=== PATIENT | male | born 1955 | race Caucasian/White ===

== ENCOUNTER 2019-10-16 20:09 | Emergency (ER) | payer SELFPAY ==
[~2019-10-16] VITALS: Ht 170.2 cm; Wt 86.2 kg
[~2019-10-16 20:09] MED LIST: LEVO150T10 PO
[2019-10-16] MEDS ORDERED: ONDANSETRON HCL 4 MG/2 ML VIAL IV ONE (23:00)
[2019-10-16] MEDS ORDERED: SODIUM CHLORIDE 0.9% 1,000 ML IV ONE (23:00)
[2019-10-16] MEDS ORDERED: MORPHINE SULFATE 4 MG/ML SYR/VIAL IV ONE (23:00)
[2019-10-17] VITALS: BP 146/92
[2019-10-17 01:14] LABS: Basophils # (auto) 0.1 uL; Basophils % (auto) 0.7 % (0.0-2.0); Eosinophils # (auto) 0.1 uL; Eosinophils % (auto) 0.7 % (0.0-7.0); Hemoglobin 15.5 g/dL (13.5-17.5); Lymphocytes % (auto) 15.3 % (10.0-50.0); Mean Corpuscular Hemoglobin 32.2 pg (28.0-32.0); Mean Corpuscular Hgb Conc. 33.8 g/dL (32.0-36.0); Mean Corpuscular Volume 95.5 fL (80.0-100.0); Monocytes # (auto) 0.8 uL; Monocytes % (auto) 6.1 % (0.0-12.0); Neutrophils # (auto) 10.1 uL; Neutrophils % (auto) 77.2 % (37.0-80.0); Platelet Count (auto) 290 10^3/uL (140-450); Red Blood Cells 4.82 10^6/uL (4.5-5.90); Red Cell Distribution Width 14.2 % (11.8-14.3); White Blood Cell 13.1 10^3/uL (4.4-10.8)
[2019-10-17 01:29] LABS: Urine Bacteria FEW /hpf (None Seen); Urine Blood Negative /uL (Negative); Urine Mucus FEW (None Seen); Urine Specific Gravity 1.022 (1.001-1.035); Urine WBC 5 /hpf (0 - 3)
[2019-10-17 01:34] LABS: Albumin 3.6 g/dL (3.4-5.0); BUN/Creatinine Ratio 10.1; Calcium 8.1 mg/dL (8.5-10.1); Magnesium 2.2 mg/dL (1.6-2.6); Potassium 4.1 mmol/L (3.5-5.1)
[2019-10-17 01:37] LABS: Bilirubin, Total 1.2 mg/dL (0.2-1.0); Total Protein 7.2 g/dL (6.4-8.2)
== END 2019-10-17 02:23 | disposition home or self-care (01) ==
LOC: EDBD 20:09 → ER 20:10
DX: K29.00 Acute gastritis without bleeding (principal); K57.30 Diverticulosis of large intestine without perforation or abscess without bleeding; E07.9 Disorder of thyroid, unspecified; F17.210 Nicotine dependence, cigarettes, uncomplicated
CPT/HCPCS: 36415; 74176; 80053; 81001; 82150; 83690; 83735; 84443; 85025; 96360

== ENCOUNTER 2021-08-13 07:23 | Emergency (ER) | payer MEDICAID ==
[~2021-08-13] VITALS: Ht 172.7 cm; Wt 88.5 kg
[2021-08-13 07:54] VITALS: BP 136/80
== END 2021-08-13 08:04 | disposition home or self-care (01) ==
LOC: ER 07:23
DX: E03.9 Hypothyroidism, unspecified (principal); Z87.438 Personal history of other diseases of male genital organs; Z76.0 Encounter for issue of repeat prescription; Z87.891 Personal history of nicotine dependence; Z79.899 Other long term (current) drug therapy

== ENCOUNTER 2021-09-07 00:34 | Emergency (ER) | payer MEDICAID ==
[~2021-09-07] VITALS: Ht 175.3 cm; Wt 88.5 kg
[2021-09-07 02:54] VITALS: BP 145/89
== END 2021-09-07 02:58 | disposition home or self-care (01) ==
LOC: ER 00:34
DX: E03.9 Hypothyroidism, unspecified (principal); Z87.438 Personal history of other diseases of male genital organs; Z76.0 Encounter for issue of repeat prescription; Z87.891 Personal history of nicotine dependence; Z79.899 Other long term (current) drug therapy

== ENCOUNTER 2022-03-02 08:37 | Inpatient (IN) | payer MEDICARE, MEDICAID ==
[~2022-03-02] VITALS: Ht 172.7 cm; Wt 93.4 kg
[2022-03-02 09:42] LABS: Basophils # (auto) 0.1 10 ^3/uL (0-0.2); Eosinophils # (auto) 0.5 10 ^3/uL (0-0.8); Lymphocytes # (auto) 2.1 10 ^3/uL (0.4-5.4); Monocytes # (auto) 1.4 10 ^3/uL (0-1.3); Neutrophils # (auto) 11.6 10 ^3/uL (1.6-8.6); Red Blood Cells 3.37 10^6/uL (4.5-5.90)
[2022-03-02 09:44] LABS: Basophils % (auto) 0.8 % (0.0-2.0); Hemoglobin 10.5 g/dL (13.5-17.5); Lymphocytes % (auto) 13.1 % (10.0-50.0); Mean Corpuscular Hemoglobin 31.1 pg (28.0-32.0); Mean Corpuscular Hgb Conc. 33.9 g/dL (32.0-36.0); Mean Corpuscular Volume 91.9 fL (80.0-100.0); Monocytes % (auto) 8.9 % (0.0-12.0); Neutrophils % (auto) 74.2 % (37.0-80.0); White Blood Cell 15.7 10^3/uL (4.4-10.8)
[2022-03-02 10:06] LABS: Albumin 2.8 g/dL (3.4-5.0); Calcium 8.7 mg/dL (8.5-10.1); Potassium 4.1 mmol/L (3.5-5.1)
[2022-03-02 10:08] LABS: Bilirubin, Total 0.4 mg/dL (0.2-1.0); Total Protein 7.1 g/dL (6.4-8.2)
[2022-03-02] MEDS ORDERED: cefTRIAXone 1GM/50ML D5W 50 ML IV ONE (12:00)
[2022-03-02] MEDS ORDERED: FUROSEMIDE 40 MG/4 ML VIAL IV ONE (12:00)
[2022-03-02] MEDS ORDERED: ENOXAPARIN SOD 100 MG/1 ML SYRINGE SC ONE (12:00)
[2022-03-02 12:31] LABS: Urine Bacteria None Seen /hpf (None Seen)
[2022-03-02 16:32] LABS: Urine Blood Negative /uL (Negative)
[2022-03-02 16:33] LABS: Urine WBC 0-3 /hpf (0 - 3)
[2022-03-02] MEDS ORDERED: NITROGLYCERIN 0.2MG/HR TOPICAL PATCH TD ONE (17:45)
[2022-03-02] MEDS ORDERED: MORPHINE SULFATE INJECTION 2 MG/ML SYRG IV PRN (17:45)
[2022-03-02] MEDS ORDERED: NITROGLYCERIN 0.4 MG SL TAB SL PRN (17:45)
[2022-03-02] MEDS ORDERED: NICOTINE 21MG/24 HR TOPICAL PATCH TD ONE (17:45)
[2022-03-02] MEDS ORDERED: hydrALAZINE HCL 20 MG/ML VL IV PRN (18:00)
[2022-03-02] MEDS: FUROSEMIDE 40 MG/4 ML VIAL IV SCH (18:34)
[2022-03-02 18:47] LABS: Cholesterol 106 mg/dL (< 200)
[2022-03-02 18:48] LABS: HDL Cholesterol 30 mg/dL (40-59); LDL Cholesterol 68 mg/dL (< 100); Triglycerides 89 mg/dL (< 150)
[2022-03-02] MEDS ORDERED: CIPROFLOXACIN 400MG/200ML 200 ML IV SCH (22:00)
[2022-03-02] MEDS: HEPARIN SODIUM (PORCINE) 5000 UNITS/ML 1ML VIAL SC SCH (22:09)
[2022-03-03 04:41] VITALS: BP 148/68
[2022-03-03] MEDS: FUROSEMIDE 40 MG/4 ML VIAL IV SCH (05:51)
[2022-03-03] MEDS: HEPARIN SODIUM (PORCINE) 5000 UNITS/ML 1ML VIAL SC SCH (05:51)
[2022-03-03 06:19] LABS: Albumin 2.4 g/dL (3.4-5.0); Calcium 8.2 mg/dL (8.5-10.1); Potassium 4.2 mmol/L (3.5-5.1)
[2022-03-03 06:20] LABS: BUN/Creatinine Ratio 10.3
[2022-03-03 06:23] LABS: Bilirubin, Total 0.4 mg/dL (0.2-1.0); Total Protein 6.2 g/dL (6.4-8.2)
[2022-03-03 06:32] LABS: Basophils # (auto) 0.1 10 ^3/uL (0-0.2); Hematocrit 27.9 % (41.0-53.0); Red Cell Distribution Width 14.4 % (11.8-14.3)
[2022-03-03 06:37] LABS: Eosinophils # (auto) 0.3 10 ^3/uL (0-0.8); Eosinophils % (auto) 2.4 % (0.0-7.0); Hemoglobin 9.7 g/dL (13.5-17.5); Lymphocytes % (auto) 14.2 % (10.0-50.0); Mean Corpuscular Hgb Conc. 34.8 g/dL (32.0-36.0); Monocytes # (auto) 1.6 10 ^3/uL (0-1.3); Neutrophils # (auto) 10.2 10 ^3/uL (1.6-8.6); Neutrophils % (auto) 71.4 % (37.0-80.0); Nucleated Red Blood Cells % 0.1 %; Red Blood Cells 3.03 10^6/uL (4.5-5.90); White Blood Cell 14.3 10^3/uL (4.4-10.8)
[2022-03-03 08:30] VITALS: BP 138/93
[2022-03-03] MEDS ORDERED: HEPARIN SODIUM (PORCINE) 5000 UNITS/ML 1ML VIAL SC SCH (10:00)
[2022-03-03] MEDS ORDERED: NICOTINE 21MG/24 HR TOPICAL PATCH TD SCH (10:00)
[2022-03-03] MEDS ORDERED: ACETAMINOPHEN 325 MG TAB PO PRN (11:45)
[2022-03-03] MEDS ORDERED: LEVOTHYROXINE SODIUM 100 MCG/5 ML INJ IV ONE (12:00)
[2022-03-03 12:30] VITALS: BP 137/95
[2022-03-03 12:50] LABS: Protein, Urine 17.3 mg/dL (0.0-11.9)
[2022-03-03] MEDS ORDERED: TAMSULOSIN HYDROCHLORIDE 0.4 MG CAP PO SCH (18:00)
[2022-03-04] MEDS ORDERED: LEVOTHYROXINE SODIUM 100 MCG/5 ML INJ IV SCH (10:00)
== END 2022-03-03 13:50 | disposition left against medical advice (07) | DRG 280 ==
LOC: ER 08:37 → TELE 17:34 → TELE-EAST 19:52
PROVIDERS: ADMIT Registered Nurse; ATTEND Internal Medicine
DX: I50.41 Acute combined systolic (congestive) and diastolic (congestive) heart failure (principal); I21.A1 Myocardial infarction type 2; J96.00 Acute respiratory failure, unspecified whether with hypoxia or hypercapnia; N17.9 Acute kidney failure, unspecified; N13.6 Pyonephrosis; E03.9 Hypothyroidism, unspecified; D63.8 Anemia in other chronic diseases classified elsewhere; Z20.822 Contact with and (suspected) exposure to COVID-19; E88.09 Other disorders of plasma-protein metabolism, not elsewhere classified; Z53.29 Procedure and treatment not carried out because of patient's decision for other reasons; F17.210 Nicotine dependence, cigarettes, uncomplicated; J84.10 Pulmonary fibrosis, unspecified; R79.89 Other specified abnormal findings of blood chemistry; J44.9 Chronic obstructive pulmonary disease, unspecified; N40.0 Benign prostatic hyperplasia without lower urinary tract symptoms; N21.0 Calculus in bladder; Z71.6 Tobacco abuse counseling
CPT/HCPCS: 36415; 71045; 76775; 80053; 80061; 81001; 82570; 83036; 83880; 83935; 84154; 84156; 84300; 84439; 84443; 84484; 85025; 87086; 93005; 93306; 96365; 96372; 96375; 99291; G0378; J0696

== ENCOUNTER 2022-03-14 13:42 | Inpatient (IN) | payer MEDICARE, MEDICAID ==
[~2022-03-14] VITALS: Ht 172.7 cm; Wt 79.8 kg
[2022-03-14] VITALS (7 sets, daily range): BP systolic 127–159; BP diastolic 95–120
[2022-03-14] MEDS ORDERED: FUROSEMIDE 100 MG/10ML VIAL IV ONE (14:15)
[2022-03-14 14:44] LABS: Basophils # (auto) 0.1 10 ^3/uL (0-0.2); Basophils % (auto) 0.7 % (0.0-2.0); Eosinophils # (auto) 0.1 10 ^3/uL (0-0.8); Eosinophils % (auto) 0.3 % (0.0-7.0); Hematocrit 32.6 % (41.0-53.0); Hemoglobin 10.9 g/dL (13.5-17.5); Lymphocytes # (auto) 2.7 10 ^3/uL (0.4-5.4); Lymphocytes % (auto) 13.9 % (10.0-50.0); Mean Corpuscular Hemoglobin 31.9 pg (28.0-32.0); Mean Corpuscular Hgb Conc. 33.4 g/dL (32.0-36.0); Mean Corpuscular Volume 95.6 fL (80.0-100.0); Monocytes # (auto) 1.7 10 ^3/uL (0-1.3); Monocytes % (auto) 8.5 % (0.0-12.0); Neutrophils # (auto) 15.1 10 ^3/uL (1.6-8.6); Neutrophils % (auto) 76.6 % (37.0-80.0); Nucleated Red Blood Cells % 0.9 %; Red Blood Cells 3.41 10^6/uL (4.5-5.90); Red Cell Distribution Width 14.9 % (11.8-14.3); White Blood Cell 19.7 10^3/uL (4.4-10.8)
[2022-03-14 14:55] LABS: Albumin 2.6 g/dL (3.4-5.0); BUN/Creatinine Ratio 18.6; Calcium 8.9 mg/dL (8.5-10.1); Potassium 4.2 mmol/L (3.5-5.1)
[2022-03-14 15:09] LABS: Bilirubin, Total 1.2 mg/dL (0.2-1.0); Total Protein 6.6 g/dL (6.4-8.2)
[2022-03-14] MEDS ORDERED: PIPERACILLIN-TAZOB 3.375GM 100 ML IV ONE (16:15)
[2022-03-14] MEDS ORDERED: ENOXAPARIN SOD 120 MG/0.8 ML SYRINGE SC ONE (16:45)
[2022-03-14] MEDS ORDERED: NITROGLYCERIN 0.2MG/HR TOPICAL PATCH TD ONE (16:45)
[2022-03-14 17:01] LABS: Lactic Acid w/Reflex 3.4 mmol/L (0.4-2.0)
[2022-03-14] MEDS ORDERED: ENOXAPARIN SOD 60 MG/0.6 ML SYRINGE SC ONE (17:30)
[2022-03-14] MEDS ORDERED: SODIUM BICARBONATE 8.4 % INJ 50ML VIAL IV ONE (17:30)
[2022-03-14] MEDS ORDERED: NITROGLYCERIN 0.4 MG SL TAB SL PRN (18:00)
[2022-03-14] MEDS ORDERED: MORPHINE SULFATE INJ 2 MG/ml SYRG IV PRN (18:00)
[2022-03-14] MEDS ORDERED: hydrALAZINE HCL 20 MG/ML VL IV PRN (18:00)
[2022-03-14] MEDS ORDERED: methylPREDNISolone SOD SUCC 125 MG/2 ML VL IM ONE (18:15)
[2022-03-14] MEDS ORDERED: IPRATROPIUM BROM 0.5 MG/2.5ML INH SOL NEB PRN (18:15)
[2022-03-14] MEDS ORDERED: ALBUTEROL SULF 2.5 MG/0.5ML(0.5%) NEB SOLN NEB PRN (18:15)
[2022-03-14] MEDS: PANTOPRAZOLE 40 MG/10 ML VIAL INJ IV SCH (18:57)
[2022-03-14 19:00] LABS: Cholesterol 69 mg/dL (< 200)
[2022-03-14 19:03] LABS: HDL Cholesterol 23 mg/dL (40-59); LDL Cholesterol 42 mg/dL (< 100); Triglycerides 53 mg/dL (< 150)
[2022-03-14 20:07] LABS: Urine Bacteria NONE SEEN /hpf (None Seen); Urine Blood 2+ /uL (Negative); Urine Hyaline Cast FEW /lpf (0 - 2); Urine Specific Gravity 1.006 (1.001-1.035); Urine WBC 4 /hpf (0 - 3)
[2022-03-14] MEDS ORDERED: MEROPENEM 1GM IVPB 100 ML IV SCH (22:00)
[2022-03-14] MEDS: MEROPENEM 500MG IVPB 50 ML IV SCH (22:12)
[2022-03-15] VITALS (17 sets, daily range): BP systolic 116–140; BP diastolic 76–93
[2022-03-15 04:54] LABS: Basophils # (auto) 0 10 ^3/uL (0-0.2); Basophils % (auto) 0.2 % (0.0-2.0); Eosinophils # (auto) 0 10 ^3/uL (0-0.8); Eosinophils % (auto) 0.1 % (0.0-7.0); Hematocrit 34.9 % (41.0-53.0); Lymphocytes # (auto) 1.3 10 ^3/uL (0.4-5.4); Lymphocytes % (auto) 8.3 % (10.0-50.0); Mean Corpuscular Hemoglobin 32.1 pg (28.0-32.0); Mean Corpuscular Hgb Conc. 34.5 g/dL (32.0-36.0); Mean Corpuscular Volume 93.1 fL (80.0-100.0); Monocytes # (auto) 0.4 10 ^3/uL (0-1.3); Monocytes % (auto) 2.9 % (0.0-12.0); Neutrophils # (auto) 13.7 10 ^3/uL (1.6-8.6); Neutrophils % (auto) 88.5 % (37.0-80.0); Red Blood Cells 3.75 10^6/uL (4.5-5.90); White Blood Cell 15.5 10^3/uL (4.4-10.8)
[2022-03-15 05:14] LABS: Albumin 2.3 g/dL (3.4-5.0); Calcium 8.8 mg/dL (8.5-10.1); Potassium 4.1 mmol/L (3.5-5.1)
[2022-03-15 05:21] LABS: BUN/Creatinine Ratio 20.8; Bilirubin, Total 0.8 mg/dL (0.2-1.0); Phosphorus 7.1 mg/dL (2.5-4.90)
[2022-03-15] MEDS ORDERED: methylPREDNISolone SOD SUCC 40 MG/ML VL IV SCH ×3 (06:00→10:00)
[2022-03-15] MEDS ORDERED: FUROSEMIDE 100 MG/10ML VIAL IV SCH (06:00)
[2022-03-15] MEDS: SODIUM BICARBONATE 650 MG TAB PO SCH ×3 (06:04→22:43)
[2022-03-15] MEDS: BUMETANIDE 2.5mg/10ml (0.25 mg/ml) INJ IV SCH ×2 (06:05→17:29)
[2022-03-15] MEDS: IPRATROPIUM BROM 0.5 MG/2.5ML INH SOL NEB SCH ×3 (06:51→19:10)
[2022-03-15] MEDS: ALBUTEROL SULF 2.5 MG/0.5ML(0.5%) NEB SOLN NEB SCH ×3 (06:51→19:10)
[2022-03-15] MEDS: PANTOPRAZOLE 40 MG/10 ML VIAL INJ IV SCH (09:33)
[2022-03-15] MEDS: MEROPENEM 500MG IVPB 50 ML IV SCH ×2 (09:33→22:43)
[2022-03-15] MEDS: HEPARIN SODIUM (PORCINE) 5000 UNITS/ML 1ML VIAL SC SCH ×2 (09:35→22:56)
[2022-03-15] MEDS: SEVELAMER 800 MG TAB PO SCH ×2 (14:39→17:20)
[2022-03-15 17:01] LABS: Alcohol, Urine < 3.0 mg/dL (0-10); Amphetamine Screen, Urine NEGATIVE (NEGATIVE); Barbiturate Scree,Urine NEGATIVE (NEGATIVE); Benzodiazephine Screen, Urine NEGATIVE (NEGATIVE); Cannabinoid Screen, Urine NEGATIVE (NEGATIVE); Cocaine Screen, Urine NEGATIVE (NEGATIVE); Opiate Scree,Urine NEGATIVE (NEGATIVE); Phencyclidine Screen, Urine NEGATIVE (NEGATIVE)
[2022-03-15] MEDS: MUPIROCIN 2% OINT 15gm or 22gm EACHNOSTRI SCH (22:44)
[2022-03-16 05:00] LABS: Basophils # (auto) 0.1 10 ^3/uL (0-0.2); Basophils % (auto) 0.2 % (0.0-2.0); Eosinophils # (auto) 0 10 ^3/uL (0-0.8); Lymphocytes # (auto) 1.4 10 ^3/uL (0.4-5.4); Lymphocytes % (auto) 4.1 % (10.0-50.0)
[2022-03-16 05:03] LABS: Hematocrit 33.7 % (41.0-53.0); Hemoglobin 11.7 g/dL (13.5-17.5); Mean Corpuscular Hemoglobin 32.2 pg (28.0-32.0); Mean Corpuscular Hgb Conc. 34.6 g/dL (32.0-36.0); Mean Corpuscular Volume 92.9 fL (80.0-100.0); Monocytes # (auto) 2.5 10 ^3/uL (0-1.3); Monocytes % (auto) 7.2 % (0.0-12.0); Neutrophils # (auto) 30.1 10 ^3/uL (1.6-8.6); Neutrophils % (auto) 88.5 % (37.0-80.0); Nucleated Red Blood Cells % 0.2 %; Red Blood Cells 3.63 10^6/uL (4.5-5.90); Red Cell Distribution Width 14.8 % (11.8-14.3)
[2022-03-16 05:21] LABS: Calcium 8.3 mg/dL (8.5-10.1); Potassium 3.5 mmol/L (3.5-5.1)
[2022-03-16 05:27] LABS: Albumin 2.6 g/dL (3.4-5.0); BUN/Creatinine Ratio 26.1; Bilirubin, Total 0.7 mg/dL (0.2-1.0); Magnesium 2.2 mg/dL (1.6-2.6); Total Protein 6.4 g/dL (6.4-8.2)
[2022-03-16] MEDS: BUMETANIDE 2.5mg/10ml (0.25 mg/ml) INJ IV SCH ×2 (05:27→09:28)
[2022-03-16] MEDS: SODIUM BICARBONATE 650 MG TAB PO SCH ×3 (05:28→21:27)
[2022-03-16] MEDS: LEVOTHYROXINE SODIUM 100 MCG TAB PO SCH (05:28)
[2022-03-16 05:46] LABS: White Blood Cell 34.1 10^3/uL (4.4-10.8)
[2022-03-16] MEDS: IPRATROPIUM BROM 0.5 MG/2.5ML INH SOL NEB SCH ×3 (05:54→18:37)
[2022-03-16] MEDS: ALBUTEROL SULF 2.5 MG/0.5ML(0.5%) NEB SOLN NEB SCH ×3 (05:54→18:37)
[2022-03-16] MEDS ORDERED: HEPARIN SODIUM (PORCINE) 5000 UNITS/ML 1ML VIAL ONE (09:20)
[2022-03-16] MEDS: HEPARIN SODIUM (PORCINE) 5000 UNITS/ML 1ML VIAL SC SCH ×2 (09:25→21:50)
[2022-03-16] MEDS: SEVELAMER 800 MG TAB PO SCH ×3 (09:26→17:55)
[2022-03-16] MEDS: PANTOPRAZOLE 40 MG/10 ML VIAL INJ IV SCH (09:26)
[2022-03-16] MEDS: MEROPENEM 500MG IVPB 50 ML IV SCH ×2 (09:31→21:27)
[2022-03-16] MEDS: MUPIROCIN 2% OINT 15gm or 22gm EACHNOSTRI SCH ×2 (10:00→21:51)
[2022-03-16] MEDS ORDERED: FAMOTIDINE 20 MG TAB PO ONE (10:30)
[2022-03-16 12:00] VITALS: BP 139/92
[2022-03-16] MEDS: methylPREDNISolone SOD SUCC 40 MG/ML VL IV SCH (14:44)
[2022-03-16 15:30] LABS: Potassium 2.9 mmol/L (3.5-5.1)
[2022-03-16] MEDS ORDERED: POTASSIUM CHL 20 Meq TABLET PO ONE ×2 (17:45→19:45)
[2022-03-16 20:00] VITALS: BP 134/86
[2022-03-16] MEDS ORDERED: TEMAZEPAM 15 MG CAP PO ONE (20:45)
[2022-03-17] MEDS ORDERED: POTASSIUM CHL 20 Meq TABLET PO ONE ×2 (01:45→12:45)
[2022-03-17 04:00] VITALS: BP 114/76
[2022-03-17 05:11] LABS: BUN/Creatinine Ratio 27.1; Calcium 7.7 mg/dL (8.5-10.1); Potassium 3.6 mmol/L (3.5-5.1)
[2022-03-17 05:49] LABS: Hemoglobin 12.1 g/dL (13.5-17.5); Mean Corpuscular Hemoglobin 30.8 pg (28.0-32.0); Mean Corpuscular Hgb Conc. 32.9 g/dL (32.0-36.0); Mean Corpuscular Volume 93.7 fL (80.0-100.0); Red Blood Cells 3.94 10^6/uL (4.5-5.90); Red Cell Distribution Width 15.2 % (11.8-14.3)
[2022-03-17 05:57] LABS: Basophils % (manual) 0 (0.0-2.0); Blast Cells 0; Metamyelocytes % 0; Myelocytes % 0; Promyelocytes % 0; Reactive Lymphocytes 0
[2022-03-17] MEDS: ALBUTEROL SULF 2.5 MG/0.5ML(0.5%) NEB SOLN NEB SCH ×3 (06:24→17:45)
[2022-03-17] MEDS: IPRATROPIUM BROM 0.5 MG/2.5ML INH SOL NEB SCH ×3 (06:26→17:45)
[2022-03-17] MEDS: SODIUM BICARBONATE 650 MG TAB PO SCH ×3 (07:00→20:16)
[2022-03-17] MEDS: LEVOTHYROXINE SODIUM 100 MCG TAB PO SCH (07:00)
[2022-03-17 08:00] VITALS: BP 123/91
[2022-03-17 08:00] LABS: Band Neutrophils % (manual) 1; Eosinophils % (manual) 1 (0-7); Lymphocytes % (manual) 6 (10.0-50.0); Monocytes % (manual) 10 (0-12)
[2022-03-17] MEDS: MUPIROCIN 2% OINT 15gm or 22gm EACHNOSTRI SCH ×2 (10:00→20:15)
[2022-03-17] MEDS: MEROPENEM 500MG IVPB 50 ML IV SCH ×2 (10:29→20:15)
[2022-03-17] MEDS: SEVELAMER 800 MG TAB PO SCH ×3 (10:30→19:38)
[2022-03-17] MEDS: PANTOPRAZOLE 40 MG/10 ML VIAL INJ IV SCH (10:31)
[2022-03-17] MEDS: BUMETANIDE 2.5mg/10ml (0.25 mg/ml) INJ IV SCH (10:32)
[2022-03-17] MEDS: methylPREDNISolone SOD SUCC 40 MG/ML VL IV SCH (10:32)
[2022-03-17] MEDS: HEPARIN SODIUM (PORCINE) 5000 UNITS/ML 1ML VIAL SC SCH ×2 (10:33→20:16)
[2022-03-17 11:45] VITALS: BP 142/87
[2022-03-17 13:21] LABS: Hepatitis A Ab IgM Negative
[2022-03-17 13:22] LABS: Hepatitis B Core IgM Negative
[2022-03-17 13:24] LABS: Hepatitis C Antibody Reactive (Negative)
[2022-03-17] MEDS ORDERED: MAGNESIUM SULFATE 1GM/100ML 100 ML IV ONE ×2 (14:15→19:35)
[2022-03-17] MEDS ORDERED: POTASSIUM EFFERVESENT TAB 25 MEQ PO ONE (14:15)
[2022-03-17] MEDS ORDERED: METOCLOPRAMIDE HCL 5MG/ml INJ 2ml VIAL IV PRN (15:45)
[2022-03-17 16:00] VITALS: BP 143/92
[2022-03-17] MEDS: SUCRALFATE 1 GM TAB PO SCH ×2 (19:37→20:19)
[2022-03-17] MEDS ORDERED: ACET-1158 PO (19:42)
[2022-03-17 20:00] VITALS: BP 124/86
[2022-03-17] MEDS ORDERED: TEMAZEPAM 15 MG CAP PO PRN (20:15)
[2022-03-17] MEDS ORDERED: LACTULOSE 20Gm/30ML SOLN PO SCH (22:00)
[2022-03-17] MEDS ORDERED: LACTULOSE 20Gm/30ML SOLN PO PRN (22:00)
[2022-03-17] MEDS: MORPHINE SULFATE INJ 2 MG/ml SYRG IV PRN (23:44)
[2022-03-18] VITALS (58 sets, daily range): BP systolic 94–166; BP diastolic 67–100
[2022-03-18] MEDS ORDERED: LORazepam 2MG/ML-1ML VIAL IV ONE (02:30)
[2022-03-18] MEDS ORDERED: LORazepam 2MG/ML-1ML VIAL ONE (02:31)
[2022-03-18] MEDS: MORPHINE SULFATE INJ 2 MG/ml SYRG IV PRN (03:29)
[2022-03-18] MEDS: SUCRALFATE 1 GM TAB PO SCH (05:05)
[2022-03-18] MEDS: SODIUM BICARBONATE 650 MG TAB PO SCH ×3 (05:06→22:00)
[2022-03-18] MEDS: LEVOTHYROXINE SODIUM 100 MCG TAB PO SCH (05:07)
[2022-03-18] MEDS: IPRATROPIUM BROM 0.5 MG/2.5ML INH SOL NEB SCH ×3 (06:00→18:51)
[2022-03-18] MEDS: ALBUTEROL SULF 2.5 MG/0.5ML(0.5%) NEB SOLN NEB SCH ×3 (06:00→18:51)
[2022-03-18 07:09] LABS: Basophils # (auto) 0 10 ^3/uL (0-0.2); Basophils % (auto) 0.2 % (0.0-2.0); Eosinophils # (auto) 0 10 ^3/uL (0-0.8); Hematocrit 46.1 % (41.0-53.0); Hemoglobin 15.6 g/dL (13.5-17.5); Lymphocytes # (auto) 0.9 10 ^3/uL (0.4-5.4); Lymphocytes % (auto) 4.4 % (10.0-50.0); Mean Corpuscular Hemoglobin 31.8 pg (28.0-32.0); Mean Corpuscular Hgb Conc. 33.8 g/dL (32.0-36.0); Mean Corpuscular Volume 94.1 fL (80.0-100.0); Monocytes # (auto) 1.3 10 ^3/uL (0-1.3); Monocytes % (auto) 6.1 % (0.0-12.0); Neutrophils # (auto) 18.5 10 ^3/uL (1.6-8.6); Neutrophils % (auto) 89.3 % (37.0-80.0); Nucleated Red Blood Cells % 0.3 %; Red Cell Distribution Width 15.9 % (11.8-14.3); White Blood Cell 20.7 10^3/uL (4.4-10.8)
[2022-03-18 07:28] LABS: Calcium 8.6 mg/dL (8.5-10.1); Potassium 4.2 mmol/L (3.5-5.1)
[2022-03-18 07:32] LABS: INR 1.18 (0.9-1.15)
[2022-03-18 07:34] LABS: Albumin 2.9 g/dL (3.4-5.0); BUN/Creatinine Ratio 27.2; Bilirubin, Total 1.2 mg/dL (0.2-1.0); Magnesium 2.5 mg/dL (1.6-2.6); Phosphorus 4.1 mg/dL (2.5-4.90); Total Protein 7.3 g/dL (6.4-8.2)
[2022-03-18 07:37] LABS: Lactic Acid w/Reflex 3.1 mmol/L (0.4-2.0)
[2022-03-18] MEDS ORDERED: ETOMIDATE (2MG/ML) 20ML VIAL IV ONE (08:16)
[2022-03-18] MEDS ORDERED: ROCURONIUM 10MG/ML 10ML VIAL IV ONE ×2 (08:16→08:47)
[2022-03-18] MEDS ORDERED: BUPIVACAINE W/ EPINEPH 0.25% INJ 50ML MDV ONE (08:31)
[2022-03-18] MEDS ORDERED: ceFAZolin 1GM/50ML 100 ML IV ONE (08:45)
[2022-03-18] MEDS ORDERED: fentaNYL CITRATE 100 MCG/2 ML VL ONE (08:47)
[2022-03-18] MEDS ORDERED: MIDAZOLAM HCL 2MG/2ML 2ml VIAL (1mg/ml) ONE (08:47)
[2022-03-18] MEDS: PANTOPRAZOLE 40 MG/10 ML VIAL INJ IV SCH (10:00)
[2022-03-18] MEDS: BUMETANIDE 2.5mg/10ml (0.25 mg/ml) INJ IV SCH (10:00)
[2022-03-18] MEDS: HEPARIN SODIUM (PORCINE) 5000 UNITS/ML 1ML VIAL SC SCH ×2 (10:00→22:00)
[2022-03-18] MEDS: MUPIROCIN 2% OINT 15gm or 22gm EACHNOSTRI SCH ×2 (10:00→22:44)
[2022-03-18] MEDS: MEROPENEM 500MG IVPB 50 ML IV SCH ×2 (10:00→22:39)
[2022-03-18] MEDS ORDERED: HYDROmorphone HCL 2 MG/ML VL/or syr ONE (10:11)
[2022-03-18] MEDS ORDERED: metroNIDAZOLE 500MG/100ML 100 ML IV ONE (10:27)
[2022-03-18] MEDS ORDERED: MIDAZOLAM DRIP 50 mg/50mL 50 ML IV ONE (10:55)
[2022-03-18] MEDS ORDERED: LIDOCAINE 2% (LOCAL ANESTH.) PF 5ml SDV ONE (11:07)
[2022-03-18] MEDS ORDERED: PROPOFOL 10 MG/ML 20 ML IV ONE (11:07)
[2022-03-18] MEDS ORDERED: ONDANSETRON HCL 4 MG/2 ML VIAL IV ONE (11:15)
[2022-03-18] MEDS ORDERED: SUCCINYLCHOLINE 20mg/ml 100mg/5ml SYRINGE IV ONE (11:15)
[2022-03-18] MEDS ORDERED: PHENYLEPHRINE HCL 10 MG/ML VL IV ONE (11:20)
[2022-03-18] MEDS: D5W/SOD CHL 0.45%/KCL 20MEQ 1,000 ML IV SCH ×2 (12:19→22:44)
[2022-03-18] MEDS: MIDAZOLAM DRIP 50 mg/50mL 50 ML IV SCH ×2 (12:20→17:01)
[2022-03-18] MEDS: fentaNYL Drip 2500mCg/250mlNS 250 ML IV SCH (12:21)
[2022-03-18] MEDS: SEVELAMER 800 MG TAB PO SCH ×2 (12:25→17:45)
[2022-03-19] VITALS (105 sets, daily range): BP systolic 84–123; BP diastolic 60–107
[2022-03-19] MEDS: MIDAZOLAM DRIP 50 mg/50mL 50 ML IV SCH ×3 (02:22→16:33)
[2022-03-19] MEDS: D5W/SOD CHL 0.45%/KCL 20MEQ 1,000 ML IV SCH (03:40)
[2022-03-19 04:46] LABS: Basophils # (auto) 0.4 10 ^3/uL (0-0.2); Basophils % (auto) 1.7 % (0.0-2.0); Eosinophils # (auto) 0 10 ^3/uL (0-0.8); Hematocrit 41.1 % (41.0-53.0); Hemoglobin 13.4 g/dL (13.5-17.5); Lymphocytes # (auto) 0.8 10 ^3/uL (0.4-5.4); Lymphocytes % (auto) 3.7 % (10.0-50.0); Mean Corpuscular Hemoglobin 31.6 pg (28.0-32.0); Mean Corpuscular Hgb Conc. 32.6 g/dL (32.0-36.0); Mean Corpuscular Volume 96.9 fL (80.0-100.0); Monocytes # (auto) 1.5 10 ^3/uL (0-1.3); Monocytes % (auto) 7.3 % (0.0-12.0); Neutrophils # (auto) 18.5 10 ^3/uL (1.6-8.6); Neutrophils % (auto) 87.3 % (37.0-80.0); Nucleated Red Blood Cells % 0.1 %; Red Blood Cells 4.24 10^6/uL (4.5-5.90); Red Cell Distribution Width 16.1 % (11.8-14.3); White Blood Cell 21.2 10^3/uL (4.4-10.8)
[2022-03-19 04:53] LABS: Albumin 2.2 g/dL (3.4-5.0); BUN/Creatinine Ratio 27.2; Potassium 5.3 mmol/L (3.5-5.1)
[2022-03-19 04:56] LABS: Bilirubin, Total 1.2 mg/dL (0.2-1.0)
[2022-03-19] MEDS: LEVOTHYROXINE SODIUM 100 MCG TAB PO SCH (05:35)
[2022-03-19] MEDS: SODIUM BICARBONATE 650 MG TAB PO SCH (05:35)
[2022-03-19] MEDS: IPRATROPIUM BROM 0.5 MG/2.5ML INH SOL NEB SCH ×3 (06:19→18:33)
[2022-03-19] MEDS: ALBUTEROL SULF 2.5 MG/0.5ML(0.5%) NEB SOLN NEB SCH ×3 (06:19→18:33)
[2022-03-19] MEDS: SEVELAMER 800 MG TAB PO SCH ×3 (08:00→17:33)
[2022-03-19] MEDS: HEPARIN SODIUM (PORCINE) 5000 UNITS/ML 1ML VIAL SC SCH ×2 (10:00→21:41)
[2022-03-19] MEDS: MUPIROCIN 2% OINT 15gm or 22gm EACHNOSTRI SCH ×2 (10:10→21:44)
[2022-03-19] MEDS: MEROPENEM 500MG IVPB 50 ML IV SCH ×2 (10:10→21:40)
[2022-03-19] MEDS: PANTOPRAZOLE 40 MG/10 ML VIAL INJ IV SCH (10:10)
[2022-03-19] MEDS: fentaNYL Drip 2500mCg/250mlNS 250 ML IV SCH (10:27)
[2022-03-19] MEDS: BUMETANIDE 2.5mg/10ml (0.25 mg/ml) INJ IV SCH (10:27)
[2022-03-19] MEDS ORDERED: D5W/SOD CHL 0.45%/KCL 20MEQ 1,000 ML IV SCH (10:30)
[2022-03-19] MEDS: SODIUM CHLORIDE 0.9% 1,000 ML IV SCH (14:44)
[2022-03-19] MEDS ORDERED: LIDOCAINE 1% (LOCAL ANESTH.) PF 5ml SDV ID ONE (15:15)
[2022-03-19] MEDS ORDERED: TPN PER PHARMACY 0 ML IV SCH (15:30)
[2022-03-19] MEDS ORDERED: AMINO ACID INFUSION IN D10W 1,000 ML IV NR (20:00)
[2022-03-19] MEDS: SODIUM CHLOR 0.9% PF (SALINE LOCK) 10ML VIAL/SYR IV SCH (21:41)
[2022-03-19] MEDS: ACCU-CHEK COMFORT CURVE STRIP VI SCH (23:51)
[2022-03-19] MEDS: InsuLIN REG 1unit/0.01ml Soln (100units/ml) SC SCH (23:53)
[2022-03-20] VITALS (107 sets, daily range): BP systolic 99–127; BP diastolic 64–85
[2022-03-20] MEDS ORDERED: DEXTROSE (50%) 50ML SYRG IV SCH
[2022-03-20] MEDS: SODIUM CHLORIDE 0.9% 1,000 ML IV SCH ×2 (02:11→16:00)
[2022-03-20 05:00] LABS: INR 1.13 (0.9-1.15)
[2022-03-20 05:02] LABS: Albumin 1.9 g/dL (3.4-5.0); BUN/Creatinine Ratio 29.2; Calcium 7.8 mg/dL (8.5-10.1); Magnesium 2.4 mg/dL (1.6-2.6)
[2022-03-20 05:05] LABS: Bilirubin, Total 0.6 mg/dL (0.2-1.0); Total Protein 5.8 g/dL (6.4-8.2)
[2022-03-20 05:08] LABS: Basophils # (auto) 0.1 10 ^3/uL (0-0.2); Basophils % (auto) 0.3 % (0.0-2.0); Eosinophils # (auto) 0.1 10 ^3/uL (0-0.8); Eosinophils % (auto) 0.5 % (0.0-7.0); Hematocrit 35.6 % (41.0-53.0); Hemoglobin 11.6 g/dL (13.5-17.5); Lymphocytes # (auto) 1.2 10 ^3/uL (0.4-5.4); Lymphocytes % (auto) 5.6 % (10.0-50.0); Mean Corpuscular Hemoglobin 31.6 pg (28.0-32.0); Mean Corpuscular Hgb Conc. 32.5 g/dL (32.0-36.0); Mean Corpuscular Volume 97.1 fL (80.0-100.0); Monocytes % (auto) 9.2 % (0.0-12.0); Neutrophils # (auto) 18.2 10 ^3/uL (1.6-8.6); Neutrophils % (auto) 84.4 % (37.0-80.0); Red Blood Cells 3.67 10^6/uL (4.5-5.90); Red Cell Distribution Width 15.6 % (11.8-14.3); White Blood Cell 21.6 10^3/uL (4.4-10.8)
[2022-03-20] MEDS: LEVOTHYROXINE SODIUM 100 MCG TAB PO SCH (05:14)
[2022-03-20] MEDS: ACCU-CHEK COMFORT CURVE STRIP VI SCH ×4 (05:14→23:11)
[2022-03-20] MEDS: MIDAZOLAM DRIP 50 mg/50mL 50 ML IV SCH (05:17)
[2022-03-20] MEDS: InsuLIN REG 1unit/0.01ml Soln (100units/ml) SC SCH ×4 (05:23→23:11)
[2022-03-20] MEDS: ALBUTEROL SULF 2.5 MG/0.5ML(0.5%) NEB SOLN NEB SCH ×3 (06:00→17:39)
[2022-03-20] MEDS: IPRATROPIUM BROM 0.5 MG/2.5ML INH SOL NEB SCH ×3 (06:00→17:39)
[2022-03-20] MEDS: SEVELAMER 800 MG TAB PO SCH ×3 (08:00→18:53)
[2022-03-20] MEDS: fentaNYL Drip 2500mCg/250mlNS 250 ML IV SCH (08:19)
[2022-03-20] MEDS: BUMETANIDE 2.5mg/10ml (0.25 mg/ml) INJ IV SCH (09:56)
[2022-03-20] MEDS: PANTOPRAZOLE 40 MG/10 ML VIAL INJ IV SCH (09:56)
[2022-03-20] MEDS: MUPIROCIN 2% OINT 15gm or 22gm EACHNOSTRI SCH (09:57)
[2022-03-20] MEDS: MEROPENEM 500MG IVPB 50 ML IV SCH ×2 (09:58→21:09)
[2022-03-20] MEDS: SODIUM CHLOR 0.9% PF (SALINE LOCK) 10ML VIAL/SYR IV SCH ×2 (09:59→21:09)
[2022-03-20] MEDS: HEPARIN SODIUM (PORCINE) 5000 UNITS/ML 1ML VIAL SC SCH ×2 (11:05→21:53)
[2022-03-20] MEDS ORDERED: TPN PER PHARMACY IV NR ×8 (20:00)
[2022-03-21] VITALS (103 sets, daily range): BP systolic 104–152; BP diastolic 66–103
[2022-03-21] MEDS: MIDAZOLAM DRIP 50 mg/50mL 50 ML IV SCH (03:03)
[2022-03-21] MEDS: fentaNYL Drip 2500mCg/250mlNS 250 ML IV SCH (03:04)
[2022-03-21 04:51] LABS: Potassium 3.4 mmol/L (3.5-5.1)
[2022-03-21 04:58] LABS: Albumin 1.8 g/dL (3.4-5.0); BUN/Creatinine Ratio 33.8; Bilirubin, Total 0.5 mg/dL (0.2-1.0); Calcium 7.8 mg/dL (8.5-10.1); Magnesium 2.7 mg/dL (1.6-2.6); Phosphorus 3.9 mg/dL (2.5-4.90); Total Protein 5.8 g/dL (6.4-8.2)
[2022-03-21] MEDS: InsuLIN REG 1unit/0.01ml Soln (100units/ml) SC SCH ×4 (05:17→23:52)
[2022-03-21] MEDS: ACCU-CHEK COMFORT CURVE STRIP VI SCH ×4 (05:17→23:52)
[2022-03-21] MEDS: LEVOTHYROXINE SODIUM 100 MCG TAB PO SCH (06:02)
[2022-03-21] MEDS: IPRATROPIUM BROM 0.5 MG/2.5ML INH SOL NEB SCH ×3 (06:21→18:22)
[2022-03-21] MEDS: ALBUTEROL SULF 2.5 MG/0.5ML(0.5%) NEB SOLN NEB SCH ×3 (06:21→18:22)
[2022-03-21] MEDS: SODIUM CHLORIDE 0.9% 1,000 ML IV SCH ×2 (06:24→10:52)
[2022-03-21] MEDS: SEVELAMER 800 MG TAB PO SCH (08:00)
[2022-03-21 08:32] LABS: Basophils # (auto) 0.1 10 ^3/uL (0-0.2); Basophils % (auto) 0.5 % (0.0-2.0); Eosinophils # (auto) 0.4 10 ^3/uL (0-0.8); Eosinophils % (auto) 2.4 % (0.0-7.0); Hematocrit 34.7 % (41.0-53.0); Hemoglobin 11.1 g/dL (13.5-17.5); Lymphocytes # (auto) 1.3 10 ^3/uL (0.4-5.4); Lymphocytes % (auto) 7.2 % (10.0-50.0); Mean Corpuscular Hemoglobin 31.4 pg (28.0-32.0); Mean Corpuscular Volume 98.1 fL (80.0-100.0); Monocytes # (auto) 1.8 10 ^3/uL (0-1.3); Monocytes % (auto) 10.4 % (0.0-12.0); Neutrophils # (auto) 14.2 10 ^3/uL (1.6-8.6); Neutrophils % (auto) 79.5 % (37.0-80.0); Red Blood Cells 3.54 10^6/uL (4.5-5.90); Red Cell Distribution Width 15.7 % (11.8-14.3); White Blood Cell 17.8 10^3/uL (4.4-10.8)
[2022-03-21] MEDS ORDERED: POTASSIUM CHL 20MEQ/100ML 100 ML IV ONE (09:45)
[2022-03-21] MEDS: SODIUM CHLOR 0.9% PF (SALINE LOCK) 10ML VIAL/SYR IV SCH ×2 (10:00→21:54)
[2022-03-21] MEDS: BUMETANIDE 2.5mg/10ml (0.25 mg/ml) INJ IV SCH (10:44)
[2022-03-21] MEDS: MEROPENEM 500MG IVPB 50 ML IV SCH ×2 (10:44→21:05)
[2022-03-21] MEDS: PANTOPRAZOLE 40 MG/10 ML VIAL INJ IV SCH (10:45)
[2022-03-21] MEDS: HEPARIN SODIUM (PORCINE) 5000 UNITS/ML 1ML VIAL SC SCH ×2 (10:55→21:06)
[2022-03-21] MEDS ORDERED: MORPHINE SULFATE INJ 2 MG/ml SYRG IV PRN (15:30)
[2022-03-21] MEDS: SOD CHL 0.45% 1,000 ML IV SCH (17:15)
[2022-03-21] MEDS ORDERED: TPN PER PHARMACY IV NR ×7 (20:00)
[2022-03-22] VITALS (101 sets, daily range): BP systolic 83–137; BP diastolic 56–94
[2022-03-22] MEDS: SOD CHL 0.45% 1,000 ML IV SCH ×2 (03:51→11:45)
[2022-03-22 04:57] LABS: Potassium 3.1 mmol/L (3.5-5.1)
[2022-03-22 05:04] LABS: Albumin 1.7 g/dL (3.4-5.0); BUN/Creatinine Ratio 34.3; Bilirubin, Total 0.6 mg/dL (0.2-1.0); Calcium 7.2 mg/dL (8.5-10.1); Magnesium 2.1 mg/dL (1.6-2.6); Phosphorus 2.2 mg/dL (2.5-4.90); Total Protein 5.6 g/dL (6.4-8.2)
[2022-03-22] MEDS: LEVOTHYROXINE SODIUM 100 MCG TAB PO SCH (05:56)
[2022-03-22] MEDS: InsuLIN REG 1unit/0.01ml Soln (100units/ml) SC SCH ×4 (06:00→23:44)
[2022-03-22] MEDS: ACCU-CHEK COMFORT CURVE STRIP VI SCH ×4 (06:13→23:44)
[2022-03-22] MEDS: IPRATROPIUM BROM 0.5 MG/2.5ML INH SOL NEB SCH ×3 (06:16→18:08)
[2022-03-22] MEDS: ALBUTEROL SULF 2.5 MG/0.5ML(0.5%) NEB SOLN NEB SCH ×3 (06:16→18:08)
[2022-03-22] MEDS: fentaNYL Drip 2500mCg/250mlNS 250 ML IV SCH (08:26)
[2022-03-22] MEDS: MEROPENEM 500MG IVPB 50 ML IV SCH (09:40)
[2022-03-22] MEDS: SODIUM CHLOR 0.9% PF (SALINE LOCK) 10ML VIAL/SYR IV SCH ×2 (09:40→21:21)
[2022-03-22] MEDS: PANTOPRAZOLE 40 MG/10 ML VIAL INJ IV SCH (09:40)
[2022-03-22] MEDS: HEPARIN SODIUM (PORCINE) 5000 UNITS/ML 1ML VIAL SC SCH ×2 (09:49→21:21)
[2022-03-22] MEDS ORDERED: POTASSIUM CHL 20MEQ/100ML 200 ML IV ONE (10:17)
[2022-03-22] MEDS: POTASSIUM CHL 20MEQ/100ML 100 ML IV SCH ×2 (10:25→11:29)
[2022-03-22] MEDS ORDERED: CALCIUM GLUC 1,000mg/50ml-NS 50 ML IV ONE (11:00)
[2022-03-22] MEDS: MIDAZOLAM DRIP 50 mg/50mL 50 ML IV SCH ×2 (12:28→18:54)
[2022-03-22] MEDS ORDERED: POTASSIUM PHOSPHATE 44 MEQ in D5W 5% 250 ML IV ONE (15:30)
[2022-03-22] MEDS ORDERED: TPN PER PHARMACY IV NR ×6 (20:00)
[2022-03-22] MEDS: MEROPENEM 1GM IVPB 100 ML IV SCH (21:20)
[2022-03-23] VITALS (76 sets, daily range): BP systolic 106–159; BP diastolic 8–122
[2022-03-23] MEDS: MIDAZOLAM DRIP 50 mg/50mL 50 ML IV SCH (03:36)
[2022-03-23 04:37] LABS: Basophils # (auto) 0.1 10 ^3/uL (0-0.2); Basophils % (auto) 0.3 % (0.0-2.0); Eosinophils # (auto) 0.7 10 ^3/uL (0-0.8); Eosinophils % (auto) 3.6 % (0.0-7.0); Hematocrit 36.8 % (41.0-53.0); Lymphocytes # (auto) 2.4 10 ^3/uL (0.4-5.4); Lymphocytes % (auto) 12.4 % (10.0-50.0); Mean Corpuscular Hemoglobin 31.7 pg (28.0-32.0); Mean Corpuscular Hgb Conc. 32.8 g/dL (32.0-36.0); Mean Corpuscular Volume 96.8 fL (80.0-100.0); Monocytes # (auto) 2.5 10 ^3/uL (0-1.3); Monocytes % (auto) 12.9 % (0.0-12.0); Neutrophils # (auto) 13.7 10 ^3/uL (1.6-8.6); Neutrophils % (auto) 70.8 % (37.0-80.0); Nucleated Red Blood Cells % 0.1 %; Red Cell Distribution Width 15.3 % (11.8-14.3); White Blood Cell 19.4 10^3/uL (4.4-10.8)
[2022-03-23 04:54] LABS: Calcium 8.1 mg/dL (8.5-10.1); Potassium 3.7 mmol/L (3.5-5.1)
[2022-03-23 04:56] LABS: Albumin 1.9 g/dL (3.4-5.0); BUN/Creatinine Ratio 32.8; Magnesium 1.9 mg/dL (1.6-2.6)
[2022-03-23 04:59] LABS: Bilirubin, Total 0.6 mg/dL (0.2-1.0); Phosphorus 2.6 mg/dL (2.5-4.90); Total Protein 5.9 g/dL (6.4-8.2)
[2022-03-23] MEDS: InsuLIN REG 1unit/0.01ml Soln (100units/ml) SC SCH ×4 (06:00→23:36)
[2022-03-23] MEDS: ACCU-CHEK COMFORT CURVE STRIP VI SCH ×4 (06:11→23:33)
[2022-03-23] MEDS: LEVOTHYROXINE SODIUM 100 MCG TAB PO SCH (06:11)
[2022-03-23] MEDS: fentaNYL Drip 2500mCg/250mlNS 250 ML IV SCH (06:43)
[2022-03-23] MEDS: ALBUTEROL SULF 2.5 MG/0.5ML(0.5%) NEB SOLN NEB SCH ×3 (08:09→18:30)
[2022-03-23] MEDS: IPRATROPIUM BROM 0.5 MG/2.5ML INH SOL NEB SCH ×3 (08:09→18:30)
[2022-03-23] MEDS: PANTOPRAZOLE 40 MG/10 ML VIAL INJ IV SCH (10:27)
[2022-03-23] MEDS: MEROPENEM 1GM IVPB 100 ML IV SCH ×2 (10:27→21:56)
[2022-03-23] MEDS: SODIUM CHLOR 0.9% PF (SALINE LOCK) 10ML VIAL/SYR IV SCH ×2 (10:27→22:01)
[2022-03-23] MEDS: HEPARIN SODIUM (PORCINE) 5000 UNITS/ML 1ML VIAL SC SCH ×2 (10:28→21:59)
[2022-03-23] MEDS ORDERED: EPINEPHrine HCL 0.5 ML NEB ONE (11:21)
[2022-03-23] MEDS ORDERED: KETOROLAC TROMETH 30 MG/ML 1ML VIAL IV PRN (12:00)
[2022-03-23] MEDS ORDERED: EPINEPHrine HCL 0.5 ML NEB NEB ONE (12:00)
[2022-03-23] MEDS: KETOROLAC TROMETH 30 MG/ML 1ML VIAL IV PRN (13:22)
[2022-03-23] MEDS: D5W 5% 1,000 ML IV SCH ×2 (14:02→23:12)
[2022-03-23 19:13] LABS: BUN/Creatinine Ratio 29.1; Calcium 8.3 mg/dL (8.5-10.1); Potassium 3.7 mmol/L (3.5-5.1)
[2022-03-23] MEDS ORDERED: TPN PER PHARMACY IV NR ×7 (20:00)
[2022-03-24] VITALS (23 sets, daily range): BP systolic 95–122; BP diastolic 53–85
[2022-03-24] MEDS ORDERED: TEMAZEPAM 15 MG CAP NG ONE (00:18)
[2022-03-24] MEDS ORDERED: TEMAZEPAM 15 MG CAP ONE (00:24)
[2022-03-24] MEDS: KETOROLAC TROMETH 30 MG/ML 1ML VIAL IV PRN ×3 (00:37→12:44)
[2022-03-24 04:31] LABS: Basophils # (auto) 0.1 10 ^3/uL (0-0.2); Basophils % (auto) 0.4 % (0.0-2.0); Eosinophils # (auto) 0.6 10 ^3/uL (0-0.8); Eosinophils % (auto) 2.5 % (0.0-7.0); Hemoglobin 12.4 g/dL (13.5-17.5); Lymphocytes # (auto) 2.6 10 ^3/uL (0.4-5.4); Lymphocytes % (auto) 10.6 % (10.0-50.0); Mean Corpuscular Hemoglobin 32.1 pg (28.0-32.0); Mean Corpuscular Hgb Conc. 33.6 g/dL (32.0-36.0); Mean Corpuscular Volume 95.5 fL (80.0-100.0); Monocytes # (auto) 2.7 10 ^3/uL (0-1.3); Neutrophils # (auto) 18.2 10 ^3/uL (1.6-8.6); Neutrophils % (auto) 75.5 % (37.0-80.0); Red Blood Cells 3.87 10^6/uL (4.5-5.90); White Blood Cell 24.1 10^3/uL (4.4-10.8)
[2022-03-24 04:44] LABS: Albumin 1.9 g/dL (3.4-5.0); Calcium 7.9 mg/dL (8.5-10.1); Magnesium 1.8 mg/dL (1.6-2.6); Potassium 3.6 mmol/L (3.5-5.1)
[2022-03-24 04:46] LABS: BUN/Creatinine Ratio 27.5
[2022-03-24 04:49] LABS: Bilirubin, Total 0.6 mg/dL (0.2-1.0); Phosphorus 1.9 mg/dL (2.5-4.90); Total Protein 5.9 g/dL (6.4-8.2)
[2022-03-24] MEDS: ACCU-CHEK COMFORT CURVE STRIP VI SCH ×3 (06:26→18:10)
[2022-03-24] MEDS: InsuLIN REG 1unit/0.01ml Soln (100units/ml) SC SCH ×3 (06:32→18:00)
[2022-03-24] MEDS: LEVOTHYROXINE SODIUM 100 MCG TAB PO SCH (06:35)
[2022-03-24] MEDS: IPRATROPIUM BROM 0.5 MG/2.5ML INH SOL NEB SCH ×2 (07:04→18:26)
[2022-03-24] MEDS: ALBUTEROL SULF 2.5 MG/0.5ML(0.5%) NEB SOLN NEB SCH ×2 (07:05→18:26)
[2022-03-24] MEDS: D5W 5% 1,000 ML IV SCH ×3 (08:48→23:00)
[2022-03-24] MEDS ORDERED: POTASSIUM PHOSPHATE 44 MEQ in D5W 5% 250 ML IV ONE (09:15)
[2022-03-24] MEDS: PANTOPRAZOLE 40 MG/10 ML VIAL INJ IV SCH (10:08)
[2022-03-24] MEDS: MEROPENEM 1GM IVPB 100 ML IV SCH ×2 (10:09→22:10)
[2022-03-24] MEDS: SODIUM CHLOR 0.9% PF (SALINE LOCK) 10ML VIAL/SYR IV SCH ×2 (10:10→22:04)
[2022-03-24] MEDS: HEPARIN SODIUM (PORCINE) 5000 UNITS/ML 1ML VIAL SC SCH ×2 (10:11→21:00)
[2022-03-24] MEDS: LINEZOLID 600MG/300ML 300 ML IV SCH (19:53)
[2022-03-24] MEDS ORDERED: TPN PER PHARMACY IV NR ×8 (20:00)
[2022-03-25] MEDS: KETOROLAC TROMETH 30 MG/ML 1ML VIAL IV PRN ×3 (01:29→16:44)
[2022-03-25] MEDS: ACCU-CHEK COMFORT CURVE STRIP VI SCH ×5 (01:34→23:42)
[2022-03-25 05:00] VITALS: BP 113/75
[2022-03-25] MEDS: InsuLIN REG 1unit/0.01ml Soln (100units/ml) SC SCH ×5 (05:12→23:42)
[2022-03-25] MEDS: LEVOTHYROXINE SODIUM 100 MCG TAB PO SCH (06:02)
[2022-03-25] MEDS: D5W 5% 1,000 ML IV SCH ×3 (06:02→22:39)
[2022-03-25 06:35] LABS: Albumin 1.8 g/dL (3.4-5.0); Calcium 7.6 mg/dL (8.5-10.1); Magnesium 2.2 mg/dL (1.6-2.6); Potassium 3.7 mmol/L (3.5-5.1)
[2022-03-25 06:39] LABS: Bilirubin, Total 0.6 mg/dL (0.2-1.0); Total Protein 5.9 g/dL (6.4-8.2)
[2022-03-25] MEDS: ALBUTEROL SULF 2.5 MG/0.5ML(0.5%) NEB SOLN NEB SCH ×3 (07:03→19:09)
[2022-03-25] MEDS: IPRATROPIUM BROM 0.5 MG/2.5ML INH SOL NEB SCH ×3 (07:03→19:09)
[2022-03-25 07:29] LABS: BUN/Creatinine Ratio 27.5
[2022-03-25 08:00] VITALS: BP 103/69
[2022-03-25] MEDS: LINEZOLID 600MG/300ML 300 ML IV SCH ×2 (08:44→19:38)
[2022-03-25 09:38] LABS: Hemoglobin 12.1 g/dL (13.5-17.5); Mean Corpuscular Hemoglobin 30.7 pg (28.0-32.0); Red Blood Cells 3.94 10^6/uL (4.5-5.90)
[2022-03-25 09:40] LABS: Hematocrit 37.5 % (41.0-53.0); Mean Corpuscular Hgb Conc. 32.2 g/dL (32.0-36.0); Mean Corpuscular Volume 95.2 fL (80.0-100.0); Red Cell Distribution Width 15.1 % (11.8-14.3)
[2022-03-25 09:49] LABS: White Blood Cell 30.3 10^3/uL (4.4-10.8)
[2022-03-25 09:51] LABS: Band Neutrophils % (manual) 0; Basophils % (manual) 0 (0.0-2.0); Blast Cells 0; Metamyelocytes % 0; Myelocytes % 0; Promyelocytes % 0; Reactive Lymphocytes 0
[2022-03-25] MEDS: HEPARIN SODIUM (PORCINE) 5000 UNITS/ML 1ML VIAL SC SCH ×2 (09:57→21:02)
[2022-03-25 10:34] LABS: Eosinophils % (manual) 2 (0-7); Lymphocytes % (manual) 8 (10.0-50.0); Monocytes % (manual) 12 (0-12)
[2022-03-25] MEDS: MEROPENEM 1GM IVPB 100 ML IV SCH ×2 (11:09→21:30)
[2022-03-25] MEDS: SODIUM CHLOR 0.9% PF (SALINE LOCK) 10ML VIAL/SYR IV SCH ×2 (11:09→21:02)
[2022-03-25 12:00] VITALS: BP 116/74
[2022-03-25 16:00] VITALS: BP 119/67
[2022-03-25] MEDS ORDERED: TPN PER PHARMACY IV NR ×9 (20:00)
[2022-03-25] MEDS: HYDROmorphone HCL 2 MG/ML VL/or syr IV PRN (20:47)
[2022-03-25 21:30] VITALS: BP 105/72
[2022-03-26 05:00] VITALS: BP 112/83
[2022-03-26] MEDS: InsuLIN REG 1unit/0.01ml Soln (100units/ml) SC SCH ×4 (05:05→23:48)
[2022-03-26] MEDS: ACCU-CHEK COMFORT CURVE STRIP VI SCH ×4 (05:05→23:48)
[2022-03-26] MEDS: HYDROmorphone HCL 2 MG/ML VL/or syr IV PRN ×2 (05:31→20:25)
[2022-03-26] MEDS: LEVOTHYROXINE SODIUM 100 MCG TAB PO SCH (06:01)
[2022-03-26] MEDS: ALBUTEROL SULF 2.5 MG/0.5ML(0.5%) NEB SOLN NEB SCH ×3 (06:19→19:12)
[2022-03-26] MEDS: IPRATROPIUM BROM 0.5 MG/2.5ML INH SOL NEB SCH ×3 (06:19→19:12)
[2022-03-26 07:48] LABS: Basophils # (auto) 0.2 10 ^3/uL (0-0.2); Basophils % (auto) 0.8 % (0.0-2.0); Eosinophils # (auto) 0.7 10 ^3/uL (0-0.8); Eosinophils % (auto) 2.2 % (0.0-7.0); Hemoglobin 12.1 g/dL (13.5-17.5); Lymphocytes # (auto) 3.7 10 ^3/uL (0.4-5.4); Lymphocytes % (auto) 12.6 % (10.0-50.0); Mean Corpuscular Hemoglobin 31.1 pg (28.0-32.0); Mean Corpuscular Hgb Conc. 32.8 g/dL (32.0-36.0); Mean Corpuscular Volume 94.7 fL (80.0-100.0); Monocytes # (auto) 1.8 10 ^3/uL (0-1.3); Neutrophils % (auto) 78.4 % (37.0-80.0); Nucleated Red Blood Cells % 0.4 %; Red Cell Distribution Width 15.4 % (11.8-14.3); White Blood Cell 29.4 10^3/uL (4.4-10.8)
[2022-03-26 08:07] LABS: Magnesium 2.2 mg/dL (1.6-2.6); Potassium 4.4 mmol/L (3.5-5.1)
[2022-03-26 08:13] LABS: Albumin 1.9 g/dL (3.4-5.0); BUN/Creatinine Ratio 26.7; Bilirubin, Total 0.5 mg/dL (0.2-1.0); Calcium 7.9 mg/dL (8.5-10.1); Phosphorus 3.5 mg/dL (2.5-4.90); Total Protein 6.2 g/dL (6.4-8.2)
[2022-03-26 08:26] VITALS: BP 110/81
[2022-03-26] MEDS: LINEZOLID 600MG/300ML 300 ML IV SCH ×2 (08:46→19:32)
[2022-03-26] MEDS: MEROPENEM 1GM IVPB 100 ML IV SCH ×2 (10:28→21:40)
[2022-03-26] MEDS: HEPARIN SODIUM (PORCINE) 5000 UNITS/ML 1ML VIAL SC SCH ×2 (10:29→21:49)
[2022-03-26] MEDS: D5W 5% 1,000 ML IV SCH (11:23)
[2022-03-26] MEDS: SODIUM CHLOR 0.9% PF (SALINE LOCK) 10ML VIAL/SYR IV SCH ×2 (11:23→21:40)
[2022-03-26 13:53] VITALS: BP 110/81
[2022-03-26 17:00] VITALS: BP 115/75
[2022-03-26] MEDS: NEOSTIGMINE 1 MG/ML INJ (10mg/10ML VIAL) SC SCH ×2 (18:43→21:41)
[2022-03-26] MEDS ORDERED: TPN PER PHARMACY IV NR ×10 (20:00)
[2022-03-26 21:16] VITALS: BP 108/75
[2022-03-27] MEDS: HYDROmorphone HCL 2 MG/ML VL/or syr IV PRN ×5 (02:11→23:49)
[2022-03-27] MEDS: NEOSTIGMINE 1 MG/ML INJ (10mg/10ML VIAL) SC SCH ×6 (02:20→21:52)
[2022-03-27] MEDS: InsuLIN REG 1unit/0.01ml Soln (100units/ml) SC SCH ×4 (05:46→23:50)
[2022-03-27] MEDS: ACCU-CHEK COMFORT CURVE STRIP VI SCH ×4 (05:46→23:49)
[2022-03-27] MEDS: LEVOTHYROXINE SODIUM 100 MCG TAB PO SCH (05:47)
[2022-03-27] MEDS: IPRATROPIUM BROM 0.5 MG/2.5ML INH SOL NEB SCH ×3 (06:00→18:47)
[2022-03-27] MEDS: ALBUTEROL SULF 2.5 MG/0.5ML(0.5%) NEB SOLN NEB SCH ×3 (06:00→18:48)
[2022-03-27 06:04] VITALS: BP 106/71
[2022-03-27 07:02] LABS: Albumin 1.9 g/dL (3.4-5.0); BUN/Creatinine Ratio 25.4; Calcium 7.9 mg/dL (8.5-10.1); Magnesium 2.2 mg/dL (1.6-2.6); Potassium 4.8 mmol/L (3.5-5.1)
[2022-03-27 07:05] LABS: Bilirubin, Total 0.5 mg/dL (0.2-1.0); Phosphorus 3.5 mg/dL (2.5-4.90); Total Protein 6.2 g/dL (6.4-8.2)
[2022-03-27] MEDS ORDERED: SODIUM CHLORIDE 0.9% 1,000 ML IV ONE (08:45)
[2022-03-27 09:00] VITALS: BP 112/72
[2022-03-27] MEDS: SODIUM CHLOR 0.9% PF (SALINE LOCK) 10ML VIAL/SYR IV SCH ×2 (09:00→21:54)
[2022-03-27] MEDS: MEROPENEM 1GM IVPB 100 ML IV SCH ×3 (09:01→21:54)
[2022-03-27] MEDS: LINEZOLID 600MG/300ML 300 ML IV SCH ×2 (09:01→19:33)
[2022-03-27] MEDS: HEPARIN SODIUM (PORCINE) 5000 UNITS/ML 1ML VIAL SC SCH ×2 (12:05→21:26)
[2022-03-27 13:00] VITALS: BP 104/71
[2022-03-27 17:00] VITALS: BP 112/70
[2022-03-27] MEDS ORDERED: TPN PER PHARMACY IV NR ×9 (20:00)
[2022-03-27 22:00] VITALS: BP 121/78
[2022-03-28] MEDS: NEOSTIGMINE 1 MG/ML INJ (10mg/10ML VIAL) SC SCH ×3 (02:00→09:54)
[2022-03-28 05:00] VITALS: BP 113/77
[2022-03-28] MEDS: HYDROmorphone HCL 2 MG/ML VL/or syr IV PRN ×4 (05:38→21:32)
[2022-03-28] MEDS: InsuLIN REG 1unit/0.01ml Soln (100units/ml) SC SCH ×2 (05:41→12:00)
[2022-03-28] MEDS: ACCU-CHEK COMFORT CURVE STRIP VI SCH ×2 (05:41→13:33)
[2022-03-28 05:43] LABS: Calcium 7.8 mg/dL (8.5-10.1); Magnesium 2.2 mg/dL (1.6-2.6); Potassium 3.8 mmol/L (3.5-5.1)
[2022-03-28] MEDS: LEVOTHYROXINE SODIUM 100 MCG TAB PO SCH (05:47)
[2022-03-28 05:48] LABS: Bilirubin, Total 0.4 mg/dL (0.2-1.0)
[2022-03-28] MEDS: ALBUTEROL SULF 2.5 MG/0.5ML(0.5%) NEB SOLN NEB SCH ×3 (07:08→18:54)
[2022-03-28] MEDS: IPRATROPIUM BROM 0.5 MG/2.5ML INH SOL NEB SCH ×3 (07:08→18:54)
[2022-03-28] MEDS: LINEZOLID 600MG/300ML 300 ML IV SCH (08:48)
[2022-03-28 09:00] VITALS: BP 115/76
[2022-03-28] MEDS: SODIUM CHLOR 0.9% PF (SALINE LOCK) 10ML VIAL/SYR IV SCH ×2 (09:54→21:23)
[2022-03-28] MEDS: HEPARIN SODIUM (PORCINE) 5000 UNITS/ML 1ML VIAL SC SCH ×2 (09:55→21:32)
[2022-03-28 11:24] LABS: Basophils # (auto) 0.2 10 ^3/uL (0-0.2); Basophils % (auto) 1.3 % (0.0-2.0); Eosinophils # (auto) 0.6 10 ^3/uL (0-0.8); Eosinophils % (auto) 3.3 % (0.0-7.0); Hematocrit 38.6 % (41.0-53.0); Hemoglobin 12.5 g/dL (13.5-17.5); Lymphocytes # (auto) 2.7 10 ^3/uL (0.4-5.4); Mean Corpuscular Hemoglobin 30.6 pg (28.0-32.0); Mean Corpuscular Hgb Conc. 32.4 g/dL (32.0-36.0); Mean Corpuscular Volume 94.4 fL (80.0-100.0); Monocytes # (auto) 1.3 10 ^3/uL (0-1.3); Monocytes % (auto) 6.9 % (0.0-12.0); Neutrophils # (auto) 14.2 10 ^3/uL (1.6-8.6); Neutrophils % (auto) 74.5 % (37.0-80.0); Red Blood Cells 4.09 10^6/uL (4.5-5.90)
[2022-03-28 13:00] VITALS: BP 122/71
[2022-03-28 17:00] VITALS: BP 120/86
[2022-03-28] MEDS ORDERED: TPN PER PHARMACY IV NR ×10 (20:00)
[2022-03-28 22:00] VITALS: BP 114/84
[2022-03-29] MEDS: HYDROmorphone HCL 2 MG/ML VL/or syr IV PRN ×3 (03:12→12:48)
[2022-03-29 05:00] VITALS: BP 129/82
[2022-03-29] MEDS: IPRATROPIUM BROM 0.5 MG/2.5ML INH SOL NEB SCH ×2 (06:07→11:41)
[2022-03-29] MEDS: ALBUTEROL SULF 2.5 MG/0.5ML(0.5%) NEB SOLN NEB SCH ×2 (06:07→11:41)
[2022-03-29] MEDS: LEVOTHYROXINE SODIUM 100 MCG TAB PO SCH (06:32)
[2022-03-29 08:53] VITALS: BP 109/72
[2022-03-29] MEDS ORDERED: HEPARIN SODIUM (PORCINE) 5000 UNITS/ML 1ML VIAL ONE (11:28)
[2022-03-29] MEDS: HEPARIN SODIUM (PORCINE) 5000 UNITS/ML 1ML VIAL SC SCH (11:43)
[2022-03-29] MEDS: SODIUM CHLOR 0.9% PF (SALINE LOCK) 10ML VIAL/SYR IV SCH (11:45)
[2022-03-29] MEDS: SODIUM CHLORIDE 0.9% 1,000 ML IV SCH ×2 (12:52→13:52)
[2022-03-29 12:55] VITALS: BP 119/79
[2022-03-29] MEDS ORDERED: TAM04C PO (13:31)
[2022-03-29 13:53] VITALS: BP 140/86
[2022-03-29 13:55] VITALS: BP 119/79
== END 2022-03-29 15:50 | disposition home or self-care (01) | DRG 853 ==
LOC: ER 13:42 → EDBD 13:42 → OVERFLOW 17:51 → DOU IN ICU 22:53 → ICU WEST 03-18 09:52 → TELE-WESTW 03-24 17:27 → WEST WING 03-28 17:28
PROVIDERS: ADMIT Registered Nurse; ATTEND Internal Medicine
PROC: 5A09357 Assistance with Respiratory Ventilation, Less than 24 Consecutive Hours, Continuous Positive Airway Pressure (ICD-10-PCS; 2022-03-14)
PROC: 0DTN0ZZ Resection of Sigmoid Colon, Open Approach (ICD-10-PCS; 2022-03-18)
PROC: 0TQB0ZZ Repair Bladder, Open Approach (ICD-10-PCS; 2022-03-18)
PROC: 0BH17EZ Insertion of Endotracheal Airway into Trachea, Via Natural or Artificial Opening (ICD-10-PCS; 2022-03-18)
PROC: 5A1955Z Respiratory Ventilation, Greater than 96 Consecutive Hours (ICD-10-PCS; principal; 2022-03-18 08:49)
PROC: 05HY33Z Insertion of Infusion Device into Upper Vein, Percutaneous Approach (ICD-10-PCS; 2022-03-19)
DX: A41.9 Sepsis, unspecified organism (principal); I21.A1 Myocardial infarction type 2; I50.43 Acute on chronic combined systolic (congestive) and diastolic (congestive) heart failure; J18.9 Pneumonia, unspecified organism; J96.21 Acute and chronic respiratory failure with hypoxia; K65.9 Peritonitis, unspecified; K57.20 Diverticulitis of large intestine with perforation and abscess without bleeding; I42.0 Dilated cardiomyopathy; J44.1 Chronic obstructive pulmonary disease with (acute) exacerbation; N13.2 Hydronephrosis with renal and ureteral calculous obstruction; N17.9 Acute kidney failure, unspecified; I47.2 Ventricular tachycardia; E87.0 Hyperosmolality and hypernatremia; K56.7 Ileus, unspecified; J44.0 Chronic obstructive pulmonary disease with (acute) lower respiratory infection; N13.8 Other obstructive and reflux uropathy; Z99.11 Dependence on respirator [ventilator] status; Z20.822 Contact with and (suspected) exposure to COVID-19; E03.9 Hypothyroidism, unspecified; E66.01 Morbid (severe) obesity due to excess calories; N21.0 Calculus in bladder; N40.1 Benign prostatic hyperplasia with lower urinary tract symptoms; R74.01 Elevation of levels of liver transaminase levels; E88.09 Other disorders of plasma-protein metabolism, not elsewhere classified; N18.9 Chronic kidney disease, unspecified; K64.9 Unspecified hemorrhoids; Z93.3 Colostomy status; Z68.26 Body mass index [BMI] 26.0-26.9, adult; Z91.19 Patient's noncompliance with other medical treatment and regimen
CPT/HCPCS: 36415; 36569; 36600; 71045; 71250; 74176; 76700; 76775; 80048; 80053; 80061; 80074; 80307; 81001; 82805; 82962; 83605; 83735; 83880; 84100; 84132; 84443; 84478; 84484; 85007; 85025; 85027; 85610; 86850; 86900; 86901; 86920; 87040; 87070; 87075; 87076; 87077; 87081; 87086; 87186; 87205; 93005; 94002; 94003; 94640; 94660; 96365; 96375; 97110; 97116; 97163; 97530; 99291; C9113; G0378; J0690; J1815; J1885; J2001; J2185; J2250; J2405; J2543; J2704; J3480; J3490; J7060; J7131

== ENCOUNTER 2022-04-04 03:36 | Emergency (ER) | payer MEDICARE, MEDICAID ==
[~2022-04-04] VITALS: Ht 170.2 cm; Wt 108.9 kg
[~2022-04-04 03:36] MED LIST changes: +ACET-1158 PO; +TAM04C PO
[2022-04-04 04:13] VITALS: BP 120/80
== END 2022-04-04 05:24 | disposition home or self-care (01) ==
LOC: ER 03:36
DX: Z43.3 Encounter for attention to colostomy (principal); F17.210 Nicotine dependence, cigarettes, uncomplicated

== ENCOUNTER 2022-04-10 00:19 | Inpatient (IN) | payer MEDICARE, MEDICAID ==
[~2022-04-10] VITALS: Ht 170.2 cm; Wt 88.1 kg
[2022-04-10 01:06] LABS: Basophils # (auto) 0.1 10 ^3/uL (0-0.2); Basophils % (auto) 1.1 % (0.0-2.0); Eosinophils # (auto) 0.7 10 ^3/uL (0-0.8); Eosinophils % (auto) 5.9 % (0.0-7.0); Hematocrit 30.5 % (41.0-53.0); Hemoglobin 10.3 g/dL (13.5-17.5); Lymphocytes # (auto) 2.5 10 ^3/uL (0.4-5.4); Lymphocytes % (auto) 22.2 % (10.0-50.0); Mean Corpuscular Hemoglobin 30.9 pg (28.0-32.0); Mean Corpuscular Hgb Conc. 33.9 g/dL (32.0-36.0); Mean Corpuscular Volume 91.2 fL (80.0-100.0); Monocytes # (auto) 1.3 10 ^3/uL (0-1.3); Neutrophils # (auto) 6.5 10 ^3/uL (1.6-8.6); Neutrophils % (auto) 58.8 % (37.0-80.0); Red Blood Cells 3.34 10^6/uL (4.5-5.90); Red Cell Distribution Width 14.9 % (11.8-14.3); White Blood Cell 11.1 10^3/uL (4.4-10.8)
[2022-04-10 01:27] LABS: Albumin 2.8 g/dL (3.4-5.0); BUN/Creatinine Ratio 12.8; Calcium 8.4 mg/dL (8.5-10.1); Potassium 3.3 mmol/L (3.5-5.1)
[2022-04-10 01:38] LABS: Bilirubin, Total 0.3 mg/dL (0.2-1.0); Total Protein 6.8 g/dL (6.4-8.2)
[2022-04-10] MEDS ORDERED: cefTRIAXone 1GM/50ML D5W 50 ML IV ONE (07:45)
[2022-04-10] MEDS ORDERED: MORPHINE SULFATE INJ 2 MG/ml SYRG IV PRN ×2 (08:15→16:00)
[2022-04-10] MEDS ORDERED: POTASSIUM CHL 20 Meq TABLET PO ONE (08:15)
[2022-04-10] MEDS ORDERED: NITROGLYCERIN 0.4 MG SL TAB SL PRN (08:15)
[2022-04-10] MEDS ORDERED: AZITHROMYCIN 500MG/ 250ML 250 ML IV ONE (08:45)
[2022-04-10 15:32] LABS: Urine Bacteria NONE SEEN /hpf (None Seen); Urine Blood Negative /uL (Negative); Urine Specific Gravity 1.006 (1.001-1.035); Urine WBC 2 /hpf (0 - 3)
[2022-04-10] MEDS ORDERED: ACETAMINOPHEN 325 MG TAB PO PRN (16:00)
[2022-04-10] MEDS ORDERED: DOCUSATE SOD 100 MG CAP PO PRN (16:00)
[2022-04-10] MEDS ORDERED: hydrALAZINE HCL 20 MG/ML VL IV PRN (16:00)
[2022-04-10] MEDS ORDERED: HYDROcodone-ACET 5/325MG TAB PO PRN (16:00)
[2022-04-10] MEDS ORDERED: ONDANSETRON HCL 4 MG/2 ML VIAL IV PRN (16:00)
[2022-04-10 16:12] VITALS: BP 108/42
[2022-04-10] MEDS: IPRATROPIUM BROM 0.5 MG/2.5ML INH SOL NEB SCH ×2 (18:00→22:10)
[2022-04-10] MEDS ORDERED: LIDOCAINE HCL 2% TOP JELLY 5ML TOP ONE (18:00)
[2022-04-10] MEDS ORDERED: CARV3.1240 PO (18:05)
[2022-04-10 18:26] LABS: Magnesium 1.9 mg/dL (1.6-2.6); Phosphorus 2.6 mg/dL (2.5-4.90)
[2022-04-10] MEDS: LORazepam 0.5 MG TAB PO PRN (18:31)
[2022-04-10 18:33] LABS: INR 1.08 (0.9-1.15); Partial Thromboplastin Time 25.1 sec (23.6-33.0)
[2022-04-10 22:00] VITALS: BP 108/69
[2022-04-10] MEDS: CARVEDILOL 3.125 MG TAB PO SCH (22:37)
[2022-04-10] MEDS: ATORVASTATIN 20 MG TAB PO SCH (22:38)
[2022-04-10] MEDS: POTASSIUM CHL 20 Meq TABLET PO SCH (22:38)
[2022-04-10] MEDS: TAMSULOSIN HYDROCHLORIDE 0.4 MG CAP PO SCH (22:38)
[2022-04-11] MEDS: IPRATROPIUM BROM 0.5 MG/2.5ML INH SOL NEB SCH ×6 (02:15→22:09)
[2022-04-11 05:22] VITALS: BP 99/60
[2022-04-11 05:42] LABS: Basophils # (auto) 0.1 10 ^3/uL (0-0.2); Basophils % (auto) 0.7 % (0.0-2.0); Eosinophils # (auto) 0.7 10 ^3/uL (0-0.8); Eosinophils % (auto) 6.9 % (0.0-7.0); Hematocrit 32.3 % (41.0-53.0); Hemoglobin 10.8 g/dL (13.5-17.5); Lymphocytes # (auto) 1.2 10 ^3/uL (0.4-5.4); Lymphocytes % (auto) 11.8 % (10.0-50.0); Mean Corpuscular Hemoglobin 30.4 pg (28.0-32.0); Mean Corpuscular Hgb Conc. 33.6 g/dL (32.0-36.0); Mean Corpuscular Volume 90.4 fL (80.0-100.0); Monocytes # (auto) 0.8 10 ^3/uL (0-1.3); Monocytes % (auto) 7.2 % (0.0-12.0); Neutrophils # (auto) 7.7 10 ^3/uL (1.6-8.6); Neutrophils % (auto) 73.4 % (37.0-80.0); Red Blood Cells 3.57 10^6/uL (4.5-5.90); Red Cell Distribution Width 15.4 % (11.8-14.3); White Blood Cell 10.5 10^3/uL (4.4-10.8)
[2022-04-11 05:52] LABS: Potassium 3.2 mmol/L (3.5-5.1)
[2022-04-11 06:00] LABS: INR 1.16 (0.9-1.15); Partial Thromboplastin Time 26.8 sec (23.6-33.0)
[2022-04-11 06:04] LABS: Albumin 2.1 g/dL (3.4-5.0); BUN/Creatinine Ratio 12.7; Bilirubin, Total 0.4 mg/dL (0.2-1.0); CRP High Sensitivity 2.56 mg/dL (< 0.3); Calcium 7.7 mg/dL (8.5-10.1); Magnesium 1.8 mg/dL (1.6-2.6); Phosphorus 2.4 mg/dL (2.5-4.90); Total Protein 5.6 g/dL (6.4-8.2); Uric Acid 8.2 mg/dL (3.5-7.2)
[2022-04-11] MEDS: LEVOTHYROXINE SODIUM 25 MCG TAB PO SCH (06:42)
[2022-04-11 07:01] LABS: Urine Bacteria FEW /hpf (None Seen); Urine Blood 1+ /uL (Negative); Urine Specific Gravity 1.007 (1.001-1.035); Urine WBC 8 /hpf (0 - 3)
[2022-04-11 07:17] LABS: Alcohol, Urine < 3.0 mg/dL (0-10); Amphetamine Screen, Urine POSITIVE (NEGATIVE); Barbiturate Scree,Urine NEGATIVE (NEGATIVE); Benzodiazephine Screen, Urine NEGATIVE (NEGATIVE); Cocaine Screen, Urine NEGATIVE (NEGATIVE); Opiate Scree,Urine NEGATIVE (NEGATIVE); Phencyclidine Screen, Urine NEGATIVE (NEGATIVE); Protein, Urine 27.2 mg/dL (0.0-11.9)
[2022-04-11 07:26] LABS: Cannabinoid Screen, Urine NEGATIVE (NEGATIVE)
[2022-04-11 08:00] VITALS: BP 102/65
[2022-04-11 08:10] LABS: Thyroid Stimulating Hormone 12.8 uIU/mL (0.358-3.74)
[2022-04-11] MEDS ORDERED: FAMOTIDINE (10MG/ML) 2ML VL IV SCH (10:00)
[2022-04-11] MEDS ORDERED: ENOXAPARIN SOD 40 MG/0.4 ML SYRINGE SC SCH (10:00)
[2022-04-11] MEDS: BENAZEPRIL HCL 10 MG TAB PO SCH (10:00)
[2022-04-11] MEDS: levoFLOXacin 250MG 50 ML IV SCH (10:33)
[2022-04-11] MEDS: ASPirin 81 mg TAB PO SCH (10:34)
[2022-04-11] MEDS: POTASSIUM CHL 20 Meq TABLET PO SCH (10:35)
[2022-04-11] MEDS: CARVEDILOL 3.125 MG TAB PO SCH ×2 (10:35→21:12)
[2022-04-11 12:59] VITALS: BP 98/69
[2022-04-11] MEDS ORDERED: FINASTERIDE 5 MG TAB PO ONE (14:45)
[2022-04-11 17:19] VITALS: BP 109/72
[2022-04-11] MEDS: MUPIROCIN 2% OINT 15gm or 22gm EACHNOSTRI SCH ×2 (17:36→21:11)
[2022-04-11] MEDS: LORazepam 0.5 MG TAB PO PRN (21:12)
[2022-04-11] MEDS: ATORVASTATIN 20 MG TAB PO SCH (21:12)
[2022-04-11] MEDS: TAMSULOSIN HYDROCHLORIDE 0.4 MG CAP PO SCH (21:12)
[2022-04-11 22:00] VITALS: BP 118/74
[2022-04-12] MEDS: IPRATROPIUM BROM 0.5 MG/2.5ML INH SOL NEB SCH ×2 (02:22→07:05)
[2022-04-12 04:46] LABS: BUN/Creatinine Ratio 14.2; Calcium 7.8 mg/dL (8.5-10.1); Potassium 3.7 mmol/L (3.5-5.1)
[2022-04-12 05:00] VITALS: BP 133/89
[2022-04-12] MEDS: LEVOTHYROXINE SODIUM 25 MCG TAB PO SCH (06:19)
[2022-04-12 09:00] VITALS: BP 127/84
[2022-04-12] MEDS ORDERED: ALBUTEROL SULF 2.5 MG/0.5ML(0.5%) NEB SOLN NEB PRN (09:45)
[2022-04-12] MEDS: ASPirin 81 mg TAB PO SCH (09:45)
[2022-04-12] MEDS: CARVEDILOL 3.125 MG TAB PO SCH (09:46)
[2022-04-12] MEDS: BENAZEPRIL HCL 10 MG TAB PO SCH (09:46)
[2022-04-12] MEDS ORDERED: FINASTERIDE 5 MG TAB PO SCH (10:00)
[2022-04-12] MEDS: levoFLOXacin 250MG 50 ML IV SCH (10:17)
[2022-04-12] MEDS: MUPIROCIN 2% OINT 15gm or 22gm EACHNOSTRI SCH (10:17)
[2022-04-12] MEDS ORDERED: IPRATROPIUM BROM 0.5 MG/2.5ML INH SOL NEB SCH (12:00)
[2022-04-12] MEDS ORDERED: ALBUTEROL SULF 2.5 MG/0.5ML(0.5%) NEB SOLN NEB SCH (12:00)
[2022-04-12] MEDS ORDERED: ALBU0.08 HHN (14:08)
[2022-04-12] MEDS ORDERED: IPR002IS HHN (14:08)
[2022-04-12] MEDS ORDERED: LEVO500T31 PO (14:08)
[2022-04-12] MEDS ORDERED: FIN5T PO (14:08)
[2022-04-12 15:13] VITALS: BP 122/78
== END 2022-04-12 17:54 | disposition home or self-care (01) | DRG 689 ==
LOC: ER 00:19 → OVERFLOW 08:09 → WEST WING 16:41
PROVIDERS: ADMIT Hospitalist; ATTEND Internal Medicine
DX: N13.6 Pyonephrosis (principal); I50.23 Acute on chronic systolic (congestive) heart failure; J44.9 Chronic obstructive pulmonary disease, unspecified; N17.0 Acute kidney failure with tubular necrosis; R33.8 Other retention of urine; N18.4 Chronic kidney disease, stage 4 (severe); N40.1 Benign prostatic hyperplasia with lower urinary tract symptoms; D72.829 Elevated white blood cell count, unspecified; N32.89 Other specified disorders of bladder; I50.82 Biventricular heart failure; F15.10 Other stimulant abuse, uncomplicated; C61 Malignant neoplasm of prostate; E03.9 Hypothyroidism, unspecified; R79.89 Other specified abnormal findings of blood chemistry; F17.210 Nicotine dependence, cigarettes, uncomplicated; Z79.899 Other long term (current) drug therapy; Z93.3 Colostomy status; Z71.6 Tobacco abuse counseling
CPT/HCPCS: 36415; 71046; 74176; 80048; 80053; 80061; 80307; 81001; 82550; 82728; 83036; 83615; 83690; 83735; 83880; 83970; 84100; 84156; 84439; 84443; 84484; 84550; 85025; 85379; 85610; 85652; 85730; 86141; 87040; 87081; 87086; 93005; 93970; 94640; 96365; 96367; G0378; J0696; J3490

== ENCOUNTER 2022-06-26 02:00 | Emergency (ER) | payer MEDICARE, MEDICAID ==
[~2022-06-26] VITALS: Ht 172.7 cm; Wt 88.6 kg
[2022-06-26 02:00] VITALS: BP 151/93
[~2022-06-26 02:00] MED LIST changes: +ALBU0.08 HHN; +CARV3.1240 PO; +FIN5T PO; +IPR002IS HHN; +LEVO500T31 PO
[2022-06-26 03:35] LABS: Urine Bacteria FEW /hpf (None Seen); Urine Blood 1+ /uL (Negative); Urine Mucus FEW (None Seen); Urine Specific Gravity 1.011 (1.001-1.035); Urine WBC 789 /hpf (0 - 3); Urine WBC Clumps PRESENT /hpf (None Seen)
== END 2022-06-26 07:04 | disposition left against medical advice (07) ==
LOC: ER 02:00
DX: R33.9 Retention of urine, unspecified (principal); Z53.21 Procedure and treatment not carried out due to patient leaving prior to being seen by health care provider
CPT/HCPCS: 81001

== ENCOUNTER 2022-08-12 09:43 | Emergency (ER) | payer MEDICARE, MEDICAID ==
[~2022-08-12] VITALS: Ht 170.2 cm; Wt 79.8 kg
[2022-08-12 10:35] LABS: Basophils # (auto) 0.1 10 ^3/uL (0-0.2); Eosinophils # (auto) 0.4 10 ^3/uL (0-0.8); Eosinophils % (auto) 3.7 % (0.0-7.0); Hematocrit 42.7 % (41.0-53.0); Lymphocytes # (auto) 2.5 10 ^3/uL (0.4-5.4); Lymphocytes % (auto) 23.1 % (10.0-50.0); Mean Corpuscular Hemoglobin 28.7 pg (28.0-32.0); Mean Corpuscular Hgb Conc. 32.9 g/dL (32.0-36.0); Mean Corpuscular Volume 87.3 fL (80.0-100.0); Monocytes # (auto) 0.9 10 ^3/uL (0-1.3); Monocytes % (auto) 8.5 % (0.0-12.0); Neutrophils # (auto) 6.9 10 ^3/uL (1.6-8.6); Neutrophils % (auto) 63.7 % (37.0-80.0); Red Cell Distribution Width 13.8 % (11.8-14.3); White Blood Cell 10.9 10^3/uL (4.4-10.8)
[2022-08-12 10:49] LABS: Albumin 3.6 g/dL (3.4-5.0); Calcium 9.1 mg/dL (8.5-10.1); Potassium 4.4 mmol/L (3.5-5.1)
[2022-08-12 10:53] LABS: BUN/Creatinine Ratio 13.7; Bilirubin, Total 0.5 mg/dL (0.2-1.0); Total Protein 7.5 g/dL (6.4-8.2)
[2022-08-12] MEDS ORDERED: cefTRIAXone SOD 1,000 MG VL IM ONE (11:45)
[2022-08-12 13:26] VITALS: BP 160/99
== END 2022-08-12 13:28 | disposition home or self-care (01) ==
LOC: ER 09:43
DX: T83.9XXA Unspecified complication of genitourinary prosthetic device, implant and graft, initial encounter (principal); D72.829 Elevated white blood cell count, unspecified; J44.9 Chronic obstructive pulmonary disease, unspecified; I50.9 Heart failure, unspecified; I25.2 Old myocardial infarction; E03.9 Hypothyroidism, unspecified; F17.210 Nicotine dependence, cigarettes, uncomplicated; Z79.899 Other long term (current) drug therapy; Z79.2 Long term (current) use of antibiotics
CPT/HCPCS: 36415; 51702; 71045; 80053; 84484; 85025; 96372; 99284; J0696

== ENCOUNTER 2022-11-04 08:26 | Day surgery (SDC) | payer MEDICARE, MEDICAID ==
[2022-10-31 10:37] LABS: Basophils # (auto) 0.4 10 ^3/uL (0-0.2); Basophils % (auto) 3.6 % (0.0-2.0); Eosinophils # (auto) 0.5 10 ^3/uL (0-0.8); Eosinophils % (auto) 4.8 % (0.0-7.0); Hematocrit 45.2 % (41.0-53.0); Hemoglobin 15.1 g/dL (13.5-17.5); Lymphocytes % (auto) 28.3 % (10.0-50.0); Mean Corpuscular Hemoglobin 29.2 pg (28.0-32.0); Mean Corpuscular Hgb Conc. 33.3 g/dL (32.0-36.0); Mean Corpuscular Volume 87.7 fL (80.0-100.0); Monocytes % (auto) 9.5 % (0.0-12.0); Neutrophils # (auto) 5.7 10 ^3/uL (1.6-8.6); Neutrophils % (auto) 53.8 % (37.0-80.0); Nucleated Red Blood Cells % 0.1 %; Red Blood Cells 5.15 10^6/uL (4.5-5.90); Red Cell Distribution Width 14.4 % (11.8-14.3); White Blood Cell 10.5 10^3/uL (4.4-10.8)
[2022-10-31 11:09] LABS: Albumin 3.5 g/dL (3.4-5.0); Potassium 4.5 mmol/L (3.5-5.1)
[2022-10-31 11:13] LABS: Bilirubin, Total 0.4 mg/dL (0.2-1.0); Calcium 8.9 mg/dL (8.5-10.1); Total Protein 7.1 g/dL (6.4-8.2)
[2022-10-31 11:51] LABS: INR 1.03 (0.9-1.15); Partial Thromboplastin Time 25.1 sec (24.6-33.4)
[2022-10-31 12:07] LABS: Urine Bacteria NONE SEEN /hpf (None Seen); Urine Blood TRACE /uL (Negative); Urine Specific Gravity 1.015 (1.001-1.035); Urine WBC 103 /hpf (0 - 3); Urine WBC Clumps PRESENT /hpf (None Seen)
[~2022-11-04] VITALS: Ht 170.2 cm; Wt 88.5 kg
[~2022-11-04 08:26] MED LIST changes: -ALBU0.08 HHN; -CARV3.1240 PO; -FIN5T PO; -IPR002IS HHN; -LEVO500T31 PO
[2022-11-04] MEDS ORDERED: MEPERIDINE HCL (25 MG/ML) 1ML VIAL ONE (10:56)
[2022-11-04] MEDS ORDERED: fentaNYL CITRATE 100 MCG/2 ML VL ONE (10:58)
[2022-11-04] MEDS ORDERED: MIDAZOLAM HCL 2MG/2ML 2ml VIAL (1mg/ml) ONE (10:58)
[2022-11-04] MEDS ORDERED: MORPHINE SULFATE 4 MG/ML SYR/VIAL IV PRN (11:15)
[2022-11-04] MEDS ORDERED: hydrALAZINE HCL 20 MG/ML VL IV PRN (11:15)
[2022-11-04] MEDS ORDERED: LABETALOL HCL 5 MG/ML 4ML SYRINGE IV PRN (11:15)
[2022-11-04] MEDS ORDERED: ePHEDrine SULFATE 50 MG/ML AMP IV PRN (11:15)
[2022-11-04] MEDS ORDERED: MIDAZOLAM HCL 2MG/2ML 2ml VIAL (1mg/ml) IV PRN (11:15)
[2022-11-04] MEDS ORDERED: ONDANSETRON HCL 4 MG/2 ML VIAL IV PRN (11:15)
[2022-11-04] MEDS ORDERED: HYDROmorphone HCL 2 MG/ML VL/or syr IV PRN (11:15)
[2022-11-04] MEDS ORDERED: PROPOFOL 10 MG/ML 20 ML IV ONE (11:41)
[2022-11-04] MEDS ORDERED: DexAMETHasone SOD PHOS 10MG/1ML VIAL INJ ONE (11:41)
[2022-11-04 11:55] VITALS: BP 132/102
== END 2022-11-04 12:00 | disposition home or self-care (01) ==
LOC: GI 08:26
PROVIDERS: ATTEND Internal Medicine Gastroenterology
DX: K57.20 Diverticulitis of large intestine with perforation and abscess without bleeding (principal); K57.30 Diverticulosis of large intestine without perforation or abscess without bleeding; I10 Essential (primary) hypertension; N40.0 Benign prostatic hyperplasia without lower urinary tract symptoms; Z79.899 Other long term (current) drug therapy
CPT/HCPCS: 36415; 44388; 45330; 80053; 81001; 85025; 85610; 85730; C9803; J1100; J2175; J2250; J2704; J3010; J7030; U0003

== ENCOUNTER 2022-11-14 09:26 | Emergency (ER) | payer MEDICARE, MEDICAID ==
[~2022-11-14] VITALS: Ht 175.3 cm; Wt 81.8 kg
[2022-11-14 09:35] VITALS: BP 178/97
[2022-11-14] MEDS ORDERED: CIPR-173 PO (10:33)
[2022-11-14 11:20] LABS: Urine Bacteria FEW /hpf (None Seen); Urine Blood 3+ /uL (Negative); Urine WBC 2084 /hpf (0 - 3); Urine WBC Clumps PRESENT /hpf (None Seen)
[2022-11-14 13:08] LABS: Urine Specific Gravity 1.012 (1.001-1.035)
== END 2022-11-14 11:30 | disposition home or self-care (01) ==
LOC: EDBD 09:26 → ER 09:29
DX: T83.091A Other mechanical complication of indwelling urethral catheter, initial encounter (principal); I50.9 Heart failure, unspecified; J44.9 Chronic obstructive pulmonary disease, unspecified; E78.2 Mixed hyperlipidemia; Z79.899 Other long term (current) drug therapy; Z98.890 Other specified postprocedural states; F17.210 Nicotine dependence, cigarettes, uncomplicated
CPT/HCPCS: 51702; 81001; 87086; 87088; 87186

== ENCOUNTER → 2022-11-18 | Outpatient (CLI) | payer MEDICARE, MEDICAID ==
[~2022-11-18] MED LIST changes: +CIPR-173 PO
[2022-11-18 11:26] LABS: Albumin 3.1 g/dL (3.4-5.0); BUN/Creatinine Ratio 12.9; Calcium 8.9 mg/dL (8.5-10.1)
[2022-11-18 11:29] LABS: Bilirubin, Total 0.4 mg/dL (0.2-1.0); Total Protein 7.2 g/dL (6.4-8.2)
== END | disposition home or self-care (01) ==
LOC: LAB 10:16
PROVIDERS: ATTEND Internal Medicine Gastroenterology
DX: B18.2 Chronic viral hepatitis C (principal); K57.30 Diverticulosis of large intestine without perforation or abscess without bleeding; N39.0 Urinary tract infection, site not specified
CPT/HCPCS: 36415; 80053; 82105; 87086; 87902

== ENCOUNTER 2023-01-09 06:05 | Inpatient (IN) | payer MEDICARE, MEDICAID ==
[2023-01-05 15:09] LABS: Basophils # (auto) 0.2 10 ^3/uL (0-0.2); Basophils % (auto) 1.6 % (0.0-2.0); Eosinophils # (auto) 0.5 10 ^3/uL (0-0.8); Eosinophils % (auto) 4.5 % (0.0-7.0); Hematocrit 47.4 % (41.0-53.0); Hemoglobin 15.8 g/dL (13.5-17.5); Lymphocytes % (auto) 24.7 % (10.0-50.0); Mean Corpuscular Hemoglobin 28.6 pg (28.0-32.0); Mean Corpuscular Hgb Conc. 33.4 g/dL (32.0-36.0); Mean Corpuscular Volume 85.6 fL (80.0-100.0); Monocytes # (auto) 1.1 10 ^3/uL (0-1.3); Monocytes % (auto) 9.2 % (0.0-12.0); Neutrophils # (auto) 7.3 10 ^3/uL (1.6-8.6); Nucleated Red Blood Cells % 0.7 %; Red Blood Cells 5.54 10^6/uL (4.5-5.90); Red Cell Distribution Width 14.9 % (11.8-14.3); White Blood Cell 12.1 10^3/uL (4.4-10.8)
[2023-01-05 15:34] LABS: INR 1.06 (0.9-1.15)
[2023-01-05 15:38] LABS: Albumin 3.4 g/dL (3.4-5.0); Calcium 8.9 mg/dL (8.5-10.1)
[2023-01-05 15:42] LABS: BUN/Creatinine Ratio 16.4; Bilirubin, Total 0.5 mg/dL (0.2-1.0); Total Protein 7.2 g/dL (6.4-8.2)
[2023-01-05 16:07] LABS: Urine Bacteria MANY /hpf (None Seen); Urine Blood 2+ /uL (Negative); Urine Budding Yeast MODERATE /hpf (None Seen); Urine Specific Gravity 1.018 (1.001-1.035); Urine WBC 1317 /hpf (0 - 3); Urine WBC Clumps PRESENT /hpf (None Seen)
[~2023-01-09] VITALS: Ht 170.2 cm; Wt 85.5 kg
[~2023-01-09 06:05] MED LIST changes: -CIPR-173 PO
[2023-01-09] MEDS ORDERED: ceFAZolin 1GM/50ML 100 ML IV ONE (07:06)
[2023-01-09] MEDS ORDERED: MIDAZOLAM HCL 2MG/2ML 2ml VIAL (1mg/ml) ONE (07:26)
[2023-01-09] MEDS ORDERED: ROCURONIUM 10MG/ML 10ML VIAL IV ONE (07:26)
[2023-01-09] MEDS ORDERED: fentaNYL CITRATE 5 ML ONE (07:26)
[2023-01-09] MEDS ORDERED: LIDOCAINE 2% (LOCAL ANESTH.) PF 5ml SDV ONE (07:31)
[2023-01-09] MEDS ORDERED: ONDANSETRON HCL 4 MG/2 ML VIAL ONE (07:31)
[2023-01-09] MEDS ORDERED: PROPOFOL 10 MG/ML 20 ML IV ONE (07:33)
[2023-01-09] MEDS ORDERED: ONDANSETRON HCL 4 MG/2 ML VIAL IV PRN (09:00)
[2023-01-09] MEDS ORDERED: HYDROmorphone HCL 2 MG/ML VL/or syr IV PRN ×2 (09:00→10:15)
[2023-01-09] MEDS ORDERED: POVIDONE IODINE 10 % TOPICAL OINT 30GM TOP ONE (09:45)
[2023-01-09] MEDS ORDERED: LIDOCAINE W/ EPINEPHRINE 1% 20ML VIAL ONE (09:57)
[2023-01-09] MEDS ORDERED: BUPIVACAINE 0.25% INJ 50ML VIAL ONE (09:57)
[2023-01-09] MEDS ORDERED: GLYCOPYRROLATE 0.2 MG/ML 1ML VIAL ONE ×2 (10:01→10:19)
[2023-01-09] MEDS ORDERED: D5W/SOD CHL 0.45%/KCL 20MEQ 1,000 ML IV SCH (10:15)
[2023-01-09] MEDS ORDERED: NEOSTIGMINE 1 MG/ML INJ (10mg/10ML VIAL) ONE (10:19)
[2023-01-09] MEDS ORDERED: fentaNYL CITRATE 100 MCG/2 ML VL ONE (10:19)
[2023-01-09] MEDS ORDERED: ALBUTEROL SULF 2.5 MG/0.5ML(0.5%) NEB SOLN NEB ONE ×2 (11:00→11:15)
[2023-01-09] MEDS: HYDROmorphone HCL 2 MG/ML VL/or syr IV PRN ×4 (11:03→19:43)
[2023-01-09] MEDS ORDERED: ALBUTEROL SULF 2.5 MG/0.5ML(0.5%) NEB SOLN ONE (11:12)
[2023-01-09] MEDS ORDERED: ceFAZolin 2 GM/D5W100ml 100 ML IV SCH (13:00)
[2023-01-09] MEDS: metroNIDAZOLE 500MG/100ML 100 ML IV SCH ×2 (14:00→22:25)
[2023-01-09 15:59] VITALS: BP 143/87
[2023-01-09] MEDS: D5W/SOD CHL 0.45%/KCL 20MEQ 1,000 ML IV SCH (17:10)
[2023-01-09 20:00] VITALS: BP 146/96
[2023-01-09 21:01] VITALS: BP 146/96
[2023-01-09] MEDS: PIPERACILLIN-TAZOB 3.375GM 100 ML IV SCH (22:26)
[2023-01-10] MEDS: D5W/SOD CHL 0.45%/KCL 20MEQ 1,000 ML IV SCH ×3 (01:06→13:57)
[2023-01-10] MEDS: HYDROmorphone HCL 2 MG/ML VL/or syr IV PRN ×4 (01:33→17:07)
[2023-01-10 05:00] VITALS: BP 143/93
[2023-01-10] MEDS: metroNIDAZOLE 500MG/100ML 100 ML IV SCH ×3 (05:08→22:08)
[2023-01-10] MEDS: PIPERACILLIN-TAZOB 3.375GM 100 ML IV SCH ×3 (06:21→22:00)
[2023-01-10 06:32] LABS: Basophils # (auto) 0 10 ^3/uL (0-0.2); Basophils % (auto) 0.1 % (0.0-2.0); Eosinophils # (auto) 0 10 ^3/uL (0-0.8); Eosinophils % (auto) 0.1 % (0.0-7.0); Hematocrit 48.2 % (41.0-53.0); Hemoglobin 16.3 g/dL (13.5-17.5); Lymphocytes # (auto) 1.1 10 ^3/uL (0.4-5.4); Mean Corpuscular Hgb Conc. 33.9 g/dL (32.0-36.0); Mean Corpuscular Volume 88.5 fL (80.0-100.0); Monocytes # (auto) 2.2 10 ^3/uL (0-1.3); Monocytes % (auto) 10.1 % (0.0-12.0); Neutrophils # (auto) 18.1 10 ^3/uL (1.6-8.6); Neutrophils % (auto) 84.7 % (37.0-80.0); Nucleated Red Blood Cells % 0.1 %; Red Blood Cells 5.45 10^6/uL (4.5-5.90); Red Cell Distribution Width 15.1 % (11.8-14.3); White Blood Cell 21.4 10^3/uL (4.4-10.8)
[2023-01-10 06:42] LABS: INR 1.13 (0.9-1.15); Partial Thromboplastin Time 28.8 sec (24.6-33.4)
[2023-01-10 06:49] LABS: Albumin 3.2 g/dL (3.4-5.0); Calcium 8.4 mg/dL (8.5-10.1); Potassium 4.7 mmol/L (3.5-5.1)
[2023-01-10 06:53] LABS: BUN/Creatinine Ratio 15.9; Bilirubin, Total 1.8 mg/dL (0.2-1.0); Total Protein 6.5 g/dL (6.4-8.2)
[2023-01-10 09:00] VITALS: BP 127/90
[2023-01-10] MEDS: PANTOPRAZOLE 40 MG/10 ML VIAL INJ IV SCH (10:32)
[2023-01-10 13:00] VITALS: BP 115/81
[2023-01-10 17:00] VITALS: BP 130/91
[2023-01-10] MEDS: LORazepam 2MG/ML-1ML VIAL IV PRN (17:47)
[2023-01-10 20:00] VITALS: BP 123/72
[2023-01-10 22:00] VITALS: BP 123/72
[2023-01-11] MEDS: HYDROmorphone HCL 2 MG/ML VL/or syr IV PRN ×5 (00:38→20:04)
[2023-01-11] MEDS: D5W/SOD CHL 0.45%/KCL 20MEQ 1,000 ML IV SCH (02:35)
[2023-01-11 04:34] VITALS: BP 109/69
[2023-01-11 05:49] LABS: Basophils # (auto) 0.1 10 ^3/uL (0-0.2); Basophils % (auto) 0.4 % (0.0-2.0); Eosinophils # (auto) 0.3 10 ^3/uL (0-0.8); Eosinophils % (auto) 1.3 % (0.0-7.0); Hematocrit 43.3 % (41.0-53.0); Hemoglobin 14.2 g/dL (13.5-17.5); Lymphocytes # (auto) 2.1 10 ^3/uL (0.4-5.4); Lymphocytes % (auto) 9.9 % (10.0-50.0); Mean Corpuscular Hemoglobin 29.2 pg (28.0-32.0); Mean Corpuscular Hgb Conc. 32.8 g/dL (32.0-36.0); Monocytes # (auto) 2.6 10 ^3/uL (0-1.3); Monocytes % (auto) 12.1 % (0.0-12.0); Neutrophils # (auto) 16.4 10 ^3/uL (1.6-8.6); Neutrophils % (auto) 76.3 % (37.0-80.0); Nucleated Red Blood Cells % 0.1 %; Red Blood Cells 4.86 10^6/uL (4.5-5.90); Red Cell Distribution Width 15.1 % (11.8-14.3); White Blood Cell 21.5 10^3/uL (4.4-10.8)
[2023-01-11] MEDS: metroNIDAZOLE 500MG/100ML 100 ML IV SCH ×3 (05:57→22:00)
[2023-01-11] MEDS: PIPERACILLIN-TAZOB 3.375GM 100 ML IV SCH ×3 (05:58→22:04)
[2023-01-11 06:03] LABS: Albumin 2.7 g/dL (3.4-5.0); Calcium 8.4 mg/dL (8.5-10.1); Potassium 4.8 mmol/L (3.5-5.1)
[2023-01-11 06:06] LABS: Bilirubin, Total 1.4 mg/dL (0.2-1.0); Total Protein 5.9 g/dL (6.4-8.2)
[2023-01-11 09:00] VITALS: BP 125/78
[2023-01-11] MEDS: PANTOPRAZOLE 40 MG/10 ML VIAL INJ IV SCH (11:14)
[2023-01-11] MEDS ORDERED: ALBUTEROL SULF 2.5 MG/0.5ML(0.5%) NEB SOLN NEB PRN (11:30)
[2023-01-11] MEDS ORDERED: IPRATROPIUM BROM 0.5 MG/2.5ML INH SOL NEB PRN (11:30)
[2023-01-11] MEDS: D5W/SOD CHL 0.45% 1,000 ML IV SCH ×3 (11:50→21:53)
[2023-01-11 12:54] VITALS: BP 125/78
[2023-01-11] MEDS ORDERED: SODIUM CHLORIDE 0.9% 2,650 ML IV ONE (13:30)
[2023-01-11 17:00] VITALS: BP 149/94
[2023-01-11 20:00] VITALS: BP 124/68
[2023-01-12 04:54] VITALS: BP 140/83
[2023-01-12 05:46] LABS: Basophils # (auto) 0 10 ^3/uL (0-0.2); Basophils % (auto) 0.2 % (0.0-2.0); Eosinophils # (auto) 0.2 10 ^3/uL (0-0.8); Eosinophils % (auto) 1.1 % (0.0-7.0); Hematocrit 42.5 % (41.0-53.0); Hemoglobin 14.1 g/dL (13.5-17.5); Lymphocytes # (auto) 1.4 10 ^3/uL (0.4-5.4); Lymphocytes % (auto) 7.3 % (10.0-50.0); Mean Corpuscular Hemoglobin 29.5 pg (28.0-32.0); Mean Corpuscular Hgb Conc. 33.2 g/dL (32.0-36.0); Monocytes # (auto) 1.7 10 ^3/uL (0-1.3); Monocytes % (auto) 9.1 % (0.0-12.0); Neutrophils # (auto) 15.5 10 ^3/uL (1.6-8.6); Neutrophils % (auto) 82.3 % (37.0-80.0); Red Blood Cells 4.77 10^6/uL (4.5-5.90); Red Cell Distribution Width 15.1 % (11.8-14.3); White Blood Cell 18.9 10^3/uL (4.4-10.8)
[2023-01-12 06:09] LABS: Albumin 2.5 g/dL (3.4-5.0); Calcium 8.5 mg/dL (8.5-10.1); Potassium 4.2 mmol/L (3.5-5.1)
[2023-01-12 06:12] LABS: BUN/Creatinine Ratio 22.1
[2023-01-12] MEDS: PIPERACILLIN-TAZOB 3.375GM 100 ML IV SCH ×3 (06:12→22:00)
[2023-01-12] MEDS: metroNIDAZOLE 500MG/100ML 100 ML IV SCH ×3 (06:12→22:00)
[2023-01-12 06:15] LABS: Total Protein 6.4 g/dL (6.4-8.2)
[2023-01-12] MEDS: HYDROmorphone HCL 2 MG/ML VL/or syr IV PRN ×4 (06:46→21:25)
[2023-01-12 08:00] VITALS: BP 156/80
[2023-01-12] MEDS ORDERED: TPN PER PHARMACY 0 ML IV SCH ×2 (09:30→11:30)
[2023-01-12] MEDS: PANTOPRAZOLE 40 MG/10 ML VIAL INJ IV SCH (09:35)
[2023-01-12] MEDS: LEVOTHYROXINE SODIUM 100 MCG/5 ML INJ IV SCH (09:35)
[2023-01-12 11:19] LABS: Magnesium 2.5 mg/dL (1.6-2.6); Phosphorus 1.9 mg/dL (2.5-4.90)
[2023-01-12] MEDS ORDERED: D5W/SOD CHL 0.45%/KCL 20MEQ 1,000 ML IV SCH (11:30)
[2023-01-12 12:00] VITALS: BP 142/70
[2023-01-12] MEDS ORDERED: POTASSIUM PHOSPHATE 22 MEQ in SODIUM CHL 0.9% 100 ML IV ONE (13:00)
[2023-01-12] MEDS ORDERED: DEXTROSE (50%) 50ML SYRG IV SCH (14:00)
[2023-01-12 16:00] VITALS: BP 155/85
[2023-01-12] MEDS: InsuLIN REG 1unit/0.01ml Soln (100units/ml) SC SCH (17:50)
[2023-01-12] MEDS: ACCU-CHEK COMFORT CURVE STRIP VI SCH (17:50)
[2023-01-12] MEDS: PPN PER PHARMACY IV NR ×8 (19:36)
[2023-01-12 20:00] VITALS: BP 154/93
[2023-01-12] MEDS ORDERED: D5W/SOD CHL 0.45% 1,000 ML IV SCH (20:00)
[2023-01-12 22:00] VITALS: BP 154/93
[2023-01-13] MEDS: ACCU-CHEK COMFORT CURVE STRIP VI SCH ×5 (00:25→23:58)
[2023-01-13] MEDS: HYDROmorphone HCL 2 MG/ML VL/or syr IV PRN ×5 (02:28→21:51)
[2023-01-13 05:00] VITALS: BP 155/92
[2023-01-13] MEDS: PIPERACILLIN-TAZOB 3.375GM 100 ML IV SCH ×3 (05:31→21:30)
[2023-01-13] MEDS: metroNIDAZOLE 500MG/100ML 100 ML IV SCH (05:33)
[2023-01-13] MEDS: InsuLIN REG 1unit/0.01ml Soln (100units/ml) SC SCH ×4 (05:34→18:30)
[2023-01-13 06:47] LABS: Basophils # (auto) 0.1 10 ^3/uL (0-0.2); Basophils % (auto) 0.4 % (0.0-2.0); Eosinophils # (auto) 0.8 10 ^3/uL (0-0.8); Eosinophils % (auto) 4.1 % (0.0-7.0); Hematocrit 43.7 % (41.0-53.0); Hemoglobin 14.3 g/dL (13.5-17.5); Lymphocytes # (auto) 1.2 10 ^3/uL (0.4-5.4); Mean Corpuscular Hemoglobin 28.8 pg (28.0-32.0); Mean Corpuscular Hgb Conc. 32.7 g/dL (32.0-36.0); Mean Corpuscular Volume 88.2 fL (80.0-100.0); Monocytes # (auto) 1.7 10 ^3/uL (0-1.3); Monocytes % (auto) 8.8 % (0.0-12.0); Neutrophils % (auto) 80.7 % (37.0-80.0); Red Blood Cells 4.95 10^6/uL (4.5-5.90); Red Cell Distribution Width 14.8 % (11.8-14.3); White Blood Cell 19.8 10^3/uL (4.4-10.8)
[2023-01-13 07:01] LABS: Albumin 2.4 g/dL (3.4-5.0); Calcium 8.2 mg/dL (8.5-10.1); Magnesium 2.2 mg/dL (1.6-2.6)
[2023-01-13 07:08] LABS: BUN/Creatinine Ratio 23.1 (10.0-20.0); Bilirubin, Total 1.1 mg/dL (0.2-1.0); Phosphorus 1.8 mg/dL (2.5-4.90); Total Protein 6.2 g/dL (6.4-8.2)
[2023-01-13 08:00] VITALS: BP 154/93
[2023-01-13 08:41] VITALS: BP 160/98
[2023-01-13] MEDS ORDERED: SODIUM PHOSP 20MEQ(15MMOL) IN NS 100 ML IV ONE (09:30)
[2023-01-13] MEDS: LEVOTHYROXINE SODIUM 100 MCG/5 ML INJ IV SCH (10:05)
[2023-01-13] MEDS: PANTOPRAZOLE 40 MG/10 ML VIAL INJ IV SCH (10:05)
[2023-01-13 13:00] VITALS: BP 160/90
[2023-01-13 17:00] VITALS: BP 159/95
[2023-01-13] MEDS: PPN PER PHARMACY IV NR ×8 (19:45)
[2023-01-13] MEDS ORDERED: TPN PER PHARMACY IV NR ×10 (20:00)
[2023-01-13 22:00] VITALS: BP 165/100
[2023-01-14] VITALS (8 sets, daily range): BP systolic 116–163; BP diastolic 79–101
[2023-01-14] MEDS: HYDROmorphone HCL 2 MG/ML VL/or syr IV PRN ×3 (02:34→20:55)
[2023-01-14] MEDS: PIPERACILLIN-TAZOB 3.375GM 100 ML IV SCH ×3 (05:50→21:34)
[2023-01-14] MEDS: ACCU-CHEK COMFORT CURVE STRIP VI SCH (05:51)
[2023-01-14] MEDS: InsuLIN REG 1unit/0.01ml Soln (100units/ml) SC SCH ×2 (05:52)
[2023-01-14 06:49] LABS: Basophils # (auto) 0.1 10 ^3/uL (0-0.2); Basophils % (auto) 0.5 % (0.0-2.0); Eosinophils # (auto) 0.8 10 ^3/uL (0-0.8); Eosinophils % (auto) 4.9 % (0.0-7.0); Hematocrit 42.7 % (41.0-53.0); Hemoglobin 14.4 g/dL (13.5-17.5); Lymphocytes % (auto) 11.9 % (10.0-50.0); Mean Corpuscular Hemoglobin 29.6 pg (28.0-32.0); Mean Corpuscular Hgb Conc. 33.7 g/dL (32.0-36.0); Mean Corpuscular Volume 87.9 fL (80.0-100.0); Monocytes # (auto) 1.9 10 ^3/uL (0-1.3); Monocytes % (auto) 11.3 % (0.0-12.0); Neutrophils # (auto) 11.8 10 ^3/uL (1.6-8.6); Neutrophils % (auto) 71.4 % (37.0-80.0); Nucleated Red Blood Cells % 0.1 %; Red Blood Cells 4.86 10^6/uL (4.5-5.90); Red Cell Distribution Width 14.8 % (11.8-14.3); White Blood Cell 16.5 10^3/uL (4.4-10.8)
[2023-01-14 06:57] LABS: Potassium 3.5 mmol/L (3.5-5.1)
[2023-01-14 07:01] LABS: Albumin 2.4 g/dL (3.4-5.0); Calcium 8.3 mg/dL (8.5-10.1); Magnesium 2.2 mg/dL (1.6-2.6)
[2023-01-14 07:03] LABS: Total Protein 6.5 g/dL (6.4-8.2)
[2023-01-14] MEDS ORDERED: POTASSIUM CHL 20MEQ/100ML 100 ML IV ONE (08:45)
[2023-01-14] MEDS ORDERED: MORPHINE SULFATE INJ 2 MG/ml SYRG IV PRN (08:45)
[2023-01-14] MEDS: PANTOPRAZOLE 40 MG/10 ML VIAL INJ IV SCH (11:22)
[2023-01-14] MEDS: LEVOTHYROXINE SODIUM 100 MCG/5 ML INJ IV SCH (11:22)
[2023-01-14] MEDS ORDERED: POTASSIUM CHL 20 Meq TABLET PO ONE (14:15)
[2023-01-14] MEDS: ONDANSETRON HCL 4 MG/2 ML VIAL IV PRN (16:46)
[2023-01-14] MEDS: TAMSULOSIN HYDROCHLORIDE 0.4 MG CAP PO SCH (18:16)
[2023-01-14] MEDS: KETOROLAC TROMETH 30 MG/ML 1ML VIAL IV PRN (18:16)
[2023-01-14] MEDS ORDERED: TPN PER PHARMACY IV NR ×11 (20:00)
[2023-01-15] MEDS: LORazepam 2MG/ML-1ML VIAL IV PRN (01:41)
[2023-01-15 05:00] VITALS: BP 117/81
[2023-01-15 05:44] LABS: Calcium 8.6 mg/dL (8.5-10.1); Potassium 3.9 mmol/L (3.5-5.1)
[2023-01-15] MEDS: PIPERACILLIN-TAZOB 3.375GM 100 ML IV SCH ×3 (05:46→22:00)
[2023-01-15 05:48] LABS: Albumin 2.5 g/dL (3.4-5.0); BUN/Creatinine Ratio 22.1 (10.0-20.0); Bilirubin, Total 1.2 mg/dL (0.2-1.0); Magnesium 2.3 mg/dL (1.6-2.6); Phosphorus 2.9 mg/dL (2.5-4.90); Total Protein 5.8 g/dL (6.4-8.2)
[2023-01-15 09:00] VITALS: BP 119/82
[2023-01-15 12:45] VITALS: BP 132/76
[2023-01-15] MEDS: HYDROmorphone HCL 2 MG/ML VL/or syr IV PRN ×2 (13:32→20:14)
[2023-01-15 16:32] VITALS: BP 118/69
[2023-01-15] MEDS: TAMSULOSIN HYDROCHLORIDE 0.4 MG CAP PO SCH (17:39)
[2023-01-15 20:00] VITALS: BP 112/82
[2023-01-15 22:00] VITALS: BP 112/82
[2023-01-16] VITALS (7 sets, daily range): BP systolic 102–127; BP diastolic 64–86
[2023-01-16] MEDS: PIPERACILLIN-TAZOB 3.375GM 100 ML IV SCH ×3 (05:46→22:18)
[2023-01-16 05:52] LABS: Anion Gap 11 (5-15); Blood Urea Nitrogen 24 mg/dL (7-18); Carbon Dioxide 17 mmol/L (21-32); Chloride 107 mmol/L (98-107); Glucose 96 mg/dL (74-106); Potassium 3.9 mmol/L (3.5-5.1); Sodium 135 mmol/L (136-145)
[2023-01-16 05:55] LABS: BUN/Creatinine Ratio 17.6 (10.0-20.0); Calcium 7.6 mg/dL (8.5-10.1); GFR African American 67 mL/min; GFR Non-African American 56 mL/min
[2023-01-16] MEDS: LEVOTHYROXINE SODIUM 50 MCG TAB PO SCH (06:46)
[2023-01-16 10:24] LABS: Basophils # (auto) 0.1 10 ^3/uL (0-0.2); Basophils % (auto) 0.7 % (0.0-2.0); Eosinophils # (auto) 1.3 10 ^3/uL (0-0.8); Eosinophils % (auto) 7.8 % (0.0-7.0); Hematocrit 42.5 % (41.0-53.0); Hemoglobin 14.1 g/dL (13.5-17.5); Lymphocytes # (auto) 1.9 10 ^3/uL (0.4-5.4); Lymphocytes % (auto) 11.5 % (10.0-50.0); Mean Corpuscular Hemoglobin 29.1 pg (28.0-32.0); Mean Corpuscular Hgb Conc. 33.2 g/dL (32.0-36.0); Mean Corpuscular Volume 87.7 fL (80.0-100.0); Monocytes # (auto) 1.6 10 ^3/uL (0-1.3); Monocytes % (auto) 9.8 % (0.0-12.0); Neutrophils # (auto) 11.7 10 ^3/uL (1.6-8.6); Neutrophils % (auto) 70.2 % (37.0-80.0); Red Blood Cells 4.85 10^6/uL (4.5-5.90); Red Cell Distribution Width 14.7 % (11.8-14.3); White Blood Cell 16.7 10^3/uL (4.4-10.8)
[2023-01-16] MEDS ORDERED: FLUCONAZOLE 200MG/100ML 100 ML IV ONE (10:30)
[2023-01-16] MEDS: HYDROmorphone HCL 2 MG/ML VL/or syr IV PRN ×3 (10:37→20:39)
[2023-01-16] MEDS ORDERED: GASTROGRAFIN 120 ML SOL ONE (10:41)
[2023-01-16] MEDS: TAMSULOSIN HYDROCHLORIDE 0.4 MG CAP PO SCH (18:14)
[2023-01-16] MEDS: KETOROLAC TROMETH 30 MG/ML 1ML VIAL IV PRN (22:28)
[2023-01-17] MEDS: HYDROmorphone HCL 2 MG/ML VL/or syr IV PRN ×4 (01:50→23:27)
[2023-01-17 05:00] VITALS: BP 118/83
[2023-01-17 05:50] LABS: Basophils # (auto) 0.1 10 ^3/uL (0-0.2); Basophils % (auto) 0.7 % (0.0-2.0); Eosinophils # (auto) 1.5 10 ^3/uL (0-0.8); Eosinophils % (auto) 8.9 % (0.0-7.0); Hematocrit 40.9 % (41.0-53.0); Hemoglobin 13.6 g/dL (13.5-17.5); Lymphocytes # (auto) 3.2 10 ^3/uL (0.4-5.4); Lymphocytes % (auto) 19.1 % (10.0-50.0); Mean Corpuscular Hemoglobin 29.1 pg (28.0-32.0); Mean Corpuscular Hgb Conc. 33.2 g/dL (32.0-36.0); Mean Corpuscular Volume 87.6 fL (80.0-100.0); Monocytes # (auto) 1.8 10 ^3/uL (0-1.3); Monocytes % (auto) 10.8 % (0.0-12.0); Neutrophils # (auto) 10.2 10 ^3/uL (1.6-8.6); Neutrophils % (auto) 60.5 % (37.0-80.0); Red Blood Cells 4.67 10^6/uL (4.5-5.90); Red Cell Distribution Width 14.6 % (11.8-14.3)
[2023-01-17] MEDS: PIPERACILLIN-TAZOB 3.375GM 100 ML IV SCH ×3 (05:54→22:14)
[2023-01-17 06:12] LABS: Potassium 3.4 mmol/L (3.5-5.1)
[2023-01-17 06:17] LABS: BUN/Creatinine Ratio 15.5 (10.0-20.0); Calcium 7.9 mg/dL (8.5-10.1)
[2023-01-17] MEDS: LEVOTHYROXINE SODIUM 50 MCG TAB PO SCH (06:19)
[2023-01-17] MEDS: KETOROLAC TROMETH 30 MG/ML 1ML VIAL IV PRN ×2 (07:06→22:15)
[2023-01-17 08:45] VITALS: BP 128/79
[2023-01-17] MEDS: FLUCONAZOLE 200MG/100ML 100 ML IV SCH (08:48)
[2023-01-17 12:22] VITALS: BP 139/87
[2023-01-17 16:38] VITALS: BP 131/52
[2023-01-17] MEDS: TAMSULOSIN HYDROCHLORIDE 0.4 MG CAP PO SCH (18:13)
[2023-01-17 20:00] VITALS: BP 131/76
[2023-01-17 20:37] LABS: Urine Bacteria MOD /hpf (None Seen); Urine Blood 1+ /uL (Negative); Urine Budding Yeast MANY /hpf (None Seen); Urine Mucus FEW (None Seen); Urine Specific Gravity 1.028 (1.001-1.035); Urine WBC 244 /hpf (0 - 3); Urine WBC Clumps PRESENT /hpf (None Seen)
[2023-01-17 22:00] VITALS: BP 125/74
[2023-01-18] VITALS (7 sets, daily range): BP systolic 117–160; BP diastolic 77–94
[2023-01-18] MEDS: HYDROmorphone HCL 2 MG/ML VL/or syr IV PRN ×4 (04:55→22:06)
[2023-01-18 05:13] LABS: Basophils # (auto) 0.1 10 ^3/uL (0-0.2); Basophils % (auto) 0.9 % (0.0-2.0); Eosinophils # (auto) 1.4 10 ^3/uL (0-0.8); Eosinophils % (auto) 10.1 % (0.0-7.0); Hematocrit 42.3 % (41.0-53.0); Hemoglobin 14.2 g/dL (13.5-17.5); Lymphocytes # (auto) 3.1 10 ^3/uL (0.4-5.4); Lymphocytes % (auto) 22.4 % (10.0-50.0); Mean Corpuscular Hemoglobin 29.7 pg (28.0-32.0); Mean Corpuscular Hgb Conc. 33.5 g/dL (32.0-36.0); Mean Corpuscular Volume 88.7 fL (80.0-100.0); Monocytes # (auto) 1.5 10 ^3/uL (0-1.3); Monocytes % (auto) 10.5 % (0.0-12.0); Neutrophils # (auto) 7.9 10 ^3/uL (1.6-8.6); Neutrophils % (auto) 56.1 % (37.0-80.0); Nucleated Red Blood Cells % 0.2 %; Red Blood Cells 4.77 10^6/uL (4.5-5.90); Red Cell Distribution Width 14.7 % (11.8-14.3)
[2023-01-18 05:33] LABS: Potassium 3.9 mmol/L (3.5-5.1)
[2023-01-18 05:42] LABS: Albumin 2.6 g/dL (3.4-5.0); BUN/Creatinine Ratio 11.6 (10.0-20.0); Bilirubin, Total 0.6 mg/dL (0.2-1.0); Calcium 8.3 mg/dL (8.5-10.1)
[2023-01-18] MEDS: PIPERACILLIN-TAZOB 3.375GM 100 ML IV SCH ×3 (06:08→22:05)
[2023-01-18] MEDS: LEVOTHYROXINE SODIUM 50 MCG TAB PO SCH (06:09)
[2023-01-18] MEDS: PANTOPRAZOLE 40 MG TAB PO SCH (08:51)
[2023-01-18] MEDS: FLUCONAZOLE 200MG/100ML 100 ML IV SCH (08:52)
[2023-01-18] MEDS ORDERED: levoFLOXacin 500MG 100 ML IV ONE (09:15)
[2023-01-18] MEDS: KETOROLAC TROMETH 30 MG/ML 1ML VIAL IV PRN (12:46)
[2023-01-18] MEDS: TAMSULOSIN HYDROCHLORIDE 0.4 MG CAP PO SCH (18:10)
[2023-01-19] VITALS (7 sets, daily range): BP systolic 109–128; BP diastolic 66–80
[2023-01-19] MEDS: ONDANSETRON HCL 4 MG/2 ML VIAL IV PRN (01:15)
[2023-01-19] MEDS: KETOROLAC TROMETH 30 MG/ML 1ML VIAL IV PRN (04:03)
[2023-01-19] MEDS: PIPERACILLIN-TAZOB 3.375GM 100 ML IV SCH (05:31)
[2023-01-19 05:40] LABS: Basophils # (auto) 0.1 10 ^3/uL (0-0.2); Basophils % (auto) 0.9 % (0.0-2.0); Eosinophils % (auto) 8.5 % (0.0-7.0); Hematocrit 38.2 % (41.0-53.0); Lymphocytes # (auto) 1.9 10 ^3/uL (0.4-5.4); Lymphocytes % (auto) 16.6 % (10.0-50.0); Mean Corpuscular Hemoglobin 29.7 pg (28.0-32.0); Mean Corpuscular Hgb Conc. 34.2 g/dL (32.0-36.0); Monocytes # (auto) 1.2 10 ^3/uL (0-1.3); Monocytes % (auto) 9.9 % (0.0-12.0); Neutrophils # (auto) 7.5 10 ^3/uL (1.6-8.6); Neutrophils % (auto) 64.1 % (37.0-80.0); Red Blood Cells 4.39 10^6/uL (4.5-5.90); Red Cell Distribution Width 14.4 % (11.8-14.3); White Blood Cell 11.7 10^3/uL (4.4-10.8)
[2023-01-19 05:56] LABS: Potassium 4.1 mmol/L (3.5-5.1)
[2023-01-19 06:05] LABS: Albumin 2.3 g/dL (3.4-5.0); Bilirubin, Total 0.5 mg/dL (0.2-1.0); Total Protein 5.3 g/dL (6.4-8.2)
[2023-01-19] MEDS: LEVOTHYROXINE SODIUM 50 MCG TAB PO SCH (06:41)
[2023-01-19] MEDS: HYDROmorphone HCL 2 MG/ML VL/or syr IV PRN ×3 (06:48→19:53)
[2023-01-19] MEDS: FLUCONAZOLE 200MG/100ML 100 ML IV SCH (10:26)
[2023-01-19] MEDS: PANTOPRAZOLE 40 MG TAB PO SCH (10:27)
[2023-01-19] MEDS: levoFLOXacin 500MG 100 ML IV SCH (11:54)
[2023-01-19] MEDS: TAMSULOSIN HYDROCHLORIDE 0.4 MG CAP PO SCH (17:31)
[2023-01-19] MEDS: LORazepam 2MG/ML-1ML VIAL IV PRN (21:49)
[2023-01-20] MEDS: HYDROmorphone HCL 2 MG/ML VL/or syr IV PRN ×2 (01:30→10:10)
[2023-01-20 05:00] VITALS: BP 137/71
[2023-01-20] MEDS: LEVOTHYROXINE SODIUM 50 MCG TAB PO SCH (07:06)
[2023-01-20 09:00] VITALS: BP 124/86
[2023-01-20] MEDS ORDERED: PANT40T PO (09:52)
[2023-01-20] MEDS ORDERED: HYDR1TAB97 PO (09:52)
[2023-01-20] MEDS ORDERED: LEVO500T31 PO (09:52)
[2023-01-20] MEDS ORDERED: DOCU-94 PO (09:52)
[2023-01-20] MEDS ORDERED: FLUC100T34 PO (09:52)
[2023-01-20] MEDS: levoFLOXacin 500MG 100 ML IV SCH (10:10)
[2023-01-20] MEDS: PANTOPRAZOLE 40 MG TAB PO SCH (10:11)
[2023-01-20] MEDS: FLUCONAZOLE 200MG/100ML 100 ML IV SCH (10:11)
[2023-01-20 13:00] VITALS: BP 129/61
== END 2023-01-20 17:59 | disposition home or self-care (01) | DRG 330 ==
LOC: SUR 06:05 → OVERFLOW 11:29 → TELE-EAST 15:05 → EAST 01-19 15:37
PROVIDERS: ADMIT Internal Medicine; ATTEND Internal Medicine
PROC: 0WQF0ZZ Repair Abdominal Wall, Open Approach (ICD-10-PCS; 2023-01-09)
PROC: 0D1M0ZP Bypass Descending Colon to Rectum, Open Approach (ICD-10-PCS; principal; 2023-01-09 07:35)
PROC: 05HD33Z Insertion of Infusion Device into Right Cephalic Vein, Percutaneous Approach (ICD-10-PCS; 2023-01-12)
PROC: B54MZZA Ultrasonography of Right Upper Extremity Veins, Guidance (ICD-10-PCS; 2023-01-12)
DX: K56.51 Intestinal adhesions [bands], with partial obstruction (principal); I42.0 Dilated cardiomyopathy; I50.22 Chronic systolic (congestive) heart failure; N39.0 Urinary tract infection, site not specified; K57.32 Diverticulitis of large intestine without perforation or abscess without bleeding; Z20.822 Contact with and (suspected) exposure to COVID-19; K56.7 Ileus, unspecified; E03.9 Hypothyroidism, unspecified; E66.9 Obesity, unspecified; J44.9 Chronic obstructive pulmonary disease, unspecified; K43.2 Incisional hernia without obstruction or gangrene; K43.5 Parastomal hernia without obstruction or gangrene; N18.31 Chronic kidney disease, stage 3a; N40.1 Benign prostatic hyperplasia with lower urinary tract symptoms; K75.9 Inflammatory liver disease, unspecified; B96.5 Pseudomonas (aeruginosa) (mallei) (pseudomallei) as the cause of diseases classified elsewhere; K82.8 Other specified diseases of gallbladder; N32.0 Bladder-neck obstruction; Z68.29 Body mass index [BMI] 29.0-29.9, adult
CPT/HCPCS: 36415; 71045; 74176; 74250; 80048; 80053; 81001; 82962; 83735; 83880; 84100; 84154; 84443; 84478; 85025; 85610; 85730; 86850; 86900; 86901; 87070; 87077; 87086; 87088; 87186; 87205; 94640; 97110; 97116; 97163; 97530; C9113; G0378; J0690; J1450; J1815; J1885; J1956; J2001; J2250; J2405; J2543; J2704; J3490

== ENCOUNTER 2023-06-13 09:24 | Emergency (ER) | payer MEDICARE, MEDICAID ==
[~2023-06-13] VITALS: Ht 170.2 cm; Wt 82.0 kg
[~2023-06-13 09:24] MED LIST changes: -ACET-1158 PO; +ACET500T58 PO; +DOCU-94 PO; +FLUC100T34 PO; +HYDR1TAB97 PO; +LEVO500T31 PO; +PANT40T PO; -TAM04C PO; +TAMS-35 PO
[2023-06-13 09:58] VITALS: TEMP 97.7
[2023-06-13 10:01] VITALS: BP 166/114; PULSE 87; RESP 16; O2SAT 98
[2023-06-13] MEDS ORDERED: LIDOCAINE 2% JELLY 11ml (GLYDO) ONE (11:39)
[2023-06-13] MEDS ORDERED: LIDOCAINE 2% JELLY 11ml (GLYDO) UR ONE (12:45)
[2023-06-13] MEDS ORDERED: CIPR-173 PO (13:11)
[2023-06-13 13:52] LABS: Urine Bacteria FEW /hpf (None Seen); Urine Blood 3+ /uL (Negative); Urine Budding Yeast FEW /hpf (None Seen); Urine Clarity HAZY (Clear); Urine Color Yellow (Yellow); Urine Protein, UAD 1+ (Negative); Urine Specific Gravity 1.017 (1.001-1.035); Urine Urobilinogen Normal (Negative); Urine WBC 692 /hpf (0 - 3); Urine WBC Clumps PRESENT /hpf (None Seen); Urine pH 5.5 (5.0-8.0)
== END 2023-06-13 13:20 | disposition home or self-care (01) ==
LOC: EDBD 09:24 → ER 09:24
DX: N39.0 Urinary tract infection, site not specified (principal); Z46.6 Encounter for fitting and adjustment of urinary device
CPT/HCPCS: 51702; 81001

== ENCOUNTER 2023-07-10 22:32 | Emergency (ER) | payer MEDICARE, MEDICAID ==
[~2023-07-10] VITALS: Ht 172.7 cm; Wt 85.6 kg
[~2023-07-10 22:32] MED LIST changes: +CIPR-173 PO
[2023-07-11 02:28] VITALS: BP 134/80; PULSE 88; RESP 18; TEMP 97.9; O2SAT 99
[2023-07-11] MEDS ORDERED: LIDOCAINE HCL 2% TOP JELLY 5ML TOP ONE (03:00)
== END 2023-07-11 03:47 | disposition home or self-care (01) ==
LOC: ER 22:32
DX: T83.098A Other mechanical complication of other urinary catheter, initial encounter (principal); F17.210 Nicotine dependence, cigarettes, uncomplicated; I50.9 Heart failure, unspecified; Z79.899 Other long term (current) drug therapy

== ENCOUNTER 2023-10-08 02:45 | Emergency (ER) | payer MEDICARE, MEDICAID ==
[~2023-10-08] VITALS: Ht 172.7 cm; Wt 88.6 kg
[2023-10-08 04:25] VITALS: BP 152/89; PULSE 100; RESP 18; O2SAT 97
== END 2023-10-08 04:29 | disposition home or self-care (01) ==
LOC: ER 02:45
DX: R33.9 Retention of urine, unspecified (principal); I11.0 Hypertensive heart disease with heart failure; J44.9 Chronic obstructive pulmonary disease, unspecified; F17.210 Nicotine dependence, cigarettes, uncomplicated; Z46.6 Encounter for fitting and adjustment of urinary device
CPT/HCPCS: 51702

== ENCOUNTER 2023-12-31 00:31 | Emergency (ER) | payer BC, MEDICAID ==
[~2023-12-31] VITALS: Ht 172.7 cm; Wt 88.2 kg
[2023-12-31] MEDS ORDERED: SULF800T23 PO (05:20)
[2023-12-31 05:40] VITALS: BP 165/95; PULSE 115; RESP 20; TEMP 98; O2SAT 97
[2023-12-31] MEDS: cefTRIAXone SOD 1,000 MG VL IM ONE (05:51)
== END 2023-12-31 06:23 | disposition home or self-care (01) ==
LOC: ER 00:31
DX: Z46.6 Encounter for fitting and adjustment of urinary device (principal); N39.0 Urinary tract infection, site not specified; R33.9 Retention of urine, unspecified; J44.9 Chronic obstructive pulmonary disease, unspecified; F17.210 Nicotine dependence, cigarettes, uncomplicated; Z87.430 Personal history of prostatic dysplasia
CPT/HCPCS: 51702; 81002; 96372; 99284; J0696

== ENCOUNTER 2024-02-17 02:38 | Emergency (ER) | payer BC, MEDICAID ==
[~2024-02-17] VITALS: Ht 172.7 cm; Wt 88.6 kg
[~2024-02-17 02:38] MED LIST changes: +SULF800T23 PO
[2024-02-17 02:49] VITALS: BP 170/76
[2024-02-17 03:50] VITALS: PULSE 87; RESP 18; O2SAT 98
== END 2024-02-17 03:52 | disposition home or self-care (01) ==
LOC: ER 02:38
DX: N39.0 Urinary tract infection, site not specified (principal); F17.210 Nicotine dependence, cigarettes, uncomplicated; J44.9 Chronic obstructive pulmonary disease, unspecified; Z46.6 Encounter for fitting and adjustment of urinary device
CPT/HCPCS: 51702

== ENCOUNTER 2024-03-17 13:13 | Inpatient (IN) | payer BC, MEDICAID ==
[2024-03-17] VITALS (7 sets, daily range): BP systolic 127; BP diastolic 80; PULSE 100–114; RESP 18–22; TEMP 97.5; O2SAT 95–99
[~2024-03-17] VITALS: Ht 175.3 cm; Wt 85.5 kg
[2024-03-17 13:46] LABS: Basophils # (auto) 0.1 10 ^3/uL (0-0.2); Basophils % (auto) 0.8 % (0.0-2.0); Eosinophils # (auto) 0.4 10 ^3/uL (0-0.8); Eosinophils % (auto) 3.7 % (0.0-7.0); Hematocrit 44.4 % (41.0-53.0); Hemoglobin 14.4 g/dL (13.5-17.5); Lymphocytes # (auto) 2.6 10 ^3/uL (0.4-5.4); Lymphocytes % (auto) 25.5 % (10.0-50.0); Mean Corpuscular Hemoglobin 27.5 pg (28.0-32.0); Mean Corpuscular Hgb Conc. 32.4 g/dL (32.0-36.0); Mean Corpuscular Volume 84.8 fL (80.0-100.0); Monocytes # (auto) 0.9 10 ^3/uL (0-1.3); Neutrophils # (auto) 6.2 10 ^3/uL (1.6-8.6); Nucleated Red Blood Cells % 0.1 %; Red Blood Cells 5.23 10^6/uL (4.5-5.90); Red Cell Distribution Width 14.6 % (11.8-14.3); White Blood Cell 10.2 10^3/uL (4.4-10.8)
[2024-03-17 14:03] LABS: Alanine Aminotransferase 54 U/L (7-40); Albumin 4.2 g/dL (3.2-4.8); Alkaline Phosphatase 104 U/L (46-116); Anion Gap 7 (5-15); Aspartate Aminotransferase 50 U/L (13-40); BUN/Creatinine Ratio 16.6 (10.0-20.0); Bilirubin, Total 1.1 mg/dL (0.2-1.0); Blood Urea Nitrogen 26 mg/dL (9-23); Calcium 9.3 mg/dL (8.5-10.1); Carbon Dioxide 22 mmol/L (20-30); Chloride 110 mmol/L (98-107); Glucose 122 mg/dL (74-106); Potassium 4.2 mmol/L (3.5-5.1); Sodium 139 mmol/L (136-145); Total Protein 6.5 g/dL (5.7-8.2)
[2024-03-17] MEDS: FUROSEMIDE 100 MG/10ML VIAL IV ONE (14:57)
[2024-03-17 15:15] LABS: Erythrocyte Sedimentation Rate 2 mm/hr (0-20)
[2024-03-17] MEDS: HYDROcodone-ACET 5/325MG TAB PO ONE (15:27)
[2024-03-17] MEDS: ASPirin 325 MG TAB PO ONE (15:27)
[2024-03-17] MEDS: IOHEXOL 350 MG/ML 100ML IJ ONE (17:07)
[2024-03-17] MEDS ORDERED: MORPHINE SULFATE INJ 2 MG/ml SYRG IV PRN (17:30)
[2024-03-17] MEDS ORDERED: NITROGLYCERIN 0.4 MG SL TAB SL PRN (17:30)
[2024-03-17] MEDS ORDERED: CARV3.1240 PO (17:37)
[2024-03-17] MEDS ORDERED: FIN5T PO (17:37)
[2024-03-17] MEDS ORDERED: hydrALAZINE HCL 20 MG/ML VL IV PRN (17:45)
[2024-03-17] MEDS ORDERED: IPRATROPIUM BROM 0.5 MG/2.5ML INH SOL NEB PRN (18:00)
[2024-03-17] MEDS ORDERED: ALBUTEROL SULF 2.5 MG/0.5ML(0.5%) NEB SOLN NEB PRN (18:00)
[2024-03-17 18:11] LABS: Magnesium 1.9 mg/dL (1.6-2.6)
[2024-03-17] MEDS: IPRATROPIUM BROM 0.5 MG/2.5ML INH SOL NEB SCH (18:51)
[2024-03-17] MEDS: ALBUTEROL SULF 2.5 MG/0.5ML(0.5%) NEB SOLN NEB SCH (18:51)
[2024-03-17] MEDS: ATORVASTATIN 20 MG TAB PO SCH (22:06)
[2024-03-17] MEDS: CARVEDILOL 3.125 MG TAB PO SCH (22:07)
[2024-03-17] MEDS: ENOXAPARIN SOD 100 MG/1 ML SYRINGE SC SCH (22:07)
[2024-03-17] MEDS: TAMSULOSIN HYDROCHLORIDE 0.4 MG CAP PO SCH (22:17)
[2024-03-17] MEDS: MAGNESIUM SULFATE 1GM/100ML 100 ML IV ONE (23:44)
[2024-03-18] VITALS (16 sets, daily range): BP systolic 101–159; BP diastolic 72–93; PULSE 66–113; RESP 16–22; TEMP 97.7–98.2; O2SAT 93–100
[2024-03-18] MEDS: MORPHINE SULFATE INJ 2 MG/ml SYRG IV PRN (01:31)
[2024-03-18] MEDS: LEVOTHYROXINE SODIUM 100 MCG TAB PO SCH (06:14)
[2024-03-18 07:02] LABS: Basophils # (auto) 0.1 10 ^3/uL (0-0.2); Eosinophils # (auto) 0.4 10 ^3/uL (0-0.8); Eosinophils % (auto) 4.1 % (0.0-7.0); Hematocrit 42.3 % (41.0-53.0); Hemoglobin 13.9 g/dL (13.5-17.5); Mean Corpuscular Hemoglobin 27.7 pg (28.0-32.0); Mean Corpuscular Volume 84.2 fL (80.0-100.0); Monocytes % (auto) 10.2 % (0.0-12.0); Neutrophils # (auto) 5.5 10 ^3/uL (1.6-8.6); Neutrophils % (auto) 54.7 % (37.0-80.0); Red Blood Cells 5.02 10^6/uL (4.5-5.90); Red Cell Distribution Width 14.2 % (11.8-14.3); White Blood Cell 10.1 10^3/uL (4.4-10.8)
[2024-03-18 07:35] LABS: Alanine Aminotransferase 53 U/L (7-40); Albumin 4.1 g/dL (3.2-4.8); Alkaline Phosphatase 92 U/L (46-116); Anion Gap 9 (5-15); Aspartate Aminotransferase 80 U/L (13-40); BUN/Creatinine Ratio 12.3 (10.0-20.0); Bilirubin, Total 1.2 mg/dL (0.2-1.0); Blood Urea Nitrogen 20 mg/dL (9-23); Calcium 9.4 mg/dL (8.5-10.1); Carbon Dioxide 23 mmol/L (20-30); Chloride 108 mmol/L (98-107); Glucose 110 mg/dL (74-106); Potassium 4.4 mmol/L (3.5-5.1); Sodium 140 mmol/L (136-145); Total Protein 6.6 g/dL (5.7-8.2)
[2024-03-18] MEDS: ASPirin 81 mg TAB PO SCH (09:35)
[2024-03-18] MEDS: PANTOPRAZOLE 40 MG TAB PO SCH (09:36)
[2024-03-18] MEDS: FUROSEMIDE 40 MG/4 ML VIAL IV SCH ×2 (09:37→21:30)
[2024-03-18] MEDS ORDERED: ENOXAPARIN SOD 40 MG/0.4 ML SYRINGE SC SCH (10:00)
[2024-03-18 13:55] LABS: Urine Bacteria FEW /hpf (None Seen); Urine Blood 1+ /uL (Negative); Urine Budding Yeast FEW /hpf (None Seen); Urine Clarity Turbid (Clear); Urine Protein, UAD Negative (Negative); Urine Specific Gravity 1.008 (1.001-1.035); Urine Urobilinogen Normal (Negative); Urine WBC 62 /hpf (0 - 3)
[2024-03-18 14:02] LABS: Urine Color STRAW (Yellow)
[2024-03-18 14:04] LABS: Amphetamine Screen, Urine Pos (NEGATIVE)
[2024-03-18 14:05] LABS: Barbiturate Scree,Urine Neg (NEGATIVE); Benzodiazephine Screen, Urine Neg (NEGATIVE); Cannabinoid Screen, Urine Neg (NEGATIVE); Cocaine Screen, Urine Neg (NEGATIVE); Opiate Scree,Urine Neg (NEGATIVE); Phencyclidine Screen, Urine Neg (NEGATIVE)
[2024-03-18 17:44] LABS: Phosphorus 3.8 mg/dL (2.4-5.1)
[2024-03-18 17:46] LABS: Free T3 2.92 pg/mL (2.3-4.2)
[2024-03-18 17:47] LABS: Free T4 (Free Thyroxine) 1.23 ng/dL (0.89-1.76)
[2024-03-18] MEDS ORDERED: CARV3.1240 PO (17:55)
[2024-03-18] MEDS ORDERED: FURO40TA4 PO (17:55)
[2024-03-18] MEDS ORDERED: FINA5TAB4 PO (17:55)
[2024-03-18] MEDS: LEVALBUTEROL HCL 1.25 MG/3 ML NEB NEB SCH (18:49)
[2024-03-19] VITALS (18 sets, daily range): BP systolic 101–120; BP diastolic 73–81; PULSE 71–107; RESP 16–20; TEMP 97.4–98.7; O2SAT 91–100
[2024-03-19 07:26] LABS: Basophils # (auto) 0.1 10 ^3/uL (0-0.2); Basophils % (auto) 1.2 % (0.0-2.0); Eosinophils # (auto) 0.6 10 ^3/uL (0-0.8); Eosinophils % (auto) 4.9 % (0.0-7.0); Hemoglobin 15.3 g/dL (13.5-17.5); Lymphocytes # (auto) 2.9 10 ^3/uL (0.4-5.4); Lymphocytes % (auto) 25.4 % (10.0-50.0); Mean Corpuscular Hemoglobin 27.3 pg (28.0-32.0); Mean Corpuscular Hgb Conc. 32.5 g/dL (32.0-36.0); Mean Corpuscular Volume 84.1 fL (80.0-100.0); Monocytes # (auto) 1.3 10 ^3/uL (0-1.3); Monocytes % (auto) 11.7 % (0.0-12.0); Neutrophils # (auto) 6.5 10 ^3/uL (1.6-8.6); Neutrophils % (auto) 56.8 % (37.0-80.0); Nucleated Red Blood Cells % 0.1 %; Red Blood Cells 5.59 10^6/uL (4.5-5.90); Red Cell Distribution Width 14.2 % (11.8-14.3); White Blood Cell 11.4 10^3/uL (4.4-10.8)
[2024-03-19 07:30] LABS: Alanine Aminotransferase 57 U/L (7-40); Albumin 4.3 g/dL (3.2-4.8); Alkaline Phosphatase 99 U/L (46-116); Anion Gap 6 (5-15); Aspartate Aminotransferase 76 U/L (13-40); BUN/Creatinine Ratio 9.8 (10.0-20.0); Bilirubin, Total 1.6 mg/dL (0.2-1.0); Blood Urea Nitrogen 19 mg/dL (9-23); Calcium 9.9 mg/dL (8.5-10.1); Carbon Dioxide 30 mmol/L (20-30); Chloride 102 mmol/L (98-107); Glucose 114 mg/dL (74-106); Magnesium 2.1 mg/dL (1.6-2.6); Phosphorus 4.5 mg/dL (2.4-5.1); Potassium 4.8 mmol/L (3.5-5.1); Sodium 138 mmol/L (136-145); Total Protein 7.1 g/dL (5.7-8.2)
[2024-03-19] MEDS: MUPIROCIN 2% OINT 15gm or 22gm TOP SCH (22:00)
[2024-03-20] VITALS (11 sets, daily range): BP systolic 94–115; BP diastolic 70–80; PULSE 87–108; RESP 18–20; TEMP 97.7–97.9; O2SAT 91–100
[2024-03-20 06:51] LABS: Basophils # (auto) 0.1 10 ^3/uL (0-0.2); Basophils % (auto) 1.1 % (0.0-2.0); Eosinophils # (auto) 0.5 10 ^3/uL (0-0.8); Eosinophils % (auto) 5.5 % (0.0-7.0); Hematocrit 46.7 % (41.0-53.0); Hemoglobin 15.3 g/dL (13.5-17.5); Lymphocytes # (auto) 2.4 10 ^3/uL (0.4-5.4); Lymphocytes % (auto) 24.2 % (10.0-50.0); Mean Corpuscular Hemoglobin 27.5 pg (28.0-32.0); Mean Corpuscular Hgb Conc. 32.7 g/dL (32.0-36.0); Mean Corpuscular Volume 84.1 fL (80.0-100.0); Monocytes # (auto) 1.2 10 ^3/uL (0-1.3); Monocytes % (auto) 12.2 % (0.0-12.0); Neutrophils # (auto) 5.7 10 ^3/uL (1.6-8.6); Nucleated Red Blood Cells % 0.1 %; Red Blood Cells 5.55 10^6/uL (4.5-5.90); Red Cell Distribution Width 14.1 % (11.8-14.3)
[2024-03-20 07:01] LABS: Anion Gap 9 (5-15); Carbon Dioxide 25 mmol/L (20-30); Chloride 103 mmol/L (98-107); Potassium 3.6 mmol/L (3.5-5.1); Sodium 137 mmol/L (136-145)
[2024-03-20 07:03] LABS: Calcium 9.4 mg/dL (8.7-10.4)
[2024-03-20 07:07] LABS: Glucose 156 mg/dL (74-106)
[2024-03-20 07:08] LABS: BUN/Creatinine Ratio 13.6 (10.0-20.0); Blood Urea Nitrogen 27 mg/dL (9-23)
[2024-03-20] MEDS ORDERED: ATOR20TA50 PO (10:18)
[2024-03-20] MEDS ORDERED: ASPI-325 PO (10:18)
== END 2024-03-20 12:21 | disposition home or self-care (01) | DRG 280 ==
LOC: EDBD 13:13 → ER 13:13 → TELE 17:37 → TELE-EAST 18:31
PROVIDERS: ADMIT Internal Medicine Pulmonary Disease; ATTEND Internal Medicine Pulmonary Disease
DX: I13.0 Hypertensive heart and chronic kidney disease with heart failure and stage 1 through stage 4 chronic kidney disease, or unspecified chronic kidney disease (principal); I50.43 Acute on chronic combined systolic (congestive) and diastolic (congestive) heart failure; I21.A1 Myocardial infarction type 2; J96.20 Acute and chronic respiratory failure, unspecified whether with hypoxia or hypercapnia; N17.0 Acute kidney failure with tubular necrosis; J44.1 Chronic obstructive pulmonary disease with (acute) exacerbation; J84.10 Pulmonary fibrosis, unspecified; I48.91 Unspecified atrial fibrillation; I83.91 Asymptomatic varicose veins of right lower extremity; N40.1 Benign prostatic hyperplasia with lower urinary tract symptoms; N18.9 Chronic kidney disease, unspecified; R33.8 Other retention of urine; I80.8 Phlebitis and thrombophlebitis of other sites; E03.9 Hypothyroidism, unspecified; R74.01 Elevation of levels of liver transaminase levels; F15.10 Other stimulant abuse, uncomplicated; T43.655A Adverse effect of methamphetamines, initial encounter; I08.1 Rheumatic disorders of both mitral and tricuspid valves; I42.7 Cardiomyopathy due to drug and external agent; Z87.891 Personal history of nicotine dependence; Z93.3 Colostomy status; Z90.49 Acquired absence of other specified parts of digestive tract; Z91.199 Patient's noncompliance with other medical treatment and regimen due to unspecified reason; Y92.89 Other specified places as the place of occurrence of the external cause
CPT/HCPCS: 36415; 71045; 71275; 80048; 80053; 80061; 80307; 81001; 82306; 82607; 83036; 83605; 83690; 83735; 83880; 84100; 84439; 84443; 84481; 84484; 85025; 85379; 85652; 86141; 87081; 87086; 93005; 93306; 93970; 94640; 96372; 96374; 99291; G0378

== ENCOUNTER 2024-04-21 03:25 | Emergency (ER) | payer BC, MEDICAID ==
[~2024-04-21] VITALS: Ht 172.7 cm; Wt 88.6 kg
[~2024-04-21 03:25] MED LIST changes: +ASPI-325 PO; +ATOR20TA50 PO; +CARV3.1240 PO; -CIPR-173 PO; -DOCU-94 PO; +FINA5TAB4 PO; -FLUC100T34 PO; +FURO40TA4 PO; -HYDR1TAB97 PO; -LEVO500T31 PO; -SULF800T23 PO
[2024-04-21 03:48] VITALS: BP 116/87; PULSE 104; RESP 17; O2SAT 99
== END 2024-04-21 06:09 | disposition left against medical advice (07) ==
LOC: ER 03:34
DX: Z46.6 Encounter for fitting and adjustment of urinary device (principal); Z53.21 Procedure and treatment not carried out due to patient leaving prior to being seen by health care provider

== ENCOUNTER 2024-05-07 05:37 | Emergency (ER) | payer BC, MEDICAID ==
[~2024-05-07] VITALS: Ht 172.7 cm; Wt 88.6 kg
[2024-05-07 06:15] VITALS: BP 123/76; PULSE 105; RESP 18; TEMP 97.9
[2024-05-07 06:48] VITALS: O2SAT 97
[2024-05-07] MEDS ORDERED: BACDST PO (07:34)
[2024-05-07] MEDS ORDERED: ALB5IS NEB (07:34)
== END 2024-05-07 07:46 | disposition home or self-care (01) ==
LOC: ER 05:37
DX: T83.518A Infection and inflammatory reaction due to other urinary catheter, initial encounter (principal); J44.9 Chronic obstructive pulmonary disease, unspecified; E03.9 Hypothyroidism, unspecified; F17.210 Nicotine dependence, cigarettes, uncomplicated; N39.0 Urinary tract infection, site not specified; Z59.00 Homelessness unspecified; Z79.899 Other long term (current) drug therapy; Z79.82 Long term (current) use of aspirin; Z79.1 Long term (current) use of non-steroidal anti-inflammatories (NSAID)
CPT/HCPCS: 51702; 81002

== ENCOUNTER 2024-06-19 02:41 | Inpatient (IN) | payer BC, MEDICAID ==
[~2024-06-19] VITALS: Ht 165.1 cm; Wt 84.6 kg
[~2024-06-19 02:41] MED LIST changes: +ALB5IS NEB; +BACDST PO
[2024-06-19 03:33] LABS: Basophils # (auto) 0.1 10 ^3/uL (0-0.2); Basophils % (auto) 1.1 % (0.0-2.0); Eosinophils # (auto) 0.4 10 ^3/uL (0-0.8); Eosinophils % (auto) 4.6 % (0.0-7.0); Hemoglobin 13.5 g/dL (13.5-17.5); Lymphocytes # (auto) 2.9 10 ^3/uL (0.4-5.4); Lymphocytes % (auto) 29.5 % (10.0-50.0); Mean Corpuscular Hemoglobin 26.3 pg (28.0-32.0); Mean Corpuscular Hgb Conc. 32.2 g/dL (32.0-36.0); Mean Corpuscular Volume 81.5 fL (80.0-100.0); Monocytes # (auto) 1.1 10 ^3/uL (0-1.3); Monocytes % (auto) 10.9 % (0.0-12.0); Neutrophils # (auto) 5.2 10 ^3/uL (1.6-8.6); Neutrophils % (auto) 53.9 % (37.0-80.0); Nucleated Red Blood Cells % 0.1 %; Platelet Count (auto) 216 10^3/uL (140-450); Red Blood Cells 5.15 10^6/uL (4.5-5.90); Red Cell Distribution Width 17.8 % (11.8-14.3); White Blood Cell 9.7 10^3/uL (4.4-10.8)
[2024-06-19 03:48] LABS: Alanine Aminotransferase 97 U/L (7-40); Albumin 4.1 g/dL (3.2-4.8); Alkaline Phosphatase 100 U/L (46-116); Anion Gap 9 (5-15); Aspartate Aminotransferase 89 U/L (13-40); BUN/Creatinine Ratio 11.9 (10.0-20.0); Bilirubin, Total 1.2 mg/dL (0.2-1.0); Blood Urea Nitrogen 19 mg/dL (9-23); Calcium 9.1 mg/dL (8.7-10.4); Carbon Dioxide 22 mmol/L (20-30); Chloride 110 mmol/L (98-107); Glucose 123 mg/dL (74-106); Potassium 3.9 mmol/L (3.5-5.1); Sodium 141 mmol/L (136-145); Total Protein 6.7 g/dL (5.7-8.2)
[2024-06-19 03:51] LABS: INR 1.23 (0.9-1.15); Partial Thromboplastin Time 25.1 SEC (24.5-34.5); Prothrombin Time 12.8 sec (9.3-11.8)
[2024-06-19] MEDS: FUROSEMIDE 40 MG/4 ML VIAL IV ONE (04:18)
[2024-06-19 04:51] VITALS: RESP 22; O2SAT 97
[2024-06-19] MEDS: ASPirin 325 MG TAB PO ONE (05:22)
[2024-06-19] MEDS: ONDANSETRON HCL 4 MG/2 ML VIAL IV ONE (05:24)
[2024-06-19] MEDS: MORPHINE SULFATE 4 MG/ML SYR/VIAL IV ONE (05:24)
[2024-06-19] MEDS: NITROGLYCERIN 2% OINT 1GM PKG TD ONE (05:25)
[2024-06-19 08:43] LABS: Urine Bacteria FEW /hpf (None Seen); Urine Blood Negative /uL (Negative); Urine Clarity Clear (Clear); Urine Protein, UAD Negative (Negative); Urine Specific Gravity 1.006 (1.001-1.035); Urine Urobilinogen Normal (Negative); Urine WBC 6 /hpf (0 - 3)
[2024-06-19 08:44] LABS: Urine Color Straw (Yellow)
[2024-06-19 09:00] VITALS: PULSE 108; RESP 12; O2SAT 96
[2024-06-19] MEDS ORDERED: HYDROmorphone HCL 2 MG/ML VL/or syr IV PRN (10:15)
[2024-06-19] MEDS ORDERED: ACETAMINOPHEN 325 MG TAB PO PRN (10:15)
[2024-06-19] MEDS ORDERED: DOCUSATE SOD 100 MG CAP PO PRN (10:15)
[2024-06-19] MEDS ORDERED: ONDANSETRON HCL 4 MG/2 ML VIAL IV PRN (10:15)
[2024-06-19] MEDS: FUROSEMIDE 40 MG/4 ML VIAL IV SCH ×2 (10:43→16:58)
[2024-06-19] MEDS: PANTOPRAZOLE 40 MG/10 ML VIAL INJ IV SCH (10:45)
[2024-06-19 12:53] LABS: Magnesium 2.1 mg/dL (1.6-2.6)
[2024-06-19 12:54] LABS: Phosphorus 3.6 mg/dL (2.4-5.1)
[2024-06-19] MEDS: SODIUM CHLOR 0.9% PF (SALINE LOCK) 10ML VIAL/SYR IV SCH (14:05)
[2024-06-19] MEDS ORDERED: LABETALOL HCL 20 MG/4 ML VL IV PRN (15:15)
[2024-06-19] MEDS ORDERED: ACETAMINOPHEN 500 MG TAB PO PRN (15:15)
[2024-06-19] MEDS: CARVEDILOL 3.125 MG TAB PO SCH (16:13)
[2024-06-19 16:20] VITALS: BP 119/87; PULSE 82; RESP 18; TEMP 97.5; O2SAT 97
[2024-06-19] MEDS: HYDROcodone-ACET 5/325MG TAB PO PRN (16:57)
[2024-06-19 17:11] VITALS: BP 119/87; PULSE 82; RESP 18; TEMP 97.5; O2SAT 97
[2024-06-19 20:00] VITALS: PULSE 108; O2SAT 97
[2024-06-19 21:00] VITALS: BP 109/76; PULSE 98; RESP 20; TEMP 97.9; O2SAT 97
[2024-06-19] MEDS: ATORVASTATIN 20 MG TAB PO SCH (21:20)
[2024-06-19] MEDS: TAMSULOSIN HYDROCHLORIDE 0.4 MG CAP PO SCH (21:20)
[2024-06-20] VITALS (13 sets, daily range): BP systolic 101–117; BP diastolic 66–91; PULSE 82–134; RESP 18–24; TEMP 97.7–99; O2SAT 90–100
[2024-06-20 05:37] LABS: Alanine Aminotransferase 104 U/L (7-40); Albumin 4.2 g/dL (3.2-4.8); Alkaline Phosphatase 88 U/L (46-116); Anion Gap 7 (5-15); Aspartate Aminotransferase 92 U/L (13-40); BUN/Creatinine Ratio 13.4 (10.0-20.0); Blood Urea Nitrogen 25 mg/dL (9-23); Calcium 9.4 mg/dL (8.7-10.4); Carbon Dioxide 29 mmol/L (20-30); Chloride 103 mmol/L (98-107); Glucose 133 mg/dL (74-106); Potassium 4.5 mmol/L (3.5-5.1); Sodium 139 mmol/L (136-145)
[2024-06-20 05:38] LABS: Bilirubin, Total 1.5 mg/dL (0.2-1.0)
[2024-06-20 05:44] LABS: Basophils # (auto) 0.1 10 ^3/uL (0-0.2); Eosinophils # (auto) 0.5 10 ^3/uL (0-0.8); Mean Corpuscular Volume 81.4 fL (80.0-100.0); Monocytes # (auto) 1.1 10 ^3/uL (0-1.3)
[2024-06-20 05:54] LABS: Basophils % (auto) 1.3 % (0.0-2.0); Hematocrit 43.8 % (41.0-53.0); Hemoglobin 14.4 g/dL (13.5-17.5); Lymphocytes # (auto) 2.3 10 ^3/uL (0.4-5.4); Lymphocytes % (auto) 22.4 % (10.0-50.0); Mean Corpuscular Hemoglobin 26.7 pg (28.0-32.0); Mean Corpuscular Hgb Conc. 32.8 g/dL (32.0-36.0); Monocytes % (auto) 10.7 % (0.0-12.0); Neutrophils # (auto) 6.4 10 ^3/uL (1.6-8.6); Neutrophils % (auto) 60.6 % (37.0-80.0); Nucleated Red Blood Cells % 0.1 %; Platelet Count (auto) 232 10^3/uL (140-450); Red Blood Cells 5.38 10^6/uL (4.5-5.90); Red Cell Distribution Width 17.5 % (11.8-14.3); White Blood Cell 10.5 10^3/uL (4.4-10.8)
[2024-06-20] MEDS: LEVOTHYROXINE SODIUM 50 MCG TAB PO SCH (06:51)
[2024-06-20] MEDS: ASPirin-EC 81 mg tab PO SCH (09:30)
[2024-06-20] MEDS: FINASTERIDE 5 MG TAB PO SCH (09:30)
[2024-06-20] MEDS ORDERED: PANTOPRAZOLE 40 MG TAB PO SCH (10:00)
[2024-06-20] MEDS: cefTRIAXone 1GM/50ML D5W 50 ML IV SCH (13:47)
[2024-06-20] MEDS: NICOTINE 14 MG/24HR TOPICAL PATCH TD ONE (13:48)
[2024-06-20] MEDS: ENOXAPARIN SOD 40 MG/0.4 ML SYRINGE SC ONE (13:48)
[2024-06-20] MEDS: SACUBITRIL-VALSARTAN 24mg/26mg TAB PO SCH (17:38)
[2024-06-20 18:11] LABS: Protein, Urine 70.2 mg/dL (0.0-11.9)
[2024-06-20 18:14] LABS: Creatinine, Urine 70.37 mg/dL (30.0-125.0)
[2024-06-20] MEDS: IPRATROPIUM BROM 0.5 MG/2.5ML INH SOL NEB SCH (19:59)
[2024-06-20] MEDS: ALBUTEROL SULF 2.5 MG/0.5ML(0.5%) NEB SOLN NEB SCH (19:59)
[2024-06-20] MEDS: MUPIROCIN 2% OINT 15gm or 22gm FOR MRSA NARES EACHNOSTRI SCH (21:34)
[2024-06-21] VITALS (19 sets, daily range): BP systolic 90–110; BP diastolic 54–75; PULSE 53–118; RESP 14–22; TEMP 97.6–98.2; O2SAT 93–100
[2024-06-21] MEDS: PANTOPRAZOLE 40 MG TAB PO SCH (05:26)
[2024-06-21 06:02] LABS: Basophils # (auto) 0.1 10 ^3/uL (0-0.2); Eosinophils # (auto) 0.2 10 ^3/uL (0-0.8); Hemoglobin 14.2 g/dL (13.5-17.5); Lymphocytes # (auto) 1.2 10 ^3/uL (0.4-5.4); Monocytes # (auto) 1.8 10 ^3/uL (0-1.3); Red Cell Distribution Width 16.6 % (11.8-14.3)
[2024-06-21 06:11] LABS: Basophils % (auto) 0.7 % (0.0-2.0); Eosinophils % (auto) 1.4 % (0.0-7.0); Hematocrit 42.8 % (41.0-53.0); Lymphocytes % (auto) 6.5 % (10.0-50.0); Mean Corpuscular Hemoglobin 26.7 pg (28.0-32.0); Mean Corpuscular Hgb Conc. 33.2 g/dL (32.0-36.0); Mean Corpuscular Volume 80.4 fL (80.0-100.0); Monocytes % (auto) 9.9 % (0.0-12.0); Neutrophils # (auto) 14.9 10 ^3/uL (1.6-8.6); Neutrophils % (auto) 81.5 % (37.0-80.0); Platelet Count (auto) 231 10^3/uL (140-450); Red Blood Cells 5.32 10^6/uL (4.5-5.90); White Blood Cell 18.2 10^3/uL (4.4-10.8)
[2024-06-21 06:14] LABS: Alanine Aminotransferase 94 U/L (7-40); Alkaline Phosphatase 87 U/L (46-116); Anion Gap 5 (5-15); BUN/Creatinine Ratio 15.6 (10.0-20.0); Blood Urea Nitrogen 28 mg/dL (9-23); Calcium 9.2 mg/dL (8.7-10.4); Carbon Dioxide 31 mmol/L (20-30); Chloride 101 mmol/L (98-107); Glucose 102 mg/dL (74-106); Potassium 3.5 mmol/L (3.5-5.1); Sodium 137 mmol/L (136-145)
[2024-06-21 06:15] LABS: Albumin 3.6 g/dL (3.2-4.8); Aspartate Aminotransferase 92 U/L (13-40); Bilirubin, Total 1.6 mg/dL (0.2-1.0); Total Protein 6.3 g/dL (5.7-8.2)
[2024-06-21] MEDS: ENOXAPARIN SOD 40 MG/0.4 ML SYRINGE SC SCH (09:21)
[2024-06-21] MEDS: NICOTINE 14 MG/24HR TOPICAL PATCH TD SCH (09:22)
[2024-06-21 18:25] LABS: Amphetamine Screen, Urine Pos (NEGATIVE); Barbiturate Scree,Urine Neg (NEGATIVE); Benzodiazephine Screen, Urine Neg (NEGATIVE); Cocaine Screen, Urine Neg (NEGATIVE); Opiate Scree,Urine Neg (NEGATIVE)
[2024-06-21 18:26] LABS: Cannabinoid Screen, Urine Neg (NEGATIVE); Phencyclidine Screen, Urine Neg (NEGATIVE)
[2024-06-21] MEDS: ACETAMINOPHEN 500 MG TAB PO PRN (22:07)
[2024-06-22] VITALS (22 sets, daily range): BP systolic 102–114; BP diastolic 52–78; PULSE 60–110; RESP 14–20; TEMP 97.6–98.3; O2SAT 92–100
[2024-06-22 06:27] LABS: Basophils # (auto) 0.2 10 ^3/uL (0-0.2); Basophils % (auto) 1.1 % (0.0-2.0); Eosinophils # (auto) 0.5 10 ^3/uL (0-0.8); Eosinophils % (auto) 3.8 % (0.0-7.0); Hematocrit 48.9 % (41.0-53.0); Hemoglobin 16.1 g/dL (13.5-17.5); Lymphocytes # (auto) 1.9 10 ^3/uL (0.4-5.4); Lymphocytes % (auto) 13.5 % (10.0-50.0); Mean Corpuscular Hemoglobin 26.6 pg (28.0-32.0); Mean Corpuscular Hgb Conc. 32.9 g/dL (32.0-36.0); Mean Corpuscular Volume 80.8 fL (80.0-100.0); Monocytes # (auto) 2.2 10 ^3/uL (0-1.3); Monocytes % (auto) 15.7 % (0.0-12.0); Neutrophils # (auto) 9.1 10 ^3/uL (1.6-8.6); Neutrophils % (auto) 65.9 % (37.0-80.0); Nucleated Red Blood Cells % 0.1 %; Platelet Count (auto) 234 10^3/uL (140-450); Red Blood Cells 6.05 10^6/uL (4.5-5.90); Red Cell Distribution Width 17.5 % (11.8-14.3); White Blood Cell 13.8 10^3/uL (4.4-10.8)
[2024-06-22 06:39] LABS: Alanine Aminotransferase 100 U/L (7-40); Albumin 3.7 g/dL (3.2-4.8); Alkaline Phosphatase 86 U/L (46-116); Anion Gap 5 (5-15); Aspartate Aminotransferase 103 U/L (13-40); BUN/Creatinine Ratio 14.3 (10.0-20.0); Blood Urea Nitrogen 26 mg/dL (9-23); Calcium 9.1 mg/dL (8.7-10.4); Carbon Dioxide 32 mmol/L (20-30); Chloride 101 mmol/L (98-107); Glucose 126 mg/dL (74-106); Magnesium 2.1 mg/dL (1.6-2.6); Phosphorus 3.6 mg/dL (2.4-5.1); Potassium 3.6 mmol/L (3.5-5.1); Sodium 138 mmol/L (136-145); Total Protein 6.4 g/dL (5.7-8.2)
[2024-06-22] MEDS: ERTAPENEM SOD INJ 1 GM in SODIUM CHL 0.9% 50 ML IV SCH (10:04)
[2024-06-22] MEDS: FUROSEMIDE 20 MG TAB PO SCH (17:41)
[2024-06-22] MEDS ORDERED: LACTULOSE 20Gm/30ML SOLN PO ONE (18:30)
[2024-06-22] MEDS ORDERED: LACTATED RINGER'S 1,000 ML IV SCH (18:30)
[2024-06-22] MEDS ORDERED: NIFEdipine ER 30 MG TAB PO ONE (18:30)
[2024-06-23] VITALS (18 sets, daily range): BP systolic 99–110; BP diastolic 67–77; PULSE 84–101; RESP 15–20; TEMP 36.6; O2SAT 92–99
[2024-06-23 05:49] LABS: Basophils # (auto) 0.1 10 ^3/uL (0-0.2); Basophils % (auto) 1.2 % (0.0-2.0); Eosinophils # (auto) 0.5 10 ^3/uL (0-0.8); Eosinophils % (auto) 4.6 % (0.0-7.0); Hemoglobin 15.9 g/dL (13.5-17.5); Lymphocytes # (auto) 2.1 10 ^3/uL (0.4-5.4); Nucleated Red Blood Cells % 0.2 %
[2024-06-23 05:51] LABS: Mean Corpuscular Hemoglobin 26.8 pg (28.0-32.0); Mean Corpuscular Hgb Conc. 33.8 g/dL (32.0-36.0); Mean Corpuscular Volume 79.4 fL (80.0-100.0); Monocytes % (auto) 17.6 % (0.0-12.0); Neutrophils # (auto) 6.8 10 ^3/uL (1.6-8.6); Neutrophils % (auto) 58.6 % (37.0-80.0); Platelet Count (auto) 243 10^3/uL (140-450); Red Blood Cells 5.93 10^6/uL (4.5-5.90); Red Cell Distribution Width 17.1 % (11.8-14.3); White Blood Cell 11.7 10^3/uL (4.4-10.8)
[2024-06-23 06:28] LABS: Alanine Aminotransferase 101 U/L (7-40); Albumin 3.7 g/dL (3.2-4.8); Alkaline Phosphatase 79 U/L (46-116); Anion Gap 7 (5-15); Aspartate Aminotransferase 111 U/L (13-40); BUN/Creatinine Ratio 16.1 (10.0-20.0); Bilirubin, Total 0.8 mg/dL (0.2-1.0); Blood Urea Nitrogen 24 mg/dL (9-23); Calcium 9.1 mg/dL (8.7-10.4); Carbon Dioxide 29 mmol/L (20-30); Chloride 101 mmol/L (98-107); Glucose 106 mg/dL (74-106); Potassium 3.9 mmol/L (3.5-5.1); Sodium 137 mmol/L (136-145); Total Protein 6.4 g/dL (5.7-8.2)
[2024-06-23] MEDS ORDERED: LACTULOSE 20Gm/30ML SOLN PO SCH (10:00)
[2024-06-23] MEDS ORDERED: NIFEdipine ER 30 MG TAB PO SCH (10:00)
[2024-06-23] MEDS ORDERED: IPRATROPIUM BROM 0.5 MG/2.5ML INH SOL ONE (22:04)
[2024-06-23] MEDS ORDERED: LEVALBUTEROL HCL 1.25 MG/3 ML NEB ONE (22:04)
[2024-06-24] MEDS ORDERED: LEVALBUTEROL HCL 1.25 MG/3 ML NEB NEB SCH
== END 2024-06-23 21:15 | disposition home or self-care (01) | DRG 280 ==
LOC: EDBD 02:41 → ER 02:41 → TELE 10:13 → TELE-EAST 16:24
PROVIDERS: ADMIT Internal Medicine Pulmonary Disease; ATTEND Emergency Medicine
DX: I13.0 Hypertensive heart and chronic kidney disease with heart failure and stage 1 through stage 4 chronic kidney disease, or unspecified chronic kidney disease (principal); I50.23 Acute on chronic systolic (congestive) heart failure; I21.A1 Myocardial infarction type 2; J96.01 Acute respiratory failure with hypoxia; N17.9 Acute kidney failure, unspecified; N39.0 Urinary tract infection, site not specified; F15.20 Other stimulant dependence, uncomplicated; I42.0 Dilated cardiomyopathy; N40.1 Benign prostatic hyperplasia with lower urinary tract symptoms; I48.91 Unspecified atrial fibrillation; R33.8 Other retention of urine; E03.9 Hypothyroidism, unspecified; E66.01 Morbid (severe) obesity due to excess calories; F17.210 Nicotine dependence, cigarettes, uncomplicated; N18.31 Chronic kidney disease, stage 3a; Z79.899 Other long term (current) drug therapy; Z79.82 Long term (current) use of aspirin; Z79.1 Long term (current) use of non-steroidal anti-inflammatories (NSAID); Z93.3 Colostomy status; Z71.6 Tobacco abuse counseling; Z68.31 Body mass index [BMI] 31.0-31.9, adult
CPT/HCPCS: 36415; 71045; 76705; 76775; 80053; 80307; 80320; 81001; 82306; 82570; 83735; 83880; 83970; 84100; 84156; 84300; 84484; 85025; 85610; 85730; 87040; 87070; 87077; 87081; 87086; 87186; 87205; 93005; 94640; 96374; 99291; G0378; J1335; J2405; J2470

== ENCOUNTER 2024-08-04 01:58 | Emergency (ER) | payer BC, MEDICAID ==
[~2024-08-04] VITALS: Ht 172.7 cm; Wt 88.0 kg
[2024-08-04 02:08] VITALS: BP 131/97; PULSE 117; RESP 18; O2SAT 97
[2024-08-04 05:14] LABS: Urine Bacteria MANY /hpf (None Seen); Urine Blood 1+ /uL (Negative); Urine Clarity Turbid (Clear); Urine Color Yellow (Yellow); Urine Mucus FEW (None Seen); Urine Protein, UAD 1+ (Negative); Urine Specific Gravity 1.017 (1.001-1.035); Urine Urobilinogen Normal (Negative); Urine WBC 233 /hpf (0 - 3); Urine WBC Clumps PRESENT /hpf (None Seen); Urine pH 5.5 (5.0-9.0)
[2024-08-04] MEDS ORDERED: BACDST PO (05:15)
[2024-08-04] MEDS: LIDOCAINE 1% HCL (LOCAL ANESTH.) INJ 20ML MDV ONE (05:33)
[2024-08-04] MEDS: LIDOCAINE 1% HCL (LOCAL ANESTH.) INJ 20ML MDV ID ONE (05:33)
[2024-08-04] MEDS: cefTRIAXone SOD 1,000 MG VL IM ONE (05:34)
== END 2024-08-04 05:36 | disposition home or self-care (01) ==
LOC: ER 01:58
DX: N40.1 Benign prostatic hyperplasia with lower urinary tract symptoms (principal); R33.8 Other retention of urine; F17.210 Nicotine dependence, cigarettes, uncomplicated; I50.9 Heart failure, unspecified; J44.9 Chronic obstructive pulmonary disease, unspecified; Z46.6 Encounter for fitting and adjustment of urinary device; Z79.82 Long term (current) use of aspirin; Z79.890 Hormone replacement therapy; Z79.899 Other long term (current) drug therapy
CPT/HCPCS: 51702; 81001; 96372; 99284; J0696; J2003

== ENCOUNTER 2024-08-19 10:05 | Inpatient (IN) | payer BC, MEDICAID ==
[~2024-08-19] VITALS: Ht 172.7 cm; Wt 87.5 kg
[2024-08-19 10:44] LABS: Basophils # (auto) 0.3 10 ^3/uL (0-0.2); Basophils % (auto) 2.8 % (0.0-2.0); Eosinophils # (auto) 0.4 10 ^3/uL (0-0.8); Eosinophils % (auto) 3.7 % (0.0-7.0); Hematocrit 43.5 % (41.0-53.0); Hemoglobin 13.9 g/dL (13.5-17.5); Lymphocytes # (auto) 2.6 10 ^3/uL (0.4-5.4); Lymphocytes % (auto) 26.3 % (10.0-50.0); Mean Corpuscular Hemoglobin 25.4 pg (28.0-32.0); Mean Corpuscular Hgb Conc. 31.9 g/dL (32.0-36.0); Mean Corpuscular Volume 79.5 fL (80.0-100.0); Monocytes # (auto) 1.5 10 ^3/uL (0-1.3); Monocytes % (auto) 14.6 % (0.0-12.0); Neutrophils # (auto) 5.3 10 ^3/uL (1.6-8.6); Neutrophils % (auto) 52.6 % (37.0-80.0); Platelet Count (auto) 241 10^3/uL (140-450); Red Blood Cells 5.47 10^6/uL (4.5-5.90); Red Cell Distribution Width 18.8 % (11.8-14.3)
[2024-08-19 10:56] LABS: Chloride 110 mmol/L (98-107); Potassium 4.1 mmol/L (3.5-5.1); Sodium 142 mmol/L (136-145)
[2024-08-19 10:57] LABS: Anion Gap 8 (5-15); Calcium 9.7 mg/dL (8.7-10.4); Carbon Dioxide 24 mmol/L (20-31)
[2024-08-19 11:02] LABS: BUN/Creatinine Ratio 16.2 (10.0-20.0); Blood Urea Nitrogen 25 mg/dL (9-23); Glucose 94 mg/dL (74-106)
[2024-08-19] MEDS: SODIUM CHLORIDE 0.9% 1,000 ML IV ONE (12:38)
[2024-08-19] MEDS: ONDANSETRON HCL 4 MG/2 ML VIAL IV ONE (12:38)
[2024-08-19] MEDS: MORPHINE SULFATE 4 MG/ML SYR/VIAL IV ONE (12:38)
[2024-08-19 14:54] VITALS: PULSE 112; RESP 21; O2SAT 92
[2024-08-19] MEDS ORDERED: ONDANSETRON HCL 4 MG/2 ML VIAL IV PRN (15:45)
[2024-08-19] MEDS: CARVEDILOL 3.125 MG TAB PO SCH (18:07)
[2024-08-19] MEDS: TAMSULOSIN HYDROCHLORIDE 0.4 MG CAP PO SCH (18:07)
[2024-08-19] MEDS: ceFAZolin 1GM/50ML 50 ML IV SCH (18:07)
[2024-08-19 19:26] VITALS: PULSE 108; RESP 23; O2SAT 92
[2024-08-19] MEDS: MORPHINE SULFATE INJ 2 MG/ml SYRG IV PRN (20:47)
[2024-08-19] MEDS ORDERED: CARVEDILOL 3.125 MG TAB PO SCH (22:00)
[2024-08-19] MEDS: ATORVASTATIN 20 MG TAB PO SCH (22:22)
[2024-08-19 22:49] VITALS: BP 109/83; PULSE 109; RESP 20; TEMP 97.2; O2SAT 92
[2024-08-19 23:50] VITALS: PULSE 81; RESP 17; O2SAT 96
[2024-08-20] VITALS (7 sets, daily range): BP systolic 108–125; BP diastolic 69–98; PULSE 81–110; RESP 17–20; TEMP 97.2–97.8; O2SAT 90–98
[2024-08-20] MEDS: LEVOTHYROXINE SODIUM 50 MCG TAB PO SCH (05:36)
[2024-08-20 06:16] LABS: Basophils # (auto) 0.1 10 ^3/uL (0-0.2); Basophils % (auto) 1.2 % (0.0-2.0); Eosinophils # (auto) 0.3 10 ^3/uL (0-0.8); Eosinophils % (auto) 3.6 % (0.0-7.0); Hematocrit 44.8 % (41.0-53.0); Hemoglobin 14.6 g/dL (13.5-17.5); Lymphocytes # (auto) 2.5 10 ^3/uL (0.4-5.4); Lymphocytes % (auto) 26.3 % (10.0-50.0); Mean Corpuscular Hemoglobin 26.3 pg (28.0-32.0); Mean Corpuscular Hgb Conc. 32.6 g/dL (32.0-36.0); Mean Corpuscular Volume 80.5 fL (80.0-100.0); Monocytes # (auto) 1.1 10 ^3/uL (0-1.3); Monocytes % (auto) 11.4 % (0.0-12.0); Neutrophils # (auto) 5.5 10 ^3/uL (1.6-8.6); Neutrophils % (auto) 57.5 % (37.0-80.0); Nucleated Red Blood Cells % 0.3 %; Platelet Count (auto) 214 10^3/uL (140-450); Red Blood Cells 5.57 10^6/uL (4.5-5.90); Red Cell Distribution Width 18.7 % (11.8-14.3); White Blood Cell 9.5 10^3/uL (4.4-10.8)
[2024-08-20 06:37] LABS: Alanine Aminotransferase 234 U/L (7-40); Albumin 4.3 g/dL (3.2-4.8); Alkaline Phosphatase 90 U/L (46-116); Anion Gap 9 (5-15); Aspartate Aminotransferase 213 U/L (13-40); BUN/Creatinine Ratio 15.7 (10.0-20.0); Bilirubin, Total 2.9 mg/dL (0.2-1.0); Blood Urea Nitrogen 27 mg/dL (9-23); Calcium 9.8 mg/dL (8.7-10.4); Carbon Dioxide 23 mmol/L (20-31); Chloride 108 mmol/L (98-107); Glucose 97 mg/dL (74-106); Potassium 5.1 mmol/L (3.5-5.1); Sodium 140 mmol/L (136-145); Total Protein 7.1 g/dL (5.7-8.2)
[2024-08-20 08:42] LABS: Magnesium 2.4 mg/dL (1.6-2.6)
[2024-08-20 08:43] LABS: Phosphorus 4.4 mg/dL (2.4-5.1)
[2024-08-20 08:50] LABS: INR 1.31 (0.9-1.15); Partial Thromboplastin Time 26.3 SEC (24.5-34.5); Prothrombin Time 13.6 sec (9.3-11.8)
[2024-08-20] MEDS: PANTOPRAZOLE 40 MG TAB PO SCH (08:56)
[2024-08-20] MEDS: FINASTERIDE 5 MG TAB PO SCH (08:56)
[2024-08-20] MEDS: FUROSEMIDE 40 MG TAB PO SCH (08:57)
[2024-08-20 10:01] LABS: Urine Bacteria None Seen /hpf (None Seen)
[2024-08-20 10:15] LABS: Urine Blood 2+ /uL (Negative); Urine Clarity Ex.Turbid (Clear); Urine Color Yellow (Yellow); Urine Protein, UAD 1+ (Negative); Urine Specific Gravity 1.018 (1.001-1.035); Urine Urobilinogen Normal (Negative); Urine WBC 1215 /hpf (0 - 3); Urine WBC Clumps PRESENT /hpf (None Seen); Urine pH 5.5 (5.0-9.0)
[2024-08-20 10:29] LABS: Amphetamine Screen, Urine Pos (NEGATIVE)
[2024-08-20 10:30] LABS: Barbiturate Scree,Urine Neg (NEGATIVE); Benzodiazephine Screen, Urine Neg (NEGATIVE); Cannabinoid Screen, Urine Neg (NEGATIVE); Cocaine Screen, Urine Neg (NEGATIVE); Opiate Scree,Urine Pos (NEGATIVE); Phencyclidine Screen, Urine Neg (NEGATIVE)
[2024-08-20] MEDS: FUROSEMIDE 40 MG/4 ML VIAL IV ONE (15:18)
[2024-08-20] MEDS: FUROSEMIDE 20 MG/2 ML VIAL IV SCH (18:00)
[2024-08-20] MEDS: HYDROcodone-ACET 5/325MG TAB PO PRN (20:29)
[2024-08-21] VITALS (7 sets, daily range): BP systolic 100–117; BP diastolic 72–82; PULSE 90–104; RESP 17–19; TEMP 95.9–98; O2SAT 90–99
[2024-08-21 06:35] LABS: Anion Gap 9 (5-15); Carbon Dioxide 22 mmol/L (20-31); Chloride 107 mmol/L (98-107); Potassium 4.8 mmol/L (3.5-5.1); Sodium 138 mmol/L (136-145)
[2024-08-21 06:36] LABS: Calcium 9.3 mg/dL (8.7-10.4)
[2024-08-21 06:41] LABS: BUN/Creatinine Ratio 14.7 (10.0-20.0); Blood Urea Nitrogen 25 mg/dL (9-23); Glucose 90 mg/dL (74-106)
[2024-08-21] MEDS: EMPAGLIFLOZIN 10 MG TAB PO SCH (08:09)
[2024-08-21] MEDS: FUROSEMIDE 40 MG/4 ML VIAL IV ONE (14:22)
[2024-08-22 01:00] VITALS: BP_SYST 102; BP_SYST 115; BP_DIAS 71; BP_DIAS 81; PULSE 92; PULSE 98; RESP 18; RESP 19; TEMP 98.2; O2SAT 95; O2SAT 98
[2024-08-22 05:33] LABS: Chloride 106 mmol/L (98-107); Potassium 3.7 mmol/L (3.5-5.1); Sodium 138 mmol/L (136-145)
[2024-08-22 05:34] LABS: Anion Gap 8 (5-15); Carbon Dioxide 24 mmol/L (20-31)
[2024-08-22 05:39] LABS: BUN/Creatinine Ratio 18.1 (10.0-20.0); Blood Urea Nitrogen 32 mg/dL (9-23); Glucose 117 mg/dL (74-106)
[2024-08-22 08:00] VITALS: PULSE 68; RESP 16
[2024-08-22 09:00] VITALS: BP 101/75; PULSE 92; RESP 14; TEMP 98; O2SAT 95
[2024-08-22 13:00] VITALS: BP 120/76; PULSE 96; RESP 18; TEMP 98.3; O2SAT 98
[2024-08-22 14:12] LABS: Sodium Urine 70 mmol/L (40-220)
[2024-08-22] MEDS: FUROSEMIDE 40 MG/4 ML VIAL IV ONE (14:16)
[2024-08-22 14:17] LABS: Protein, Urine < 6.0 mg/dL (1-14)
[2024-08-22 14:19] LABS: Creatinine, Urine 30.73 mg/dL (30.0-125.0)
[2024-08-22 14:33] LABS: Urine Bacteria FEW /hpf (None Seen); Urine Blood Negative /uL (Negative); Urine Budding Yeast MODERATE /hpf (None Seen); Urine Clarity Clear (Clear); Urine Color Light-Yellow (Yellow); Urine Protein, UAD Negative (Negative); Urine Specific Gravity 1.008 (1.001-1.035); Urine Urobilinogen Normal (Negative); Urine WBC 17 /hpf (0 - 3)
[2024-08-22 17:00] VITALS: BP 112/75; PULSE 68; RESP 14; TEMP 97.7; O2SAT 98
[2024-08-22 21:00] VITALS: BP 112/80; PULSE 105; RESP 19; TEMP 97.8; O2SAT 94
[2024-08-23] VITALS (7 sets, daily range): BP systolic 91–124; BP diastolic 62–81; PULSE 76–103; RESP 18–20; TEMP 97.8–98.2; O2SAT 91–98
[2024-08-23 11:50] LABS: Base Excess 3.9 mmol/L (-2.0-3.0)
[2024-08-23] MEDS ORDERED: EMPA1TAB PO (15:14)
[2024-08-24 01:00] VITALS: BP 106/73; PULSE 104; RESP 21; TEMP 97.7; O2SAT 94
[2024-08-24 05:00] VITALS: BP 95/66; PULSE 87; RESP 20; TEMP 98.5; O2SAT 92
[2024-08-24 05:47] LABS: Basophils # (auto) 0.1 10 ^3/uL (0-0.2); Eosinophils # (auto) 0.4 10 ^3/uL (0-0.8); Hemoglobin 13.4 g/dL (13.5-17.5); Mean Corpuscular Volume 78.8 fL (80.0-100.0); Nucleated Red Blood Cells % 0.1 %; Red Cell Distribution Width 18.7 % (11.8-14.3)
[2024-08-24 05:50] LABS: Basophils % (auto) 0.8 % (0.0-2.0); Eosinophils % (auto) 4.3 % (0.0-7.0); Hematocrit 41.4 % (41.0-53.0); Lymphocytes # (auto) 1.9 10 ^3/uL (0.4-5.4); Lymphocytes % (auto) 20.3 % (10.0-50.0); Mean Corpuscular Hemoglobin 25.6 pg (28.0-32.0); Mean Corpuscular Hgb Conc. 32.4 g/dL (32.0-36.0); Monocytes # (auto) 1.1 10 ^3/uL (0-1.3); Monocytes % (auto) 12.5 % (0.0-12.0); Neutrophils # (auto) 5.7 10 ^3/uL (1.6-8.6); Neutrophils % (auto) 62.1 % (37.0-80.0); Platelet Count (auto) 222 10^3/uL (140-450); Red Blood Cells 5.25 10^6/uL (4.5-5.90); White Blood Cell 9.1 10^3/uL (4.4-10.8)
[2024-08-24 05:57] LABS: Anion Gap 9 (5-15); Carbon Dioxide 25 mmol/L (20-31); Chloride 106 mmol/L (98-107); Potassium 3.5 mmol/L (3.5-5.1); Sodium 140 mmol/L (136-145)
[2024-08-24 05:58] LABS: Calcium 8.7 mg/dL (8.7-10.4)
[2024-08-24 06:03] LABS: BUN/Creatinine Ratio 17.4 (10.0-20.0); Blood Urea Nitrogen 27 mg/dL (9-23); Glucose 117 mg/dL (74-106)
[2024-08-24 08:00] VITALS: PULSE 72; RESP 18; O2SAT 94
[2024-08-24 14:15] VITALS: BP 122/75; PULSE 96; TEMP 36.9
== END 2024-08-24 15:00 | disposition home or self-care (01) | DRG 871 ==
LOC: ER 10:05 → OVERFLOW 15:34 → CENTRAL 22:49
PROVIDERS: ADMIT Registered Nurse General Practice; ATTEND Student in an Organized Health Care Education/Training Program
DX: A41.9 Sepsis, unspecified organism (principal); I21.A1 Myocardial infarction type 2; I50.23 Acute on chronic systolic (congestive) heart failure; J96.21 Acute and chronic respiratory failure with hypoxia; N17.0 Acute kidney failure with tubular necrosis; I13.0 Hypertensive heart and chronic kidney disease with heart failure and stage 1 through stage 4 chronic kidney disease, or unspecified chronic kidney disease; N39.0 Urinary tract infection, site not specified; N13.8 Other obstructive and reflux uropathy; I42.8 Other cardiomyopathies; I42.9 Cardiomyopathy, unspecified; N40.1 Benign prostatic hyperplasia with lower urinary tract symptoms; K43.9 Ventral hernia without obstruction or gangrene; K43.2 Incisional hernia without obstruction or gangrene; N18.31 Chronic kidney disease, stage 3a; F15.10 Other stimulant abuse, uncomplicated; J44.89 Other specified chronic obstructive pulmonary disease; F17.210 Nicotine dependence, cigarettes, uncomplicated; R33.8 Other retention of urine; E03.9 Hypothyroidism, unspecified; E78.5 Hyperlipidemia, unspecified; N32.0 Bladder-neck obstruction; R74.01 Elevation of levels of liver transaminase levels; E11.22 Type 2 diabetes mellitus with diabetic chronic kidney disease; Z71.6 Tobacco abuse counseling
CPT/HCPCS: 36415; 36600; 71045; 74176; 76775; 80048; 80053; 80061; 80307; 81001; 82306; 82570; 82607; 82805; 83036; 83605; 83735; 83880; 83970; 84100; 84156; 84300; 84443; 84484; 85025; 85610; 85730; 93005; 99291; G0378; J2405

== ENCOUNTER 2024-08-27 19:31 | Inpatient (IN) | payer BC, MEDICAID ==
[~2024-08-27] VITALS: Ht 175.3 cm; Wt 86.3 kg
[~2024-08-27 19:31] MED LIST changes: +EMPA1TAB PO
--- NOTE | 2024-08-27 19:47 | ED.PDOC ---
History of Present Illness HPI Comments A 68 year old male brought in by EMS presents to the ED with the chief complaint of RT hand swelling onset 2 days. Patient states he was discharged from this hospital 2 days ago and noticed his RT hand was swelling. Patient noticed the swelling got worse today and noticed it is radiating to his RT shoulder. He has a past medical history of COPD, CHF and asthma and denies any chest pain, shortness of breath, nausea, vomiting, diarrhea. No other symptoms or modifying factors present at this time. Time Seen by MD: 19:38 Primary Care Provider: UNKNOWN Reviewed Notes: Medications, Allergies Allergies: Coded Allergies: NO KNOWN ALLERGIES (Unverified , 09/22/10) Home Meds Active Scripts Empagliflozin (Jardiance) 10 Mg Tab, 10 MG PO DAILY for 30 Days, #30 TAB Prov:MORIAH ROJAS MD 08/23/24 Sulfamethoxazole W/Trimethopri (Bactrim Ds Tablet) 1 Tab Tb, 1 TAB PO BID for 7 Days, #14 TAB 0 Refills Prov:SANTO LEVY 08/04/24 Albuterol Sulfate (Ventolin) 2.5 Mg/0.5 Ml Nb, 1 VIAL NEB Q4HR, #60 VIAL 1 Refill Prov:MARTIN SPENCER 05/07/24 Sulfamethoxazole W/Trimethopri (Bactrim Ds Tablet) 1 Tab Tb, 1 TAB PO BID for 10 Days, #20 TAB Prov:MARTIN SPENCER 05/07/24 Atorvastatin Calcium (ATORVASTATIN CALCIUM) 20 Mg Tab, 20 MG PO HS for 30 Days, #30 TAB Prov:MICHA RAMIREZ RESIDENT 03/20/24 Aspirin (Aspirin Low Dose) 81 Mg Tab, 81 MG PO DAILY for 30 Days, #30 TAB Prov:MICHA RAMIREZ RESIDENT 03/20/24 Pantoprazole Sodium Sesquihydr (Pantoprazole Sodium) 40 Mg Tab, 40 MG PO DAILY for 30 Days, #30 TAB Prov:EMEKA MCALLISTER MD 01/20/23 Tamsulosin Hcl (Flomax) 0.4 Mg Cap, 1 CAP PO HS, #30 CAP 11 Refills Prov:DARIAN DIEGO MD 03/29/22 Reported Medications Finasteride (Finasteride) 5 Mg Tab, 5 MG PO DAILY, MG 03/18/24 Furosemide (Furosemide) 40 Mg Tab, 40 MG PO DAILY 03/18/24 Carvedilol (Carvedilol) 3.125 Mg Tab, 3.125 MG PO BID, MG 03/18/24 Acetaminophen (Acetaminophen) 500 Mg Tab, 500 MG PO PRN PRN for pain 03/17/22 Levothyroxine Sodium (Levothyroxine Sodium) 150 Mcg Tab, 150 MCG PO QAM 02/25/16 Information Source: Patient Mode of Arrival: EMS Severity: Moderate Timing: Days Duration: Since onset Prehospital treatment: None Past Medical History PAST MEDICAL HISTORY: Asthma, CHF, COPD, Thyroid Surgical History: Denies all surgeries Family History Family History: Unknown Social History Smoker: Cigarettes, Less Than 1 Pack/Day Alcohol: Denies ETOH Use Drugs: Denies Drug Use Lives In: Home Constitutional: denies: chills, diaphoresis, fatigue, fever, malaise, sweats, weakness, others EENTM: denies: blurred vision, double vision, ear bleeding, ear discharge, ear drainage, ear pain, ear ringing, eye pain, eye redness, hearing loss, mouth pain, mouth swelling, nasal discharge, nose bleeding, nose congestion, nose pain, photophobia, tearing, throat pain, throat swelling, voice changes, others Respiratory: denies: cough, hemoptysis, orthopnea, SOB at rest, shortness of breath, SOB with excertion, stridor, wheezing, others Cardiovascular: denies: chest pain, dizzy spells, diaphoresis, Dyspnea on exertion, edema, irregular heart beat, left arm pain, lightheadedness, pa lpitations, PND, syncope, others Gastrointestinal: denies: abdomen distended, abdominal pain, blood streaked bowels, constipated, diarrhea, dysphagia, difficulty swallowing, hematemesis, melena, nausea, poor appetite, poor fluid intake, rectal bleeding, rectal pain, vomiting, others Genitourinary: denies: burning, dysuria, flank pain, frequency, hematuria, incontinence, penile discharge, penile sore, pain, testicle pain, testicle swelling, urgency, others Neurological: denies: dizziness, fainting, headache, left sided numbness, left sided weakness, numbness, paresthesia, pre-existing deficit, right sided numbness, right sided weakness, seizure, speech problems, tingling, tremors, weakness, others Musculoskeletal: reports: muscle pain, others (swelling to RT hand); denies: back pain, gout, joint pain, joint swelling, muscle stiffness, neck pain Integumetry: denies: bruises, change in color, change in hair/nails, dryness, laceration, lesions, lumps, rash, wounds, others Allergic/Immunocompromised: denies: Difficulty Healing, Frequent Infections, Hives, Itching, others Hematologic/Lymphatic: denies: anemia, blood clots, easy bleeding, easy bruising, swollen glands, others Endocrine: denies: excessive hunger, excessive sweating, excessive thirst, excessive urination, flushing, intolerance to cold, intolerance to heat, unexplained weight gain, unexplained weight loss, others Psychiatric: denies: anxiety, bipolar disorder, depression, hopeless, panic disorder, schizophrenia, sleepless, suicidal, others All Other Systems: Reviewed and Negative Physical Exam General Appearance: No Apparent Distress, Normal HEENT: Normal ENT Inspection, Pharynx Normal, TMs Normal Neck: Full Range of Motion, Non-Tender, Normal, Normal Inspection Respiratory: Chest Non-Tender, Lungs Clear, No Accessory Muscle Use, No Respiratory Distress, Normal Breath Sounds Cardiovascular: No Edema, No JVD, No Murmur, No Gallop, Normal Peripheral Pulses, Regular Rate/Rhythm Breast Exam: Deferred Gastrointestinal: No Organomegaly, Non Tender, No Pulsatile Mass, Normal Bowel Sounds, Soft Genitalia: Deferred Pelvic: Deferred Rectal: Deferred Extremities: No calf tenderness, Normal capillary refill, Normal inspection, Normal range of motion, Non-tender, No pedal edema, Swelling (RT hand ), Tender (RT hand) Musculoskeletal : Apperance: Normal Neurologic: Alert, privacy compliance manager II-XII nml as Tested, No Motor Deficits, Normal Affect, Normal Mood, No Sensory Deficits Cerebellar Function: Normal Reflexes: Normal Skin: Dry, Normal Color, Warm Lymphatic: No Adenopathy Was a procedure done? Was a procedure done?: No Differential Dx Considerations may include: DVT, PE, ACS, CHF exacerbation X-Ray, Labs, Meds, VS Vital Signs Date Time Temp Pulse Resp B/P (MAP) Pulse Ox O2 Delivery O2 Flow Rate FiO2 08/27/24 19:47 97.9 112 16 109/78 (88) 92 08/27/24 19:43 111 Lab Test 08/27/24 20:48 08/27/24 19:59 Range/Units Troponin I High Sensitivity 269 *H 247 *H </=54 ng/L White Blood Count 13.7 #H 4.4-10.8 10^3/uL Red Blood Count 5.66 4.5-5.90 10^6/uL Hemoglobin 14.4 13.5-17.5 g/dL Hematocrit 44.7 41.0-53.0 % Mean Corpuscular Volume 79.0 L 80.0-100.0 fL Mean Corpuscular Hemoglobin 25.4 L 28.0-32.0 pg Mean Corpuscular Hemoglobin Concent 32.2 32.0-36.0 g/dL Red Cell Distribution Width 18.5 H 11.8-14.3 % Platelet Count 195 140-450 10^3/uL Mean Platelet Volume 8.3 6.9-10.8 fL Neutrophils (%) (Auto) 69.0 37.0-80.0 % Lymphocytes (%) (Auto) 14.0 10.0-50.0 % Monocytes (%) (Auto) 14.1 H 0.0-12.0 % Eosinophils (%) (Auto) 2.1 0.0-7.0 % Basophils (%) (Auto) 0.8 0.0-2.0 % Neutrophils # (Auto) 9.5 H 1.6-8.6 10 ^3/uL Lymphocytes # (Auto) 1.9 0.4-5.4 10 ^3/uL Monocytes # (Auto) 1.9 H 0-1.3 10 ^3/uL Eosinophils # (Auto) 0.3 0-0.8 10 ^3/uL Basophils # (Auto) 0.1 0-0.2 10 ^3/uL Nucleated Red Blood Cells 0.2 % Platelet Estimate Adequa Large Platelets Few Microcytosis Slight Sodium Level 137 136-145 mmol/L Potassium Level 3.8 3.5-5.1 mmol/L Chloride Level 108 H 98-107 mmol/L Carbon Dioxide Level 21 20-31 mmol/L Anion Gap 8 5-15 Blood Urea Nitrogen 20 9-23 mg/dL Creatinine 1.61 H 0.700-1.30 mg/dL Glomerular Filtration Rate Calc 47 >90 mL/min BUN/Creatinine Ratio 12.4 10.0-20.0 Serum Glucose 103 74-106 mg/dL Calcium Level 9.4 8.7-10.4 mg/dL B-Type Natriuretic Peptide 1464.88 0-100 pg/mL [facility] [id number] [place] [id number] Ph: [phone] DIAGNOSTIC IMAGING Diagnostic Imaging Report : [id number] Signed PATIENT: LUIS F SINGER ACCT: [id number] UNIT: [id number] : 1955 LOC: ER ROOM / BED: / AGE / SEX: 68 / M ADM STATUS: REG ER SERVICE 44 ORDERING PHYSICIAN: TARA ESPINO MD PROCEDURE(s): RUDVT - Rt Upper DVT REASON: Right arm pain and swelling ORDER NUMBER(s): [id number], ACCESSION NUMBER(s): [id number] Right lower extremity venous duplex Clinical History: Right arm pain and swelling Comparison: None Technique: Duplex Doppler evaluation of the deep venous systems of both lower extremities from the common femoral veins to the popliteal veins including color Doppler and spectral/pulsed waveform analysis was performed. Findings: RIGHT SIDE: The common femoral vein demonstrates appropriate compressibility and waveform variability. There is compressibility/patency of the great saphenous vein at the proximal thigh. The femoral vein demonstrates appropriate compressibility and waveform variability. The deep femoral vein demonstrates appropriate compressibility and waveform variability. The popliteal vein demonstrates appropriate compressibility and waveform variability. There is normal compressibility at the tibioperoneal trunk. Impression: 1. No right femoropopliteal venous thrombosis. ATED BY: AZALEA BRAVO Jr., DO DICTATED DATE/TIME: 08/27/242037 SIGNED BY: AZALEA BRAVO Jr., SIGNED DATE/TIME: 08/27/242037 CC: Time of 1ST Reevaluation: 20:08 Reevaluation 1ST: Unchanged Patient Education/Counseling: Diagnosis, Treatment, Prognosis Family Education/Counseling: No Family Present Departure 1 Departure Time of Disposition: 22:27 (Patient presented with chest pain that was concerning for possible STEMI, ACS, PE, Pneumonia, Muscle Strain, COPD, Dissection. Data: 1. I ordered and reviewed the result of at least 3 labs including a CBC, BMP, and Troponin. 2. I independently interpreted the following tests: EKG which shows _ sinus arrhythmia and Chest X-ray which shows volume ove rload.Risk:This patient has a high risk of morbidity due to further diagnostic testing or treatment and may suffer from an acute cardiac or respiratory disorder. Workup reveals concern for ACS and CHF exacerbation and patient should be admitted for further workup and possible expert consultation. ) Impression: Primary Impression: Swelling of right upper extremity Additional Impressions: Acute exacerbation of chronic heart failure Acute chest pain Disposition: ADMITTED INPATIENT Admit to: Med Surg Condition: Guarded Critical Care Note Critical Care Time?: Yes Critical care comment: Authorized and Performed by: Tara Espino MD Total critical care time: Approximately 37 minutes Due to a high probability of clinically significant, life threatening deterioration, the patient required my highest level of preparedness to intervene emergently and I personally spent this critical care time directly and personally managing the patient. This critical care time included obtaining a history; examining the patient; pulse oximetry; ordering and review of studies; arranging urgent treatment with development of a management plan; evaluation of patient's response to treatment; frequent reassessment; and, discussions with other providers. This critical care time was performed to assess and manage the high probability of imminent, life-threatening deterioration that could result in multi-organ failure. It was exclusive of separately billable procedures and treating other patients and teaching time. Please see my other sections and the rest of the note for further information on patient assessment and treatment. Stability Stability form required: No Heart Score Heart Score: Heart Score Response (Comments) Value History Moderate Suspicious 1 EKG Repolarization Disturb 1 Age >65 2 Risk Factors >3 or Hx ASHD 2 Troponin >3 x's Normal limit 2 Total 8 I personally scribed for TARA ESPINO MD ([email or web address]) on 08/27/24 at 19:47. Electronically submitted by Daysi Wade ([email or web address]). I personally scribed for TARA ESPINO MD ([email or web address]) on 08/27/24 at 20:49. Electronically submitted by Daysi Wade ([email or web address]). TARA ESPINO MD Aug 27, 2024 19:47
[2024-08-27 20:14] LABS: Chloride 108 mmol/L (98-107); Potassium 3.8 mmol/L (3.5-5.1); Sodium 137 mmol/L (136-145)
[2024-08-27 20:15] LABS: Anion Gap 8 (5-15); Basophils # (auto) 0.1 10 ^3/uL (0-0.2); Basophils % (auto) 0.8 % (0.0-2.0); Carbon Dioxide 21 mmol/L (20-31); Nucleated Red Blood Cells % 0.2 %; Red Cell Distribution Width 18.5 % (11.8-14.3)
[2024-08-27 20:16] LABS: Calcium 9.4 mg/dL (8.7-10.4)
[2024-08-27 20:17] LABS: Eosinophils # (auto) 0.3 10 ^3/uL (0-0.8); Eosinophils % (auto) 2.1 % (0.0-7.0); Hematocrit 44.7 % (41.0-53.0); Hemoglobin 14.4 g/dL (13.5-17.5); Lymphocytes # (auto) 1.9 10 ^3/uL (0.4-5.4); Mean Corpuscular Hemoglobin 25.4 pg (28.0-32.0); Mean Corpuscular Hgb Conc. 32.2 g/dL (32.0-36.0); Monocytes # (auto) 1.9 10 ^3/uL (0-1.3); Monocytes % (auto) 14.1 % (0.0-12.0); Neutrophils # (auto) 9.5 10 ^3/uL (1.6-8.6); Platelet Count (auto) 195 10^3/uL (140-450); Red Blood Cells 5.66 10^6/uL (4.5-5.90); White Blood Cell 13.7 10^3/uL (4.4-10.8)
[2024-08-27 20:21] LABS: BUN/Creatinine Ratio 12.4 (10.0-20.0); Blood Urea Nitrogen 20 mg/dL (9-23); Glucose 103 mg/dL (74-106)
--- NOTE | 2024-08-27 20:40 | DVH ---
Right lower extremity venous duplex Clinical History: Right arm pain and swelling Comparison: None Technique: Duplex Doppler evaluation of the deep venous systems of both lower extremities from the common femora l veins to the popliteal veins including color Doppler and spectral/pulsed waveform analysis was perf ormed. Findings: RIGHT SIDE: The common femoral vein demonstrates appropriate compressibility and waveform variability. There is compressibility/patency of the great saphenous vein at the proximal thigh. The femoral vein demonstrates appropriate compressibility and waveform variability. The deep femoral vein demonstrates appropriate compressibility and waveform variability. The popliteal vein demonstrates appropriate compressibility and waveform variability. There is normal compressibility at the tibioperoneal trunk. Impression: 1. No right femoropopliteal venous thrombosis.
--- NOTE | 2024-08-27 21:10 | DVH ---
XY CHEST TWO VIEWS ROUTINE CLINICAL HISTORY: right sided chest pressure COMPARISON: XY CHEST TWO VIEWS ROUTINE on DOS: 01/10/23, CXR2 on DOS: 04/09/22, CHEST TWO VIEWS ROUTINE on DOS: 04/09/22 TECHNIQUE: Frontal and lateral view of the chest was obtained FINDINGS: Lines and Tubes: None Lungs: No focal consolidation. Pleura: No effusion. No pneumothorax. Cardiomediastinal contours: Unremarkable Bones: No acute osseous abnormality. IMPRESSION: No acute cardiopulmonary disease.
[2024-08-27 21:12] LABS: Large Platelets FEW; Platelet Estimate Adequa
[2024-08-27 23:30] VITALS: PULSE 114; RESP 16; O2SAT 96
[2024-08-27] MEDS ORDERED: ONDANSETRON HCL 4 MG/2 ML VIAL IV PRN (23:30)
[2024-08-27] MEDS ORDERED: ALBUTEROL SULF 2.5 MG/0.5ML(0.5%) NEB SOLN NEB PRN (23:30)
[2024-08-27] MEDS ORDERED: DOCUSATE SOD 100 MG CAP PO PRN (23:30)
[2024-08-27] MEDS ORDERED: NITROGLYCERIN 0.4 MG SL TAB SL PRN (23:30)
[2024-08-27] MEDS: FUROSEMIDE 40 MG/4 ML VIAL IV ONE (23:34)
[2024-08-27] MEDS: ASPirin-EC 325mg tab PO ONE (23:57)
[2024-08-27] MEDS: MORPHINE SULFATE INJ 2 MG/ml SYRG IV PRN (23:58)
[2024-08-28] VITALS (13 sets, daily range): BP systolic 104–128; BP diastolic 60–87; PULSE 82–114; RESP 16–20; TEMP 97.9–98.8; O2SAT 89–99
--- NOTE | 2024-08-28 00:11 | DVHHP2 ---
History of Present Illness Reason for Visit: Acute exacerbation of congestive heart failure History of Present Illness The patient is a 68-year-old male with past medical history of hernia, asthma, CHF, COPD, HLD, and Thyroid disease who presented to [facility] ED with complaint of right hand pain/swelling for a proximally 2 days duration. Patient states he was discharged from this hospital 2 days ago and noticed his right hand was swelling, got worse today with radiating to his right shoulder. Patient reports he is scheduled for surgical procedure September 06, 2024. Patient was seen and evaluated in the ED, laboratory data shows WBC 13.7, platelets 195, sodium 137, potassium 3.8, BUN 20, creatinine 1.61, glucose 103, troponin 269, BNP 1464.88, blood pressure 109/78, heart rate 112, temperature 97.7 F, O2 saturation 92% on oxygen. Upper extremity ultrasound showed no right femoropopliteal venous thrombosis. Patient was started on IV Lasix, please see medication orders section in the computer. On my assessment, patient denies chest pain, no headache, no dizziness, currently on oxygen, no nausea, no vomiting, no fever, no chills. Patient was admitted for further evaluation and medical management. Past Medical History Asthma, CHF, COPD, Thyroid disease, Hernia. Past Surgical History Denies all surgeries Family History Reviewed, noncontributory to the management of this case. Past Social History The patient lives at home, smokes cigarettes less than 1 pack/day, denies alcohol or illicit drugs abuse. Review of Systems Constitutional: No: Fever, Chills, Sweats, Weakness, Malaise, Other Eyes: No: Pain, Vision change, Conjunctivae inflammation, Eyelid inflammation, Other, Redness ENT: No: Ear pain, Ear discharge, Nose pain, Nose discharge, Nose congestion, Mouth pain, Mouth swelling, Throat pain, Throat swelling, Other Respiratory: Shortness of breath; No: Cough, Dry, SOB with excertion, Wheezing, Hemoptysis, Pleuritic Pain, Sputum, Wheezing, Other Cardiovascular: No: Chest Pain, Palpitations, Orthopnea, Paroxysmal Noc. Dyspnea, Edema, Lt Headedness, Other Gastrointestinal: No: Nausea, Vomiting, Abdominal Pain, Diarrhea, Constipation, Melena, Hematochezia, Other Genitourinary: No Dysuria, No Frequency, No Incontinence, No Hematuria, No Retention, No Other Musculoskeletal: other (Muscle pain, swelling to RT hand.), arm pain (Right); No: neck pain, shoulder pain, back pain, hand pain, leg pain, foot pain Skin: No: Rash, Lesions, Jaundice, Bruising, Other Neurological: No: Weakness, Numbness, Incoordination, Change in speech, Confusion, Seizures, Other Allergies: Coded Allergies: NO KNOWN ALLERGIES (Unverified , 09/22/10) Exam Vital Signs Vital Signs Date Time Temp Pulse Resp B/P (MAP) Pulse Ox O2 Delivery O2 Flow Rate FiO2 08/27/24 23:35 98.4 114 22 124/84 (97) 96 98.4 General Appearance: Alert, Oriented X3, Cooperative, No acute distress HEENT: Atraumatic, PERRLA, EOMI, Mucous membr. moist/pink Respiratory: Clear to auscultation, Normal air movement Cardiovascular: Regular rate, Normal S1, Normal S2, No murmurs Abdominal: Normal bowel sounds, Soft, No tenderness, No hepatospenomegaly, No masses Extremities: No clubbing, No cyanosis, No edema, Normal pulses, Other (Right arm swelling/pain.) Skin: No rashes, No breakdown, No significant lesion Neuro: Normal gait, Normal speech, Strength at 5/5 X4 ext, Normal tone, Sensation intact, Cranial nerves 3-12 NL, Reflexes 2+ Psych/Mental Status: Mental status NL, Mood NL Labs/Xrays Labs Test 08/27/24 22:58 08/27/24 19:59 Range/Units White Blood Count 13.7 #H 4.4-10.8 10^3/uL Red Blood Count 5.66 4.5-5.90 10^6/uL Hemoglobin 14.4 13.5-17.5 g/dL Hematocrit 44.7 41.0-53.0 % Mean Corpuscular Volume 79.0 L 80.0-100.0 fL Mean Corpuscular Hemoglobin 25.4 L 28.0-32.0 pg Mean Corpuscular Hemoglobin Concent 32.2 32.0-36.0 g/dL Red Cell Distribution Width 18.5 H 11.8-14.3 % Platelet Count 195 140-450 10^3/uL Mean Platelet Volume 8.3 6.9-10.8 fL Neutrophils (%) (Auto) 69.0 37.0-80.0 % Lymphocytes (%) (Auto) 14.0 10.0-50.0 % Monocytes (%) (Auto) 14.1 H 0.0-12.0 % Eosinophils (%) (Auto) 2.1 0.0-7.0 % Basophils (%) (Auto) 0.8 0.0-2.0 % Neutrophils # (Auto) 9.5 H 1.6-8.6 10 ^3/uL Lymphocytes # (Auto) 1.9 0.4-5.4 10 ^3/uL Monocytes # (Auto) 1.9 H 0-1.3 10 ^3/uL Eosinophils # (Auto) 0.3 0-0.8 10 ^3/uL Basophils # (Auto) 0.1 0-0.2 10 ^3/uL Nucleated Red Blood Cells 0.2 % Platelet Estimate Adequa Large Platelets Few Microcytosis Slight Sodium Level 137 136-145 mmol/L Potassium Level 3.8 3.5-5.1 mmol/L Chloride Level 108 H 98-107 mmol/L Carbon Dioxide Level 21 20-31 mmol/L Anion Gap 8 5-15 Blood Urea Nitrogen 20 9-23 mg/dL Creatinine 1.61 H 0.700-1.30 mg/dL Glomerular Filtration Rate Calc 47 >90 mL/min BUN/Creatinine Ratio 12.4 10.0-20.0 Serum Glucose 103 74-106 mg/dL Calcium Level 9.4 8.7-10.4 mg/dL B-Type Natriuretic Peptide 1464.88 0-100 pg/mL PATIENT: LUIS F SINGER ACCT: [id number] UNIT: [id number] : 1955 LOC: ER ROOM / BED: / AGE / SEX: 68 / M ADM STATUS: REG ER SERVICE 44 ORDERING PHYSICIAN: TARA GUILLORY MD PROCEDURE(s): RUDVT - Rt Upper DVT REASON: Right arm pain and swelling ORDER NUMBER(s): [id number], ACCESSION NUMBER(s): [id number] Right lower extremity venous duplex Clinical History: Right arm pain and swelling Comparison: None Technique: Duplex Doppler evaluation of the deep venous systems of both lower extremities from the common femoral veins to the popliteal veins including color Doppler and spectral/pulsed waveform analysis was performed. Findings: RIGHT SIDE: The common femoral vein demonstrates appropriate compressibility and waveform variability. There is compressibility/patency of the great saphenous vein at the proximal thigh. The femoral vein demonstrates appropriate compressibility and waveform variability. The deep femoral vein demonstrates appropriate compressibility and waveform variability. The popliteal vein demonstrates appropriate compressibility and waveform variability. There is normal compressibility at the tibioperoneal trunk. Impression: 1. No right femoropopliteal venous thrombosis. ORDERING PHYSICIAN: TARA GUILLORY MD PROCEDURE(s): CXR2 - CHEST TWO VIEWS ROUTINE REASON: right sided chest pressure ORDER NUMBER(s): [id number], ACCESSION NUMBER(s): [id number] XY CHEST TWO VIEWS ROUTINE CLINICAL HISTORY: right sided chest pressure COMPARISON: XY CHEST TWO VIEWS ROUTINE on DOS: 01/10/23, CXR2 on DOS: 04/09/22, CHEST TWO VIEWS ROUTINE on DOS: 04/09/22 TECHNIQUE: Frontal and lateral view of the chest was obtained FINDINGS: Lines and Tubes: None Lungs: No focal consolidation. Pleura: No effusion. No pneumothorax. Cardiomediastinal contours: Unremarkable Bones: No acute osseous abnormality. IMPRESSION: No acute cardiopulmonary disease. Assessment/Plan Assessment/Plan Swelling of right upper extremity Acute chest pain Elevated troponin Leukocytosis, unspecified Acute exacerbation of chronic heart failure Plan 1. Admit to telemetry unit 2. Breathing treatment 3. Pain control management 4. IV antibiotic management 5. Management of fluids and electrolytes 6. Consultation for cardiology/hospitalist 7. Diagnostic test extremity venous study 8. DVT prophylaxis-on aspirin 9. Repeat labs CBC, CMP in a.m. 10. Home medication reviewed and reconciled 11. Continue with current medical management 12. Treatment plan discussed with patient and RN. Patient verbalized unde rstanding. Plan discussed with: Patient, Other (RN) My Orders Orders - BONG TESFAYE DNP Procedure Category Date Status Time Atorvastatin (Lipitor) PHA 08/28/24 Verified 22:00 Aspirin Tablet PHA 08/28/24 Verified 10:00 Furosemide Injection PHA 08/28/24 Verified (Lasix Injection) 10:00 Carvedilol Tablet PHA 08/28/24 Verified (Coreg Tablet) 10:00 Albuterol Medneb PHA 08/27/24 Verified (Ventolin Medneb) 23:30 * Cardiology Consult CONS 08/27/24 Verified 23:28 *[facility] CONS 08/27/24 Verified -[place] 23:28 Famotidine Injection PHA 08/28/24 Verified (Pepcid Injection) 10:00 Levothyroxine Tablet PHA 08/28/24 Verified (Synthroid Tablet) 06:00 Thyroid Stimulating LAB 08/27/24 Verified Hormone 23:28 Troponin-I Hs LAB 08/28/24 Verified 00:00 Troponin-I Hs LAB 08/28/24 Verified 06:00 Troponin-I Hs LAB 08/28/24 Verified 12:00 Troponin-I Hs LAB 08/28/24 Verified 18:00 Aspirin Enteric PHA 08/27/24 Verified Coated Tablet 23:30 Admit ADMIT 08/27/24 Verified 23:28 Allergies THANH 08/27/24 Verified 23:28 Code Status CODE 08/27/24 Verified 23:28 Sodium Chloride Lock PHA 08/28/24 Verified (Saline Lock Ns) 06:00 Oxygen Per Hour RT 08/27/24 Verified 23:28 Hydrocodone-Acet PHA 08/27/24 Verified 5/325mg Tab ([place] 23:30 Ondansetron Hcl PHA 08/27/24 Verified (Zofran) 23:30 Docusate Sodium PHA 08/27/24 Verified Capsule (Colace 23:30 Complete Blood Count LAB 08/28/24 Verified 04:00 Comprehensive LAB 08/28/24 Verified Metabolic Panel 04:00 Cardiac DIET 08/28/24 Verified Diet-2gna,Lofat,Lochol Breakfast Condition: Serious THANH 08/27/24 Verified 23:28 Acetaminophen Tablet PHA 08/27/24 Verified (Tylenol Tablet) 23:30 Bedrest With Bathroom THANH 08/27/24 Verified Privileg 23:28 Morphine Sulfate PHA 08/27/24 Verified Injection 23:30 Sequential THANH 08/27/24 Verified Compression Device Nitroglycerin PHA 08/27/24 Verified Sublingual (Ntrostat 23:30 Morphine Sulfate PHA 08/27/24 Verified Injection 23:30 Notify Of Changes [facility] 08/27/24 Verified From Base 23:28 Deployment Specialist For [facility] 08/27/24 Verified 24 Hours 23:28 Emergency Dysrhythmia [facility] 08/27/24 Verified Protocol 23:28 Rhythm Strips Once [facility] 08/27/24 Verified Every Shift 23:28 Oxygen By Nasal RT 08/27/24 Verified Cannula 23:28 Problem List: (1) Swelling of right upper extremity (2) Acute chest pain (3) Elevated troponin (4) Leukocytosis, unspecified (5) Acute exacerbation of chronic heart failure Date of Service: Aug 27, 2024 Billing Provider: BONG TESFAYE DNP Common Visit Codes: [id number] INP/OBS CARE (HIGH) BONG TESFAYE DNP Aug 28, 2024 00:11
[2024-08-28] MEDS: MORPHINE SULFATE INJ 2 MG/ml SYRG IV ONE (00:12)
[2024-08-28] MEDS: HYDROcodone-ACET 5/325MG TAB PO PRN (00:55)
[2024-08-28] MEDS: ACETAMINOPHEN 325 MG TAB PO PRN (00:55)
[2024-08-28] MEDS: cefTRIAXone 1GM/50ML D5W 50 ML IV ONE (01:00)
[2024-08-28] MEDS: SODIUM CHLOR 0.9% PF (SALINE LOCK) 10ML VIAL/SYR IV SCH (05:40)
[2024-08-28] MEDS: LEVOTHYROXINE SODIUM 50 MCG TAB PO SCH (05:40)
[2024-08-28 06:42] LABS: Basophils # (auto) 0.1 10 ^3/uL (0-0.2); Eosinophils # (auto) 0.1 10 ^3/uL (0-0.8); Eosinophils % (auto) 0.5 % (0.0-7.0); Hemoglobin 13.7 g/dL (13.5-17.5); Lymphocytes # (auto) 2.2 10 ^3/uL (0.4-5.4); Neutrophils % (auto) 66.4 % (37.0-80.0); Red Cell Distribution Width 18.7 % (11.8-14.3)
[2024-08-28 06:43] LABS: Basophils % (auto) 0.6 % (0.0-2.0); Hematocrit 42.9 % (41.0-53.0); Lymphocytes % (auto) 17.5 % (10.0-50.0); Mean Corpuscular Hemoglobin 25.1 pg (28.0-32.0); Mean Corpuscular Hgb Conc. 31.8 g/dL (32.0-36.0); Mean Corpuscular Volume 79.1 fL (80.0-100.0); Monocytes # (auto) 1.9 10 ^3/uL (0-1.3); Neutrophils # (auto) 8.4 10 ^3/uL (1.6-8.6); Platelet Count (auto) 209 10^3/uL (140-450); Red Blood Cells 5.43 10^6/uL (4.5-5.90); White Blood Cell 12.7 10^3/uL (4.4-10.8)
[2024-08-28 07:01] LABS: Alanine Aminotransferase 75 U/L (7-40); Albumin 3.9 g/dL (3.2-4.8); Alkaline Phosphatase 81 U/L (46-116); Anion Gap 9 (5-15); BUN/Creatinine Ratio 18.7 (10.0-20.0); Bilirubin, Total 2.1 mg/dL (0.2-1.0); Blood Urea Nitrogen 29 mg/dL (9-23); Calcium 9.1 mg/dL (8.7-10.4); Carbon Dioxide 25 mmol/L (20-31); Chloride 104 mmol/L (98-107); Glucose 84 mg/dL (74-106); Potassium 3.4 mmol/L (3.5-5.1); Sodium 138 mmol/L (136-145); Total Protein 6.2 g/dL (5.7-8.2)
[2024-08-28 07:30] LABS: Aspartate Aminotransferase 93 U/L (13-40)
[2024-08-28] MEDS: FAMOTIDINE (10MG/ML) 2ML VL IV SCH (09:19)
[2024-08-28] MEDS: FUROSEMIDE 40 MG/4 ML VIAL IV SCH (09:20)
[2024-08-28] MEDS: CARVEDILOL 3.125 MG TAB PO SCH (09:20)
[2024-08-28] MEDS: ASPirin 81 mg TAB PO SCH (09:20)
--- NOTE | 2024-08-28 10:21 | DVHINCON2 ---
Date of service: Aug 28, 2024 Referring Physician Tr Rosenberg NP Reason for Consultation SIA History of Present Illness Mr. Harris is a 68-year-old male with known history of chronic heart failure, COPD, ventral hernia presents for evaluation of several-day history of right upper extremity swelling. He states that he was recently discharged from [facility]. He denies recent fevers, chills, nausea, vomiting, worsening shortness of breath. Current consultation requested due to elevated serum creatinine slightly above his baseline. It appears baseline creatinine is proximally 1.5. His clinical course has been notable for therapy with IV diuretics. He states that his right upper extremity edema has improved slightly. He denies recent gross hematuria, dysuria, excessive use of NSAIDs. Past Medical History Asthma, CHF, COPD, Thyroid disease, Hernia. Past Surgical History Prior colostomy Subsequent Surgery for reversal of ostomy Allergies: Coded Allergies: NO KNOWN ALLERGIES (Unverified , 09/22/10) Home Meds Active Scripts Empagliflozin (Jardiance) 10 Mg Tab, 10 MG PO DAILY for 30 Days, #30 TAB Prov:MORIAH ROJAS MD 08/23/24 Sulfamethoxazole W/Trimethopri (Bactrim Ds Tablet) 1 Tab Tb, 1 TAB PO BID for 7 Days, #14 TAB 0 Refills Prov:SANTO LEVY 08/04/24 Albuterol Sulfate (Ventolin) 2.5 Mg/0.5 Ml Nb, 1 VIAL NEB Q4HR, #60 VIAL 1 Refill Prov:MARTIN SPENCER 05/07/24 Sulfamethoxazole W/Trimethopri (Bactrim Ds Tablet) 1 Tab Tb, 1 TAB PO BID for 10 Days, #20 TAB Prov:MARTIN SPENCER 05/07/24 Atorvastatin Calcium (ATORVASTATIN CALCIUM) 20 Mg Tab, 20 MG PO HS for 30 Days, #30 TAB Prov:MICHA RAMIREZ 03/20/24 Aspirin (Aspirin Low Dose) 81 Mg Tab, 81 MG PO DAILY for 30 Days, #30 TAB Prov:MICHA RAMIREZ RESIDENT 03/20/24 Pantoprazole Sodium Sesquihydr (Pantoprazole Sodium) 40 Mg Tab, 40 MG PO DAILY for 30 Days, #30 TAB Prov:EMEKA MCALLISTER MD 01/20/23 Tamsulosin Hcl (Flomax) 0.4 Mg Cap, 1 CAP PO HS, #30 CAP 11 Refills Prov:DARIAN DIEGO MD 03/29/22 Reported Medications Finasteride (Finasteride) 5 Mg Tab, 5 MG PO DAILY, MG 03/18/24 Furosemide (Furosemide) 40 Mg Tab, 40 MG PO DAILY 03/18/24 Carvedilol (Carvedilol) 3.125 Mg Tab, 3.125 MG PO BID, MG 03/18/24 Acetaminophen (Acetaminophen) 500 Mg Tab, 500 MG PO PRN PRN for pain 03/17/22 Levothyroxine Sodium (Levothyroxine Sodium) 150 Mcg Tab, 150 MCG PO QAM 02/25/16 Current Medications Current Medications Medications (Trade) Dose Ordered Sig/Tawnya Route PRN Reason Start Time Stop Time Status Last Admin Atorvastatin Calcium (Lipitor) 20 mg HS PO 08/28/24 22:00 Aspirin 81 mg DAILY PO 08/28/24 10:00 08/28/24 09:20 Furosemide (Lasix Injection) 40 mg DAILY IV 08/28/24 10:00 08/28/24 09:20 Carvedilol (Coreg Tablet) 3.125 mg Q12HR PO 08/28/24 10:00 08/28/24 09:20 Albuterol (Ventolin Medneb) 2.5 mg Q4HPRN PRN NEB SHORTNESS OF BREATH 08/27/24 23:30 Famotidine (Pepcid Injection) 20 mg Q12HR IV 08/28/24 10:00 08/28/24 09:19 Levothyroxine Sodium (Synthroid Tablet) 150 mcg QAM@0600 PO 08/28/24 06:00 08/28/24 05:40 Sodium Chloride (Saline Lock Ns) 10 ml Q8HR IV 08/28/24 06:00 08/28/24 09:22 Acetaminophen/ Hydrocodone Bitart ([place] 5/325MG Tab) 1 tab Q4HP PRN PO MODERATE PAIN (4-6 PAIN SCALE) 08/27/24 23:30 08/28/24 09:28 Ondansetron HCl (Zofran) 4 mg Q4HP PRN IV NAUSEA / VOMITING 08/27/24 23:30 Docusate Sodium (Colace Capsule) 100 mg BIDPRN PRN PO FOR CONSTIPATION 08/27/24 23:30 Acetaminophen (Tylenol Tablet) 650 mg Q6HP PRN PO PAIN SCALE 1-3 OR TEMP>100.4 08/27/24 23:30 08/28/24 00:55 Morphine Sulfate 2 mg Q4HPRN PRN IV SEVERE PAIN (7-10 PAIN SCALE) 08/27/24 23:30 Nitroglycerin (Ntrostat Sublingual) 0.4 mg Q5MINP PRN SL FOR CHEST PAIN 08/27/24 23:30 Morphine Sulfate 2 mg Q30M PRN IV FOR CHEST PAIN 08/27/24 23:30 Ceftriaxone Sodium 50 ml @ 100 mls/hr DAILY@0100 IV 08/29/24 01:00 Family History: Family history: Thyroid disorder G8 FATHER Prostate problems G8 FATHER Review of Systems Review of systems as per history of present illness otherwise all systems are reviewed and are noncontributory. H&P Exam Vital Signs/I&O Vital Sign Date Time Temp Pulse Resp B/P (MAP) Pulse Ox O2 Delivery O2 Flow Rate FiO2 08/28/24 10:10 89 Room Air 0.0 08/28/24 10:10 21 08/28/24 09:20 99 110/74 08/28/24 08:05 18 08/28/24 05:00 98.5 98.5 Intake and Output 08/27/24 08/28/24 19:00 07:00 Intake Total 290 ml Balance 290 ml Intake Oral 240 ml IV Total 50 ml # Voids 1 Physical Exam Gen: nad heent: nc/at, mmm lungs: cta anteriorly cvs: no rub abd: soft, bowel sounds audible ext: + edema skin: no rash neuro: alert and oriented Labs/Diagnostic Data Labs/Diagnostic Data Laboratory Tests Test 08/28/24 05:21 08/28/24 00:30 08/27/24 22:58 08/27/24 20:48 Range/Units White Blood Count 12.7 H 4.4-10.8 10^3/uL Red Blood Count 5.43 4.5-5.90 10^6/uL Hemoglobin 13.7 13.5-17.5 g/dL Hematocrit 42.9 41.0-53.0 % Mean Corpuscular Volume 79.1 L 80.0-100.0 fL Mean Corpuscular Hemoglobin 25.1 L 28.0-32.0 pg Mean Corpuscular Hemoglobin Concent 31.8 L 32.0-36.0 g/dL Red Cell Distribution Width 18.7 H 11.8-14.3 % Platelet Count 209 140-450 10^3/uL Mean Platelet Volume 8.2 6.9-10.8 fL Neutrophils (%) (Auto) 66.4 37.0-80.0 % Lymphocytes (%) (Auto) 17.5 10.0-50.0 % Monocytes (%) (Auto) 15.0 H 0.0-12.0 % Eosinophils (%) (Auto) 0.5 0.0-7.0 % Basophils (%) (Auto) 0.6 0.0-2.0 % Neutrophils # (Auto) 8.4 1.6-8.6 10 ^3/uL Lymphocytes # (Auto) 2.2 0.4-5.4 10 ^3/uL Monocytes # (Auto) 1.9 H 0-1.3 10 ^3/uL Eosinophils # (Auto) 0.1 0-0.8 10 ^3/uL Basophils # (Auto) 0.1 0-0.2 10 ^3/uL Nucleated Red Blood Cells 0.0 % Sodium Level 138 136-145 mmol/L Potassium Level 3.4 L 3.5-5.1 mmol/L Chloride Level 104 98-107 mmol/L Carbon Dioxide Level 25 20-31 mmol/L Anion Gap 9 5-15 Blood Urea Nitrogen 29 H 9-23 mg/dL Creatinine 1.55 H 0.700-1.30 mg/dL Glomerular Filtration Rate Calc 49 >90 mL/min BUN/Creatinine Ratio 18.7 10.0-20.0 Serum Glucose 84 74-106 mg/dL Calcium Level 9.1 8.7-10.4 mg/dL Total Bilirubin 2.1 H 0.2-1.0 mg/dL Aspartate Amino Transferase (AST) 93 H 13-40 U/L Alanine Aminotransferase (ALT) 75 H 7-40 U/L Alkaline Phosphatase 81 46-116 U/L Troponin I High Sensitivity 212 *H 250 *H 246 *H 269 *H </=54 ng/L Total Protein 6.2 5.7-8.2 g/dL Albumin 3.9 3.2-4.8 g/dL Thyroid Stimulating Hormone (TSH) 3.67 0.55-4.78 uIU/mL Test 08/27/24 19:59 Range/Units White Blood Count 13.7 #H 4.4-10.8 10^3/uL Red Blood Count 5.66 4.5-5.90 10^6/uL Hemoglobin 14.4 13.5-17.5 g/dL Hematocrit 44.7 41.0-53.0 % Mean Corpuscular Volume 79.0 L 80.0-100.0 fL Mean Corpuscular Hemoglobin 25.4 L 28.0-32.0 pg Mean Corpuscular Hemoglobin Concent 32.2 32.0-36.0 g/dL Red Cell Distribution Width 18.5 H 11.8-14.3 % Platelet Count 195 140-450 10^3/uL Mean Platelet Volume 8.3 6.9-10.8 fL Neutrophils (%) (Auto) 69.0 37.0-80.0 % Lymphocytes (%) (Auto) 14.0 10.0-50.0 % Monocytes (%) (Auto) 14.1 H 0.0-12.0 % Eosinophils (%) (Auto) 2.1 0.0-7.0 % Basophils (%) (Auto) 0.8 0.0-2.0 % Neutrophils # (Auto) 9.5 H 1.6-8.6 10 ^3/uL Lymphocytes # (Auto) 1.9 0.4-5.4 10 ^3/uL Monocytes # (Auto) 1.9 H 0-1.3 10 ^3/uL Eosinophils # (Auto) 0.3 0-0.8 10 ^3/uL Basophils # (Auto) 0.1 0-0.2 10 ^3/uL Nucleated Red Blood Cells 0.2 % Platelet Estimate Adequa Large Platelets Few Microcytosis Slight Sodium Level 137 136-145 mmol/L Potassium Level 3.8 3.5-5.1 mmol/L Chloride Level 108 H 98-107 mmol/L Carbon Dioxide Level 21 20-31 mmol/L Anion Gap 8 5-15 Blood Urea Nitrogen 20 9-23 mg/dL Creatinine 1.61 H 0.700-1.30 mg/dL Glomerular Filtration Rate Calc 47 >90 mL/min BUN/Creatinine Ratio 12.4 10.0-20.0 Serum Glucose 103 74-106 mg/dL Calcium Level 9.4 8.7-10.4 mg/dL Troponin I High Sensitivity 247 *H </=54 ng/L B-Type Natriuretic Peptide 1464.88 0-100 pg/mL Assessment IMP: 1) Hemodynamically mediated SIA vasomotor nephropathy 2) CKD stage III A 3) chronic heart failure 4) hypothyroidism 5) chronic ventral hernia 6) right upper extremity edema with unclear etiology - resolving REC: - we will check urine studies, serial chemistry panels - metabolic parameters and volume status currently acceptable - agree with use of loop diuretic on an as-needed basis to achieve desired ECF volume - general recommendations to avoid NSAIDs, intravenous contrast studies if able. - we will continue to follow closely with you. Thank you for the consultation. Plan discussed with: Patient NAIMA MIRELES MD Aug 28, 2024 10:21
--- NOTE | 2024-08-28 11:03 | DVHINCON2 ---
Date Seen: Aug 28, 2024 Referring Physician trenton Reason for Consultation CHF History of Present Illness 68-year-old male with PMH for HFrEF, CKD, COPD, tobacco use, amphetamine abuse, Past Medical History HFrEF, CKD, COPD, tobacco use, amphetamine abuse Past Surgical History Exploratory laparotomy, resection of sigmoid perforation of diverticulitis, repair of colovesical fistula (03/18/22) Colostomy with reversal Family History: Family history: Thyroid disorder G8 FATHER Prostate problems G8 FATHER Social History Continues to smoke cigarettes approximately half pack a day, denies any alcohol or recent illicit drug use. Patient states has been off amphetamines since previous hospital admission. Allergies: Coded Allergies: NO KNOWN ALLERGIES (Unverified , 09/22/10) Home Meds Active Scripts Empagliflozin (Jardiance) 10 Mg Tab, 10 MG PO DAILY for 30 Days, #30 TAB Prov:MORIAH ROJAS MD 08/23/24 Sulfamethoxazole W/Trimethopri (Bactrim Ds Tablet) 1 Tab Tb, 1 TAB PO BID for 7 Days, #14 TAB 0 Refills Prov:SANTO LEVY 08/04/24 Albuterol Sulfate (Ventolin) 2.5 Mg/0.5 Ml Nb, 1 VIAL NEB Q4HR, #60 VIAL 1 Refill Prov:MARTIN SPENCER 05/07/24 Sulfamethoxazole W/Trimethopri (Bactrim Ds Tablet) 1 Tab Tb, 1 TAB PO BID for 10 Days, #20 TAB Prov:MARTIN SPENCER 05/07/24 Atorvastatin Calcium (ATORVASTATIN CALCIUM) 20 Mg Tab, 20 MG PO HS for 30 Days, #30 TAB Prov:MICHA RAMIREZ RESIDENT 03/20/24 Aspirin (Aspirin Low Dose) 81 Mg Tab, 81 MG PO DAILY for 30 Days, #30 TAB Prov:MICHA RAMIREZ RESIDENT 03/20/24 Pantoprazole Sodium Sesquihydr (Pantoprazole Sodium) 40 Mg Tab, 40 MG PO DAILY for 30 Days, #30 TAB Prov:EMEKA MCALLISTER MD 01/20/23 Tamsulosin Hcl (Flomax) 0.4 Mg Cap, 1 CAP PO HS, #30 CAP 11 Refills Prov:DARIAN DIEGO MD 03/29/22 Reported Medications Finasteride (Finasteride) 5 Mg Tab, 5 MG PO DAILY, MG 03/18/24 Furosemide (Furosemide) 40 Mg Tab, 40 MG PO DAILY 03/18/24 Carvedilol (Carvedilol) 3.125 Mg Tab, 3.125 MG PO BID, MG 03/18/24 Acetaminophen (Acetaminophen) 500 Mg Tab, 500 MG PO PRN PRN for pain 03/17/22 Levothyroxine Sodium (Levothyroxine Sodium) 150 Mcg Tab, 150 MCG PO QAM 02/25/16 Current Medications Current Medications Medications (Trade) Dose Ordered Sig/Tawnya Route PRN Reason Start Time Stop Time Status Last Admin Atorvastatin Calcium (Lipitor) 20 mg HS PO 08/28/24 22:00 Aspirin 81 mg DAILY PO 08/28/24 10:00 08/28/24 09:20 Furosemide (Lasix Injection) 40 mg DAILY IV 08/28/24 10:00 08/28/24 09:20 Carvedilol (Coreg Tablet) 3.125 mg Q12HR PO 08/28/24 10:00 08/28/24 09:20 Albuterol (Ventolin Medneb) 2.5 mg Q4HPRN PRN NEB SHORTNESS OF BREATH 08/27/24 23:30 Famotidine (Pepcid Injection) 20 mg Q12HR IV 08/28/24 10:00 08/28/24 09:19 Levothyroxine Sodium (Synthroid Tablet) 150 mcg QAM@0600 PO 08/28/24 06:00 08/28/24 05:40 Sodium Chloride (Saline Lock Ns) 10 ml Q8HR IV 08/28/24 06:00 08/28/24 09:22 Acetaminophen/ Hydrocodone Bitart ([place] 5/325MG Tab) 1 tab Q4HP PRN PO MODERATE PAIN (4-6 PAIN SCALE) 08/27/24 23:30 08/28/24 09:28 Ondansetron HCl (Zofran) 4 mg Q4HP PRN IV NAUSEA / VOMITING 08/27/24 23:30 Docusate Sodium (Colace Capsule) 100 mg BIDPRN PRN PO FOR CONSTIPATION 08/27/24 23:30 Acetaminophen (Tylenol Tablet) 650 mg Q6HP PRN PO PAIN SCALE 1-3 OR TEMP>100.4 08/27/24 23:30 08/28/24 00:55 Morphine Sulfate 2 mg Q4HPRN PRN IV SEVERE PAIN (7-10 PAIN SCALE) 08/27/24 23:30 Nitroglycerin (Ntrostat Sublingual) 0.4 mg Q5MINP PRN SL FOR CHEST PAIN 08/27/24 23:30 Morphine Sulfate 2 mg Q30M PRN IV FOR CHEST PAIN 08/27/24 23:30 Ceftriaxone Sodium 50 ml @ 100 mls/hr DAILY@0100 IV 08/29/24 01:00 Review of Systems Constitutional: No: Fever, Chills, Sweats, Weakness, Malaise, Other Eyes: No: Pain, Vision change, Conjunctivae inflammation, Eyelid inflammation, Other, Redness ENT: No: Ear pain, Ear discharge, Nose pain, Nose discharge, Nose congestion, Mouth pain, Mouth swelling, Throat pain, Throat swelling, Other Respiratory: No: Cough, Dry, Shortness of breath, SOB with exertion, Wheezing, Hemoptysis, Pleuritic Pain, Sputum, Wheezing, Other Cardiovascular: ; No: Chest Pain Palpitations, Orthopnea, Paroxysmal Noc. Dyspnea, , Lt Headedness, Other positive: RUE Edema Gastrointestinal: No: Nausea, Vomiting, Abdominal Pain, Diarrhea, Constipation, Melena, Hematochezia, Other Genitourinary: No Dysuria, No Frequency, No Incontinence, No Hematuria, No Retention, No Other Musculoskeletal: neck pain; No: other, shoulder pain, arm pain, back pain, hand pain, leg pain, foot pain Skin: No: Rash, Lesions, Jaundice, Bruising, Other Neurological: Other (Dizziness, headache.); No: Weakness, Numbness, Incoordination, Change in speech, Confusion, Seizures Vital Signs Vital Signs Date Time Temp Pulse Resp B/P (MAP) Pulse Ox O2 Delivery O2 Flow Rate FiO2 08/28/24 10:10 89 Room Air 0.0 08/28/24 10:10 21 08/28/24 09:20 99 110/74 08/28/24 09:00 97.9 18 97.9 Physical Exam General appearance: Patient is well-developed, well-nourished, in no acute distress. HEENT: Exam shows: Normocephalic, atraumatic, PERRLA, EOMI Neck: Supple, no bruits Chest: Equal chest excursion bilaterally. Breath sounds normal-no rales or wheezes. Heart: Rhythm: Regular rate; no murmur or gallop Abdomen: Exam shows: Soft, nontender, distended, hernia Musculoskeletal: No clubbing, no cyanosis, no lower extremity edema. Right upper extremity edema Dermatology: Skin warm, moist. Neurological: Exam shows: Alert and oriented x4, normal speech Available prior records, labs, EKG, rhythm strips reviewed and interpreted Labs/Diagnostic Data Labs Test 08/28/24 05:21 08/27/24 22:58 08/27/24 19:59 Range/Units White Blood Count 12.7 H 4.4-10.8 10^3/uL Red Blood Count 5.43 4.5-5.90 10^6/uL Hemoglobin 13.7 13.5-17.5 g/dL Hematocrit 42.9 41.0-53.0 % Mean Corpuscular Volume 79.1 L 80.0-100.0 fL Mean Corpuscular Hemoglobin 25.1 L 28.0-32.0 pg Mean Corpuscular Hemoglobin Concent 31.8 L 32.0-36.0 g/dL Red Cell Distribution Width 18.7 H 11.8-14.3 % Platelet Count 209 140-450 10^3/uL Mean Platelet Volume 8.2 6.9-10.8 fL Neutrophils (%) (Auto) 66.4 37.0-80.0 % Lymphocytes (%) (Auto) 17.5 10.0-50.0 % Monocytes (%) (Auto) 15.0 H 0.0-12.0 % Eosinophils (%) (Auto) 0.5 0.0-7.0 % Basophils (%) (Auto) 0.6 0.0-2.0 % Neutrophils # (Auto) 8.4 1.6-8.6 10 ^3/uL Lymphocytes # (Auto) 2.2 0.4-5.4 10 ^3/uL Monocytes # (Auto) 1.9 H 0-1.3 10 ^3/uL Eosinophils # (Auto) 0.1 0-0.8 10 ^3/uL Basophils # (Auto) 0.1 0-0.2 10 ^3/uL Nucleated Red Blood Cells 0.0 % Sodium Level 138 136-145 mmol/L Potassium Level 3.4 L 3.5-5.1 mmol/L Chloride Level 104 98-107 mmol/L Carbon Dioxide Level 25 20-31 mmol/L Anion Gap 9 5-15 Blood Urea Nitrogen 29 H 9-23 mg/dL Creatinine 1.55 H 0.700-1.30 mg/dL Glomerular Filtration Rate Calc 49 >90 mL/min BUN/Creatinine Ratio 18.7 10.0-20.0 Serum Glucose 84 74-106 mg/dL Calcium Level 9.1 8.7-10.4 mg/dL Total Bilirubin 2.1 H 0.2-1.0 mg/dL Aspartate Amino Transferase (AST) 93 H 13-40 U/L Alanine Aminotransferase (ALT) 75 H 7-40 U/L Alkaline Phosphatase 81 46-116 U/L Troponin I High Sensitivity 212 *H </=54 ng/L Total Protein 6.2 5.7-8.2 g/dL Albumin 3.9 3.2-4.8 g/dL Thyroid Stimulating Hormone (TSH) 3.67 0.55-4.78 uIU/mL Platelet Estimate Adequa Large Platelets Few Microcytosis Slight B-Type Natriuretic Peptide 1464.88 0-100 pg/mL Assessment (Dr. Fernandez) * Acute on chronic HFrEF - elevated proBNP. Continue diuresis with Lasix 40 mg IV daily. * Elevated troponin - likely demand ischemia from CHF exacerbation. EKG negative for acute ischemic changes. Continue conservative medical management given patient's recent amphetamine use. Continue aspirin and statin. * Cardiomyopathy - continue GDMT with Coreg. Continue diuresis with Lasix 40 mg IV daily, change to 40 mg p.o. daily upon discharge. Restart Jardiance upon discharge. Plan to initiate on Entresto once kidney function stabilizes, if BP tolerates. * Right upper extremity edema - upper extremity ultrasound negative for venous thrombus. * CKD - creatinine function seems to be at baseline. Continue monitoring with diuresis. * HX methamphetamine abuse - strongly recommend continue abstinence of use. * Hypokalemia - Monitor and replace electrolytes. Case Discussed with Dr Fernandez. There is no further cardiac work-up indicated at this time. Thank you for allowing us to participate in this patient's care. Will sign off. Please re-consult if needed, thank you. Critical care, time spent: 40 minutes This medical document was created using an electronic medical record system with voice recognition software and computerized dictation system. Although this document has been carefully reviewed, there might still be some phonetic and typographical errors. Occasional wrong-word or ``sound-alike substitutions may have occurred due to the inherent limitations of voice recognition software. These areas are purely typographical due to imperfections of the software programs and do not reflect any compromise in the patient's medical care. Please read the chart carefully and recognize, using context, where these substitutions have occurred. Plan discussed with: Patient Date of Service: Aug 28, 2024 Billing Provider: VIDAL FERNANDEZ MD Cardiology Common Codes: [id number] INP/OBS CARE (High), [id number] CARE 30-74 MIN [facility] Aug 28, 2024 11:03
[2024-08-28] MEDS: MORPHINE SULFATE INJ 2 MG/ml SYRG IV PRN (11:44)
--- NOTE | 2024-08-28 13:38 | DVHPN2 ---
Subjective The patient is seen and examined at bedside. Complain at pain in his arm and said that his pain medication is not enough however the patient is sitting talking to me and sleeping in between his sentences. Reviewed: Care Plan, H&P, Labs, Medications, Previous Orders, Radiology Changes from previous H/P or p: No Changes Eyes: No Pain, No Vision change, No Conjunctivae inflammation, No Eyelid inflammation, No Other, No Redness ENT: No Ear pain, No Ear discharge, No Nose pain, No Nose discharge, No Nose congestion, No Mouth pain, No Mouth swelling, No Throat pain, No Throat swelling, No Other Cardiovascular: No Chest Pain, No Palpitations, No Orthopnea, No Paroxysmal Noc. Dyspnea, No Edema, No Lt Headedness, No Other Respiratory: No Cough, No Dry; Shortness of breath; No SOB with excertion, No Wheezing, No Hemoptysis, No Pleuritic Pain, No Sputum, No Other Gastrointestinal: No Nausea, No Vomiting, No Abdominal Pain, No Diarrhea, No Constipation, No Melena, No Hematochezia, No Other Genitourinary: No Dysuria, No Frequency, No Incontinence, No Hematuria, No Retention, No Other Musculoskeletal: other (Muscle pain, swelling to RT hand.); No neck pain, No shoulder pain; arm pain (Right); No back pain, No hand pain, No leg pain, No foot pain Skin: No Rash, No Lesions, No Jaundice, No Bruising, No Other Objective Vitals Vital Signs Date Time Temp Pulse Resp B/P (MAP) Pulse Ox O2 Delivery O2 Flow Rate FiO2 08/28/24 11:44 99 18 110/74 08/28/24 10:10 89 Room Air 0.0 08/28/24 10:10 21 08/28/24 09:00 97.9 97.9 Intake/Output Intake and Output 08/28/24 07:00 Intake Total 290 ml Balance 290 ml Intake Oral 240 ml IV Total 50 ml # Voids 1 General Appearance: Alert, Cooperative, No acute distress HEENT: Atraumatic, PERRLA, EOMI, Mucous membr. moist/pink Cardiovascular: Regular rate, Normal S1, Normal S2, No murmurs, Gallops, Rubs Abdomen: Normal bowel sounds, Soft, No tenderness Neuro: Cranial nerves 3-12 NL Psych/Mental Status: Mental status NL Medications Current Medications Medications Dose Ordered Sig/Tawnya Route Start Time Stop Time Status Last Admin Dose Admin Atorvastatin Calcium 20 mg HS PO 08/28/24 22:00 Aspirin 81 mg DAILY PO 08/28/24 10:00 08/28/24 09:20 81 MG Furosemide 40 mg DAILY IV 08/28/24 10:00 08/28/24 09:20 40 MG Carvedilol 3.125 mg Q12HR PO 08/28/24 10:00 08/28/24 09:20 3.125 MG Albuterol 2.5 mg Q4HPRN PRN NEB 08/27/24 23:30 Famotidine 20 mg Q12HR IV 08/28/24 10:00 08/28/24 09:19 20 MG Levothyroxine Sodium 150 mcg QAM@0600 PO 08/28/24 06:00 08/28/24 05:40 150 MCG Sodium Chloride 10 ml Q8HR IV 08/28/24 06:00 08/28/24 09:22 10 ML Acetaminophen/ Hydrocodone Bitart 1 tab Q4HP PRN PO 08/27/24 23:30 08/28/24 09:28 1 TAB Ondansetron HCl 4 mg Q4HP PRN IV 08/27/24 23:30 Docusate Sodium 100 mg BIDPRN PRN PO 08/27/24 23:30 Acetaminophen 650 mg Q6HP PRN PO 08/27/24 23:30 08/28/24 00:55 650 MG Morphine Sulfate 2 mg Q4HPRN PRN IV 08/27/24 23:30 08/28/24 11:44 2 MG Nitroglycerin 0.4 mg Q5MINP PRN SL 08/27/24 23:30 Morphine Sulfate 2 mg Q30M PRN IV 08/27/24 23:30 Ceftriaxone Sodium 50 ml @ 100 mls/hr DAILY@0100 IV 08/29/24 01:00 Laboratory Results Laboratory Tests 08/28/24 05:21 Chemistry Test 08/27/24 19:59 08/28/24 05:21 Calcium Level 9.4 mg/dL (8.7-10.4) 9.1 mg/dL (8.7-10.4) Albumin 3.9 g/dL (3.2-4.8) Total Protein 6.2 g/dL (5.7-8.2) Cardiac Markers Test 08/27/24 19:59 B-Type Natriuretic Peptide 1464.88 pg/mL (0-100) LFT Test 08/28/24 05:21 Alanine Aminotransferase (ALT) 75 U/L (7-40) H Alkaline Phosphatase 81 U/L (46-116) Aspartate Amino Transferase (AST) 93 U/L (13-40) H Total Bilirubin 2.1 mg/dL (0.2-1.0) H HgA1c, TSH Test 08/27/24 22:58 Thyroid Stimulating Hormone (TSH) 3.67 uIU/mL (0.55-4.78) Microbiology Microbiology Date/Time Source Procedure Growth Status 08/28/24 02:45 Nose MRSA Screen - Final Methicillin Resistant S.aureus Complete Assessment/Plan Assessment/Plan Swelling of right upper extremity Acute chest pain Elevated troponin Leukocytosis, unspecified Acute exacerbation of chronic systolic congestive heart failure COPD Hypertension Hypothyroidism History of methamphetamine abuse Continuing current management. I explained to the patient I am not going to increase his pain regimen which is morphine and [place] since his pain is appropriate controlled. Continuing with IV Lasix. Waiting for senior foreman and chemical worker to see the patient. We will monitor his kidney function. Continuing empiric Rocephin 1 g IV q.day Plan discussed with: Patient Date of Service: Aug 28, 2024 Billing Provider: YOSEF YBARRA MD Common Visit Codes: [id number] INP/OBS CARE(HIGH) YOSEF YBARRA MD Aug 28, 2024 13:38
--- NOTE | 2024-08-28 14:02 | MEDREC ---
[facility] Intervention Section I [facility] Intervention: Review courses of therapy (MRSA SCREEN POSITIVE CONSIDER ADDING MUPIROCIN 2% OINTMENT 1 APPLICATION IN EACH NOSTRIL BID FOR 5 DAYS ) GEORGIE URBANO PHARMACIST Aug 28, 2024 14:02
[2024-08-28] MEDS: POTASSIUM CHL 20 Meq TABLET PO ONE (15:56)
[2024-08-28] MEDS: ATORVASTATIN 20 MG TAB PO SCH (21:50)
[2024-08-28] MEDS: cefTRIAXone 1GM/50ML D5W 50 ML IV SCH (23:54)
[2024-08-29] VITALS (13 sets, daily range): BP systolic 109–125; BP diastolic 66–81; PULSE 61–105; RESP 16–21; TEMP 97.6–98.9; O2SAT 92–100
[2024-08-29 06:45] LABS: Basophils # (auto) 0.1 10 ^3/uL (0-0.2); Eosinophils # (auto) 0.4 10 ^3/uL (0-0.8); Monocytes # (auto) 1.3 10 ^3/uL (0-1.3); Nucleated Red Blood Cells % 0.1 %
[2024-08-29 06:50] LABS: Anion Gap 7 (5-15); Calcium 9.1 mg/dL (8.7-10.4); Carbon Dioxide 26 mmol/L (20-31); Chloride 104 mmol/L (98-107); Potassium 3.9 mmol/L (3.5-5.1); Sodium 137 mmol/L (136-145)
[2024-08-29 06:51] LABS: Basophils % (auto) 1.3 % (0.0-2.0); Eosinophils % (auto) 3.2 % (0.0-7.0); Hematocrit 43.2 % (41.0-53.0); Lymphocytes # (auto) 2.4 10 ^3/uL (0.4-5.4); Lymphocytes % (auto) 21.5 % (10.0-50.0); Mean Corpuscular Hemoglobin 25.6 pg (28.0-32.0); Mean Corpuscular Hgb Conc. 32.5 g/dL (32.0-36.0); Mean Corpuscular Volume 78.8 fL (80.0-100.0); Monocytes % (auto) 11.7 % (0.0-12.0); Neutrophils # (auto) 6.8 10 ^3/uL (1.6-8.6); Neutrophils % (auto) 62.3 % (37.0-80.0); Platelet Count (auto) 215 10^3/uL (140-450); Red Blood Cells 5.48 10^6/uL (4.5-5.90); Red Cell Distribution Width 18.9 % (11.8-14.3)
[2024-08-29 06:55] LABS: Glucose 130 mg/dL (74-106); Uric Acid 8.8 mg/dL (3.7-9.2)
[2024-08-29 06:56] LABS: BUN/Creatinine Ratio 15.9 (10.0-20.0); Blood Urea Nitrogen 26 mg/dL (9-23)
[2024-08-29 06:58] LABS: Phosphorus 2.9 mg/dL (2.4-5.1)
--- NOTE | 2024-08-29 10:50 | ECG ---
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
--- NOTE | 2024-08-29 10:59 | DVHPN2 ---
Reviewed: Care Plan, H&P, Labs, Medications, Previous Orders, Radiology Changes from previous H/P or p: No Changes Eyes: No Pain, No Vision change, No Conjunctivae inflammation, No Eyelid inflammation, No Other, No Redness ENT: No Ear pain, No Ear discharge, No Nose pain, No Nose discharge, No Nose congestion, No Mouth pain, No Mouth swelling, No Throat pain, No Throat swelling, No Other Cardiovascular: No Chest Pain, No Palpitations, No Orthopnea, No Paroxysmal Noc. Dyspnea, No Edema, No Lt Headedness, No Other Respiratory: No Cough, No Dry; Shortness of breath; No SOB with excertion, No Wheezing, No Hemoptysis, No Pleuritic Pain, No Sputum, No Other Gastrointestinal: No Nausea, No Vomiting, No Abdominal Pain, No Diarrhea, No Constipation, No Melena, No Hematochezia, No Other Genitourinary: No Dysuria, No Frequency, No Incontinence, No Hematuria, No Retention, No Other Musculoskeletal: other (Muscle pain, swelling to RT hand.); No neck pain, No shoulder pain; arm pain (Right); No back pain, No hand pain, No leg pain, No foot pain Skin: No Rash, No Lesions, No Jaundice, No Bruising, No Other Objective Vitals Vital Signs Date Time Temp Pulse Resp B/P (MAP) Pulse Ox O2 Delivery O2 Flow Rate FiO2 08/29/24 10:25 95 Room Air* 0 21 08/29/24 09:46 98 111/66 08/29/24 08:30 98.9 21 98.9 Intake/Output Intake and Output 08/29/24 07:00 Intake Total 1804 ml Output Total 800 ml Balance 1004 ml Intake Oral 1754 ml IV Total 50 ml Output Urine Total 800 ml # Voids 2 General Appearance: Alert, Cooperative, No acute distress HEENT: Atraumatic, PERRLA, EOMI, Mucous membr. moist/pink Cardiovascular: Regular rate, Normal S1, Normal S2, No murmurs, Gallops, Rubs Abdomen: Normal bowel sounds, Soft, No tenderness Neuro: Cranial nerves 3-12 NL Psych/Mental Status: Mental status NL Medications Current Medications Medications Dose Ordered Sig/Tawnya Route Start Time Stop Time Status Last Admin Dose Admin Atorvastatin Calcium 20 mg HS PO 08/28/24 22:00 08/28/24 21:50 20 MG Aspirin 81 mg DAILY PO 08/28/24 10:00 08/29/24 09:46 81 MG Furosemide 40 mg DAILY IV 08/28/24 10:00 08/29/24 09:46 40 MG Carvedilol 3.125 mg Q12HR PO 08/28/24 10:00 08/29/24 09:46 3.125 MG Albuterol 2.5 mg Q4HPRN PRN NEB 08/27/24 23:30 Famotidine 20 mg Q12HR IV 08/28/24 10:00 08/29/24 09:46 20 MG Levothyroxine Sodium 150 mcg QAM@0600 PO 08/28/24 06:00 08/29/24 05:41 150 MCG Sodium Chloride 10 ml Q8HR IV 08/28/24 06:00 08/29/24 05:41 10 ML Acetaminophen/ Hydrocodone Bitart 1 tab Q4HP PRN PO 08/27/24 23:30 08/28/24 21:59 1 TAB Ondansetron HCl 4 mg Q4HP PRN IV 08/27/24 23:30 Docusate Sodium 100 mg BIDPRN PRN PO 08/27/24 23:30 Acetaminophen 650 mg Q6HP PRN PO 08/27/24 23:30 08/28/24 00:55 650 MG Morphine Sulfate 2 mg Q4HPRN PRN IV 08/27/24 23:30 08/28/24 11:44 2 MG Nitroglycerin 0.4 mg Q5MINP PRN SL 08/27/24 23:30 Morphine Sulfate 2 mg Q30M PRN IV 08/27/24 23:30 Ceftriaxone Sodium 50 ml @ 100 mls/hr DAILY@0100 IV 08/29/24 01:00 08/28/24 23:54 100 MLS/HR Laboratory Results Laboratory Tests 08/29/24 05:19 Chemistry Test 08/29/24 05:19 Calcium Level 9.1 mg/dL (8.7-10.4) Phosphorus Level 2.9 mg/dL (2.4-5.1) HgA1c, TSH Test 08/29/24 05:19 Thyroid Stimulating Hormone (TSH) 3.24 uIU/mL (0.55-4.78) Microbiology Microbiology Date/Time Source Procedure Growth Status 08/28/24 02:45 Nose MRSA Screen - Final Methicillin Resistant S.aureus Complete Labs and/or images reviewed: Labs reviewed by me, Image(s) reviewed by me Assessment/Plan Assessment/Plan Swelling of right upper extremity: DVT ruled out Acute chest pain Elevated troponin Leukocytosis, unspecified Acute exacerbation of chronic systolic congestive heart failure, continue Lasix Cardiomyopathy: Cardiology consult appreciated COPD Hypertension History of colon resection with colostomy and reversal two years ago Large incisional ventral hernia, has appointment with Dr. Bauman for outpatient surgery Hypothyroidism History of methamphetamine abuse MRSA screen positive: Bactroban screen ointment Plan discussed with: Patient My Orders Orders - LUIS COTE MD Procedure Category Date Status Time Mupirocin 2% Oint PHA 08/29/24 Transmitted Mrsa Nares (Bactroban 22:00 Date of Service: Aug 29, 2024 Billing Provider: LUIS COTE MD Common Visit Codes: [id number] INP/OBS CARE(HIGH) LUIS COTE MD Aug 29, 2024 10:59
--- NOTE | 2024-08-29 13:23 | DVHPN2 ---
Progress Note Date Seen: Aug 29, 2024 Medical Necessity Reason Pt with a Central, PICC or Fol: No Subjective Patient reports: No new complaints Review of Systems: HEENT:Normal, CVS:Normal, RESPIRATORY:Normal, GI:Normal, :Normal, MSK:Abnormal, NEURO:Normal Objective vital signs Vital Sign Date Time Temp Pulse Resp B/P (MAP) Pulse Ox O2 Delivery O2 Flow Rate FiO2 08/29/24 11:53 98 21 111/66 08/29/24 10:25 95 Room Air* 0 08/29/24 08:30 98.9 98.9 Total Intake and Output 08/28/24 08/28/24 08/29/24 15:00 23:00 07:00 Intake Total 834 ml 970 ml Output Total 800 ml Balance 34 ml 970 ml medications Current Medications Medications Dose Ordered Sig/Tawnya Route Start Time Stop Time Status Last Admin Dose Admin Atorvastatin Calcium 20 mg HS PO 08/28/24 22:00 08/28/24 21:50 20 MG Aspirin 81 mg DAILY PO 08/28/24 10:00 08/29/24 09:46 81 MG Furosemide 40 mg DAILY IV 08/28/24 10:00 08/29/24 09:46 40 MG Carvedilol 3.125 mg Q12HR PO 08/28/24 10:00 08/29/24 09:46 3.125 MG Albuterol 2.5 mg Q4HPRN PRN NEB 08/27/24 23:30 Famotidine 20 mg Q12HR IV 08/28/24 10:00 08/29/24 09:46 20 MG Levothyroxine Sodium 150 mcg QAM@0600 PO 08/28/24 06:00 08/29/24 05:41 150 MCG Sodium Chloride 10 ml Q8HR IV 08/28/24 06:00 08/29/24 05:41 10 ML Acetaminophen/ Hydrocodone Bitart 1 tab Q4HP PRN PO 08/27/24 23:30 08/28/24 21:59 1 TAB Ondansetron HCl 4 mg Q4HP PRN IV 08/27/24 23:30 Docusate Sodium 100 mg BIDPRN PRN PO 08/27/24 23:30 Acetaminophen 650 mg Q6HP PRN PO 08/27/24 23:30 08/28/24 00:55 650 MG Morphine Sulfate 2 mg Q4HPRN PRN IV 08/27/24 23:30 08/29/24 11:53 2 MG Nitroglycerin 0.4 mg Q5MINP PRN SL 08/27/24 23:30 Morphine Sulfate 2 mg Q30M PRN IV 08/27/24 23:30 Ceftriaxone Sodium 50 ml @ 100 mls/hr DAILY@0100 IV 08/29/24 01:00 08/28/24 23:54 100 MLS/HR Mupirocin 1 applic BID EACHNOSTRI 08/29/24 22:00 09/03/24 21:59 Examination: GENERAL:Normal, HEENT:Normal, NECK:Normal, LUNGS:Normal, CVS:Normal, ABDOMEN:Normal, MSK:Abnormal, SKIN:Normal, NEURO:Normal, :Normal laboratory and microbiology Laboratory Tests 08/29/24 05:19 Test 08/29/24 05:19 Range/Units Serum Glucose 130 H 74-106 mg/dL Microbiology Date/Time Source Procedure Growth Status 08/28/24 02:45 Nose MRSA Screen - Final Methicillin Resistant S.aureus Complete Problem List/Assessment/Plan Problem List/Assessment/Plan 1) Hemodynamically mediated SIA vasomotor nephropathy 2) CKD stage III A 3) chronic heart failure 4) hypothyroidism 5) chronic ventral hernia 6) right upper extremity edema prostatomegaly-chronic BRANHAM recs on iv lasix 0.2gm upcr on 08-22-24 urology eval outpatient Plan discussed with: Patient GISELA ROUSSEAU MD Aug 29, 2024 13:23
[2024-08-29] MEDS: MUPIROCIN 2% OINT 15gm or 22gm FOR MRSA NARES EACHNOSTRI SCH (21:38)
[2024-08-30 01:00] VITALS: BP 111/72; PULSE 96; RESP 20; O2SAT 91
[2024-08-30 05:00] VITALS: BP 108/70; PULSE 96; RESP 20; TEMP 97.9; O2SAT 98
[2024-08-30 08:00] VITALS: PULSE 97; RESP 19; O2SAT 97
[2024-08-30 09:00] VITALS: BP 111/82; PULSE 97; RESP 19; TEMP 98.6; O2SAT 92
--- NOTE | 2024-08-30 09:40 | DVHPN2 ---
Reviewed: Care Plan, H&P, Labs, Medications, Previous Orders, Radiology Changes from previous H/P or p: No Changes Eyes: No Pain, No Vision change, No Conjunctivae inflammation, No Eyelid inflammation, No Other, No Redness ENT: No Ear pain, No Ear discharge, No Nose pain, No Nose discharge, No Nose congestion, No Mouth pain, No Mouth swelling, No Throat pain, No Throat swelling, No Other Cardiovascular: No Chest Pain, No Palpitations, No Orthopnea, No Paroxysmal Noc. Dyspnea, No Edema, No Lt Headedness, No Other Respiratory: No Cough, No Dry; Shortness of breath; No SOB with excertion, No Wheezing, No Hemoptysis, No Pleuritic Pain, No Sputum, No Other Gastrointestinal: No Nausea, No Vomiting, No Abdominal Pain, No Diarrhea, No Constipation, No Melena, No Hematochezia, No Other Genitourinary: No Dysuria, No Frequency, No Incontinence, No Hematuria, No Retention, No Other Musculoskeletal: other (Muscle pain, swelling to RT hand.); No neck pain, No shoulder pain; arm pain (Right); No back pain, No hand pain, No leg pain, No foot pain Skin: No Rash, No Lesions, No Jaundice, No Bruising, No Other Objective Vitals Vital Signs Date Time Temp Pulse Resp B/P (MAP) Pulse Ox O2 Delivery O2 Flow Rate FiO2 08/30/24 09:00 98.6 97 19 111/82 (92) 92 98.6 08/29/24 20:00 Room Air* 0 21 Intake/Output Intake and Output 08/30/24 07:00 Intake Total 1606 ml Output Total 500 ml Balance 1106 ml Intake Oral 1556 ml IV Total 50 ml Output Urine Total 500 ml # Voids 1 # Bowel Movements 1 General Appearance: Alert, Cooperative, No acute distress HEENT: Atraumatic, PERRLA, EOMI, Mucous membr. moist/pink Cardiovascular: Regular rate, Normal S1, Normal S2, No murmurs, Gallops, Rubs Abdomen: Normal bowel sounds, Soft, No tenderness Neuro: Cranial nerves 3-12 NL Psych/Mental Status: Mental status NL Medications Current Medications Medications Dose Ordered Sig/Tawnay Route Start Time Stop Time Status Last Admin Dose Admin Atorvastatin Calcium 20 mg HS PO 08/28/24 22:00 08/29/24 21:37 20 MG Aspirin 81 mg DAILY PO 08/28/24 10:00 08/29/24 09:46 81 MG Furosemide 40 mg DAILY IV 08/28/24 10:00 08/29/24 09:46 40 MG Carvedilol 3.125 mg Q12HR PO 08/28/24 10:00 08/29/24 21:37 3.125 MG Albuterol 2.5 mg Q4HPRN PRN NEB 08/27/24 23:30 Famotidine 20 mg Q12HR IV 08/28/24 10:00 08/29/24 21:42 20 MG Levothyroxine Sodium 150 mcg QAM@0600 PO 08/28/24 06:00 08/30/24 06:08 150 MCG Sodium Chloride 10 ml Q8HR IV 08/28/24 06:00 08/30/24 06:08 10 ML Acetaminophen/ Hydrocodone Bitart 1 tab Q4HP PRN PO 08/27/24 23:30 08/28/24 21:59 1 TAB Ondansetron HCl 4 mg Q4HP PRN IV 08/27/24 23:30 Docusate Sodium 100 mg BIDPRN PRN PO 08/27/24 23:30 Acetaminophen 650 mg Q6HP PRN PO 08/27/24 23:30 08/28/24 00:55 650 MG Morphine Sulfate 2 mg Q4HPRN PRN IV 08/27/24 23:30 08/29/24 21:39 2 MG Nitroglycerin 0.4 mg Q5MINP PRN SL 08/27/24 23:30 Morphine Sulfate 2 mg Q30M PRN IV 08/27/24 23:30 Ceftriaxone Sodium 50 ml @ 100 mls/hr DAILY@0100 IV 08/29/24 01:00 08/30/24 00:56 100 MLS/HR Mupirocin 1 applic BID EACHNOSTRI 08/29/24 22:00 09/03/24 21:59 08/29/24 21:38 1 APPLIC Laboratory Results Laboratory Tests 08/29/24 05:19 Microbiology Microbiology Date/Time Source Procedure Growth Status 08/28/24 02:45 Nose MRSA Screen - Final Methicillin Resistant S.aureus Complete Labs and/or images reviewed: Labs reviewed by me, Image(s) reviewed by me Assessment/Plan Assessment/Plan Swelling of right upper extremity: DVT ruled out Acute chest pain Elevated troponin Leukocytosis, unspecified Acute exacerbation of chronic systolic congestive heart failure, continue Lasix Cardiomyopathy: Cardiology consult appreciated, no further cardiac workup COPD Hypertension History of colon resection with colostomy and reversal two years ago Large incisional ventral hernia, has appointment with Dr. Bauman for outpatient surgery Hypothyroidism History of methamphetamine abuse MRSA screen positive: Bactroban skin ointment Plan discussed with: Patient My Orders Orders - LUIS COTE MD Procedure Category Date Status Time Mupirocin 2% Oint PHA 08/29/24 In Process Mrsa Nares (Bactroban 22:00 Date of Service: Aug 30, 2024 Billing Provider: LUIS COTE MD Common Visit Codes: [id number] INP/OBS CARE(HIGH) LUIS COTE MD Aug 30, 2024 09:40
[2024-08-30 10:00] VITALS: O2SAT 97
--- NOTE | 2024-08-30 10:01 | DVHDS2 ---
Discharge Summary Date of Admission Aug 27, 2024 at 23:28 Date of Discharge: Aug 30, 2024 Admitting Diagnosis Right upper extremity swelling Wounds: None Labs/Diagnostic Data: Laboratory Results Test 08/29/24 05:19 08/28/24 18:11 08/28/24 05:21 08/27/24 19:59 White Blood Count 11.0 10^3/uL (4.4-10.8) Red Blood Count 5.48 10^6/uL (4.5-5.90) Hemoglobin 14.0 g/dL (13.5-17.5) Hematocrit 43.2 % (41.0-53.0) Mean Corpuscular Volume 78.8 fL (80.0-100.0) Mean Corpuscular Hemoglobin 25.6 pg (28.0-32.0) Mean Corpuscular Hemoglobin Concent 32.5 g/dL (32.0-36.0) Red Cell Distribution Width 18.9 % (11.8-14.3) Platelet Count 215 10^3/uL (140-450) Mean Platelet Volume 8.6 fL (6.9-10.8) Neutrophils (%) (Auto) 62.3 % (37.0-80.0) Lymphocytes (%) (Auto) 21.5 % (10.0-50.0) Monocytes (%) (Auto) 11.7 % (0.0-12.0) Eosinophils (%) (Auto) 3.2 % (0.0-7.0) Basophils (%) (Auto) 1.3 % (0.0-2.0) Neutrophils # (Auto) 6.8 10 ^3/uL (1.6-8.6) Lymphocytes # (Auto) 2.4 10 ^3/uL (0.4-5.4) Monocytes # (Auto) 1.3 10 ^3/uL (0-1.3) Eosinophils # (Auto) 0.4 10 ^3/uL (0-0.8) Basophils # (Auto) 0.1 10 ^3/uL (0-0.2) Nucleated Red Blood Cells 0.1 % Sodium Level 137 mmol/L (136-145) Potassium Level 3.9 mmol/L (3.5-5.1) Chloride Level 104 mmol/L (98-107) Carbon Dioxide Level 26 mmol/L (20-31) Anion Gap 7 (5-15) Blood Urea Nitrogen 26 mg/dL (9-23) Creatinine 1.64 mg/dL (0.700-1.30) Glomerular Filtration Rate Calc 46 mL/min (>90) BUN/Creatinine Ratio 15.9 (10.0-20.0) Serum Glucose 130 mg/dL (74-106) Uric Acid 8.8 mg/dL (3.7-9.2) Calcium Level 9.1 mg/dL (8.7-10.4) Phosphorus Level 2.9 mg/dL (2.4-5.1) Thyroid Stimulating Hormone (TSH) 3.24 uIU/mL (0.55-4.78) Troponin I High Sensitivity 154 ng/L (</=54) Total Bilirubin 2.1 mg/dL (0.2-1.0) Aspartate Amino Transferase (AST) 93 U/L (13-40) Alanine Aminotransferase (ALT) 75 U/L (7-40) Alkaline Phosphatase 81 U/L (46-116) Total Protein 6.2 g/dL (5.7-8.2) Albumin 3.9 g/dL (3.2-4.8) Platelet Estimate [place] Large Platelets Few Microcytosis Slight B-Type Natriuretic Peptide 1464.88 pg/mL (0-100) Other Laboratory Tests 08/29/24 05:19 Brief Hx & Hospital Course: 71-year-old male with multiple medical problems including hypothyroidism hypertension COPD cardiomyopathy CHF med chronic meth abuse discharged on 08/24/2024 came in complaining of swelling of the right upper extremity DVT was negative. Patient was seen by Cardiology for chest pain patient has severe cardiomyopathy continued on home medications no further cardiac workup and no new medications. MRSA screen was positive given Bactroban nasal ointment being discharged home reviewed all his home medications. He will follow up with the Dr. Yan for ventral hernia surgery with Dr. Garcia for enlarged prostate and with Cardiology General condition poor but satisfactory at the time of discharge Consults/Reason for consult Cardiology Operations or Procedures Venous ultrasound Condition at Discharge: Fair Final Diagnosis/Problems List Swelling of right upper extremity: DVT ruled out Acute chest pain Elevated troponin Leukocytosis, unspecified Acute exacerbation of chronic systolic congestive heart failure, continue Lasix Cardiomyopathy: Cardiology consult appreciated, no further cardiac workup COPD Hypertension History of colon resection with colostomy and reversal two years ago Large incisional ventral hernia, has appointment with Dr. Bauman for outpatient surgery Hypothyroidism History of methamphetamine abuse MRSA screen positive: Bactroban skin ointment Discharge Disposition: Home Discharge Instruct/Medications Diet: Cardiac 2g Na,low cholest Activity: Light activity Follow Up/Referral: Resume all previous home medications follow up with the Urology Dr. Garcia cardiology Dr. Hernandez and surgeon Dr. Bauman Medications: None Reviewed all previous home medications 39 (Time taken for discharge summary 39 minutes) Discharge Statement: "Patient was advised to return to the ER or call 911 if any headaches, dizziness, shortness of breath, chest pain, abdominal pain, bleeding, fevers, or worsening of medical condition. Patient was counseled about treatment plan, medications, possible side effects, patientverbalized understanding. All questions were answered to the best of my ability. This discharge took greater then 30 minutes in planning, reviewing documentation, counseling the patient, and discussing with other team members." ASSESSMENT ASSESSMENT Hospital Course Improved Assessment Swelling of right upper extremity: DVT ruled out Acute chest pain Elevated troponin Leukocytosis, unspecified Acute exacerbation of chronic systolic congestive heart failure, continue Lasix Cardiomyopathy: Cardiology consult appreciated, no further cardiac workup COPD Hypertension History of colon resection with colostomy and reversal two years ago Large incisional ventral hernia, has appointment with Dr. Bauman for outpatient surgery Hypothyroidism History of methamphetamine abuse MRSA screen positive: Bactroban skin ointment Date of Service: Aug 30, 2024 Billing Provider: LUIS COTE MD Common Visit Codes: [id number] DISCH DAY >30min LUIS COTE MD Aug 30, 2024 10:01
[2024-08-30 11:54] VITALS: BP 111/82; PULSE 97
== END 2024-08-30 12:00 | disposition home or self-care (01) | DRG 280 ==
LOC: EDBD 19:31 → ER 19:31 → TELE 23:28 → TELE-EAST 08-28 02:22
PROVIDERS: ADMIT Nurse Practitioner Family; ATTEND Family Medicine
DX: I13.0 Hypertensive heart and chronic kidney disease with heart failure and stage 1 through stage 4 chronic kidney disease, or unspecified chronic kidney disease (principal); I50.23 Acute on chronic systolic (congestive) heart failure; I21.A1 Myocardial infarction type 2; N17.0 Acute kidney failure with tubular necrosis; R65.10 Systemic inflammatory response syndrome (SIRS) of non-infectious origin without acute organ dysfunction; I42.9 Cardiomyopathy, unspecified; D72.829 Elevated white blood cell count, unspecified; E87.6 Hypokalemia; K43.9 Ventral hernia without obstruction or gangrene; N18.31 Chronic kidney disease, stage 3a; E03.9 Hypothyroidism, unspecified; J44.89 Other specified chronic obstructive pulmonary disease; F17.210 Nicotine dependence, cigarettes, uncomplicated; E78.5 Hyperlipidemia, unspecified; Z93.3 Colostomy status; Z90.49 Acquired absence of other specified parts of digestive tract; Z79.899 Other long term (current) drug therapy
CPT/HCPCS: 36415; 71046; 80048; 80053; 83880; 84100; 84443; 84484; 84550; 85025; 87081; 93005; 93971; 96374; 99291; G0378; J3490

== ENCOUNTER 2024-09-30 04:01 | Inpatient (IN) | payer BC, MEDICAID ==
[~2024-09-30] VITALS: Ht 172.7 cm; Wt 81.6 kg
--- NOTE | 2024-09-30 04:17 | PRN ---
Misceleneous Note Note Note 68-year-old male who presents to the emergency department with shortness of breath, lower extremity edema, suspected CHF exacerbation. Rapid medical screening exam performed. Patient in no acute distress, mild tachycardia noted. Labs, imaging, EKG, diuretic ordered. Will sign out to oncoming provider pending full evaluation. VERONICA GARZA MD Sep 30, 2024 04:17
[2024-09-30 04:39] LABS: Basophils # (auto) 0.1 10 ^3/uL (0-0.2); Basophils % (auto) 1.3 % (0.0-2.0); Eosinophils # (auto) 0.3 10 ^3/uL (0-0.8); Mean Corpuscular Volume 79.1 fL (80.0-100.0); Monocytes # (auto) 1.1 10 ^3/uL (0-1.3); Nucleated Red Blood Cells % 0.1 %; Red Cell Distribution Width 19.2 % (11.8-14.3)
[2024-09-30 04:40] LABS: Eosinophils % (auto) 3.5 % (0.0-7.0); Hematocrit 43.4 % (41.0-53.0); Hemoglobin 13.5 g/dL (13.5-17.5); Lymphocytes # (auto) 2.3 10 ^3/uL (0.4-5.4); Mean Corpuscular Hemoglobin 24.6 pg (28.0-32.0); Mean Corpuscular Hgb Conc. 31.1 g/dL (32.0-36.0); Monocytes % (auto) 12.4 % (0.0-12.0); Neutrophils # (auto) 4.9 10 ^3/uL (1.6-8.6); Neutrophils % (auto) 56.8 % (37.0-80.0); Platelet Count (auto) 240 10^3/uL (140-450); Red Blood Cells 5.48 10^6/uL (4.5-5.90); White Blood Cell 8.7 10^3/uL (4.4-10.8)
[2024-09-30 05:02] LABS: Albumin 4.1 g/dL (3.2-4.8); Anion Gap 10 (5-15); BUN/Creatinine Ratio 16.2 (10.0-20.0); Calcium 9.3 mg/dL (8.7-10.4); Carbon Dioxide 22 mmol/L (20-31); Glucose 102 mg/dL (74-106); Sodium 140 mmol/L (136-145); Total Protein 6.8 g/dL (5.7-8.2)
--- NOTE | 2024-09-30 05:07 | DVH ---
CHEST RADIOGRAPH Indication: cp Technique: Single frontal view of the chest was obtained Comparison: 08/27/24 FINDINGS: Lines and Tubes: None Lungs: No focal consolidation. Pleura: No effusion. No pneumothorax. Cardiomediastinal contours: Unremarkable Bones: No acute osseous abnormality. IMPRESSION: 1. No acute cardiopulmonary disease.
[2024-09-30 05:08] LABS: Alanine Aminotransferase 89 U/L (7-40); Alkaline Phosphatase 118 U/L (46-116); Aspartate Aminotransferase 111 U/L (13-40); Bilirubin, Total 1.6 mg/dL (0.2-1.0); Blood Urea Nitrogen 29 mg/dL (9-23); Chloride 108 mmol/L (98-107)
[2024-09-30] MEDS: FUROSEMIDE 40 MG/4 ML VIAL IV ONE (06:19)
[2024-09-30 06:20] VITALS: PULSE 18; RESP 18; O2SAT 96
--- NOTE | 2024-09-30 07:06 | ECG ---
[facility] Test Date: 2024-09-30 Test Time: 04:20:07 Pat Name: LUIS F SINGER Department: ER Room: 0245T Gender: M Hub Bander: : 1955 Requested By: VERONICA GARZA Order Number: [id number] Reading MD: Augie Martino Measurements Intervals [place] Rate: 114 P: 73 UT: 150 QRS: 116 QRSD: 105 T: -19 QT: 349 QTc: 481 Interpretive Statements Sinus tachycardia Left atrial enlargement Right axis deviation Borderline repolarization abnormality Borderline ST elevation, anterolateral leads Borderline prolonged QT interval Electronically Signed On 10-06-2024 14:50:31 PST by Augie Martino Please click the below link to view image of tracing.
--- NOTE | 2024-09-30 07:26 | ED.PDOC ---
General HPI Comments Rapid medical evaluation was was initially performed by Dr. Nicholas at 5:13 a.m.. 68-year-old male presents here with decreased urination production, bilateral leg swelling x2 days. States he has a known history of CHF and takes Lasix daily but over the last 2 days his Lasix is not helping. He does not know the dose of Lasix he takes. States his legs are extremely swollen bilaterally and with significant pain and he is unable to ambulate secondary to that. Reports mild shortness of breath only secondary because of pain with ambulation. He has does state he wears urinary bag in his noticed decreased urine output. Denies any fever chills nausea vomiting diarrhea. Chief Complaint: Urinary Time Seen by MD: 05:13 Primary Care Provider: UNKNOWN Reviewed notes: Nurses Notes, Medications, Allergies Allergies: Coded Allergies: NO KNOWN ALLERGIES (Unverified , 09/22/10) Home Meds Active Scripts Empagliflozin (Jardiance) 10 Mg Tab, 10 MG PO DAILY for 30 Days, #30 TAB Prov:MORIAH ROJAS MD 08/23/24 Sulfamethoxazole W/Trimethopri (Bactrim Ds Tablet) 1 Tab Tb, 1 TAB PO BID for 7 Days, #14 TAB 0 Refills Prov:SANTO LEVY 08/04/24 Albuterol Sulfate (Ventolin) 2.5 Mg/0.5 Ml Nb, 1 VIAL NEB Q4HR, #60 VIAL 1 Refill Prov:MARTIN SPENCER 05/07/24 Sulfamethoxazole W/Trimethopri (Bactrim Ds Tablet) 1 Tab Tb, 1 TAB PO BID for 10 Days, #20 TAB Prov:MARTIN SPENCER 05/07/24 Atorvastatin Calcium (ATORVASTATIN CALCIUM) 20 Mg Tab, 20 MG PO HS for 30 Days, #30 TAB Prov:MICHA RAMIREZ RESIDENT 03/20/24 Aspirin (Aspirin Low Dose) 81 Mg Tab, 81 MG PO DAILY for 30 Days, #30 TAB Prov:MICHA RAMIREZ RESIDENT 03/20/24 Pantoprazole Sodium Sesquihydr (Pantoprazole Sodium) 40 Mg Tab, 40 MG PO DAILY for 30 Days, #30 TAB Prov:EMEKA MCALLISTER MD 01/20/23 Tamsulosin Hcl (Flomax) 0.4 Mg Cap, 1 CAP PO HS, #30 CAP 11 Refills Prov:DARIAN DIEGO MD 03/29/22 Reported Medications Finasteride (Finasteride) 5 Mg Tab, 5 MG PO DAILY, MG 03/18/24 Furosemide (Furosemide) 40 Mg Tab, 40 MG PO DAILY 03/18/24 Carvedilol (Carvedilol) 3.125 Mg Tab, 3.125 MG PO BID, MG 03/18/24 Acetaminophen (Acetaminophen) 500 Mg Tab, 500 MG PO PRN PRN for pain 03/17/22 Levothyroxine Sodium (Levothyroxine Sodium) 150 Mcg Tab, 150 MCG PO QAM 02/25/16 Information Source: Patient Mode of Arrival: Wheelchair Severity: Moderate Duration: Since onset Onset: Spontaneous Symptoms: Other (Decreased urine production) Penile discharge: None Modifying factors: None associated signs and symptoms: Other (Decreased urine production) Past Medical History PAST MEDICAL HISTORY: Asthma, CHF, COPD, Thyroid Surgical History: Denies all surgeries Family History Family History: Unknown Social History Smoker: Cigarettes, Less Than 1 Pack/Day Alcohol: Denies ETOH Use Drugs: Denies Drug Use Lives In: Home Constitutional: denies: chills, diaphoresis, fatigue, fever, malaise, sweats, weakness, others EENTM: denies: blurred vision, double vision, ear bleeding, ear discharge, ear drainage, ear pain, ear ringing, eye pain, eye redness, hearing loss, mouth pain, mouth swelling, nasal discharge, nose bleeding, nose congestion, nose pain, photophobia, tearing, throat pain, throat swelling, voice changes, others Respiratory: denies: cough, hemoptysis, orthopnea, SOB at rest, shortness of breath, SOB with excertion, stridor, wheezing, others Cardiovascular: denies: chest pain, dizzy spells, diaphoresis, Dyspnea on exertion, edema, irregular heart beat, left arm pain, lightheadedness, palpitations, PND, syncope, others Gastrointestinal: denies: abdomen distended, abdominal pain, blood streaked bowels, constipated, diarrhea, dysphagia, difficulty swallowing, hematemesis, melena, nausea, poor appetite, poor fluid intake, rectal bleeding, rectal pain, vomiting, others Genitourinary: reports: others (urinary retention ); denies: burning, dysuria, flank pain, frequency, hematuria, incontinence, penile discharge, penile sore, pain, testicle pain, testicle swelling, urgency Neurological: denies: dizziness, fainting, headache, left sided numbness, left sided weakness, numbness, paresthesia, pre-existing deficit, right sided numbness, right sided weakness, seizure, speech problems, tingling, tremors, weakness, others Musculoskeletal: denies: back pain, gout, joint pain, joint swelling, muscle pain, muscle stiffness, neck pain, others Integumetry: denies: bruises, change in color, change in hair/nails, dryness, laceration, lesions, lumps, rash, wounds, others Allergic/Immunocompromised: denies: Difficulty Healing, Frequent Infections, Hives, Itching, others Hematologic/Lymphatic: denies: anemia, blood clots, easy bleeding, easy bruising, swollen glands, others Endocrine: denies: excessive hunger, excessive sweating, excessive thirst, excessive urination, flushing, intolerance to cold, intolerance to heat, unexplained weight gain, unexplained weight loss, others Psychiatric: denies: anxiety, bipolar disorder, depression, hopeless, panic disorder, schizophrenia, sleepless, suicidal, others All Other Systems: Reviewed and Negative Physical Exam General Appearance: No Apparent Distress, Normal HEENT: Normal ENT Inspection, Pharynx Normal, TMs Normal Neck: Full Range of Motion, Non-Tender, Normal, Normal Inspection Respiratory: Chest Non-Tender, Lungs Clear, No Accessory Muscle Use, No Respiratory Distress, Normal Breath Sounds Cardiovascular: No Edema, No JVD, No Murmur, No Gallop, Normal Peripheral Pulses, Regular Rate/Rhythm Breast Exam: Deferred Gastrointestinal: No Organomegaly, Non Tender, No Pulsatile Mass, Normal Bowel Sounds, Soft Genitalia: Deferred Pelvic: Deferred Rectal: Deferred Extremities: Normal capillary refill, Other (3+ pitting edema to bilateral lower extremities. No evidence of cellulitis. Tender to palpation bilaterally.) Musculoskeletal : Apperance: Normal Neurologic: Alert, vp informatics II-XII nml as Tested, No Motor Deficits, Normal Affect, Normal Mood, No Sensory Deficits Cerebellar Function: Normal Reflexes: Normal Skin: Dry, Normal Color, Warm Lymphatic: No Adenopathy Was a procedure done? Was a procedure done?: No EKG EKG : Comments Sinus tachycardia rate of 114, nonspecific ST changes including inverted T-waves in lead 3 V6 Differential Diagnosis Kidney stone (Female): N/A Urinary Problem (Male): Bladder Outlet, Bladder Obstruction, Prostatitis, Urethritis, Urinary Retention Other Differential Diagnosis CHF exacerbation, DVT, X-Ray, Labs, Meds, VS Vital Signs Date Time Temp Pulse Resp B/P (MAP) Pulse Ox O2 Delivery O2 Flow Rate FiO2 09/30/24 06:20 114 18 127/94 (105) 96 09/30/24 06:20 18 18 96 Room Air* 0 21 09/30/24 06:19 127/94 09/30/24 04:20 114 09/30/24 04:04 97.5 116 20 146/96 (113) 95 Lab Test 09/30/24 06:17 09/30/24 04:24 Range/Units Troponin I High Sensitivity Pending 114 *H </=54 ng/L White Blood Count 8.7 4.4-10.8 10^3/uL Red Blood Count 5.48 4.5-5.90 10^6/uL Hemoglobin 13.5 13.5-17.5 g/dL Hematocrit 43.4 41.0-53.0 % Mean Corpuscular Volume 79.1 L 80.0-100.0 fL Mean Corpuscular Hemoglobin 24.6 L 28.0-32.0 pg Mean Corpuscular Hemoglobin Concent 31.1 L 32.0-36.0 g/dL Red Cell Distribution Width 19.2 H 11.8-14.3 % Platelet Count 240 140-450 10^3/uL Mean Platelet Volume 7.8 6.9-10.8 fL Neutrophils (%) (Auto) 56.8 37.0-80.0 % Lymphocytes (%) (Auto) 26.0 10.0-50.0 % Monocytes (%) (Auto) 12.4 H 0.0-12.0 % Eosinophils (%) (Auto) 3.5 0.0-7.0 % Basophils (%) (Auto) 1.3 0.0-2.0 % Neutrophils # (Auto) 4.9 1.6-8.6 10 ^3/uL Lymphocytes # (Auto) 2.3 0.4-5.4 10 ^3/uL Monocytes # (Auto) 1.1 0-1.3 10 ^3/uL Eosinophils # (Auto) 0.3 0-0.8 10 ^3/uL Basophils # (Auto) 0.1 0-0.2 10 ^3/uL Nucleated Red Blood Cells 0.1 % Sodium Level 140 136-145 mmol/L Potassium Level 4.0 3.5-5.1 mmol/L Chloride Level 108 H 98-107 mmol/L Carbon Dioxide Level 22 20-31 mmol/L Anion Gap 10 5-15 Blood Urea Nitrogen 29 H 9-23 mg/dL Creatinine 1.79 H 0.700-1.30 mg/dL Glomerular Filtration Rate Calc 41 >90 mL/min BUN/Creatinine Ratio 16.2 10.0-20.0 Serum Glucose 102 74-106 mg/dL Calcium Level 9.3 8.7-10.4 mg/dL Total Bilirubin 1.6 H 0.2-1.0 mg/dL Aspartate Amino Transferase (AST) 111 H 13-40 U/L Alanine Aminotransferase (ALT) 89 H 7-40 U/L Alkaline Phosphatase 118 H 46-116 U/L B-Type Natriuretic Peptide 1197.55 0-100 pg/mL Total Protein 6.8 5.7-8.2 g/dL Albumin 4.1 3.2-4.8 g/dL Current Medications Medications (Trade) Dose Ordered Sig/Tawnya Route Start Time Stop Time Status Last Admin Furosemide (Lasix Injection) 40 mg ONCE ONCE IV 09/30/24 04:30 09/30/24 04:31 DC 09/30/24 06:19 68-year-old male presents here with bilateral lower extremity edema and decreased urine output. Suspect this is related to his CHF suspect CHF exacerbation. He does take Lasix regularly but is not helping. I have given him 40 of Lasix here in the ER however he continues to have significant swelling. At this time I believe he would benefit from inpatient admission for diuresis.. Blood work has been done which does demonstrate elevated BUN creatinine, elevated BNP of 1197. Also demonstrates elevated LFTs. I did review his past labs and the abnormalities from today are within range of his previous labs. Patient was found to be have sinus tachycardia at 114. At this time hospitalist team has been contacted for admission. Time of 1ST Reevaluation: 07:30 Reevaluation 1ST: Unchanged Patient Education/Counseling: Diagnosis, Treatment Family Education/Counseling: No Family Present Departure 1 Departure Time of Disposition: 07:59 Impression: Primary Impression: CHF exacerbation Qualified Codes: I50.9 - Heart failure, unspecified Disposition: 09 ADMITTED INPATIENT Admit to: Med Surg Condition: Fair Discharged With: Self Critical Care Note Critical Care Time?: No Stability Stability form required: No I personally scribed for JEANNIE LAMBERT MD ([email or web address]) on 09/30/24 at 07:26. Electronically submitted by Krys Calix ([facility]). JEANNIE LAMBERT MD Sep 30, 2024 07:26
[2024-09-30] MEDS ORDERED: ACETAMINOPHEN 325 MG TAB PO PRN (08:45)
[2024-09-30] MEDS ORDERED: NITROGLYCERIN 0.4 MG SL TAB SL PRN (08:45)
[2024-09-30] MEDS ORDERED: DOCUSATE SOD 100 MG CAP PO PRN (08:45)
--- NOTE | 2024-09-30 08:45 | DVHHP2 ---
History of Present Illness Reason for Visit: Bilateral lower extremity swelling History of Present Illness Kenn Chery is a 68-year-old male with past medical history of COPD, CHF, chronic kidney disease, BPH, and hypothyroidism, who comes in with complaints of bilateral lower extremity swelling. Patient states he has been taking his home medications and Lasix, but the Lasix stopped working 2 days ago. He states he has had minimal urine output and that his began experiencing worsening edema on bilateral lower extremities. He states it has worsened to the point that he is having difficulty walking due to the edema. Patient has elevated troponin on admission, likely due to demand ischemia from CHF. Cardiovascular: CHF Pulmonary: COPD Renal/: Benign prostatic enlarg. Endocrine: Hypothyroidism Past Surgical History: Appendectomy, Other (colostomy and reversal) Smoke: Quit (4 years ago) ALCOHOL: none Lives: with Family Domestic Violence: Neg Review of Systems Constitutional: No: Fever, Chills, Sweats, Weakness, Malaise, Other Eyes: No: Pain, Vision change, Conjunctivae inflammation, Eyelid inflammation, Other, Redness ENT: No: Ear pain, Ear discharge, Nose pain, Nose discharge, Nose congestion, Mouth pain, Mouth swelling, Throat pain, Throat swelling, Other Respiratory: No: Cough, Dry, Shortness of breath, SOB with excertion, Wheezing, Hemoptysis, Pleuritic Pain, Sputum, Wheezing, Other Cardiovascular: Edema (bilateral lower extremity); No: Chest Pain, Palpitations, Orthopnea, Paroxysmal Noc. Dyspnea, Lt Headedness, Other Gastrointestinal: No: Nausea, Vomiting, Abdominal Pain, Diarrhea, Constipation, Melena, Hematochezia, Other Genitourinary: No Dysuria, No Frequency, No Incontinence, No Hematuria, No Retention, No Other Musculoskeletal: No: other, neck pain, shoulder pain, arm pain, back pain, hand pain, leg pain, foot pain Skin: No: Rash, Lesions, Jaundice, Bruising, Other Neurological: No: Weakness, Numbness, Incoordination, Change in speech, Confusion, Seizures, Other Allergies: Coded Allergies: NO KNOWN ALLERGIES (Unverified , 09/22/10) Exam Vital Signs Vital Signs Date Time Temp Pulse Resp B/P (MAP) Pulse Ox O2 Delivery O2 Flow Rate FiO2 09/30/24 06:20 114 18 127/94 (105) 96 09/30/24 06:20 Room Air* 0 21 09/30/24 04:04 97.5 General Appearance: Alert, Oriented X3, moderate distress HEENT: Atraumatic, PERRLA Respiratory: Clear to auscultation, Normal air movement Cardiovascular: Normal S1, Normal S2, Other (tachycardia) Abdominal: Normal bowel sounds, Soft, No tenderness Extremities: Other (bilateral lower extremity edema, decreased pulses) Neuro: Normal speech, Strength at 5/5 X4 ext Psych/Mental Status: Mental status NL, Mood NL Labs/Xrays Labs Test 09/30/24 08:06 09/30/24 04:24 Range/Units White Blood Count 8.7 4.4-10.8 10^3/uL Red Blood Count 5.48 4.5-5.90 10^6/uL Hemoglobin 13.5 13.5-17.5 g/dL Hematocrit 43.4 41.0-53.0 % Mean Corpuscular Volume 79.1 L 80.0-100.0 fL Mean Corpuscular Hemoglobin 24.6 L 28.0-32.0 pg Mean Corpuscular Hemoglobin Concent 31.1 L 32.0-36.0 g/dL Red Cell Distribution Width 19.2 H 11.8-14.3 % Platelet Count 240 140-450 10^3/uL Mean Platelet Volume 7.8 6.9-10.8 fL Neutrophils (%) (Auto) 56.8 37.0-80.0 % Lymphocytes (%) (Auto) 26.0 10.0-50.0 % Monocytes (%) (Auto) 12.4 H 0.0-12.0 % Eosinophils (%) (Auto) 3.5 0.0-7.0 % Basophils (%) (Auto) 1.3 0.0-2.0 % Neutrophils # (Auto) 4.9 1.6-8.6 10 ^3/uL Lymphocytes # (Auto) 2.3 0.4-5.4 10 ^3/uL Monocytes # (Auto) 1.1 0-1.3 10 ^3/uL Eosinophils # (Auto) 0.3 0-0.8 10 ^3/uL Basophils # (Auto) 0.1 0-0.2 10 ^3/uL Nucleated Red Blood Cells 0.1 % Sodium Level 140 136-145 mmol/L Potassium Level 4.0 3.5-5.1 mmol/L Chloride Level 108 H 98-107 mmol/L Carbon Dioxide Level 22 20-31 mmol/L Anion Gap 10 5-15 Blood Urea Nitrogen 29 H 9-23 mg/dL Creatinine 1.79 H 0.700-1.30 mg/dL Glomerular Filtration Rate Calc 41 >90 mL/min BUN/Creatinine Ratio 16.2 10.0-20.0 Serum Glucose 102 74-106 mg/dL Calcium Level 9.3 8.7-10.4 mg/dL Total Bilirubin 1.6 H 0.2-1.0 mg/dL Aspartate Amino Transferase (AST) 111 H 13-40 U/L Alanine Aminotransferase (ALT) 89 H 7-40 U/L Alkaline Phosphatase 118 H 46-116 U/L B-Type Natriuretic Peptide 1197.55 0-100 pg/mL Total Protein 6.8 5.7-8.2 g/dL Albumin 4.1 3.2-4.8 g/dL CHEST RADIOGRAPH FINDINGS: Lines and Tubes: None Lungs: No focal consolidation. Pleura: No effusion. No pneumothorax. Cardiomediastinal contours: Unremarkable Bones: No acute osseous abnormality. IMPRESSION: 1. No acute cardiopulmonary disease. Assessment/Plan Assessment/Plan Assessment: CHF exacerbation, Acute on chronic renal failure, Elevated troponin, COPD, Hypothyroidism, Plan: Admit to Tele, Cardiology consult, IV Lasix, Strict I&O's, Consider nephrology consult if kidney function does not improve, Home medications reconciled, Plan discussed with: Patient Date of Service: Sep 30, 2024 Billing Provider: SURYA FITZGERALD Common Visit Codes: [id number]-[id number] INP/OBS CARE (MOD) SURYA FITZGERALD Sep 30, 2024 08:45
[2024-09-30 10:00] VITALS: BP 118/75; PULSE 111; RESP 17; TEMP 97.3; O2SAT 94
[2024-09-30] MEDS: ASPirin-EC 81 mg tab PO SCH (10:00)
[2024-09-30] MEDS: ONDANSETRON HCL 4 MG/2 ML VIAL IV PRN (10:35)
[2024-09-30] MEDS: MORPHINE SULFATE INJ 2 MG/ml SYRG IV PRN (10:35)
[2024-09-30] MEDS: EMPAGLIFLOZIN 10 MG TAB PO SCH (11:13)
[2024-09-30] MEDS: FINASTERIDE 5 MG TAB PO SCH (11:13)
[2024-09-30] MEDS: PANTOPRAZOLE 40 MG TAB PO SCH (11:13)
[2024-09-30] MEDS: CARVEDILOL 3.125 MG TAB PO SCH (11:25)
[2024-09-30 13:15] VITALS: BP 105/84; PULSE 104; RESP 15; TEMP 97.4; O2SAT 96
--- NOTE | 2024-09-30 13:20 | DVHINCON2 ---
Date Seen: Sep 30, 2024 Referring Physician SHAMEKA Wayne Reason for Consultation CHF exacerbation History of Present Illness 68-year-old man history of COPD, CHF, chronic kidney disease, BPH, hypothyroidism presented with bilateral lower extremity swelling. He states he had been taking his medications at home. [place] like his Lasix did not work. His lower extremity swelling became worse up to the level of the mid thigh. Ca rdiology consultation is called for evaluation of CHF exacerbation. Review of systems: No recent sick contacts. No recent travel history. Denies any chest pain or palpitations. Fourteen point review of systems is negative unless otherwise noted above. Past medical history: COPD, CHF, chronic kidney disease, BPH, hypothyroidism Past surgical history: Appendectomy, colostomy and reversal Medications: Reviewed Allergies: No known drug allergies. Family history: No family history of premature CAD. No family history of lung disease. Social history: Ex-smoker. Quit 4 years ago. No alcohol use. No illicit drug use. Lives with family. Family History: Family history: Thyroid disorder G8 FATHER Prostate problems G8 FATHER Allergies: Coded Allergies: NO KNOWN ALLERGIES (Unverified , 09/22/10) Home Meds Active Scripts Empagliflozin (Jardiance) 10 Mg Tab, 10 MG PO DAILY for 30 Days, #30 TAB Prov:MORIAH ROJAS MD 08/23/24 Albuterol Sulfate (Ventolin) 2.5 Mg/0.5 Ml Nb, 1 VIAL NEB Q4HR, #60 VIAL 1 Refill Prov:MARTIN SPENCER 05/07/24 Atorvastatin Calcium (ATORVASTATIN CALCIUM) 20 Mg Tab, 20 MG PO HS for 30 Days, #30 TAB Prov:MICHA RAMIREZ RESIDENT 03/20/24 Aspirin (Aspirin Low Dose) 81 Mg Tab, 81 MG PO DAILY for 30 Days, #30 TAB Prov:MICHA RAMIREZ RESIDENT 03/20/24 Pantoprazole Sodium Sesquihydr (Pantoprazole Sodium) 40 Mg Tab, 40 MG PO DAILY for 30 Days, #30 TAB Prov:EMEKA MCALLISTER MD 01/20/23 Tamsulosin Hcl (Flomax) 0.4 Mg Cap, 1 CAP PO HS, #30 CAP 11 Refills Prov:DARIAN DIEGO MD 03/29/22 Reported Medications Finasteride (Finasteride) 5 Mg Tab, 5 MG PO DAILY, MG 5/24/24 Furosemide (Furosemide) 40 Mg Tab, 40 MG PO DAILY 03/18/24 Carvedilol (Carvedilol) 3.125 Mg Tab, 3.125 MG PO BID, MG 03/18/24 Acetaminophen (Acetaminophen) 500 Mg Tab, 500 MG PO PRN PRN for pain 03/17/22 Levothyroxine Sodium (Levothyroxine Sodium) 150 Mcg Tab, 150 MCG PO QAM 02/25/16 Discontinued Scripts Sulfamethoxazole W/Trimethopri (Bactrim Ds Tablet) 1 Tab Tb, 1 TAB PO BID for 7 Days, #14 TAB 0 Refills Prov:SANTO LEVY 08/04/24 Sulfamethoxazole W/Trimethopri (Bactrim Ds Tablet) 1 Tab Tb, 1 TAB PO BID for 10 Days, #20 TAB Prov:MARTIN SPENCER PA 05/07/24 Current Medications Current Medications Medications (Trade) Dose Ordered Sig/Tawnya Route PRN Reason Start Time Stop Time Status Last Admin Sodium Chloride (Saline Lock Ns) 10 ml Q8HR IV 09/30/24 14:00 Acetaminophen/ Hydrocodone Bitart ([place] 5/325MG Tab) 1 tab Q4HP PRN PO MODERATE PAIN (4-6 PAIN SCALE) 09/30/24 08:45 Ondansetron HCl (Zofran) 4 mg Q4HP PRN IV NAUSEA / VOMITING 09/30/24 08:45 09/30/24 10:35 Docusate Sodium (Colace Capsule) 100 mg BIDPRN PRN PO FOR CONSTIPATION 09/30/24 08:45 Acetaminophen (Tylenol Tablet) 650 mg Q6HP PRN PO PAIN SCALE 1-3 OR TEMP>100.4 09/30/24 08:45 Nitroglycerin (Ntrostat Sublingual) 0.4 mg Q5MINP PRN SL FOR CHEST PAIN 09/30/24 08:45 Morphine Sulfate 2 mg Q30M PRN IV FOR CHEST PAIN 09/30/24 08:45 09/30/24 10:35 Aspirin (Ecotrin Enteric Coated Tablet) 81 mg DAILY PO 09/30/24 10:00 09/30/24 10:00 Atorvastatin Calcium (Lipitor) 20 mg HS PO 09/30/24 22:00 Carvedilol (Coreg Tablet) 3.125 mg BID PO 09/30/24 10:00 09/30/24 11:25 Empaglifozin (Jardiance) 10 mg DAILY PO 09/30/24 10:00 09/30/24 11:13 Finasteride (Proscar Tablet) 5 mg DAILY PO 09/30/24 10:00 09/30/24 11:13 Pantoprazole Sodium (Protonix Tablet) 40 mg DAILY PO 09/30/24 10:00 09/30/24 11:13 Tamsulosin HCl (Flomax) 0.4 mg HS PO 09/30/24 22:00 Levothyroxine Sodium (Synthroid Tablet) 150 mcg QAM PO 10/01/24 07:00 Furosemide (Lasix Injection) 40 mg BIDD IV 09/30/24 18:00 Vital Signs Vital Signs Date Time Temp Pulse Resp B/P (MAP) Pulse Ox O2 Delivery O2 Flow Rate FiO2 09/30/24 12:33 110 18 132/89 (103) 97 09/30/24 10:00 97.3 97.3 09/30/24 06:20 Room Air* 0 21 Physical Exam Gen.: Patient lying in bed in no apparent distress. He is breathing comfortably on room air. Head: Normocephalic, atraumatic Eyes: EOMI/PERRLA. Ears: Normal hearing. Normal anatomy. Neck/trachea: Trachea midline, supple. Nose: Normal external anatomy. Mouth: Moist mucous membranes. Chest: Decreased air entry bilaterally. No wheezing or rhonchi. Bibasilar crackles Cardio vascular: Positive S1, positive S2. Regular rate and rhythm. Abdomen: Positive bowel sounds in all 4 quadrants. Soft, non-tender, non- distended. : Deferred. Rectal: Deferred Skin: Warm, dry. Intact Extremities: 2+ radial pulses bilaterally. 3+ pitting lower extremity edema up to the hip. Neuro: Awake, alert, oriented x3. No gross motor or sensory deficits. Cranial nerves II through XII intact. Gait not assessed. Labs/Diagnostic Data Labs Test 09/30/24 08:06 09/30/24 04:24 Range/Units Troponin I High Sensitivity 108 *H </=54 ng/L White Blood Count 8.7 4.4-10.8 10^3/uL Red Blood Count 5.48 4.5-5.90 10^6/uL Hemoglobin 13.5 13.5-17.5 g/dL Hematocrit 43.4 41.0-53.0 % Mean Corpuscular Volume 79.1 L 80.0-100.0 fL Mean Corpuscular Hemoglobin 24.6 L 28.0-32.0 pg Mean Corpuscular Hemoglobin Concent 31.1 L 32.0-36.0 g/dL Red Cell Distribution Width 19.2 H 11.8-14.3 % Platelet Count 240 140-450 10^3/uL Mean Platelet Volume 7.8 6.9-10.8 fL Neutrophils (%) (Auto) 56.8 37.0-80.0 % Lymphocytes (%) (Auto) 26.0 10.0-50.0 % Monocytes (%) (Auto) 12.4 H 0.0-12.0 % Eosinophils (%) (Auto) 3.5 0.0-7.0 % Basophils (%) (Auto) 1.3 0.0-2.0 % Neutrophils # (Auto) 4.9 1.6-8.6 10 ^3/uL Lymphocytes # (Auto) 2.3 0.4-5.4 10 ^3/uL Monocytes # (Auto) 1.1 0-1.3 10 ^3/uL Eosinophils # (Auto) 0.3 0-0.8 10 ^3/uL Basophils # (Auto) 0.1 0-0.2 10 ^3/uL Nucleated Red Blood Cells 0.1 % Sodium Level 140 136-145 mmol/L Potassium Level 4.0 3.5-5.1 mmol/L Chloride Level 108 H 98-107 mmol/L Carbon Dioxide Level 22 20-31 mmol/L Anion Gap 10 5-15 Blood Urea Nitrogen 29 H 9-23 mg/dL Creatinine 1.79 H 0.700-1.30 mg/dL Glomerular Filtration Rate Calc 41 >90 mL/min BUN/Creatinine Ratio 16.2 10.0-20.0 Serum Glucose 102 74-106 mg/dL Calcium Level 9.3 8.7-10.4 mg/dL Total Bilirubin 1.6 H 0.2-1.0 mg/dL Aspartate Amino Transferase (AST) 111 H 13-40 U/L Alanine Aminotransferase (ALT) 89 H 7-40 U/L Alkaline Phosphatase 118 H 46-116 U/L B-Type Natriuretic Peptide 1197.55 0-100 pg/mL Total Protein 6.8 5.7-8.2 g/dL Albumin 4.1 3.2-4.8 g/dL Assessment Impression: Acute on chronic combined CHF exacerbation, Acute on chronic kidney disease Elevated troponin COPD Ex-smoker Hypothyroidism Moderate mitral valve regurgitation Moderate tricuspid valve regurgitation Hernia Plan: Echo report from March 18, 2024 reviewed. Severely dilated left ventricle. Severely reduced left ventricular systolic function with an ejection fraction of 10%. Grade 2 diastolic dysfunction. Severely reduced right ventricular systolic function. Mildly elevated right ventricular systolic pressure of 35 mmHg. Mildly dilated left and right atria. Moderate mitral valve regurgitation. Moderate tricuspid valve regurgitation. Electrocardiogram reviewed 09/30/24. Sinus tachycardia. Left atrial enlargement. Chest x-ray imaging report reviewed. No acute opacities. No pleural effusion or pneumothorax. On room air Diuresis euvolemia. On Lasix twice daily. Start Metolazone 2.5 mg PO 30 minutes before lasix on Thursday and Fridays. Monitor ins and outs. Monitor renal function. Monitor electrolytes. Supplement as necessary. Continue aspirin once daily. Continue statin Continue carvedilol twice daily On levothyroxine for hypothyroidism On Flomax for BPH GI prophylaxis with Protonix Prognosis: Poor given multiple comorbidities. Rest of plan per hospitalist and other consultants. Thank you SHAMEKA Wayne for allowing me to participate in this patient's care. Further recommendations will depend on patient's clinical course. Please do not hesitate to contact me if you have any questions or concerns. This medical document was created using an electronic medical record system with [employer] dictation system. Although this document has been carefully reviewed, there may still be some phonetic and typographical errors. These areas are purely typographical due to imperfections of the software programs, and do not reflect any compromise in the patient's medical care. Plan discussed with: Patient, Other (RN Brock Jenkins MD) Date of Service: Sep 30, 2024 Billing Provider: VIDAL FERNANDEZ MD Cardiology Common Codes: 21077-[id number] CARE 30-74 MIN MARCO CONTRERAS RESIDENT Sep 30, 2024 13:20
[2024-09-30] MEDS: SODIUM CHLOR 0.9% PF (SALINE LOCK) 10ML VIAL/SYR IV SCH (13:28)
[2024-09-30] MEDS: HYDROcodone-ACET 5/325MG TAB PO PRN (14:24)
[2024-09-30 16:00] VITALS: BP 94/70; PULSE 100; RESP 19; TEMP 97.4; O2SAT 77
[2024-09-30] MEDS: FUROSEMIDE 40 MG/4 ML VIAL IV SCH (18:51)
[2024-09-30 20:59] VITALS: BP 108/78; PULSE 103; RESP 18; TEMP 97.7; O2SAT 98
[2024-09-30] MEDS: TAMSULOSIN HYDROCHLORIDE 0.4 MG CAP PO SCH (22:12)
[2024-09-30] MEDS: ATORVASTATIN 20 MG TAB PO SCH (22:12)
[2024-10-01 05:53] VITALS: BP 106/77; PULSE 98; RESP 18; TEMP 97.5; O2SAT 94
[2024-10-01] MEDS: LEVOTHYROXINE SODIUM 50 MCG TAB PO SCH (06:01)
[2024-10-01 07:25] LABS: Basophils # (auto) 0.1 10 ^3/uL (0-0.2); Eosinophils # (auto) 0.3 10 ^3/uL (0-0.8)
[2024-10-01 07:27] LABS: Eosinophils % (auto) 4.1 % (0.0-7.0); Hematocrit 42.7 % (41.0-53.0); Hemoglobin 13.5 g/dL (13.5-17.5); Lymphocytes % (auto) 25.9 % (10.0-50.0); Mean Corpuscular Hgb Conc. 31.6 g/dL (32.0-36.0); Mean Corpuscular Volume 78.9 fL (80.0-100.0); Monocytes # (auto) 0.8 10 ^3/uL (0-1.3); Monocytes % (auto) 10.9 % (0.0-12.0); Neutrophils # (auto) 4.5 10 ^3/uL (1.6-8.6); Neutrophils % (auto) 58.1 % (37.0-80.0); Platelet Count (auto) 220 10^3/uL (140-450); Red Blood Cells 5.41 10^6/uL (4.5-5.90); Red Cell Distribution Width 19.3 % (11.8-14.3); White Blood Cell 7.8 10^3/uL (4.4-10.8)
[2024-10-01 07:36] LABS: Albumin 3.9 g/dL (3.2-4.8); Alkaline Phosphatase 89 U/L (46-116); Anion Gap 7 (5-15); BUN/Creatinine Ratio 16.6 (10.0-20.0); Calcium 9.6 mg/dL (8.7-10.4); Carbon Dioxide 24 mmol/L (20-31); Glucose 102 mg/dL (74-106); Potassium 4.5 mmol/L (3.5-5.1); Sodium 139 mmol/L (136-145)
[2024-10-01 07:37] LABS: Total Protein 6.4 g/dL (5.7-8.2)
[2024-10-01 07:38] LABS: Alanine Aminotransferase 91 U/L (7-40); Aspartate Aminotransferase 127 U/L (13-40); Bilirubin, Total 1.7 mg/dL (0.2-1.0); Blood Urea Nitrogen 32 mg/dL (9-23); Chloride 108 mmol/L (98-107)
[2024-10-01 08:00] VITALS: PULSE 97; RESP 19; O2SAT 99
[2024-10-01 10:10] LABS: Magnesium 2.2 mg/dL (1.6-2.6)
[2024-10-01 10:11] LABS: Phosphorus 4.6 mg/dL (2.4-5.1)
[2024-10-01 10:16] LABS: INR 1.35 (0.9-1.15); Partial Thromboplastin Time 27.3 SEC (24.5-34.5)
[2024-10-01] MEDS: FUROSEMIDE 40 MG/4 ML VIAL IV ONE (10:20)
--- NOTE | 2024-10-01 10:41 | DVHINCON2 ---
Date Seen: Oct 01, 2024 Referring Physician Rosana Reason for Consultation CHF History of Present Illness 68-year-old male with PMH for COPD, FF, CKD, BPH, thyroid disease, amphetamine use, medication noncompliance presents to the hospital with increased bilateral lower extremity edema and shortness of breath with exertion. Patient endorses he has been taking his medications as prescribed though states his Lasix was not been helping for the last couple of days and noted increased bilateral lower extremity swelling. Patient denies any active or recent cardiac symptoms of chest pain, palpitations, diaphoresis, lightheadedness. Upon evaluation in the ER patient noted to have elevated BNP of 1197, creatinine 1.79, troponins trending 114, 107, 108, 95 elevated LFTs with AST 127 and ALT of 91. EKG reviewed and shows sinus tachycardia at 114 beats per minute, anterolateral ST and T-wave abnormality. Past Medical History CHF , biventricular failure COPD Cardiomyopathy EF 10% Methamphetamine abuse Thyroid disease Past Surgical History Abdominal surgeries with Colostomy with reversal Family History: Family history: Thyroid disorder G8 FATHER Prostate problems G8 FATHER Family History Denies pertinent family cardiac history Social History History of amphetamine use, endorses recently. Tobacco use. Allergies: Coded Allergies: NO KNOWN ALLERGIES (Unverified , 09/22/10) Home Meds Active Scripts Empagliflozin (Jardiance) 10 Mg Tab, 10 MG PO DAILY for 30 Days, #30 TAB Prov:MORIAH ROJAS MD 08/23/24 Albuterol Sulfate (Ventolin) 2.5 Mg/0.5 Ml Nb, 1 VIAL NEB Q4HR, #60 VIAL 1 Refill Prov:MARTIN SPENCER 05/07/24 Atorvastatin Calcium (ATORVASTATIN CALCIUM) 20 Mg Tab, 20 MG PO HS for 30 Days, #30 TAB Prov:MICHA RAMIREZ RESIDENT 03/20/24 Aspirin (Aspirin Low Dose) 81 Mg Tab, 81 MG PO DAILY for 30 Days, #30 TAB Prov:MICHA RAMIREZ RESIDENT 03/20/24 Pantoprazole Sodium Sesquihydr (Pantoprazole Sodium) 40 Mg Tab, 40 MG PO DAILY for 30 Days, #30 TAB Prov:EMEKA MCALLISTER MD 01/20/23 Tamsulosin Hcl (Flomax) 0.4 Mg Cap, 1 CAP PO HS, #30 CAP 11 Refills Prov:DARIAN DIEGO MD 03/29/22 Reported Medications Finasteride (Finasteride) 5 Mg Tab, 5 MG PO DAILY, MG 03/18/24 Furosemide (Furosemide) 40 Mg Tab, 40 MG PO DAILY 03/18/24 Carvedilol (Carvedilol) 3.125 Mg Tab, 3.125 MG PO BID, MG 03/18/24 Acetaminophen (Acetaminophen) 500 Mg Tab, 500 MG PO PRN PRN for pain 03/17/22 Levothyroxine Sodium (Levothyroxine Sodium) 150 Mcg Tab, 150 MCG PO QAM 02/25/16 Discontinued Scripts Sulfamethoxazole W/Trimethopri (Bactrim Ds Tablet) 1 Tab Tb, 1 TAB PO BID for 7 Days, #14 TAB 0 Refills Prov:SANTO LEVY 08/04/24 Sulfamethoxazole W/Trimethopri (Bactrim Ds Tablet) 1 Tab Tb, 1 TAB PO BID for 10 Days, #20 TAB Prov:MARTIN SPENCER 05/07/24 Current Medications Current Medications Medications (Trade) Dose Ordered Sig/Tawnya Route PRN Reason Start Time Stop Time Status Last Admin Sodium Chloride (Saline Lock Ns) 10 ml Q8HR IV 09/30/24 14:00 10/01/24 06:01 Atorvastatin Calcium (Lipitor) 20 mg HS PO 09/30/24 22:00 09/30/24 22:12 Tamsulosin HCl (Flomax) 0.4 mg HS PO 09/30/24 22:00 09/30/24 22:12 Levothyroxine Sodium (Synthroid Tablet) 150 mcg QAM PO 10/01/24 07:00 10/01/24 06:01 Furosemide (Lasix Injection) 40 mg BIDD IV 09/30/24 18:00 10/01/24 09:49 DC 10/01/24 06:01 Metolazone (Zaroxolyn) 2.5 mg 2XW PO 10/03/24 12:00 Furosemide (Lasix Injection) 40 mg TID IV 10/01/24 14:00 Review of Systems Constitutional: No: Fever, Chills, Sweats, Weakness, Malaise, Other Eyes: No: Pain, Vision change, Conjunctivae inflammation, Eyelid inflammation, Other, Redness ENT: No: Ear pain, Ear discharge, Nose pain, Nose discharge, Nose congestion, Mouth pain, Mouth swelling, Throat pain, Throat swelling, Other Respiratory: No: Cough, Dry, Wheezing, Hemoptysis, Pleuritic Pain, Sputum, Wheezing, Other positive: Shortness of breath, SOB with exertion, Cardiovascular: ; No: Chest Pain Palpitations, Orthopnea, Paroxysmal Noc. Dyspnea, , Lt Headedness, Other positive Edema Gastrointestinal: No: Nausea, Vomiting, Abdominal Pain, Diarrhea, Constipation, Melena, Hematochezia, Other Genitourinary: No Dysuria, No Frequency, No Incontinence, No Hematuria, No Retention, No Other Musculoskeletal: neck pain; No: other, shoulder pain, arm pain, back pain, hand pain, leg pain, foot pain Skin: No: Rash, Lesions, Jaundice, Bruising, Other Neurological: Other (Dizziness, headache.); No: Weakness, Numbness, Incoordination, Change in speech, Confusion, Seizures Vital Signs Vital Signs Date Time Temp Pulse Resp B/P (MAP) Pulse Ox O2 Delivery O2 Flow Rate FiO2 10/01/24 10:20 111/74 10/01/24 10:01 107 10/01/24 09:14 98 Nasal Cannula 3.0 10/01/24 09:13 97.6 17 97.6 09/30/24 06:20 21 Physical Exam General appearance: Patient is well-developed, well-nourished, in mild acute distress. HEENT: Exam shows: Normocephalic, atraumatic, PERRLA, EOMI Neck: Supple, no bruits Chest: Equal chest excursion bilaterally. Breath sounds diminished Heart: Rhythm: Regular rate; tachycardia; murmur Abdomen: Exam shows: Soft, nontender, nondistended Musculoskeletal: No clubbing, no cyanosis, + lower extremity edema Dermatology: Skin warm, moist. Neurological: Exam shows: Alert and oriented x4, normal speech Available prior records, labs, EKG, rhythm strips reviewed and interpreted Labs/Diagnostic Data Labs Test 10/01/24 06:37 09/30/24 04:24 Range/Units White Blood Count 7.8 4.4-10.8 10^3/uL Red Blood Count 5.41 4.5-5.90 10^6/uL Hemoglobin 13.5 13.5-17.5 g/dL Hematocrit 42.7 41.0-53.0 % Mean Corpuscular Volume 78.9 L 80.0-100.0 fL Mean Corpuscular Hemoglobin 25.0 L 28.0-32.0 pg Mean Corpuscular Hemoglobin Concent 31.6 L 32.0-36.0 g/dL Red Cell Distribution Width 19.3 H 11.8-14.3 % Platelet Count 220 140-450 10^3/uL Mean Platelet Volume 8.0 6.9-10.8 fL Neutrophils (%) (Auto) 58.1 37.0-80.0 % Lymphocytes (%) (Auto) 25.9 10.0-50.0 % Monocytes (%) (Auto) 10.9 0.0-12.0 % Eosinophils (%) (Auto) 4.1 0.0-7.0 % Basophils (%) (Auto) 1.0 0.0-2.0 % Neutrophils # (Auto) 4.5 1.6-8.6 10 ^3/uL Lymphocytes # (Auto) 2.0 0.4-5.4 10 ^3/uL Monocytes # (Auto) 0.8 0-1.3 10 ^3/uL Eosinophils # (Auto) 0.3 0-0.8 10 ^3/uL Basophils # (Auto) 0.1 0-0.2 10 ^3/uL Nucleated Red Blood Cells 0.0 % Prothrombin Time 14.0 H 9.3-11.8 sec Prothrombin Time INR 1.35 H 0.9-1.15 Activated Partial Thromboplast Time 27.3 24.5-34.5 SEC Sodium Level 139 136-145 mmol/L Potassium Level 4.5 3.5-5.1 mmol/L Chloride Level 108 H 98-107 mmol/L Carbon Dioxide Level 24 20-31 mmol/L Anion Gap 7 5-15 Blood Urea Nitrogen 32 H 9-23 mg/dL Creatinine 1.93 H 0.700-1.30 mg/dL Glomerular Filtration Rate Calc 37 >90 mL/min BUN/Creatinine Ratio 16.6 10.0-20.0 Serum Glucose 102 74-106 mg/dL Calcium Level 9.6 8.7-10.4 mg/dL Phosphorus Level 4.6 2.4-5.1 mg/dL Magnesium Level 2.2 1.6-2.6 mg/dL Total Bilirubin 1.7 H 0.2-1.0 mg/dL Aspartate Amino Transferase (AST) 127 H 13-40 U/L Alanine Aminotransferase (ALT) 91 H 7-40 U/L Alkaline Phosphatase 89 46-116 U/L Troponin I High Sensitivity 95 *H </=54 ng/L Total Protein 6.4 5.7-8.2 g/dL Albumin 3.9 3.2-4.8 g/dL B-Type Natriuretic Peptide 1197.55 0-100 pg/mL Assessment Assessment * Acute on chronic HFrEF - previous echo shows EF 10% with grade 2 LV DD and severely reduced RV function. Follow-up echo. Continue diuresis with Lasix 40 mg IV t.i.d. and metolazone 2.5 mg p.o. twice weekly. Strict I&Os, continue fluid restriction. * Elevated troponin - likely demand ischemia from CHF exacerbation. EKG negative for acute ischemic changes. Continue aspirin and statin. Follow up echo. * Cardiomyopathy - continue GDMT with Coreg, Jardiance. Not on Law/Arb due to SIA/CKD * SIA on CKD - monitor response to diuresis. * HX methamphetamine abuse - follow up UDS. * Hypokalemia - Monitor and replace electrolytes. Case Discussed with Dr Fernadnez. Continue diuresing to euvolemic. Follow-up echo. Follow up PDS. Continue GDMT as tolerated. Critical care, time spent: 40 minutes This medical document was created using an electronic medical record system with voice recognition software and computerized dictation system. Although this document has been carefully reviewed, there might still be some phonetic and typographical errors. Occasional wrong-word or ``sound-alike substitutions may have occurred due to the inherent limitations of voice recognition software. These areas are purely typographical due to imperfections of the software programs and do not reflect any compromise in the patient's medical care. Please read the chart carefully and recognize, using context, where these substitutions have occurred. Plan discussed with: Patient Date of Service: Oct 01, 2024 Billing Provider: VIDAL FERNANDEZ MD Cardiology Common Codes: [id number] INP/OBS CARE (High), 94028-[id number] CARE 30-74 MIN JORDAN VALDEZ [facility] Oct 01, 2024 10:41
[2024-10-01 12:38] LABS: Urine Bacteria FEW /hpf (None Seen); Urine Blood Negative /uL (Negative); Urine Clarity Clear (Clear); Urine Color Colorless (Yellow); Urine Protein, UAD Negative (Negative); Urine Specific Gravity 1.006 (1.001-1.035); Urine Urobilinogen Normal (Negative); Urine WBC 30 /hpf (0 - 3); Urine pH 5.5 (5.0-9.0)
[2024-10-01 12:45] LABS: Amphetamine Screen, Urine Neg (NEGATIVE); Barbiturate Scree,Urine Neg (NEGATIVE); Benzodiazephine Screen, Urine Neg (NEGATIVE); Cocaine Screen, Urine Neg (NEGATIVE)
[2024-10-01 12:46] LABS: Cannabinoid Screen, Urine Neg (NEGATIVE); Opiate Scree,Urine Neg (NEGATIVE); Phencyclidine Screen, Urine Neg (NEGATIVE)
--- NOTE | 2024-10-01 20:09 | DVHPNRES ---
Progress Note Date Seen: Oct 01, 2024 Resident Creating Document: MICHA RAMIREZ RESIDENT Medical Necessity Reason Pt with a Central, PICC or Fol: No Subjective Review of Systems Kenn Chery is a 68-year-old male patient who presents to ED with complaint bilateral lower limb swelling associated with dyspnea and functional class III which started three days before his admission. Patient reports being compliant with medication and also with cessation of methamphetamine abuse, but did consumed salty foods during Thanksgiving and afterwards. Patient also reports frequent admissions due to CHF exacerbation and abdominal discomfort due to umbilical hernia. Denies palpitation, syncope, chest pain, nausea, vomiting, diarrhea, constipation, bleeding, dysuria, sick contacts, recent travel and motor or sensory deficits. Past medical history: Methamphetamine associated cardiomyopathy with HFrEF (echocardiogram on 02/2024 LVEF 10%, grade 2 diastolic dysfunction, RVSP 35 mmHg), umbilical hernia (patient is inoperable due to advance congestive heart failure), diverticulitis with colectomy, hypothyroidism, benign prostatic hyperplasia, COPD with no oxygen requirement, CKD, hypothyroidism, prediabetes Surgical history: Colectomy with colostomy in posterior anastomosis, appendectomy Family history: Noncontributory Social history: Lives with spouse in [place]. Current smoker (approximately 30 pack year history of smoking), he is still actively use methamphetamine especially when he has pain. Denies alcohol and other drug abuse. Allergies: Denies Home medication: Carvedilol 3.125 mg p.o. b.i.d., furosemide 40 mg p.o. daily aspirin 81 mg p.o. daily, atorvastatin 20 mg p.o. daily, pantoprazole 40 mg p.o. daily, tamsulosin 0.4 mg p.o. daily, finasteride 5 mg p.o. daily, albuterol, Tylenol, levothyroxine 115 mcg daily PCP: Dr. Browning Patient seen and exam site. Currently feels specialist since admission, persists with bilateral lower limb swelling. Continue with IV diuretics. Objective vital signs Vital Sign Date Time Temp Pulse Resp B/P (MAP) Pulse Ox O2 Delivery O2 Flow Rate FiO2 10/01/24 18:43 97.8 100 15 124/79 (94) 99 97.8 10/01/24 09:14 Nasal Cannula 3.0 10/01/24 08:00 28 Total Intake and Output 09/30/24 09/30/24 10/01/24 15:00 23:00 07:00 Output Total 1500 ml Balance -1500 ml medications Current Medications Medications Dose Ordered Sig/Tawnya Route Start Time Stop Time Status Last Admin Dose Admin Sodium Chloride 10 ml Q8HR IV 09/30/24 14:00 10/01/24 14:13 10 ML Acetaminophen/ Hydrocodone Bitart 1 tab Q4HP PRN PO 09/30/24 08:45 10/01/24 17:20 1 TAB Ondansetron HCl 4 mg Q4HP PRN IV 09/30/24 08:45 09/30/24 10:35 4 MG Docusate Sodium 100 mg BIDPRN PRN PO 09/30/24 08:45 Acetaminophen 650 mg Q6HP PRN PO 09/30/24 08:45 Nitroglycerin 0.4 mg Q5MINP PRN SL 09/30/24 08:45 Morphine Sulfate 2 mg Q30M PRN IV 09/30/24 08:45 09/30/24 10:35 2 MG Aspirin 81 mg DAILY PO 09/30/24 10:00 10/01/24 10:01 81 MG Atorvastatin Calcium 20 mg HS PO 09/30/24 22:00 09/30/24 22:12 20 MG Carvedilol 3.125 mg BID PO 09/30/24 10:00 10/01/24 10:01 3.125 MG Empaglifozin 10 mg DAILY PO 09/30/24 10:00 10/01/24 10:01 10 MG Finasteride 5 mg DAILY PO 09/30/24 10:00 10/01/24 10:01 5 MG Pantoprazole Sodium 40 mg DAILY PO 09/30/24 10:00 10/01/24 10:00 40 MG Tamsulosin HCl 0.4 mg HS PO 09/30/24 22:00 09/30/24 22:12 0.4 MG Levothyroxine Sodium 150 mcg QAM PO 10/01/24 07:00 10/01/24 06:01 150 MCG Metolazone 2.5 mg 2XW PO 10/03/24 12:00 Furosemide 40 mg TID IV 10/01/24 22:00 Examination Patient lying in bed, in no acute distress General: Lucid, afebrile, mucosae are moist Cardiovascular: Normal S1 and S2. Holosystolic murmur best heard in apex which radiates towards axilla intensity 3/6. No gallops or rubs Respiratory: Normal ventilation mechanics. Bibasilar crackles, rest of lung auscultation is clear. Abdomen: Soft, nontender, no organomegaly, normal bowel sounds MSK/skin: Mobilizes 4 limbs. Skin is dry and warm. Bilateral suprapatellar pitting edema 3+ Neurological: Oriented in 3 spheres. No motor no sensitive deficits. Pupils are isocoric and reactive laboratory and microbiology Laboratory Tests 10/01/24 06:37 Test 10/01/24 06:37 Range/Units Serum Glucose 102 74-106 mg/dL Labs and/or images reviewed: Labs reviewed by me, Image(s) reviewed by me Problem List/Assessment/Plan Problem List/Assessment/Plan Acute respiratory failure Requires intermittent oxygen therapy (nasal cannula 2 liters/minute) Pulmonology has been consulted: Optimize breathing treatments Acute on chronic systolic congestive heart failure (HFrEF, LVEF 10%) Currently on IV diuretics furosemide 40 mg t.i.d. and metolazone Ordered new echocardiogram, pending until patient gets private room. Probably triggered dietary transgression (eight food rich in salt, has not consumed amphetamines and has been compliant with medication) Patient currently is on empagliflozin and carvedilol. Can not titrate Entresto nor spironolactone due to renal function. COPD no exacerbation Pulmonology consulted: Optimize breathing treatments and IV diuretics NSTEMI probable type 2 Secondary to above Methamphetamine associated cardiomyopathy Counseled on cessation of methamphetamine. Patient has sporadically takes methamphetamine due to pain control. 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 Recommend follow up with GI specialist We will monitor Methamphetamine abuse UDS negative for amphetamines in this admission Tobacco abuse Patient intermittently smokes. Counseled strongly on tobacco cessation for 18 minutes Umbilical hernia Patient is a poor candidate for surgical intervention Monitor as outpatient Benign prostatic hyperplasia Continue with finasteride and tamsulosin Hypothyroidism Continue with home medication Goals of care discussed with patient for 20 minutes: Full code status Discussed plan with Dr. Oglesby, patient and nurses: Patient currently requires continuation of IV diuretics. Likely trigger of acute exacerbation of CHF dietary transgression, gave her advice on healthy lifestyle habits. Patient has poor prognosis due to past medical history. Plan discussed with: Patient, Other (Nurses) My Orders My Orders Orders - MICHA RAMIREZ RESIDENT Procedure Category Date Status Time Vitamin D, 25-Hydroxy LAB 10/01/24 In Process 09:44 Vitamin B12 LAB 10/01/24 In Process 09:44 Furosemide Injection PHA 10/01/24 In Process (Lasix Injection) 22:00 Echo 2d Mode Cardiac US 10/01/24 Logged DOP 09:54 Addendum Addendum Addendum I was physically present for the duvall portions of the service provided to patient by THE RESIDENT. I have reviewed the documentation, discussed the case with resident and agree with the resident's documentation except as noted. Also the patient's clinical case was discussed with the patient's nurse. This medical document was created using an electronic medical record system with computerized dictation system. Although this document has been carefully reviewed, there might still be some phonetic and typographical errors. These areas are purely typographical due to imperfections of the software programs, and do not reflect any compromise in the patient's medical care. Late signature. Date of Service: Oct 01, 2024 Billing Provider: ROBERTO OGLESBY MD Common Visit Codes: [id number] INP/OBS CARE(HIGH) Secondary Visit Codes: [id number] CHNG SMOKING >10MIN (18 minutes), 57384- ADVANCED CARE PLAN 30 MINUTES (20 minutes) MICHA RAMIREZ RESIDENT Oct 01, 2024 20:09 ROBERTO OGLESBY MD Oct 03, 2024 10:57
[2024-10-01] MEDS: ENOXAPARIN SOD 40 MG/0.4 ML SYRINGE SC ONE (20:54)
[2024-10-01] MEDS: FUROSEMIDE 40 MG/4 ML VIAL IV SCH (22:48)
[2024-10-02] VITALS (9 sets, daily range): BP systolic 104–123; BP diastolic 59–85; PULSE 86–107; RESP 14–20; TEMP 97.4–98.4; O2SAT 92–99
[2024-10-02 08:24] LABS: Basophils # (auto) 0.1 10 ^3/uL (0-0.2); Eosinophils # (auto) 0.4 10 ^3/uL (0-0.8)
[2024-10-02 08:27] LABS: Basophils % (auto) 0.7 % (0.0-2.0); Eosinophils % (auto) 4.6 % (0.0-7.0); Hematocrit 43.3 % (41.0-53.0); Hemoglobin 13.8 g/dL (13.5-17.5); Lymphocytes # (auto) 1.6 10 ^3/uL (0.4-5.4); Mean Corpuscular Hemoglobin 24.7 pg (28.0-32.0); Mean Corpuscular Hgb Conc. 31.9 g/dL (32.0-36.0); Mean Corpuscular Volume 77.2 fL (80.0-100.0); Monocytes % (auto) 10.8 % (0.0-12.0); Neutrophils % (auto) 65.9 % (37.0-80.0); Nucleated Red Blood Cells % 0.1 %; Platelet Count (auto) 237 10^3/uL (140-450); Red Blood Cells 5.61 10^6/uL (4.5-5.90); Red Cell Distribution Width 18.8 % (11.8-14.3)
[2024-10-02 08:43] LABS: Albumin 3.8 g/dL (3.2-4.8); Alkaline Phosphatase 91 U/L (46-116); Anion Gap 9 (5-15); BUN/Creatinine Ratio 15.3 (10.0-20.0); Calcium 9.4 mg/dL (8.7-10.4); Carbon Dioxide 27 mmol/L (20-31); Chloride 104 mmol/L (98-107); Magnesium 2.3 mg/dL (1.6-2.6); Phosphorus 4.5 mg/dL (2.4-5.1); Potassium 4.4 mmol/L (3.5-5.1); Sodium 140 mmol/L (136-145); Total Protein 6.4 g/dL (5.7-8.2)
[2024-10-02 08:52] LABS: Alanine Aminotransferase 101 U/L (7-40); Aspartate Aminotransferase 138 U/L (13-40); Bilirubin, Total 1.5 mg/dL (0.2-1.0); Blood Urea Nitrogen 29 mg/dL (9-23); Glucose 119 mg/dL (74-106)
[2024-10-02] MEDS: ENOXAPARIN SOD 40 MG/0.4 ML SYRINGE SC SCH (10:00)
--- NOTE | 2024-10-02 11:13 | DVHPN2 ---
Consult Progress Note Subjective Patient reports: Feels better Review of Systems: CVS:Abnormal (BLE edema, Deneis CP, Palpitations), RESPIRATORY:Abnormal (SOB improving per patient) Objective vital signs Vital Sign Date Time Temp Pulse Resp B/P (MAP) Pulse Ox O2 Delivery O2 Flow Rate FiO2 10/02/24 10:41 98.4 96 18 121/71 (88) 98 98.4 10/02/24 08:55 Nasal Cannula* 2 28 Total Intake and Output 10/01/24 10/01/24 10/02/24 15:00 23:00 07:00 Output Total 1700 ml 2100 ml Balance -1700 ml -2100 ml medications Current Medications Medications Dose Ordered Sig/Tawnya Route Start Time Stop Time Status Last Admin Dose Admin Sodium Chloride 10 ml Q8HR IV 09/30/24 14:00 10/02/24 06:15 10 ML Acetaminophen/ Hydrocodone Bitart 1 tab Q4HP PRN PO 09/30/24 08:45 10/02/24 08:35 1 TAB Ondansetron HCl 4 mg Q4HP PRN IV 09/30/24 08:45 09/30/24 10:35 4 MG Docusate Sodium 100 mg BIDPRN PRN PO 09/30/24 08:45 Acetaminophen 650 mg Q6HP PRN PO 09/30/24 08:45 Nitroglycerin 0.4 mg Q5MINP PRN SL 09/30/24 08:45 Morphine Sulfate 2 mg Q30M PRN IV 09/30/24 08:45 09/30/24 10:35 2 MG Aspirin 81 mg DAILY PO 09/30/24 10:00 10/01/24 10:01 81 MG Atorvastatin Calcium 20 mg HS PO 09/30/24 22:00 10/01/24 22:48 20 MG Carvedilol 3.125 mg BID PO 09/30/24 10:00 10/01/24 10:01 3.125 MG Empaglifozin 10 mg DAILY PO 09/30/24 10:00 10/01/24 10:01 10 MG Finasteride 5 mg DAILY PO 09/30/24 10:00 10/01/24 10:01 5 MG Pantoprazole Sodium 40 mg DAILY PO 09/30/24 10:00 10/01/24 10:00 40 MG Tamsulosin HCl 0.4 mg HS PO 09/30/24 22:00 10/01/24 22:48 0.4 MG Levothyroxine Sodium 150 mcg QAM PO 10/01/24 07:00 10/02/24 07:23 150 MCG Metolazone 2.5 mg 2XW PO 10/03/24 12:00 Furosemide 40 mg TID IV 10/01/24 22:00 10/02/24 07:00 40 MG Enoxaparin Sodium 40 mg DAILY SC 10/02/24 10:00 Examination: CVS:Abnormal (+2-3 edema) laboratory and microbiology Laboratory Tests 10/02/24 07:55 Test 10/02/24 07:55 Range/Units Serum Glucose 119 H 74-106 mg/dL Problem List/Assessment/Plan Problem List/Assessment/Plan * Acute on chronic HFrEF - previous echo shows EF 10% with grade 2 LV DD and severely reduced RV function. Follow-up echo. Continue diuresis with Lasix 40 mg IV t.i.d. and metolazone 2.5 mg p.o. twice weekly. Strict I&Os, continue fluid restriction. * Elevated troponin - likely demand ischemia from CHF exacerbation. EKG negative for acute ischemic changes. Continue aspirin and statin. Follow up echo. * Cardiomyopathy - continue GDMT with Coreg, Jardiance. Not on Law/Arb due to SIA/CKD * SIA on CKD - stable with diuresis. Continue monitoring. * HX methamphetamine abuse - negative UDS. Encouraged continued abstinence of use * Hypokalemia - Monitor and replace electrolytes. Case Discussed with Dr Hernandez. Continue diuresing to euvolemic. Follow-up echo. Continue GDMT as tolerated. Recommend increasing Lasix to 40 mg p.o. twice daily upon discharge as patient was taking 40 mg daily, continued home dose metolazone. Critical care, time spent: 40 minutes This medical document was created using an electronic medical record system with voice recognition software and computerized dictation system. Although this document has been carefully reviewed, there might still be some phonetic and typographical errors. Occasional wrong-word or ``sound-alike substitutions may have occurred due to the inherent limitations of voice recognition software. These areas are purely typographical due to imperfections of the software programs and do not reflect any compromise in the patient's medical care. Please read the chart carefully and recognize, using context, where these substitutions have occurred. Plan discussed with: Patient Date of Service: Oct 02, 2024 Billing Provider: VIDAL HERNANDEZ MD Common Visit Codes: [id number] INP/OBS CARE(HIGH) JORDAN VALDEZ [facility] Oct 02, 2024 11:13
--- NOTE | 2024-10-02 11:14 | DVHPNRES ---
Progress Note Date Seen: Oct 02, 2024 Resident Creating Document: DU KYLE RESIDENT Medical Necessity Reason Pt with a Central, PICC or Fol: No Subjective Review of Systems Kenn Chery is a 68-year-old male patient who presents to ED with complaint BLE swelling associated with dyspnea since three days before his admission. Patient seen and examined at the bedside. Patient reported improvement in his leg swelling and shortness of breath since admission. No new complaints today. Currently diuresing with Lasix 40 mg IV b.i.d. and continue current management. Strict I and Os, fluid restriction and continue supportive treatment. Objective vital signs Vital Sign Date Time Temp Pulse Resp B/P (MAP) Pulse Ox O2 Delivery O2 Flow Rate FiO2 10/02/24 10:41 98.4 96 18 121/71 (88) 98 98.4 10/02/24 08:55 Nasal Cannula* 2 28 Total Intake and Output 10/01/24 10/01/24 10/02/24 15:00 23:00 07:00 Output Total 1700 ml 2100 ml Balance -1700 ml -2100 ml medications Current Medications Medications Dose Ordered Sig/Tawnya Route Start Time Stop Time Status Last Admin Dose Admin Sodium Chloride 10 ml Q8HR IV 09/30/24 14:00 10/02/24 06:15 10 ML Acetaminophen/ Hydrocodone Bitart 1 tab Q4HP PRN PO 09/30/24 08:45 10/02/24 08:35 1 TAB Ondansetron HCl 4 mg Q4HP PRN IV 09/30/24 08:45 09/30/24 10:35 4 MG Docusate Sodium 100 mg BIDPRN PRN PO 09/30/24 08:45 Acetaminophen 650 mg Q6HP PRN PO 09/30/24 08:45 Nitroglycerin 0.4 mg Q5MINP PRN SL 09/30/24 08:45 Morphine Sulfate 2 mg Q30M PRN IV 09/30/24 08:45 09/30/24 10:35 2 MG Aspirin 81 mg DAILY PO 09/30/24 10:00 10/01/24 10:01 81 MG Atorvastatin Calcium 20 mg HS PO 09/30/24 22:00 10/01/24 22:48 20 MG Carvedilol 3.125 mg BID PO 09/30/24 10:00 12/7/24 10:01 3.125 MG Empaglifozin 10 mg DAILY PO 09/30/24 10:00 10/01/24 10:01 10 MG Finasteride 5 mg DAILY PO 09/30/24 10:00 10/01/24 10:01 5 MG Pantoprazole Sodium 40 mg DAILY PO 09/30/24 10:00 10/01/24 10:00 40 MG Tamsulosin HCl 0.4 mg HS PO 09/30/24 22:00 10/01/24 22:48 0.4 MG Levothyroxine Sodium 150 mcg QAM PO 10/01/24 07:00 10/02/24 07:23 150 MCG Metolazone 2.5 mg 2XW PO 10/03/24 12:00 Furosemide 40 mg TID IV 10/01/24 22:00 10/02/24 07:00 40 MG Enoxaparin Sodium 40 mg DAILY SC 10/02/24 10:00 Examination Pt is lying on bed General Appearance: Alert, Oriented X3, Cooperative, Not in acute distress HEENT: Atraumatic, Mucous membranes moist/pink Respiratory: Clear to auscultation, Normal air movement, No added sounds Cardiovascular: Regular rate, Normal S1, Normal S2, Holosystolic murmur best heard in apex Abdominal: Active bowel sounds, Soft, no distention, no tenderness Extremities: 2+ edema BLE, Normal pulses, No tenderness Skin: No Significant rash, except past surgical scars Neuro: Normal speech, sensorimotor deficits none Psych/Mental Status: Mental status NL, Mood NL laboratory and microbiology Laboratory Tests 10/02/24 07:55 Test 10/02/24 07:55 Range/Units Serum Glucose 119 H 74-106 mg/dL Labs and/or images reviewed: Labs reviewed by me, Image(s) reviewed by me Problem List/Assessment/Plan Problem List/Assessment/Plan # Acute hypoxic respiratory failure likely due to CHF exacerbation # Acute on chronic systolic congestive heart failure (HFrEF) # NSTEMI probable type 2 likely due to above # Methamphetamine associated cardiomyopathy - currently on 2-3 L oxygen NC - echocardiogram from 03/18/2024 showed , LVEF 10%, ordered new echocardiogram - Currently on IV diuretics furosemide 40 mg t.i.d. and metolazone - Currently is on empagliflozin and carvedilol. Hold Entresto & spironolactone due to renal function - pulmonology consulted advised to continue breathing treatments - strict I&Os and fluid restriction and low-salt diet - organizational development consultant evaluated the patient and advised to continue current management. # COPD no exacerbation - Pulmonology consulted: Optimize breathing treatments and IV diuretics # Methamphetamine use disorder # tobacco abuse disorder - currently UDS negative - Counseled on cessation of methamphetamine and smoking for 17 mins # SIA likely VMN on CKD Secondary to above - monitor lab for now # Transaminitis likely due to hepatitis-C - monitor lab - outpatient GI follow up # COPD no exacerbation - Pulmonology consulted: Optimize breathing treatments and IV diuretics # Umbilical hernia - outpatient follow up # Benign prostatic hyperplasia - Continue with finasteride and tamsulosin # Hypothyroidism - Continue with home medication Lovenox for now Protonix Low-salt diet Reconciled home meds Case management discussed with Dr. Oglesby, patient and nurse Plan discussed with: Patient, Other (Nurse) Addendum Addendum Addendum I was physically present for the duvall portions of the service provided to patient by THE RESIDENT. I have reviewed the documentation, discussed the case with resident and agree with the resident's documentation except as noted. Also the patient's clinical case was discussed with the patient's nurse. This medical document was created using an electronic medical record system with computerized dictation system. Although this document has been carefully reviewed, there might still be some phonetic and typographical errors. These areas are purely typographical due to imperfections of the software programs, and do not reflect any compromise in the patient's medical care. Late signature. Date of Service: Oct 02, 2024 Billing Provider: ROBERTO OGLESBY MD Common Visit Codes: [id number] INP/OBS CARE(HIGH) DU KYLE RESIDENT Oct 02, 2024 11:14 ROBERTO OGLESBY MD Oct 03, 2024 10:59
--- NOTE | 2024-10-02 14:14 | DVHSR ---
APPROVED REPORT EXAM: Two-dimensional and M-mode echocardiogram with Doppler and color Doppler. Blood Pressure: 116/79 mmHg INDICATION CHF RISK FACTORS Height: 5'10", Weight: 175 DIMENSIONS LVDd6.3 (3.8-5.7cm)LA (2D)4.5 (1.9-4.0cm)Aortic Root3.4 (2.0-3.7cm) LVDs6.0 (2.5-4.0cm)LA (MM) (1.9-4.0cm)Aortic Cusp Exc1.9 (1.5-2.0cm) EF (%) 10.0 (55-70%)Rt. Atrium5.5 (1.9-4.0cm)Asc. Aorta cm IVSd0.9 (0.7-1.1cm)RV (D)5.5 (1.8-2.4cm) PWd0.9 (0.7-1.1cm) Mitral Valve MitralMitral Stenosis E wave0.83m/sMV Mean GR.mmHg A wave0.64m/sMV Peak GR.mmHg E/A ratio1.32D MVAcm2 DECEL [id number] 1/2 Timems Aortic Valve Aortic ValveAortic Stenosis V10.39m/Janice Mean GR.2mmHg V20.94m/Janice Peak GR.4mmHg LVOT Diameter2.1 (1.8-2.4cm)Doppler AVA1.44cm2 Pulmonic Valve V20.63m/s Tricuspid Valve TR Velocity2.86m/s [id number] Conclusion Severely dilated left ventricle. Severely reduced left ventricular systolic function estimated eject ion fraction of 10%. There is global wall akinesia. There is a grade 2 diastolic dysfunction. Normal left ventricular size and dimension. Severely reduced right ventricular systolic function. M oderately elevated right ventricular systolic mm of mercury. Moderately dilated right atrium. Normal-sized left atrium. Aortic valve is mildly thickened and sclerotic. There is mild mitral valve regurgitation. There Is mild tricuspid valve regurgitation. The pulmonary valve is grossly normal. No pericardial effusion. New
[2024-10-03] VITALS (8 sets, daily range): BP systolic 108–127; BP diastolic 69–78; PULSE 81–105; RESP 13–19; TEMP 97.3–98.6; O2SAT 91–97
[2024-10-03 05:54] LABS: Chloride 101 mmol/L (98-107); Sodium 139 mmol/L (136-145)
[2024-10-03 05:55] LABS: Anion Gap 10 (5-15); Calcium 9.1 mg/dL (8.7-10.4); Carbon Dioxide 28 mmol/L (20-31)
[2024-10-03 05:56] LABS: Basophils # (auto) 0.1 10 ^3/uL (0-0.2); Eosinophils # (auto) 0.3 10 ^3/uL (0-0.8); Lymphocytes # (auto) 1.3 10 ^3/uL (0.4-5.4); Monocytes # (auto) 0.9 10 ^3/uL (0-1.3); Red Cell Distribution Width 18.8 % (11.8-14.3); White Blood Cell 7.6 10^3/uL (4.4-10.8)
[2024-10-03 06:00] LABS: BUN/Creatinine Ratio 17.3 (10.0-20.0); Basophils % (auto) 0.9 % (0.0-2.0); Eosinophils % (auto) 3.9 % (0.0-7.0); Hematocrit 42.4 % (41.0-53.0); Hemoglobin 13.8 g/dL (13.5-17.5); Lymphocytes % (auto) 16.8 % (10.0-50.0); Mean Corpuscular Hgb Conc. 32.5 g/dL (32.0-36.0); Mean Corpuscular Volume 76.9 fL (80.0-100.0); Monocytes % (auto) 12.3 % (0.0-12.0); Neutrophils % (auto) 66.1 % (37.0-80.0); Nucleated Red Blood Cells % 0.1 %; Platelet Count (auto) 257 10^3/uL (140-450); Red Blood Cells 5.51 10^6/uL (4.5-5.90)
[2024-10-03 06:03] LABS: Blood Urea Nitrogen 32 mg/dL (9-23); Glucose 133 mg/dL (74-106)
[2024-10-03] MEDS: cefTRIAXone 1GM/50ML D5W 50 ML IV SCH (09:41)
[2024-10-03] MEDS: metOLazone 5 MG TAB PO SCH (12:28)
--- NOTE | 2024-10-03 14:30 | DVHPNRES ---
Progress Note Date Seen: Oct 03, 2024 Resident Creating Document: DU KYLE RESIDENT Medical Necessity Reason Pt with a Central, PICC or Fol: No Subjective Review of Systems Kenn Chery is a 68-year-old male patient who presents to ED with complaint BLE swelling associated with dyspnea since three days before his admission. Patient seen and examined at the bedside. Patient reported improvement in his leg swelling and shortness of breath since admission. No new complaints today. Currently diuresing with Lasix 40 mg IV t.i.d. and metolazone, continue current management. Strict I and Os, fluid restriction and continue supportive treatment. Due to leg pain ordered lower limb venous ultrasound. Patient reports: No new complaints, Feels better Objective vital signs Vital Sign Date Time Temp Pulse Resp B/P (MAP) Pulse Ox O2 Delivery O2 Flow Rate FiO2 10/03/24 13:00 97.3 100 19 113/71 (85) 97 97.3 10/03/24 07:30 Nasal Cannula* 2 28 Total Intake and Output 10/02/24 10/02/24 10/03/24 15:00 23:00 07:00 Intake Total 460 ml 1650 ml Output Total 1700 ml 1200 ml 3350 ml Balance -1700 ml -740 ml -1700 ml medications Current Medications Medications Dose Ordered Sig/Tawnya Route Start Time Stop Time Status Last Admin Dose Admin Sodium Chloride 10 ml Q8HR IV 09/30/24 14:00 10/03/24 06:11 10 ML Acetaminophen/ Hydrocodone Bitart 1 tab Q4HP PRN PO 09/30/24 08:45 10/03/24 09:58 1 TAB Ondansetron HCl 4 mg Q4HP PRN IV 09/30/24 08:45 09/30/24 10:35 4 MG Docusate Sodium 100 mg BIDPRN PRN PO 09/30/24 08:45 Acetaminophen 650 mg Q6HP PRN PO 09/30/24 08:45 Nitroglycerin 0.4 mg Q5MINP PRN SL 09/30/24 08:45 Morphine Sulfate 2 mg Q30M PRN IV 09/30/24 08:45 09/30/24 10:35 2 MG Aspirin 81 mg DAILY PO 09/30/24 10:00 10/03/24 09:41 81 MG Atorvastatin Calcium 20 mg HS PO 09/30/24 22:00 128/24 21:49 20 MG Carvedilol 3.125 mg BID PO 09/30/24 10:00 10/03/24 09:41 3.125 MG Empaglifozin 10 mg DAILY PO 09/30/24 10:00 10/03/24 09:41 10 MG Finasteride 5 mg DAILY PO 09/30/24 10:00 10/03/24 09:41 5 MG Pantoprazole Sodium 40 mg DAILY PO 09/30/24 10:00 10/03/24 09:41 40 MG Tamsulosin HCl 0.4 mg HS PO 09/30/24 22:00 10/02/24 21:48 0.4 MG Levothyroxine Sodium 150 mcg QAM PO 10/01/24 07:00 10/03/24 06:11 150 MCG Metolazone 2.5 mg 2XW PO 10/03/24 12:00 10/03/24 12:28 2.5 MG Furosemide 40 mg TID IV 10/01/24 22:00 10/03/24 06:11 40 MG Enoxaparin Sodium 40 mg DAILY SC 10/02/24 10:00 Ceftriaxone Sodium 50 ml @ 100 mls/hr DAILY@09 IV 10/03/24 09:00 10/03/24 09:41 100 MLS/HR Examination Pt is lying on bed General Appearance: Alert, Oriented X3, Cooperative, Not in acute distress HEENT: Atraumatic, Mucous membranes moist/pink Respiratory: Clear to auscultation, Normal air movement, No added sounds Cardiovascular: Regular rate, Normal S1, Normal S2, Holosystolic murmur best heard in apex Abdominal: Active bowel sounds, Soft, distended (hernia), nontender Extremities: 2+ edema BLE, Normal pulses, No tenderness Skin: No Significant rash, except past surgical scars Neuro: Normal speech, sensorimotor deficits none Psych/Mental Status: Mental status NL, Mood NL laboratory and microbiology Laboratory Tests 10/03/24 04:53 Test 10/03/24 04:53 Range/Units Serum Glucose 133 H 74-106 mg/dL Labs and/or images reviewed: Labs reviewed by me, Image(s) reviewed by me Problem List/Assessment/Plan Problem List/Assessment/Plan # Acute hypoxic respiratory failure likely due to CHF exacerbation - improving # Acute on chronic systolic congestive heart failure (HFrEF) # NSTEMI probable type 2 likely due to above # Methamphetamine associated cardiomyopathy - currently on 2-3 L oxygen NC - echocardiogram from 03/18/2024 showed , LVEF 10%, ordered new echocardiogram - Currently on IV diuretics furosemide 40 mg t.i.d. and metolazone - Currently is on empagliflozin and carvedilol. Hold Entresto & spironolactone due to renal function - pulmonology consulted advised to continue breathing treatments - strict I&Os and fluid restriction and low-salt diet - security sales consultant evaluated the patient and advised to continue current management. # COPD no exacerbation - Pulmonology consulted: Optimize breathing treatments and IV diuretics # Methamphetamine use disorder # tobacco abuse disorder - currently UDS negative - Counseled on cessation of methamphetamine and smoking for 17 mins # SIA likely VMN on CKD Secondary to above - monitor lab for now # Transaminitis likely due to hepatitis-C - monitor lab - outpatient GI follow up # COPD no exacerbation - Pulmonology consulted: Optimize breathing treatments and IV diuretics # Umbilical hernia - outpatient follow up # Benign prostatic hyperplasia - Continue with finasteride and tamsulosin # Hypothyroidism - Continue with home medication # rule ot DVT - lower limb venous ultrasound Lovenox for now Protonix Low-salt diet Reconciled home meds Case management discussed with Dr. Cummings, patient and nurse Plan discussed with: Patient, Other (RN) My Orders My Orders Orders - DU KYLE Procedure Category Date Status Time Ceftriaxone 1gm/50ml PHA 10/03/24 In Process D5w (Rocephin) 09:00 Urine Bacterial BRITTA 10/03/24 Logged Culture 06:51 Bilat Lower Dvt US 10/03/24 Logged 13:00 Date of Service: Oct 03, 2024 Billing Provider: PAWAN CUMMINGS MD Common Visit Codes: [id number] INP/OBS CARE(HIGH) DU KYLE Oct 03, 2024 14:30 PAWAN CUMMINGS MD Oct 03, 2024 19:53
--- NOTE | 2024-10-03 15:07 | DVH ---
Bilateral lower extremity venous duplex Clinical History: DVT Comparison: US RT UPPER DVT on DOS: 08/27/24, US BILAT LOWER DVT on DOS: 03/17/24 Technique: Duplex Doppler evaluation of the deep venous systems of both lower extremities from the common femora l veins to the popliteal veins including color Doppler and spectral/pulsed waveform analysis was perf ormed. Findings: RIGHT SIDE: The common femoral vein demonstrates appropriate compressibility and waveform variability. There is compressibility/patency of the great saphenous vein at the proximal thigh. The femoral vein demonstrates appropriate compressibility and waveform variability. The deep femoral vein demonstrates appropriate compressibility and waveform variability. The popliteal vein demonstrates appropriate compressibility and waveform variability. There is normal compressibility at the tibioperoneal trunk. LEFT SIDE: The common femoral vein demonstrates appropriate compressibility and waveform variability. There is compressibility/patency of the great saphenous vein at the proximal thigh. The femoral vein demonstrates appropriate compressibility and waveform variability. The deep femoral vein demonstrates appropriate compressibility and waveform variability. The popliteal vein demonstrates appropriate compressibility and waveform variability. There is normal compressibility at the tibioperoneal trunk. Impression: 1. No right or left femoropopliteal venous thrombosis. HS:Y
[2024-10-03 20:19] LABS: Chloride 100 mmol/L (98-107); Potassium 4.2 mmol/L (3.5-5.1); Sodium 137 mmol/L (136-145)
[2024-10-03 20:20] LABS: Anion Gap 5 (5-15); Calcium 9.6 mg/dL (8.7-10.4)
[2024-10-03 20:25] LABS: BUN/Creatinine Ratio 20.1 (10.0-20.0)
[2024-10-03 20:33] LABS: Blood Urea Nitrogen 40 mg/dL (9-23); Carbon Dioxide 32 mmol/L (20-31); Glucose 121 mg/dL (74-106)
[2024-10-04 01:00] VITALS: BP 113/75; PULSE 102; RESP 19; TEMP 98.5; O2SAT 94
[2024-10-04 05:00] VITALS: BP 105/68; PULSE 98; RESP 17; TEMP 97.6; O2SAT 92
[2024-10-04 07:14] LABS: Basophils # (auto) 0.1 10 ^3/uL (0-0.2); Eosinophils # (auto) 0.4 10 ^3/uL (0-0.8); Hemoglobin 14.2 g/dL (13.5-17.5); Lymphocytes # (auto) 1.2 10 ^3/uL (0.4-5.4)
[2024-10-04 07:15] LABS: Eosinophils % (auto) 4.6 % (0.0-7.0); Hematocrit 42.4 % (41.0-53.0); Lymphocytes % (auto) 14.1 % (10.0-50.0); Mean Corpuscular Hemoglobin 25.3 pg (28.0-32.0); Mean Corpuscular Hgb Conc. 33.4 g/dL (32.0-36.0); Monocytes % (auto) 12.2 % (0.0-12.0); Neutrophils # (auto) 5.7 10 ^3/uL (1.6-8.6); Neutrophils % (auto) 68.1 % (37.0-80.0); Platelet Count (auto) 262 10^3/uL (140-450); Red Blood Cells 5.59 10^6/uL (4.5-5.90); Red Cell Distribution Width 18.6 % (11.8-14.3); White Blood Cell 8.3 10^3/uL (4.4-10.8)
[2024-10-04 07:30] VITALS: PULSE 102; PULSE 92; RESP 20; O2SAT 96
[2024-10-04 07:39] LABS: Calcium 9.7 mg/dL (8.7-10.4); Potassium 3.6 mmol/L (3.5-5.1); Sodium 136 mmol/L (136-145)
[2024-10-04 07:40] LABS: Anion Gap 8 (5-15)
[2024-10-04 07:45] LABS: BUN/Creatinine Ratio 21.1 (10.0-20.0)
[2024-10-04 07:47] LABS: Blood Urea Nitrogen 40 mg/dL (9-23); Carbon Dioxide 32 mmol/L (20-31); Chloride 96 mmol/L (98-107); Glucose 121 mg/dL (74-106)
[2024-10-04 09:00] VITALS: BP 108/72; PULSE 106; RESP 20; TEMP 97.6; O2SAT 94
[2024-10-04 12:38] VITALS: BP 102/67; PULSE 92; RESP 20; TEMP 97.6; O2SAT 94
[2024-10-04 13:00] VITALS: BP 109/71; PULSE 101; RESP 17; TEMP 98; O2SAT 97
[2024-10-04] MEDS ORDERED: FURO40TA4 PO (13:49)
[2024-10-04] MEDS ORDERED: METO5TAB5 PO (13:49)
[2024-10-04] MEDS ORDERED: CEPH250C PO (13:49)
[2024-10-04] MEDS ORDERED: ACET-1882 PO (13:49)
--- NOTE | 2024-10-04 15:01 | DVHDSRES ---
Discharge Summary Date of Admission Resident Creating Document: DU KYLE RESIDENT Sep 30, 2024 at 08:35 Date of Discharge: Oct 04, 2024 Admitting Diagnosis bilateral lower limb swelling associated with dyspnea Labs/Diagnostic Data: Laboratory Results Test 10/04/24 06:08 10/02/24 07:55 10/01/24 13:16 10/01/24 11:27 White Blood Count 8.3 10^3/uL (4.4-10.8) Red Blood Count 5.59 10^6/uL (4.5-5.90) Hemoglobin 14.2 g/dL (13.5-17.5) Hematocrit 42.4 % (41.0-53.0) Mean Corpuscular Volume 76.0 fL (80.0-100.0) Mean Corpuscular Hemoglobin 25.3 pg (28.0-32.0) Mean Corpuscular Hemoglobin Concent 33.4 g/dL (32.0-36.0) Red Cell Distribution Width 18.6 % (11.8-14.3) Platelet Count 262 10^3/uL (140-450) Mean Platelet Volume 7.7 fL (6.9-10.8) Neutrophils (%) (Auto) 68.1 % (37.0-80.0) Lymphocytes (%) (Auto) 14.1 % (10.0-50.0) Monocytes (%) (Auto) 12.2 % (0.0-12.0) Eosinophils (%) (Auto) 4.6 % (0.0-7.0) Basophils (%) (Auto) 1.0 % (0.0-2.0) Neutrophils # (Auto) 5.7 10 ^3/uL (1.6-8.6) Lymphocytes # (Auto) 1.2 10 ^3/uL (0.4-5.4) Monocytes # (Auto) 1.0 10 ^3/uL (0-1.3) Eosinophils # (Auto) 0.4 10 ^3/uL (0-0.8) Basophils # (Auto) 0.1 10 ^3/uL (0-0.2) Nucleated Red Blood Cells 0.0 % Sodium Level 136 mmol/L (136-145) Potassium Level 3.6 mmol/L (3.5-5.1) Chloride Level 96 mmol/L (98-107) Carbon Dioxide Level 32 mmol/L (20-31) Anion Gap 8 (5-15) Blood Urea Nitrogen 40 mg/dL (9-23) Creatinine 1.90 mg/dL (0.700-1.30) Glomerular Filtration Rate Calc 38 mL/min (>90) BUN/Creatinine Ratio 21.1 (10.0-20.0) Serum Glucose 121 mg/dL (74-106) Calcium Level 9.7 mg/dL (8.7-10.4) Phosphorus Level 4.5 mg/dL (2.4-5.1) Magnesium Level 2.3 mg/dL (1.6-2.6) Total Bilirubin 1.5 mg/dL (0.2-1.0) Aspartate Amino Transferase (AST) 138 U/L (13-40) Alanine Aminotransferase (ALT) 101 U/L (7-40) Alkaline Phosphatase 91 U/L (46-116) Total Protein 6.4 g/dL (5.7-8.2) Albumin 3.8 g/dL (3.2-4.8) Lactic Acid Level 1.2 mmol/L (0.4-2.0) Urine Color Colorless (Yellow) Urine Clarity Clear (Clear) Urine pH 5.5 (5.0-9.0) Urine Specific [place] 1.006 (1.001-1.035) Urine Protein Negative (Negative) Urine Ketones Negative (Negative) Urine Blood Negative /uL (Negative) Urine Nitrite Negative (Negative) Urine Bilirubin Negative (Negative) Urine Urobilinogen Normal mg/dL (Negative) Urine Leukocyte Esterase 2+ /uL (Negative) Urine RBC 1 /hpf (0 - 3) Urine WBC 30 /hpf (0 - 3) Urine Squamous Epithelial Cells None seen /hpf (<5) Urine Bacteria Few /hpf (None Seen) Urine Glucose 3+ mg/dL (Normal) Urine Opiates Screen Neg (NEGATIVE) Urine Fentanyl Screen Neg (NEGATIVE) Urine Barbiturates Screen Neg (NEGATIVE) Urine Phencyclidine Screen Neg (NEGATIVE) Urine Amphetamines Screen Neg (NEGATIVE) Urine Benzodiazepines Screen Neg (NEGATIVE) Urine Cocaine Screen Neg (NEGATIVE) Urine Cannabinoids Screen Neg (NEGATIVE) Test 10/01/24 06:37 09/30/24 04:24 Prothrombin Time 14.0 sec (9.3-11.8) Prothrombin Time INR 1.35 (0.9-1.15) Activated Partial Thromboplast Time 27.3 SEC (24.5-34.5) Hemoglobin A1c 6.3 % A1C (<5.7) Troponin I High Sensitivity 95 ng/L (</=54) Triglycerides Level 80 mg/dL (< 150) Cholesterol Level 90 mg/dL (< 200) LDL Cholesterol 52 mg/dL (< 100) HDL Cholesterol 25 mg/dL (40-59) Vitamin B12 Level 910 pg/mL (211-911) Vitamin D 25-Hydroxy 21.0 ng/mL (30.0-100) Thyroid Stimulating Hormone (TSH) 2.48 uIU/mL (0.55-4.78) B-Type Natriuretic Peptide 1197.55 pg/mL (0-100) Other Laboratory Tests 10/04/24 06:08 Brief Hx & Hospital Course: Kenn Chery is a 68-year-old male patient who presents to ED with complaint bilateral lower limb swelling associated with dyspnea and functional class III which started three days before his admission. Patient reports being compliant with medication and also with cessation of methamphetamine abuse, but did consumed salty foods during Thanksgi and afterwards. Patient also reports frequent admissions due to CHF exacerbation and abdominal discomfort due to umbilical hernia. Denies palpitation, syncope, chest pain, nausea, vomiting, diarrhea, constipation, bleeding, dysuria, sick contacts, recent travel and motor or sensory deficits. Patient required hospital admission for further evaluation and management of CHF. Patient was on oxygen NC, initiated IV diuretics furosemide 40 mg t.i.d. and metolazone along with Strict I and Os, fluid restriction. Ordered echocardiogram which showed severely reduced LV EF 10%, global wall akinesia, severely dilated left ventricle, elevated right ventricular systolic [id number] mm of mercury. jd edwards consultant evaluated the patient, advised to continue diuresis and to continue GDM T with the Coreg and Jardiance and no Entresto and spironolactone due to CKD. Lower extremity venous ultrasound showed no DVT. Correct electrolyte imbalance. Due to history of methamphetamine abuse patient was counseled for more than 17 minutes. Patient condition was improved, hemodynamically stable and in condition to be discharged home with optimal medical treatment. Discharge plan discussed with the patient and agreed with the plan. Patient was advised about healthy lifestyle modifications including diet, exercise and avoid drug abuse. Patient was advised to follow up with PCP and Cardiology after the discharge. General Appearance: Alert, Oriented X3, Cooperative, Not in acute distress HEENT: Atraumatic, Mucous membranes moist/pink Respiratory: Clear to auscultation, Normal air movement, No added sounds Cardiovascular: Regular rate, Normal S1, Normal S2, Holosystolic murmur best heard in apex Abdominal: Active bowel sounds, Soft, distended (hernia), nontender Extremities: 1+ edema BLE, Normal pulses, No tenderness Skin: No Significant rash, except past surgical scars Neuro: Normal speech, sensorimotor deficits none Psych/Mental Status: Mental status NL, Mood NL Operations or Procedures ECHO Conclusion Severely dilated left ventricle. Severely reduced left ventricular systolic function estimated ejection fraction of 10%. There is global wall akinesia. There is a grade 2 diastolic dysfunction. Normal left ventricular size and dimension. Severely reduced right ventricular systolic function. Moderately elevated right ventricular systolic [id number] mm of mercury. Moderately dilated right atrium. Normal-sized left atrium. Aortic valve is mildly thickened and sclerotic. There is mild mitral valve regurgitation. There Is mild tricuspid valve regurgitation. The pulmonary valve is grossly normal. No pericardial effusion. New Bilateral lower extremity venous duplex 1. No right or left femoropopliteal venous thrombosis. Condition at Discharge: Stable Final Diagnosis/Problems List # Acute hypoxic respiratory failure likely due to CHF exacerbation - improving # Acute on chronic systolic congestive heart failure (HFrEF) # NSTEMI probable type 2 likely due to above # Methamphetamine associated cardiomyopathy # COPD no exacerbation # H/o Methamphetamine use disorder # tobacco abuse disorder # SIA likely VMN on CKD Secondary to above # Transaminitis likely due to hepatitis-C # COPD no exacerbation # Umbilical hernia # Benign prostatic hyperplasia # Hypothyroidism # ruled out DVT Discharge Disposition: Home Discharge Instruct/Medications Diet: Consistent carbohydrate, Cardiac 2g Na,low cholest Activity: No Restrictions, As Tolerated Follow Up/Referral: PCP and Cardio Medications: Per EMR Discharge Statement: "Patient was advised to return to the ER or call 911 if any headaches, dizziness, shortness of breath, chest pain, abdominal pain, bleeding, fevers, or worsening of medical condition. Patient was counseled about treatment plan, medications, possible side effects, patientverbalized understanding. All questions were answered to the best of my ability. This discharge took greater then 30 minutes in planning, reviewing documentation, counseling the patient, and discussing with other team members." ASSESSMENT ASSESSMENT Assessment CHF exacerbation Date of Service: Oct 04, 2024 Billing Provider: PAWAN CUMMINGS MD Common Visit Codes: [id number] DISCH DAY >30min SAROJMARGARITAKARSTEN RESIDENT Oct 04, 2024 15:01 PAWAN CUMMINGS MD Oct 05, 2024 17:58
== END 2024-10-04 15:09 | disposition home or self-care (01) | DRG 280 ==
LOC: ER 04:01 → TELE 08:35 → TELE-EAST 10-02 10:10
PROVIDERS: ADMIT Internal Medicine Geriatric Medicine; ATTEND Internal Medicine Geriatric Medicine
DX: I50.43 Acute on chronic combined systolic (congestive) and diastolic (congestive) heart failure (principal); J96.01 Acute respiratory failure with hypoxia; I21.A1 Myocardial infarction type 2; N17.0 Acute kidney failure with tubular necrosis; I42.9 Cardiomyopathy, unspecified; E87.6 Hypokalemia; E03.9 Hypothyroidism, unspecified; I08.1 Rheumatic disorders of both mitral and tricuspid valves; B19.20 Unspecified viral hepatitis C without hepatic coma; R74.01 Elevation of levels of liver transaminase levels; K42.9 Umbilical hernia without obstruction or gangrene; F17.210 Nicotine dependence, cigarettes, uncomplicated; N18.9 Chronic kidney disease, unspecified; F15.10 Other stimulant abuse, uncomplicated; J44.89 Other specified chronic obstructive pulmonary disease; N40.0 Benign prostatic hyperplasia without lower urinary tract symptoms; Z93.3 Colostomy status; Z91.148 Patient's other noncompliance with medication regimen for other reason; Z79.899 Other long term (current) drug therapy
CPT/HCPCS: 36415; 71045; 80048; 80053; 80061; 80307; 81001; 82306; 82607; 83036; 83605; 83735; 83880; 84100; 84443; 84484; 85025; 85610; 85730; 93005; 93306; 93970; 96374; 96375; 96376; G0378; J2405

== ENCOUNTER 2025-01-05 19:27 | Inpatient (IN) | payer MEDICAID ==
[~2025-01-05] VITALS: Ht 172.7 cm; Wt 86.3 kg
[~2025-01-05 19:27] MED LIST changes: +ACET-1882 PO; -BACDST PO; +CEPH250C PO; +METO5TAB5 PO
[2025-01-05 19:55] VITALS: BP 115/81; PULSE 114; RESP 16; TEMP 98.3; O2SAT 94
--- NOTE | 2025-01-05 20:04 | ED.PDOC ---
History of Present Illness HPI Comments 69-year-old male came to ER due to shortness of breath. Patient has history of CHF, supposed to be on home oxygen 4-5 liters/minute the but has been off it for the past 2 weeks due to insurance issues. Patient since then has been short of breath, progressively worsening with cough, chest tightness and worsening bipedal edema x2 days. Patient saturating at 95% on room air upon arrival. Chief Complaint: Shortness of Breath Time Seen by MD: 20:03 Primary Care Provider: UNKNOWN Reviewed Notes: Nurses Notes Allergies: Coded Allergies: NO KNOWN ALLERGIES (Unverified , 09/22/10) Home Meds Active Scripts Cephalexin (KEFLEX CAPSULE) 250 Mg Cp, 1 CAP PO QID for 5 Days, #28 CAP Prov:MICHA RAMIREZ 10/04/24 Furosemide (Furosemide) 40 Mg Tab, 40 MG PO BID for 30 Days, #60 TAB Prov:MICHA RAMIREZ 10/04/24 Metolazone (Metolazone) 5 Mg Tab, 2.5 MG PO 2XW for 30 Days, #15 TAB Prov:MICHA RAMIREZ 10/04/24 Acetaminophen (Acetaminophen) 325 Mg Tab, 650 MG PO Q6HP PRN for 10 Days, #80 TAB Prov:MICHA RAMIREZ 10/04/24 Empagliflozin (Jardiance) 10 Mg Tab, 10 MG PO DAILY for 30 Days, #30 TAB Prov:MORIAH ROJAS MD 08/23/24 Albuterol Sulfate (Ventolin) 2.5 Mg/0.5 Ml Nb, 1 VIAL NEB Q4HR, #60 VIAL 1 Refill Prov:MARTIN SPNECER 05/07/24 Atorvastatin Calcium (ATORVASTATIN CALCIUM) 20 Mg Tab, 20 MG PO HS for 30 Days, #30 TAB Prov:MICHA RAMIREZ 03/20/24 Aspirin (Aspirin Low Dose) 81 Mg Tab, 81 MG PO DAILY for 30 Days, #30 TAB Prov:MICHA RAMIREZ 03/20/24 Pantoprazole Sodium Sesquihydr (Pantoprazole Sodium) 40 Mg Tab, 40 MG PO DAILY for 30 Days, #30 TAB Prov:EMEKA MCALLISTER MD 01/20/23 Tamsulosin Hcl (Flomax) 0.4 Mg Cap, 1 CAP PO HS, #30 CAP 11 Refills Prov:DARIAN DIEGO MD 03/29/22 Reported Medications Finasteride (Finasteride) 5 Mg Tab, 5 MG PO DAILY, MG 03/18/24 Carvedilol (Carvedilol) 3.125 Mg Tab, 3.125 MG PO BID, MG 03/18/24 Acetaminophen (Acetaminophen) 500 Mg Tab, 500 MG PO PRN PRN for pain 03/17/22 Levothyroxine Sodium (Levothyroxine Sodium) 150 Mcg Tab, 150 MCG PO QAM 02/25/16 Information Source: Patient Mode of Arrival: Ambulatory Severity: Moderate Timing: Days Review of Systems REVIEW OF SYSTEMS: No fever, no chills, or fatigue HEENT: No sore throat, no earache, no congestion, no neck pain. Cardiac: (+) chest pain. No palpitations. Lungs: (+) shortness of breath, (+) cough. GI: No nausea, no vomiting, no diarrhea, no constipation, no abdominal pain : No dysuria, frequency, or urgency. No hematuria. Musculoskeletal: No joint pain , no joint swelling, no extremity edema. Skin: No rash, no itching. Neuro: No headache, no dizziness, no weakness Vital Signs Vital Signs Date Time Temp Pulse Resp B/P (MAP) Pulse Ox O2 Delivery O2 Flow Rate FiO2 01/05/25 21:21 105 20 112/70 01/05/25 20:44 98.4 95 98.4 01/05/25 20:40 Room Air* 0 21 Physical Exam General: Awake, alert and oriented. No acute distress. Skin: Skin in warm, dry and intact. Appropriate color for ethnicity. Nailbeds pink with no cyanosis. HEENT: The head is normocephalic and atraumatic. Conjunctivae are clear without exudates or hemorrhage. Sclera is non-icteric. EOM are intact. No signs of nystagmus. Eyelids are normal in appearance without swelling or lesions. Oral mucosa is pink and moist Neck: The neck is supple with normal range of motion. No JVD. Cardiac: Heart rate and rhythm are normal. No murmurs, gallops, or rubs are auscultated. Respiratory: No signs of respiratory distress. Rales at bases bilaterally Abdominal: Abdomen is soft, non-tender without distention. Bowel sounds are present and normoactive in all four quadrants. Extremities: 3 + pitting edema bilateral lower extremities Neurological: The patient is awake, alert and oriented to person, place, and time with normal speech. Speech is clear. There is no facial asymmetry. Psychiatric: Appropriate mood and affect. Good judgement and insight. No visual or auditory hallucinations. Past Medical History PAST MEDICAL HISTORY: Asthma, CHF, COPD, Thyroid Surgical History: Denies all surgeries Family History Family History: Reviewed,noncontributory to illness Social History Smoker: Cigarettes, Less Than 1 Pack/Day Alcohol: Denies ETOH Use Drugs: Denies Drug Use Lives In: Home Was a procedure done? Was a procedure done?: No EKG EKG : Pulse Rate (adult): 108 [place]: LAD Cardiac Rhythm: ST Hypertrophy: LAE Differential Dx Considerations may include: Anemia, electrolyte imbalance, pneumonia, CHF with exacerbation, COPD, acute coronary syndrome, pulmonary embolism, DVT, other X-Ray, Labs, Meds, VS Vital Signs Date Time Temp Pulse Resp B/P (MAP) Pulse Ox O2 Delivery O2 Flow Rate FiO2 01/05/25 21:21 105 20 112/70 01/05/25 20:52 115/79 01/05/25 20:51 107 20 115/79 01/05/25 20:44 98.4 107 20 115/79 (91) 95 98.4 01/05/25 20:40 107 20 95 Room Air* 0 21 01/05/25 20:04 108 01/05/25 19:53 20 96 Room Air* 0 21 01/05/25 19:35 98.3 11 20 122/86 (98) 95 Lab Test 01/05/25 22:11 01/05/25 20:50 01/05/25 19:54 Range/Units Lactic Acid Level 1.0 0.4-2.0 mmol/L Troponin I High Sensitivity 65 *H 64 *H </=54 ng/L Thyroid Stimulating Hormone (TSH) 1.93 0.55-4.78 uIU/mL White Blood Count 12.9 H 4.4-10.8 10^3/uL Red Blood Count 5.11 4.5-5.90 10^6/uL Hemoglobin 12.7 L 13.5-17.5 g/dL Hematocrit 39.8 L 41.0-53.0 % Mean Corpuscular Volume 77.9 L 80.0-100.0 fL Mean Corpuscular Hemoglobin 24.9 L 28.0-32.0 pg Mean Corpuscular Hemoglobin Concent 31.9 L 32.0-36.0 g/dL Red Cell Distribution Width 20.4 H 11.8-14.3 % Platelet Count 225 140-450 10^3/uL Mean Platelet Volume 7.8 6.9-10.8 fL Neutrophils (%) (Auto) 66.8 37.0-80.0 % Lymphocytes (%) (Auto) 12.6 10.0-50.0 % Monocytes (%) (Auto) 15.2 H 0.0-12.0 % Eosinophils (%) (Auto) 4.9 0.0-7.0 % Basophils (%) (Auto) 0.5 0.0-2.0 % Neutrophils # (Auto) 8.6 1.6-8.6 10 ^3/uL Lymphocytes # (Auto) 1.6 0.4-5.4 10 ^3/uL Monocytes # (Auto) 2.0 H 0-1.3 10 ^3/uL Eosinophils # (Auto) 0.6 0-0.8 10 ^3/uL Basophils # (Auto) 0.1 0-0.2 10 ^3/uL Nucleated Red Blood Cells 0.0 % Sodium Level 140 136-145 mmol/L Potassium Level 3.8 3.5-5.1 mmol/L Chloride Level 108 H 98-107 mmol/L Carbon Dioxide Level 23 20-31 mmol/L Anion Gap 9 5-15 Blood Urea Nitrogen 29 H 9-23 mg/dL Creatinine 1.44 H 0.700-1.30 mg/dL Glomerular Filtration Rate Calc 53 >90 mL/min BUN/Creatinine Ratio 20.1 H 10.0-20.0 Serum Glucose 106 74-106 mg/dL Calcium Level 8.5 L 8.7-10.4 mg/dL Total Bilirubin 1.3 H 0.2-1.0 mg/dL Aspartate Amino Transferase (AST) 25 13-40 U/L Alanine Aminotransferase (ALT) 34 7-40 U/L Alkaline Phosphatase 102 46-116 U/L B-Type Natriuretic Peptide 1411.55 0-100 pg/mL Total Protein 5.6 L 5.7-8.2 g/dL Albumin 3.4 3.2-4.8 g/dL Current Medications Medications (Trade) Dose Ordered Sig/Tawnya Route Start Time Stop Time Status Last Admin Aspirin 324 mg ONCE ONCE PO 01/05/25 20:00 01/05/25 20:01 DC 01/05/25 20:36 Morphine Sulfate 2 mg ONCE ONCE IV 01/05/25 20:00 01/05/25 20:01 DC 01/05/25 20:51 Furosemide (Lasix Injection) 40 mg ONCE ONCE IV 01/05/25 20:00 01/05/25 20:01 DC 01/05/25 20:52 Ceftriaxone Sodium 50 ml @ 100 mls/hr ONCE ONCE IV 01/05/25 22:00 01/05/25 22:29 DC 01/05/25 23:10 Azithromycin 250 ml @ 125 mls/hr ONCE ONCE IV 01/05/25 22:00 01/05/25 23:59 DC 01/06/25 00:26 CHEST RADIOGRAPH Indication: cp Technique: Single frontal view of the chest was obtained COMPARISON: XY CHEST XRAY 1 VIEW on DOS: 09/30/24, XY CHEST PORTABLE on DOS: 08/19/24, XY CHEST PORTABLE on DOS: 06/19/24, XY CHEST PORTABLE on DOS: 03/18/24, XY CHEST PORTABLE on DOS: 03/17/24 FINDINGS: Lines and Tubes: None Lungs: There are bibasilar opacities much greater on the right side consistent with pneumonia. Pleura: No effusion. No pneumothorax. Cardiomediastinal contours: Moderate cardiomegaly. Bones: Unremarkable IMPRESSION: Bibasilar opacities greater on the right side consistent with pneumonia. Time of 1ST Reevaluation: 19:48 Reevaluation 1ST: Unchanged Patient Education/Counseling: Diagnosis, Treatment Family Education/Counseling: No Family Present Departure 1 Departure Time of Disposition: 22:02 Impression: Primary Impression: CHF exacerbation Additional Impressions: Pneumonia Elevated troponin Disposition: ADMITTED INPATIENT Condition: Stable Comments 69-year-old male with extensive cardiac history presents to the emergency department with a worsening dyspnea and bilateral lower extremity edema. Chest x-ray suspicious for pneumonia. Antibiotics and diuretic initiated in the emergency department. Patient noted to have chronically elevated troponins. Patient admitted for further treatment, evaluation and monitoring. Extensive evaluation was performed in attempt to identify or rule out: (See differential diagnosis section) The following tests were ordered, and results were reviewed by me: (See diagnostic results section) The following test were independently interpreted by me: EKG I reviewed and agreed with the following test results read by other providers: Chest x-ray I reviewed the following notes from the pt's past medical encounters: Encounter September 2024 for CHF exacerbation Additional information was gathered from interviewing the following independent historians: N/A Discussion of management or test interpretation with external physician/other qualified health personal care home administrator: N/A Addressed an acute or chronic illness that poses a threat to life or bodily function: CHF exacerbation, pneumonia Decision regarding hospitalization or escalation of hospital level of care: Risk and benefits of admission for further treatment of patient's condition was considered. Due to patient's current clinical condition, high risk of decline and poor outcome if discharged and need for further inpatient management and monitoring, patient will be admitted to the hospital. Drug therapy requiring intensive monitoring for toxicity: IV furosemide Parenteral controlled substances: IV morphine Decision regarding elective major surgery with identified patient or procedure risk factors: N/A Decision regarding emergency major surgery: N/A Decision not to resuscitate or to de-escalate care because of poor prognosis: N/A Diagnosis or treatment significantly limited by social determinants of health: N/A Critical Care Note Critical Care Time?: Yes (35 min-critical care time only) Critical care comment: Shortness of breath Stability Stability form required: No Heart Score Heart Score: Heart Score Response (Comments) Value History Slightly Suspicious 0 EKG Normal 0 Age >65 2 Risk Factors 1 or 2 risk factors 1 Troponin >3 x's Normal limit 2 Total 5 I personally scribed for VERONICA GARZA MD ([email or web address]) on 01/05/25 at 20:04. Electronically submitted by Nghia Uribe ([employer]). I personally scribed for VERONICA GARZA MD ([email or web address]) on 01/05/25 at 22:01. Electronically submitted by Nghia Uribe ([employer]). VERONICA GARZA MD Jan 05, 2025 20:04
[2025-01-05 20:08] LABS: Basophils # (auto) 0.1 10 ^3/uL (0-0.2); Basophils % (auto) 0.5 % (0.0-2.0); Eosinophils # (auto) 0.6 10 ^3/uL (0-0.8); Mean Corpuscular Hemoglobin 24.9 pg (28.0-32.0)
[2025-01-05 20:10] LABS: Eosinophils % (auto) 4.9 % (0.0-7.0); Hematocrit 39.8 % (41.0-53.0); Hemoglobin 12.7 g/dL (13.5-17.5); Lymphocytes # (auto) 1.6 10 ^3/uL (0.4-5.4); Lymphocytes % (auto) 12.6 % (10.0-50.0); Mean Corpuscular Hgb Conc. 31.9 g/dL (32.0-36.0); Mean Corpuscular Volume 77.9 fL (80.0-100.0); Monocytes % (auto) 15.2 % (0.0-12.0); Neutrophils # (auto) 8.6 10 ^3/uL (1.6-8.6); Neutrophils % (auto) 66.8 % (37.0-80.0); Platelet Count (auto) 225 10^3/uL (140-450); Red Blood Cells 5.11 10^6/uL (4.5-5.90); Red Cell Distribution Width 20.4 % (11.8-14.3); White Blood Cell 12.9 10^3/uL (4.4-10.8)
[2025-01-05] MEDS: ASPirin 81 mg TAB PO ONE (20:36)
[2025-01-05 20:40] VITALS: PULSE 107; RESP 20; O2SAT 95
[2025-01-05 20:49] LABS: BUN/Creatinine Ratio 20.1 (10.0-20.0)
[2025-01-05 20:51] LABS: Alanine Aminotransferase 34 U/L (7-40); Albumin 3.4 g/dL (3.2-4.8); Alkaline Phosphatase 102 U/L (46-116); Anion Gap 9 (5-15); Aspartate Aminotransferase 25 U/L (13-40); Bilirubin, Total 1.3 mg/dL (0.2-1.0); Blood Urea Nitrogen 29 mg/dL (9-23); Calcium 8.5 mg/dL (8.7-10.4); Carbon Dioxide 23 mmol/L (20-31); Chloride 108 mmol/L (98-107); Glucose 106 mg/dL (74-106); Potassium 3.8 mmol/L (3.5-5.1); Sodium 140 mmol/L (136-145); Total Protein 5.6 g/dL (5.7-8.2)
[2025-01-05] MEDS: MORPHINE SULFATE INJ 2 MG/ml SYRG IV ONE (20:51)
[2025-01-05] MEDS: FUROSEMIDE 40 MG/4 ML VIAL IV ONE (20:52)
--- NOTE | 2025-01-05 21:04 | DVH ---
CHEST RADIOGRAPH Indication: cp Technique: Single frontal view of the chest was obtained COMPARISON: XY CHEST XRAY 1 VIEW on DOS: 09/30/24, XY CHEST PORTABLE on DOS: 08/19/24, XY CHEST PORTAB LE on DOS: 06/19/24, XY CHEST PORTABLE on DOS: 03/18/24, XY CHEST PORTABLE on DOS: 03/17/24 FINDINGS: Lines and Tubes: None Lungs: There are bibasilar opacities much greater on the right side consistent with pneumonia. Pleura: No effusion. No pneumothorax. Cardiomediastinal contours: Moderate cardiomegaly. Bones: Unremarkable IMPRESSION: Bibasilar opacities greater on the right side consistent with pneumonia.
[2025-01-05] MEDS ORDERED: ACETAMINOPHEN 325 MG TAB PO PRN (22:15)
[2025-01-05] MEDS ORDERED: ONDANSETRON HCL 4 MG/2 ML VIAL IV PRN (22:15)
[2025-01-05] MEDS ORDERED: NITROGLYCERIN 0.4 MG SL TAB SL PRN (22:30)
[2025-01-05] MEDS ORDERED: MORPHINE SULFATE INJ 2 MG/ml SYRG IV PRN (22:30)
--- NOTE | 2025-01-05 22:55 | DVHHP2 ---
History of Present Illness Reason for Visit: Acute on chronic systolic heart failure History of Present Illness The patient is a 69-year-old male with past medical history of asthma, COPD, CHF, and thyroid disease who presented to [facility] ED with complaint of shortness of breaths. Patient reports symptoms progressively get worse with cough, chest tightness, bilateral pedal edema for the past 2 days, increased work of breathing, getting worse today that prompted this visit. Patient was seen and evaluated in the ED, laboratory data shows WBC 12.9, platel ets 225, sodium 140, potassium 3.8, BUN 29, creatinine 1.44, GFR 53, glucose 106, total bilirubin 1.3, BNP 1411.55, troponin 64. Chest x-ray revealing bibasilar opacities greater on the right side consistent with pneumonia. Patient was started on IV antibiotic regimen azithromycin, please see medication orders section in the computer. On my assessment, patient denies chest pain, no headache, no dizziness, no diaphoresis, no nausea, no vomiting, no fever, no chills. Patient was admitted for further evaluation and medical management. Past Medical History Asthma, CHF, COPD, Thyroid Past Surgical History Denies all surgeries Family History Reviewed, noncontributory to the management of this case. Past Social History The patient lives at home, smokes cigarettes less than 1 pack per day, denies alcohol or illicit drugs abuse. Review of Systems Constitutional: Yes: Weakness; No: Fever, Chills, Sweats, Malaise, Other Eyes: No: Pain, Vision change, Conjunctivae inflammation, Eyelid inflammation, Other, Redness Respiratory: Cough, Shortness of breath, SOB with excertion, Other (SOB at rest); No: Dry, Wheezing, Hemoptysis, Pleuritic Pain, Sputum, Wheezing Cardiovascular: No: Chest Pain, Palpitations, Orthopnea, Paroxysmal Noc. Dyspnea, Edema, Lt Headedness, Other Gastrointestinal: No: Nausea, Vomiting, Abdominal Pain, Diarrhea, Constipation, Melena, Hematochezia, Other Genitourinary: No Dysuria, No Frequency, No Incontinence, No Hematuria, No Retention, No Other Musculoskeletal: No: other, neck pain, shoulder pain, arm pain, back pain, hand pain, leg pain, foot pain Skin: No: Rash, Lesions, Jaundice, Bruising, Other Neurological: No: Weakness, Numbness, Incoordination, Change in speech, Confusion, Seizures, Other Allergies: Coded Allergies: NO KNOWN ALLERGIES (Unverified , 09/22/10) Medications Current Medications Medications Dose Ordered Sig/Tawnya Route Start Time Stop Time Status Last Admin Dose Admin Ceftriaxone Sodium 50 ml @ 100 mls/hr DAILY@2100 IV 01/06/25 21:00 Azithromycin 250 ml @ 125 mls/hr DAILY@2200 IV 01/06/25 22:00 Carvedilol 3.125 mg Q12HR PO 01/06/25 10:00 Aspirin 81 mg DAILY PO 01/06/25 10:00 Atorvastatin Calcium 10 mg HS PO 01/06/25 22:00 Levothyroxine Sodium 150 mcg QAM@0600 PO 01/06/25 06:00 Furosemide 40 mg DAILY IV 01/06/25 10:00 Sodium Chloride 10 ml Q8HR IV 01/06/25 06:00 Acetaminophen/ Hydrocodone Bitart 1 tab Q4HP PRN PO 01/05/25 22:15 Ondansetron HCl 4 mg Q4HP PRN IV 01/05/25 22:15 Docusate Sodium 100 mg BIDPRN PRN PO 01/05/25 22:15 Acetaminophen 650 mg Q6HP PRN PO 01/05/25 22:15 Exam Vital Signs Vital Signs Date Time Temp Pulse Resp B/P (MAP) Pulse Ox O2 Delivery O2 Flow Rate FiO2 01/05/25 21:21 105 20 112/70 01/05/25 20:44 98.4 95 98.4 01/05/25 20:40 Room Air* 0 21 General Appearance: Alert, Oriented X3, Cooperative, No acute distress HEENT: Atraumatic, PERRLA, EOMI Respiratory: Normal air movement, Other (Diminished breath sounds) Cardiovascular: Regular rate, Normal S1, Normal S2, No murmurs Abdominal: Normal bowel sounds, Soft, No tenderness, No hepatospenomegaly, No masses Extremities: No clubbing, No cyanosis, Normal pulses, No tenderness/swelling, Other (Lower extremity edema) Skin: No rashes, No breakdown, No significant lesion Neuro: Normal speech, Normal tone, Sensation intact, Cranial nerves 3-12 NL, Reflexes 2+, Other (Generalized weakness) Psych/Mental Status: Mental status NL, Mood NL Labs/Xrays Labs Test 01/05/25 22:11 01/05/25 20:50 01/05/25 19:54 Range/Units Troponin I High Sensitivity 65 *H </=54 ng/L White Blood Count 12.9 H 4.4-10.8 10^3/uL Red Blood Count 5.11 4.5-5.90 10^6/uL Hemoglobin 12.7 L 13.5-17.5 g/dL Hematocrit 39.8 L 41.0-53.0 % Mean Corpuscular Volume 77.9 L 80.0-100.0 fL Mean Corpuscular Hemoglobin 24.9 L 28.0-32.0 pg Mean Corpuscular Hemoglobin Concent 31.9 L 32.0-36.0 g/dL Red Cell Distribution Width 20.4 H 11.8-14.3 % Platelet Count 225 140-450 10^3/uL Mean Platelet Volume 7.8 6.9-10.8 fL Neutrophils (%) (Auto) 66.8 37.0-80.0 % Lymphocytes (%) (Auto) 12.6 10.0-50.0 % Monocytes (%) (Auto) 15.2 H 0.0-12.0 % Eosinophils (%) (Auto) 4.9 0.0-7.0 % Basophils (%) (Auto) 0.5 0.0-2.0 % Neutrophils # (Auto) 8.6 1.6-8.6 10 ^3/uL Lymphocytes # (Auto) 1.6 0.4-5.4 10 ^3/uL Monocytes # (Auto) 2.0 H 0-1.3 10 ^3/uL Eosinophils # (Auto) 0.6 0-0.8 10 ^3/uL Basophils # (Auto) 0.1 0-0.2 10 ^3/uL Nucleated Red Blood Cells 0.0 % Sodium Level 140 136-145 mmol/L Potassium Level 3.8 3.5-5.1 mmol/L Chloride Level 108 H 98-107 mmol/L Carbon Dioxide Level 23 20-31 mmol/L Anion Gap 9 5-15 Blood Urea Nitrogen 29 H 9-23 mg/dL Creatinine 1.44 H 0.700-1.30 mg/dL Glomerular Filtration Rate Calc 53 >90 mL/min BUN/Creatinine Ratio 20.1 H 10.0-20.0 Serum Glucose 106 74-106 mg/dL Calcium Level 8.5 L 8.7-10.4 mg/dL Total Bilirubin 1.3 H 0.2-1.0 mg/dL Aspartate Amino Transferase (AST) 25 13-40 U/L Alanine Aminotransferase (ALT) 34 7-40 U/L Alkaline Phosphatase 102 46-116 U/L B-Type Natriuretic Peptide 1411.55 0-100 pg/mL Total Protein 5.6 L 5.7-8.2 g/dL Albumin 3.4 3.2-4.8 g/dL PATIENT: LUIS F SINGER ACCT: [id number] UNIT: [id number] : 1955 LOC: ER ROOM / BED: / AGE / SEX: 69 / M ADM STATUS: REG ER SERVICE 52 ORDERING PHYSICIAN: VERONICA GARZA MD PROCEDURE(s): CXR1 - CHEST XRAY 1 VIEW REASON: cp ORDER NUMBER(s): [id number], ACCESSION NUMBER(s): [id number] CHEST RADIOGRAPH Indication: cp Technique: Single frontal view of the chest was obtained COMPARISON: XY CHEST XRAY 1 VIEW on DOS: 09/30/24, XY CHEST PORTABLE on DOS: 08/19/24, XY CHEST PORTABLE on DOS: 06/19/24, XY CHEST PORTABLE on DOS: 03/18/24, XY CHEST PORTABLE on DOS: 03/17/24 FINDINGS: Lines and Tubes: None Lungs: There are bibasilar opacities much greater on the right side consistent with pneumonia. Pleura: No effusion. No pneumothorax. Cardiomediastinal contours: Moderate cardiomegaly. Bones: Unremarkable IMPRESSION: Bibasilar opacities greater on the right side consistent with pneumonia. Assessment/Plan Assessment/Plan Acute on chronic systolic heart failure COPD with acute exacerbation Generalized weakness Leukocytosis, unspecified Elevated troponin Pneumonia, unspecified organism Plan 1. Admit to telemetry unit 2. Breathing treatment 3. Pain control management 4. IV antibiotic management 5. Management of fluids and electrolytes 6. Consultation for Cardiology 7. Diagnostic test chest x-ray 8. DVT prophylaxis-on aspirin 9. Repeat labs CBC, CMP in a.m. 10. Home medication reviewed and reconciled 11. Continue with current medical management 12. Treatment plan discussed with patient and RN. Patient verbalized understanding. Plan discussed with: Patient, Other (RN) My Orders Orders - BONG TESFAYE DNP Procedure Category Date Status Time Ceftriaxone 1gm/50ml PHA 01/06/25 In Process D5w (Rocephin) 21:00 Azithromycin 500mg/ PHA 01/06/25 In Process 250ml (Zithromax 50 22:00 Carvedilol Tablet PHA 01/06/25 In Process (Coreg Tablet) 10:00 Aspirin Tablet PHA 01/06/25 In Process 10:00 Atorvastatin (Lipitor) PHA 01/06/25 In Process 22:00 Levothyroxine Tablet PHA 01/06/25 In Process (Synthroid Tablet) 06:00 Furosemide Injection PHA 01/06/25 In Process (Lasix Injection) 10:00 Thyroid Stimulating LAB 01/05/25 In Process Hormone 22:08 * Cardiology Consult CONS 01/05/25 Transmitted 22:08 Allergies THANH 01/05/25 In Process 22:08 Code Status CODE 01/05/25 Transmitted 22:08 Sodium Chloride Lock PHA 01/06/25 In Process (Saline Lock Ns) 06:00 Oxygen Per Hour RT 01/05/25 Transmitted 22:08 Hydrocodone-Acet PHA 01/05/25 In Process 5/325mg Tab ([place] 22:15 Ondansetron Hcl PHA 01/05/25 In Process (Zofran) 22:15 Docusate Sodium PHA 01/05/25 In Process Capsule (Colace 22:15 Complete Blood Count LAB 01/06/25 Verified 04:00 Comprehensive LAB 01/06/25 Verified Metabolic Panel 04:00 Cardiac DIET 01/06/25 Transmitted Diet-2gna,Lofat,Lochol Breakfast Condition: Serious THANH 01/05/25 In Process 22:08 Acetaminophen Tablet PHA 01/05/25 In Process (Tylenol Tablet) 22:15 Bedrest With Bathroom THANH 01/05/25 In Process Privileg 22:08 Sequential THANH 01/05/25 In Process Compression Device Problem List: (1) Pneumonia, unspecified organism (2) Generalized weakness (3) COPD with acute exacerbation (4) Leukocytosis, unspecified (5) Elevated troponin (6) Acute on chronic systolic heart failure Date of Service: Jan 05, 2025 Billing Provider: BONG TESFAYE DNP Common Visit Codes: [id number] INP/OBS CARE (HIGH) BONG TESFAYE DNP Jan 05, 2025 22:55
[2025-01-05] MEDS: cefTRIAXone 1GM/50ML D5W 50 ML IV ONE (23:10)
[2025-01-06] VITALS (20 sets, daily range): BP systolic 109–143; BP diastolic 65–86; PULSE 81–115; RESP 14–22; TEMP 97.7–98.5; O2SAT 92–100
[2025-01-06] MEDS: AZITHROMYCIN 500MG/ 250ML 250 ML IV ONE (00:26)
[2025-01-06] MEDS: HYDROcodone-ACET 5/325MG TAB PO PRN (01:01)
[2025-01-06] MEDS: guaiFENesin 200 MG/10 ML UD GT PRN (02:00)
[2025-01-06] MEDS ORDERED: ALBUTEROL SULF 2.5 MG/0.5ML(0.5%) NEB SOLN NEB PRN (02:00)
[2025-01-06 03:04] LABS: Urine Bacteria FEW /hpf (None Seen); Urine Blood TRACE /uL (Negative); Urine Clarity Clear (Clear); Urine Color Light-Yellow (Yellow); Urine Protein, UAD Negative (Negative); Urine Specific Gravity 1.007 (1.001-1.035); Urine Squamous Epithelial Cell FEW /hpf (<5); Urine Urobilinogen 2 mg/dL (Negative); Urine WBC 46 /HPF (0-3)
[2025-01-06] MEDS: LEVOTHYROXINE SODIUM 50 MCG TAB PO SCH (05:29)
[2025-01-06 06:18] LABS: Basophils # (auto) 0.1 10 ^3/uL (0-0.2); Lymphocytes # (auto) 1.8 10 ^3/uL (0.4-5.4); Lymphocytes % (auto) 12.8 % (10.0-50.0)
[2025-01-06 06:20] LABS: Basophils % (auto) 0.6 % (0.0-2.0); Eosinophils # (auto) 0.5 10 ^3/uL (0-0.8); Eosinophils % (auto) 3.7 % (0.0-7.0); Hemoglobin 12.9 g/dL (13.5-17.5); Mean Corpuscular Hemoglobin 25.7 pg (28.0-32.0); Mean Corpuscular Hgb Conc. 33.2 g/dL (32.0-36.0); Mean Corpuscular Volume 77.4 fL (80.0-100.0); Monocytes # (auto) 1.8 10 ^3/uL (0-1.3); Monocytes % (auto) 12.8 % (0.0-12.0); Neutrophils # (auto) 9.8 10 ^3/uL (1.6-8.6); Neutrophils % (auto) 70.1 % (37.0-80.0); Nucleated Red Blood Cells % 0.1 %; Platelet Count (auto) 233 10^3/uL (140-450); Red Blood Cells 5.04 10^6/uL (4.5-5.90); Red Cell Distribution Width 19.8 % (11.8-14.3)
[2025-01-06] MEDS: SODIUM CHLOR 0.9% PF (SALINE LOCK) 10ML VIAL/SYR IV SCH (06:25)
[2025-01-06 06:35] LABS: Alanine Aminotransferase 32 U/L (7-40); Albumin 3.8 g/dL (3.2-4.8); Alkaline Phosphatase 98 U/L (46-116); Anion Gap 11 (5-15); Aspartate Aminotransferase 27 U/L (13-40); BUN/Creatinine Ratio 16.2 (10.0-20.0); Calcium 8.9 mg/dL (8.7-10.4); Carbon Dioxide 26 mmol/L (20-31); Chloride 102 mmol/L (98-107); Sodium 139 mmol/L (136-145); Total Protein 6.3 g/dL (5.7-8.2)
[2025-01-06 06:40] LABS: Bilirubin, Total 1.4 mg/dL (0.2-1.0); Blood Urea Nitrogen 25 mg/dL (9-23); Glucose 70 mg/dL (74-106); Potassium 3.2 mmol/L (3.5-5.1)
[2025-01-06 07:57] LABS: Amphetamine Screen, Urine Pos (NEGATIVE); Barbiturate Scree,Urine Neg (NEGATIVE); Benzodiazephine Screen, Urine Neg (NEGATIVE); Cannabinoid Screen, Urine Neg (NEGATIVE); Cocaine Screen, Urine Neg (NEGATIVE); Opiate Scree,Urine Neg (NEGATIVE); Phencyclidine Screen, Urine Neg (NEGATIVE)
[2025-01-06 08:28] LABS: INR 1.29 (0.9-1.15); Partial Thromboplastin Time 30.5 SEC (24.5-34.5); Prothrombin Time 13.3 sec (9.3-11.8)
[2025-01-06] MEDS: CARVEDILOL 3.125 MG TAB PO SCH (09:20)
[2025-01-06] MEDS: ASPirin 81 mg TAB PO SCH (09:20)
[2025-01-06] MEDS: FUROSEMIDE 40 MG/4 ML VIAL IV SCH ×2 (09:22→21:18)
[2025-01-06] MEDS: IPRATROPIUM BROM 0.5 MG/2.5ML INH SOL ONE (11:06)
[2025-01-06] MEDS: ALBUTEROL SULF 2.5 MG/0.5ML(0.5%) NEB SOLN ONE (11:06)
--- NOTE | 2025-01-06 13:57 | DVHINCON2 ---
Date Seen: Jan 06, 2025 Referring Physician SHAMEKA Rosenberg Reason for Consultation CHF exacerbation History of Present Illness This is a 69-year-old male patient who presents to the emergency room with chief complaint of worsening shortness of breath and bilateral lower extremity edema for approximately one week. He comes to the emergency room for further evaluation. Cardiology has now been consulted for CHF exacerbation. Initial twelve lead electrocardiogram reveals sinus tachycardia with nonspecific ST segment changes to lateral leads. Initial troponin level of 64ng/L with flat trend thereafter. Initial BNP level of 1411pg/mL. Significant past medical history includes congestive heart failure, chronic kidney disease, benign prostatic hyperplasia, urinary retention with chronic indwelling urinary catheter, hypothyroidism, COPD, pulmonary fibrosis, previous pneumoperitoneum (03/18/22), history of tobacco use, and current drug abuse. The patient is a poor historian. 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 The patient also admits to recent methamphetamine use. He also admits to dietary indiscretions, recently eating a lot of frozen foods. Past Medical History Past medical history reviewed. No other significant than mentioned above. Past Surgical History Exploratory laparotomy, resection of sigmoid perforation of diverticulitis, repair of colovesical fistula (03/18/22) Colostomy with reversal Family History: Family history: Thyroid disorder G8 FATHER Prostate problems G8 FATHER Family History Family history reviewed. Social History Patient has a 50 pack years history, states he quit approximately 4 years ago Patient denies any alcohol use Patient denies any drug use, toxicology report positive for amphetamines Allergies: Coded Allergies: NO KNOWN ALLERGIES (Unverified , 09/22/10) Home Meds Active Scripts Cephalexin (KEFLEX CAPSULE) 250 Mg Cp, 1 CAP PO QID for 5 Days, #28 CAP Prov:MICHA RAMIREZ 10/04/24 Furosemide (Furosemide) 40 Mg Tab, 40 MG PO BID for 30 Days, #60 TAB Prov:MICHA RAMIREZ 10/04/24 Metolazone (Metolazone) 5 Mg Tab, 2.5 MG PO 2XW for 30 Days, #15 TAB Prov:MICHA RAMIREZ 10/04/24 Acetaminophen (Acetaminophen) 325 Mg Tab, 650 MG PO Q6HP PRN for 10 Days, #80 TAB Prov:MICHA RAMIREZ 10/04/24 Empagliflozin (Jardiance) 10 Mg Tab, 10 MG PO DAILY for 30 Days, #30 TAB Prov:MORIAH ROJAS MD 08/23/24 Albuterol Sulfate (Ventolin) 2.5 Mg/0.5 Ml Nb, 1 VIAL NEB Q4HR, #60 VIAL 1 Refill Prov:MARTIN SPENCER 05/07/24 Atorvastatin Calcium (ATORVASTATIN CALCIUM) 20 Mg Tab, 20 MG PO HS for 30 Days, #30 TAB Prov:MICHA RAMIREZ RESIDENT 03/20/24 Aspirin (Aspirin Low Dose) 81 Mg Tab, 81 MG PO DAILY for 30 Days, #30 TAB Prov:MICHA RAMIREZ RESIDENT 03/20/24 Pantoprazole Sodium Sesquihydr (Pantoprazole Sodium) 40 Mg Tab, 40 MG PO DAILY for 30 Days, #30 TAB Prov:EMEKA MCALLISTER MD 01/20/23 Tamsulosin Hcl (Flomax) 0.4 Mg Cap, 1 CAP PO HS, #30 CAP 11 Refills Prov:DARIAN DIEGO MD 03/29/22 Reported Medications Finasteride (Finasteride) 5 Mg Tab, 5 MG PO DAILY, MG 03/18/24 Carvedilol (Carvedilol) 3.125 Mg Tab, 3.125 MG PO BID, MG 03/18/24 Acetaminophen (Acetaminophen) 500 Mg Tab, 500 MG PO PRN PRN for pain 03/17/22 Levothyroxine Sodium (Levothyroxine Sodium) 150 Mcg Tab, 150 MCG PO QAM 02/25/16 Home Meds Home medications reviewed. Current Medications Current Medications Medications (Trade) Dose Ordered Sig/Tawnya Route PRN Reason Start Time Stop Time Status Last Admin Ceftriaxone Sodium 50 ml @ 100 mls/hr DAILY@2100 IV 01/06/25 21:00 Azithromycin 250 ml @ 125 mls/hr DAILY@2200 IV 01/06/25 22:00 Carvedilol (Coreg Tablet) 3.125 mg Q12HR PO 01/06/25 10:00 01/06/25 09:20 Aspirin 81 mg DAILY PO 01/06/25 10:00 01/06/25 09:20 Atorvastatin Calcium (Lipitor) 10 mg HS PO 01/06/25 22:00 Levothyroxine Sodium (Synthroid Tablet) 150 mcg QAM@0600 PO 01/06/25 06:00 01/06/25 05:29 Furosemide (Lasix Injection) 40 mg DAILY IV 01/06/25 10:00 01/06/25 09:22 Sodium Chloride (Saline Lock Ns) 10 ml Q8HR IV 01/06/25 06:00 01/06/25 06:25 Acetaminophen/ Hydrocodone Bitart ([place]ley 5/325MG Tab) 1 tab Q4HP PRN PO MODERATE PAIN (4-6 PAIN SCALE) 01/05/25 22:15 01/06/25 10:15 Ondansetron HCl (Zofran) 4 mg Q4HP PRN IV NAUSEA / VOMITING 01/05/25 22:15 Docusate Sodium (Colace Capsule) 100 mg BIDPRN PRN PO FOR CONSTIPATION 01/05/25 22:15 Acetaminophen (Tylenol Tablet) 650 mg Q6HP PRN PO PAIN SCALE 1-3 OR TEMP>100.4 01/05/25 22:15 Nitroglycerin (Ntrostat Sublingual) 0.4 mg Q5MINP PRN SL FOR CHEST PAIN 01/05/25 22:30 Morphine Sulfate 2 mg Q30M PRN IV FOR CHEST PAIN 01/05/25 22:30 Guaifenesin (Robitussin Plain Liquid) 200 mg Q6HP PRN GT FOR COUGH 01/06/25 01:45 01/06/25 02:00 Albuterol (Ventolin Medneb) 2.5 mg Q6HPRN PRN NEB SHORTNESS OF BREATH 01/06/25 02:00 01/06/25 11:00 DC Levalbuterol HCl (Xopenex Medneb) 1.25 mg Q6HR NEB 01/06/25 12:00 Ipratropium [place] (Atrovent Medneb) 0.5 mg Q4HWA NEB 01/06/25 12:00 Review of Systems Constitutional: No symptom reported Ears, Nose, & Throat: No symptom reported Eyes: No symptom reported Neurological: No symptoms reported Pulmonary/Respiratory: Shortness of breath Cardiovascular: Bilateral lower extremity edema Gastrointestinal: No symptom reported Genitourinary: No symptom reported Musculoskeletal: No symptom reported Skin: No symptom reported Psychiatric: No symptom reported Endocrine: No symptom reported Hematologic/Lymphatic: No symptom reported Vital Signs Vital Signs Date Time Temp Pulse Resp B/P (MAP) Pulse Ox O2 Delivery O2 Flow Rate FiO2 01/06/25 12:51 97.7 95 19 109/81 (90) 96 97.7 01/06/25 11:06 Room Air 0.0 01/06/25 11:06 21 Physical Exam General Appearance: Cooperative. Obese Pulmonary/Respiratory: Clear, bilateral breaths sounds. Cardiovascular/Chest: Regular rate and rhythm. Peripheral Pulses: 2+ Radial (R). 2+ Radial (L). 2+ Pedal (R). 2+ Pedal (L) Abdominal Exam: Normal bowel sounds. Ankle Exam: 4+ pitting edema Lower extremities: 4+ pitting edema Neuro/Mental Status: A/OX4, coherent. Thoughts/Psych: Normal thought pattern. Appropriate mood and affect. Good judgment and insight. Appearance: No acute distress. Skin Exam: Normal inspection. Normal color. Warm and dry. Labs/Diagnostic Data Labs Test 01/06/25 04:39 01/06/25 01:08 01/05/25 23:03 01/05/25 22:11 Range/Units White Blood Count 14.0 H 4.4-10.8 10^3/uL Red Blood Count 5.04 4.5-5.90 10^6/uL Hemoglobin 12.9 L 13.5-17.5 g/dL Hematocrit 39.0 L 41.0-53.0 % Mean Corpuscular Volume 77.4 L 80.0-100.0 fL Mean Corpuscular Hemoglobin 25.7 L 28.0-32.0 pg Mean Corpuscular Hemoglobin Concent 33.2 32.0-36.0 g/dL Red Cell Distribution Width 19.8 H 11.8-14.3 % Platelet Count 233 140-450 10^3/uL Mean Platelet Volume 7.8 6.9-10.8 fL Neutrophils (%) (Auto) 70.1 37.0-80.0 % Lymphocytes (%) (Auto) 12.8 10.0-50.0 % Monocytes (%) (Auto) 12.8 H 0.0-12.0 % Eosinophils (%) (Auto) 3.7 0.0-7.0 % Basophils (%) (Auto) 0.6 0.0-2.0 % Neutrophils # (Auto) 9.8 H 1.6-8.6 10 ^3/uL Lymphocytes # (Auto) 1.8 0.4-5.4 10 ^3/uL Monocytes # (Auto) 1.8 H 0-1.3 10 ^3/uL Eosinophils # (Auto) 0.5 0-0.8 10 ^3/uL Basophils # (Auto) 0.1 0-0.2 10 ^3/uL Nucleated Red Blood Cells 0.1 % Prothrombin Time 13.3 H 9.3-11.8 sec Prothrombin Time INR 1.29 H 0.9-1.15 Activated Partial Thromboplast Time 30.5 24.5-34.5 SEC Sodium Level 139 136-145 mmol/L Potassium Level 3.2 L 3.5-5.1 mmol/L Chloride Level 102 98-107 mmol/L Carbon Dioxide Level 26 20-31 mmol/L Anion Gap 11 5-15 Blood Urea Nitrogen 25 H 9-23 mg/dL Creatinine 1.54 H 0.700-1.30 mg/dL Glomerular Filtration Rate Calc 49 >90 mL/min BUN/Creatinine Ratio 16.2 10.0-20.0 Serum Glucose 70 L 74-106 mg/dL Hemoglobin A1c 6.1 H <5.7 % A1C Calcium Level 8.9 8.7-10.4 mg/dL Magnesium Level 2.0 1.6-2.6 mg/dL Total Bilirubin 1.4 H 0.2-1.0 mg/dL Aspartate Amino Transferase (AST) 27 13-40 U/L Alanine Aminotransferase (ALT) 32 7-40 U/L Alkaline Phosphatase 98 46-116 U/L Total Protein 6.3 5.7-8.2 g/dL Albumin 3.8 3.2-4.8 g/dL Triglycerides Level 77 < 150 mg/dL Cholesterol Level 68 < 200 mg/dL LDL Cholesterol 40 < 100 mg/dL HDL Cholesterol 15 L 40-59 mg/dL Vitamin B12 Level 666 211-911 pg/mL Vitamin D 25-Hydroxy 18.6 L 30.0-100 ng/mL Thyroid Stimulating Hormone (TSH) 2.54 0.55-4.78 uIU/mL Urine Color Light-yellow Yellow Urine Clarity Clear Clear Urine pH 6.0 5.0-9.0 Urine Specific [place] 1.007 1.001-1.035 Urine Protein Negative Negative Urine Ketones Negative Negative Urine Blood Trace H Negative /uL Urine Nitrite Negative Negative Urine Bilirubin Negative Negative Urine Urobilinogen 2 H Negative mg/dL Urine Leukocyte Esterase 3+ Negative /uL Urine RBC 6 0 - 3 /hpf Urine Microscopic WBC 46 H 0-3 /HPF Urine Squamous Epithelial Cells Few <5 /hpf Urine Bacteria Few H None Seen /hpf Urine Glucose Normal Normal mg/dL Urine Opiates Screen Neg NEGATIVE Urine Fentanyl Screen Neg NEGATIVE Urine Barbiturates Screen Neg NEGATIVE Urine Phencyclidine Screen Neg NEGATIVE Urine Amphetamines Screen Pos NEGATIVE Urine Benzodiazepines Screen Neg NEGATIVE Urine Cocaine Screen Neg NEGATIVE Urine Cannabinoids Screen Neg NEGATIVE Troponin I High Sensitivity 66 *H </=54 ng/L Lactic Acid Level 1.0 0.4-2.0 mmol/L Test 01/05/25 19:54 Range/Units B-Type Natriuretic Peptide 1411.55 0-100 pg/mL Microbiology Date/Time Source Procedure Growth Status 01/06/25 00:30 Nose MRSA Screen - Final Methicillin Resistant S.aureus Complete Assessment Acute on chronic decompensated HFrEF, NYHA class III NSTEMI, likely type II secondary to above 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 Cruz): * Echocardiogram from 10/02/24 reveals reveals EF 10%, RVSP 48 mmHg * Severely dilated left and right ventricle * Moderate mitral valve regurgitation * Moderate tricuspid valve regurgitation * Initiate GDMT for CHF as renal function permits * Strict intake and output, maintain fluid restriction, daily weights * Unable to initiate ARB/ARNI/ACEI/MRA given elevated creatinine * Preload and afterload reduction * Risk factor modifications, counseled * Adherence to medication regimen * Avoidance of substance use * Antibiotics per primary care team Patient seen and examined at bedside with . Thank you for allowing us to care for this patient. Please call with any questions or concerns. Critical care time spent: 44 minutes This medical document was created using an electronic medical record system with voice recognition software and computerized dictation system. Although this document has been carefully reviewed, there might still be some phonetic and typographical errors. Occasional wrong-word or ``sound-alike substitutions may have occurred due to the inherent limitations of voice recognition software. These areas are purely typographical due to imperfections of the software programs and do not reflect any compromise in the patient's medical care. Please read the chart carefully and recognize, using context, where these substitutions have occurred. Plan discussed with: Patient NYHA Physical activity limitations: Class3(Marked) ordinary (activity causes symtoms) Date of Service: Jan 06, 2025 Billing Provider: PHU HAWKINS Cardiology Common Codes: 60056-BXIHXWP INP/OBS CARE (High) Cardiology Consultation Codes: 14890-[id number] CONSULT <45MIN PHU HAWKINS Jan 06, 2025 13:57
--- NOTE | 2025-01-06 14:29 | DVHPNRES ---
Progress Note Date Seen: Jan 06, 2025 Resident Creating Document: CLARISSE WARREN RESIDENT Medical Necessity Reason Pt with a Central, PICC or Fol: No Subjective Review of Systems Mr. Sawyer a 69-year-old male with past medical history of COPD on home oxygen which he recently lost, congestive heart failure, hypothyroidism, CKD stage IIIB, history of colostomy colostomy 2022, history of meth use, history of nicotine use, who presents to the hospital with the chief complaint of shortness of breaths, fever and chills for the past 1 week. He reports having experiencing flu-like symptoms for the past 1 week including fever, chills, shortness of breath and dry cough. Following that, patient did not take his congestive heart failure medications reports developing lower extremity swelling. He recently changes insurance and lost his home oxygen. He denies smoking, drinking or illicit drug use. Last echocardiogram completed 08/02/2024, showed Severely dilated left ventricle. Severely reduced left ventricular systolic function estimated ejection fraction of 10%. There is global wall akinesia. There is a grade 2 diastolic dysfunction. Normal left ventricular size and dimension. Severely reduced right ventricular systolic function. Moderately elevated right ventricular systolic [id number] mm of mercury. On arrival in the ED, patient was tachycardic, WBC count was 12.9 which increased to 14, troponins were elevated at 64, not up trending. BNP 1411 Chest x-ray showed Bibasilar opacities greater on the right side consistent with pneumonia. Past medical/surgical history: See above Social history: Quit smoking 4 years back, denies drinking or illicit drug use Patient seen and examined at the bedside. His right lower crackles in lower extremity bilateral 3+ pitting edema. Patient is dry cough. Objective vital signs Vital Sign Date Time Temp Pulse Resp B/P (MAP) Pulse Ox O2 Delivery O2 Flow Rate FiO2 01/06/25 12:51 97.7 95 19 109/81 (90) 96 97.7 01/06/25 11:06 Room Air 0.0 01/06/25 11:06 21 Total Intake and Output 01/05/25 01/05/25 01/06/25 15:00 23:00 07:00 Intake Total 400 ml Output Total 600 ml Balance -200 ml medications Current Medications Medications Dose Ordered Sig/Tawnya Route Start Time Stop Time Status Last Admin Dose Admin Ceftriaxone Sodium 50 ml @ 100 mls/hr DAILY@2100 IV 01/06/25 21:00 Azithromycin 250 ml @ 125 mls/hr DAILY@2200 IV 01/06/25 22:00 Carvedilol 3.125 mg Q12HR PO 01/06/25 10:00 01/06/25 09:20 3.125 MG Aspirin 81 mg DAILY PO 01/06/25 10:00 01/06/25 09:20 81 MG Atorvastatin Calcium 10 mg HS PO 01/06/25 22:00 Levothyroxine Sodium 150 mcg QAM@0600 PO 01/06/25 06:00 01/06/25 05:29 150 MCG Furosemide 40 mg DAILY IV 01/06/25 10:00 01/06/25 09:22 40 MG Sodium Chloride 10 ml Q8HR IV 01/06/25 06:00 01/06/25 06:25 10 ML Acetaminophen/ Hydrocodone Bitart 1 tab Q4HP PRN PO 01/05/25 22:15 01/06/25 10:15 1 TAB Ondansetron HCl 4 mg Q4HP PRN IV 01/05/25 22:15 Docusate Sodium 100 mg BIDPRN PRN PO 01/05/25 22:15 Acetaminophen 650 mg Q6HP PRN PO 01/05/25 22:15 Nitroglycerin 0.4 mg Q5MINP PRN SL 01/05/25 22:30 Morphine Sulfate 2 mg Q30M PRN IV 01/05/25 22:30 Guaifenesin 200 mg Q6HP PRN GT 01/06/25 01:45 01/06/25 02:00 200 MG Levalbuterol HCl 1.25 mg Q6HR NEB 01/06/25 12:00 Ipratropium [place] 0.5 mg Q4HWA NEB 01/06/25 12:00 Examination Patient lying in bed, in no acute distress General: Well-built, afebrile, palor, mucosae are moist Cardiovascular: Regular S1 and S2. No murmurs, gallops or rubs. No JVD elevation. Bilateral 3+ pitting edema. Respiratory: Saturating 93 on 3 L nasal cannula, right lower crackles heard on auscultation. Abdomen: Soft, nontender, nondistended, normoactive bowel sounds, no rebound tenderness, no organomegaly, no masses Genitourinary: Deferred MSK/skin: Mobilizes 4 limbs. Skin is dry and warm Neurological: No motor, no sensitive deficits, normal speech. Pupils are isocoric and reactive. Psych/Mental Status: A/Ox3 laboratory and microbiology Laboratory Tests 01/06/25 04:39 Test 01/06/25 04:39 Range/Units Serum Glucose 70 L 74-106 mg/dL Microbiology Date/Time Source Procedure Growth Status 01/06/25 00:30 Nose MRSA Screen - Final Methicillin Resistant S.aureus Complete Labs and/or images reviewed: Labs reviewed by me, Image(s) reviewed by me Problem List/Assessment/Plan Problem List/Assessment/Plan Acute hypoxic respiratory failure secondary to community-acquired pneumonia Acute on chronic systolic congestive heart failure exacerbation-NYHA class 3 secondary to above Community-acquired pneumonia, mixed Gram-positive and negative with pleuritic chest pain NSTEMI like clear type 2 secondary to above IV ceftriaxone and IV azithromycin starting 01/05 IV Lasix 40 mg daily, Coreg 3.15 b.i.d., Jardiance 10 mg daily Nebulized treatment with levalbuterol and ipratropium q.6 hourly Sputum culture pending MRSA nares pending CKD Recently seen 1.5 COPD no exacerbation Nebulized treatments Anemia, likely microcytic Monitor Prediabetes mellitus-hemoglobin A1c 6.2 Advised lifestyle measures Umbilical hernia-soft reducible Monitor Hypothyroidism Levothyroxine 150 mcg daily Current methamphetamine use dependence History of tobacco use Counseled regarding cessation for more than 22 minutes Vitamin-D deficiency Supplemented Hypokalemia Supplemented Plan discussed with patient in which all questions have been answered Goals of care discussed with patient for more than 30 minutes, full code status Case discussed with Dr. Ybarra Plan discussed with: Patient My Orders My Orders Orders - CLARISSE WARREN RESIDENT Procedure Category Date Status Time Covid19 Antigen Cindy LAB 01/06/25 Logged Rapid Influenza A&B LAB 01/06/25 Logged 10:57 Respiratory Culture BRITTA 01/06/25 Logged W/ Gs 10:57 Levalbuterol Hcl PHA 01/06/25 In Process (Xopenex Medneb) 12:00 Ipratropium Medneb PHA 01/06/25 In Process (Atrovent Medneb) 12:00 Date of Service: Jan 06, 2025 Billing Provider: YOSEF YBARRA MD Common Visit Codes: [id number] INP/OBS CARE(HIGH) CLARISSE WARREN RESIDENT Jan 06, 2025 14:29 YOSEF YBARRA MD Jan 07, 2025 13:57
--- NOTE | 2025-01-06 15:17 | ECG ---
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
[2025-01-06] MEDS ORDERED: DEXTROSE (50%) 50ML SYRG IV PRN (16:45)
[2025-01-06] MEDS: InsuLIN REG 1unit/0.01ml Soln (100units/ml) SC SCH (17:00)
[2025-01-06] MEDS: ACCU-CHEK COMFORT CURVE STRIP VI SCH (17:00)
[2025-01-06 17:03] LABS: COVID19 ANTIGEN SOFIA FIA NEGATIVE (NEGATIVE); Rapid Influenza A Negative (Negative); Rapid Influenza B Negative (Negative)
[2025-01-06] MEDS: ERGOCALCIFEROL 50,000 UNIT(1.25MG) CAP PO SCH (17:42)
[2025-01-06] MEDS: IPRATROPIUM BROM 0.5 MG/2.5ML INH SOL NEB SCH (18:09)
[2025-01-06] MEDS: LEVALBUTEROL HCL 1.25 MG/3 ML NEB NEB SCH (18:09)
[2025-01-06] MEDS: TAMSULOSIN HYDROCHLORIDE 0.4 MG CAP PO SCH (21:16)
[2025-01-06] MEDS: ATORVASTATIN 20 MG TAB PO SCH (21:17)
[2025-01-06] MEDS: cefTRIAXone 1GM/50ML D5W 50 ML IV SCH (21:28)
[2025-01-06] MEDS: AZITHROMYCIN 500MG/ 250ML 250 ML IV SCH (22:23)
--- NOTE | 2025-01-06 22:40 | DVHINCON2 ---
Date Seen: Jan 06, 2025 Referring Physician SHAMEKA Rosenberg Reason for Consultation CHF exacerbation History of Present Illness This is a 69-year-old male with a PMH of congestive heart failure, chronic kidney disease, benign prostatic hyperplasia, urinary retention with chronic indwelling urinary catheter, hypothyroidism, COPD, pulmonary fibrosis, previous pneumoperitoneum (03/18/22), history of tobacco use, and current drug abuse who presented to the ED with complaint of worsening shortness of breath and bilateral lower extremity edema for approximately one week. Cardiology has now been consulted for CHF exacerbation. Initial twelve lead electrocardiogram reveals sinus tachycardia with nonspecific ST segment changes to lateral leads. Initial troponin level of 64ng/L with flat trend thereafter. Initial BNP level of 1411pg/mL. Chest x-ray shows bibasilar opacities greater on the right side consistent with pneumonia. The patient is a poor historian. He states that he has not followed up with a technical aide in the outpatient setting. The patient also admits to recent methamphetamine use. He also admits to dietary indiscretions, recently eating a lot of frozen foods. Past Medical History Past medical history reviewed. No other significant than mentioned above. Past Surgical History Exploratory laparotomy, resection of sigmoid perforation of diverticulitis, repair of colovesical fistula (03/18/22) Colostomy with reversal Family History: Family history: Thyroid disorder G8 FATHER Prostate problems G8 FATHER Allergies: Coded Allergies: NO KNOWN ALLERGIES (Unverified , 09/22/10) Home Meds Active Scripts Cephalexin (KEFLEX CAPSULE) 250 Mg Cp, 1 CAP PO QID for 5 Days, #28 CAP Prov:MICHA RAMIREZ 10/04/24 Furosemide (Furosemide) 40 Mg Tab, 40 MG PO BID for 30 Days, #60 TAB Prov:MICHA RAMIREZ 10/04/24 Metolazone (Metolazone) 5 Mg Tab, 2.5 MG PO 2XW for 30 Days, #15 TAB Prov:MICHA RAMIREZ 10/04/24 Acetaminophen (Acetaminophen) 325 Mg Tab, 650 MG PO Q6HP PRN for 10 Days, #80 TAB Prov:MICHA RAMIREZ 10/04/24 Empagliflozin (Jardiance) 10 Mg Tab, 10 MG PO DAILY for 30 Days, #30 TAB Prov:MORIAH ROJAS MD 08/23/24 Albuterol Sulfate (Ventolin) 2.5 Mg/0.5 Ml Nb, 1 VIAL NEB Q4HR, #60 VIAL 1 Refill Prov:MARTIN SPENCER 05/07/24 Atorvastatin Calcium (ATORVASTATIN CALCIUM) 20 Mg Tab, 20 MG PO HS for 30 Days, #30 TAB Prov:MICHA RAMIREZ RESIDENT 03/20/24 Aspirin (Aspirin Low Dose) 81 Mg Tab, 81 MG PO DAILY for 30 Days, #30 TAB Prov:MICHA RAMIREZ RESIDENT 03/20/24 Pantoprazole Sodium Sesquihydr (Pantoprazole Sodium) 40 Mg Tab, 40 MG PO DAILY for 30 Days, #30 TAB Prov:EMEKA MCALLISTER MD 01/20/23 Tamsulosin Hcl (Flomax) 0.4 Mg Cap, 1 CAP PO HS, #30 CAP 11 Refills Prov:DARIAN DIEGO MD 03/29/22 Reported Medications Finasteride (Finasteride) 5 Mg Tab, 5 MG PO DAILY, MG 03/18/24 Carvedilol (Carvedilol) 3.125 Mg Tab, 3.125 MG PO BID, MG 03/18/24 Acetaminophen (Acetaminophen) 500 Mg Tab, 500 MG PO PRN PRN for pain 03/17/22 Levothyroxine Sodium (Levothyroxine Sodium) 150 Mcg Tab, 150 MCG PO QAM 02/25/16 Current Medications Current Medications Medications (Trade) Dose Ordered Sig/Tawnya Route PRN Reason Start Time Stop Time Status Last Admin Ceftriaxone Sodium 50 ml @ 100 mls/hr DAILY@2100 IV 01/06/25 21:00 01/06/25 21:28 Azithromycin 250 ml @ 125 mls/hr DAILY@2200 IV 01/06/25 22:00 Carvedilol (Coreg Tablet) 3.125 mg Q12HR PO 01/06/25 10:00 01/06/25 21:16 Aspirin 81 mg DAILY PO 01/06/25 10:00 01/06/25 09:20 Atorvastatin Calcium (Lipitor) 10 mg HS PO 01/06/25 22:00 01/06/25 21:17 Levothyroxine Sodium (Synthroid Tablet) 150 mcg QAM@0600 PO 01/06/25 06:00 01/06/25 05:29 Furosemide (Lasix Injection) 40 mg DAILY IV 01/06/25 10:00 01/06/25 16:39 DC 01/06/25 09:22 Sodium Chloride (Saline Lock Ns) 10 ml Q8HR IV 01/06/25 06:00 01/06/25 21:28 Nitroglycerin (Ntrostat Sublingual) 0.4 mg Q5MINP PRN SL FOR CHEST PAIN 01/05/25 22:30 Morphine Sulfate 2 mg Q30M PRN IV FOR CHEST PAIN 01/05/25 22:30 Guaifenesin (Robitussin Plain Liquid) 200 mg Q6HP PRN GT FOR COUGH 01/06/25 01:45 01/06/25 21:17 Albuterol (Ventolin Medneb) 2.5 mg Q6HPRN PRN NEB SHORTNESS OF BREATH 01/06/25 02:00 01/06/25 11:00 DC Levalbuterol HCl (Xopenex Medneb) 1.25 mg Q6HR NEB 01/06/25 12:00 01/06/25 18:09 Ipratropium [place] (Atrovent Medneb) 0.5 mg Q4HWA NEB 01/06/25 12:00 01/06/25 21:51 Empaglifozin (Jardiance) 10 mg DAILY PO 01/07/25 10:00 Pantoprazole Sodium (Protonix Tablet) 40 mg DAILY PO 01/07/25 10:00 Tamsulosin HCl (Flomax) 0.4 mg HS PO 01/06/25 22:00 01/06/25 21:16 Furosemide (Lasix Injection) 40 mg BID IV 01/06/25 22:00 01/06/25 21:18 Ergocalciferol (Vitamin D 50,000 Unit) 50,000 unit Q7D PO 01/06/25 16:45 01/06/25 17:42 Diagnostic Test (Pha) (Accu-Chek Comfort Curve T) 1 strip ACHS 01/06/25 17:00 Insulin Human Regular (InsuLIN R) ACHS SC 01/06/25 17:00 Dextrose 50 ml UD PRN IV Blood Sugar LESS THAN 60 01/06/25 16:45 Review of Systems Constitutional: No symptom reported Ears, Nose, & Throat: No symptom reported Eyes: No symptom reported Neurological: No symptoms reported Pulmonary/Respiratory: Shortness of breath Cardiovascular: Bilateral lower extremity edema Gastrointestinal: No symptom reported Genitourinary: No symptom reported Musculoskeletal: No symptom reported Skin: No symptom reported Psychiatric: No symptom reported Endocrine: No symptom reported Hematologic/Lymphatic: No symptom reported Vital Signs Vital Signs Date Time Temp Pulse Resp B/P (MAP) Pulse Ox O2 Delivery O2 Flow Rate FiO2 01/06/25 21:57 105 16 98 01/06/25 21:51 Nasal Cannula* 2 28 01/06/25 21:18 119/75 01/06/25 21:00 98.5 98.5 Physical Exam GENERAL: Awake, alert, oriented. Obese. LUNGS: Clear. CARDIOVASCULAR: Heart sounds are good. ABDOMEN: Soft. EXT: +4 pitting edema. Labs/Diagnostic Data Labs Test 01/06/25 19:48 01/06/25 16:00 01/06/25 04:39 01/06/25 01:08 Range/Units POC Glucose 122 H 70-106 mg/dl Influenza Type A Antigen Negative Negative Influenza Type B Antigen Negative Negative SARS-CoV-2 Antigen (Rapid) Negative NEGATIVE White Blood Count 14.0 H 4.4-10.8 10^3/uL Red Blood Count 5.04 4.5-5.90 10^6/uL Hemoglobin 12.9 L 13.5-17.5 g/dL Hematocrit 39.0 L 41.0-53.0 % Mean Corpuscular Volume 77.4 L 80.0-100.0 fL Mean Corpuscular Hemoglobin 25.7 L 28.0-32.0 pg Mean Corpuscular Hemoglobin Concent 33.2 32.0-36.0 g/dL Red Cell Distribution Width 19.8 H 11.8-14.3 % Platelet Count 233 140-450 10^3/uL Mean Platelet Volume 7.8 6.9-10.8 fL Neutrophils (%) (Auto) 70.1 37.0-80.0 % Lymphocytes (%) (Auto) 12.8 10.0-50.0 % Monocytes (%) (Auto) 12.8 H 0.0-12.0 % Eosinophils (%) (Auto) 3.7 0.0-7.0 % Basophils (%) (Auto) 0.6 0.0-2.0 % Neutrophils # (Auto) 9.8 H 1.6-8.6 10 ^3/uL Lymphocytes # (Auto) 1.8 0.4-5.4 10 ^3/uL Monocytes # (Auto) 1.8 H 0-1.3 10 ^3/uL Eosinophils # (Auto) 0.5 0-0.8 10 ^3/uL Basophils # (Auto) 0.1 0-0.2 10 ^3/uL Nucleated Red Blood Cells 0.1 % Prothrombin Time 13.3 H 9.3-11.8 sec Prothrombin Time INR 1.29 H 0.9-1.15 Activated Partial Thromboplast Time 30.5 24.5-34.5 SEC Sodium Level 139 136-145 mmol/L Potassium Level 3.2 L 3.5-5.1 mmol/L Chloride Level 102 98-107 mmol/L Carbon Dioxide Level 26 20-31 mmol/L Anion Gap 11 5-15 Blood Urea Nitrogen 25 H 9-23 mg/dL Creatinine 1.54 H 0.700-1.30 mg/dL Glomerular Filtration Rate Calc 49 >90 mL/min BUN/Creatinine Ratio 16.2 10.0-20.0 Serum Glucose 70 L 74-106 mg/dL Hemoglobin A1c 6.1 H <5.7 % A1C Calcium Level 8.9 8.7-10.4 mg/dL Magnesium Level 2.0 1.6-2.6 mg/dL Total Bilirubin 1.4 H 0.2-1.0 mg/dL Aspartate Amino Transferase (AST) 27 13-40 U/L Alanine Aminotransferase (ALT) 32 7-40 U/L Alkaline Phosphatase 98 46-116 U/L Total Protein 6.3 5.7-8.2 g/dL Albumin 3.8 3.2-4.8 g/dL Triglycerides Level 77 < 150 mg/dL Cholesterol Level 68 < 200 mg/dL LDL Cholesterol 40 < 100 mg/dL HDL Cholesterol 15 L 40-59 mg/dL Vitamin B12 Level 666 211-911 pg/mL Vitamin D 25-Hydroxy 18.6 L 30.0-100 ng/mL Thyroid Stimulating Hormone (TSH) 2.54 0.55-4.78 uIU/mL Urine Color Light-yellow Yellow Urine Clarity Clear Clear Urine pH 6.0 5.0-9.0 Urine Specific [place] 1.007 1.001-1.035 Urine Protein Negative Negative Urine Ketones Negative Negative Urine Blood Trace H Negative /uL Urine Nitrite Negative Negative Urine Bilirubin Negative Negative Urine Urobilinogen 2 H Negative mg/dL Urine Leukocyte Esterase 3+ Negative /uL Urine RBC 6 0 - 3 /hpf Urine Microscopic WBC 46 H 0-3 /HPF Urine Squamous Epithelial Cells Few <5 /hpf Urine Bacteria Few H None Seen /hpf Urine Glucose Normal Normal mg/dL Urine Opiates Screen Neg NEGATIVE Urine Fentanyl Screen Neg NEGATIVE Urine Barbiturates Screen Neg NEGATIVE Urine Phencyclidine Screen Neg NEGATIVE Urine Amphetamines Screen Pos NEGATIVE Urine Benzodiazepines Screen Neg NEGATIVE Urine Cocaine Screen Neg NEGATIVE Urine Cannabinoids Screen Neg NEGATIVE Test 01/05/25 23:03 01/05/25 22:11 01/05/25 19:54 Range/Units Troponin I High Sensitivity 66 *H </=54 ng/L Lactic Acid Level 1.0 0.4-2.0 mmol/L B-Type Natriuretic Peptide 1411.55 0-100 pg/mL Microbiology Date/Time Source Procedure Growth Status 01/06/25 00:30 Nose MRSA Screen - Final Methicillin Resistant S.aureus Complete Assessment Acute on chronic decompensated HFrEF, NYHA class III. NSTEMI, likely type II secondary to above. 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 Mild mitral and tricuspid valve regurgitation. Pneumonia. COPD. Chronic kidney disease. BPH. History of tobacco use. Hypothyroidism.. Amphetamine use. Medical noncompliance. Plan/Recommendation I agree with your ongoing assessment and care of plan. Patient has been seen by Tracy Henderson NP on my behalf, her and I discussed the plan with the patient. Echocardiogram from 10/02/24 reveals reveals EF 10%, RVSP 48 mmHg. Severely dilated left and right ventricle. Moderate mitral valve regurgitation. Moderate tricuspid valve regurgitation. Initiate GDMT for CHF as renal function permits. Strict intake and output, maintain fluid restriction, daily weights. Unable to initiate ARB/ARNI/ACEI/MRA given elevated creatinine. Preload and afterload reduction. Risk factor modifications, counseled. Adherence to medication regimen. Avoidance of substance use. Antibiotics per primary care team. Additional plan as per the hospital course. Plan discussed with: Patient NYHA Physical activity limitations: Class3(Marked) ordinary Date of Service: Jan 06, 2025 Billing Provider: ASH PAREDES MD Cardiology Common Codes: [id number] INP/OBS CARE (High) Cardiology Consultation Codes: [id number] CONSULT <45MIN ASH PAREDES MD Jan 06, 2025 22:30
[2025-01-07] VITALS (23 sets, daily range): BP systolic 85–124; BP diastolic 59–85; PULSE 60–107; RESP 14–19; TEMP 98–98.7; O2SAT 90–100
[2025-01-07] MEDS: LEVALBUTEROL HCL 1.25 MG/3 ML NEB NEB SCH (06:31)
--- NOTE | 2025-01-07 09:35 | DVHPNRES ---
Progress Note Date Seen: Jan 07, 2025 Resident Creating Document: CLARISSE WARREN RESIDENT Medical Necessity Reason Pt with a Central, PICC or Fol: No Subjective Review of Systems Mr. Sawyer a 69-year-old male with past medical history of COPD on home oxygen which he recently lost, chronic indwelling Vargas secondary to BPH for the past 3 years, congestive heart failure, hypothyroidism, CKD stage IIIB, history of colostomy colostomy 2022, history of meth use, history of nicotine use, who presents to the hospital with the chief complaint of shortness of breaths, fever and chills for the past 1 week. He reports having experiencing flu-like symptoms for the past 1 week including fever, chills, shortness of breath and dry cough. Following that, patient did not take his congestive heart failure medications reports developing lower extremity swelling. He recently changes insurance and lost his home oxygen. He denies smoking, drinking or illicit drug use. Last echocardiogram completed 08/02/2024, showed Severely dilated left ventricle. Severely reduced left ventricular systolic function estimated ejection fraction of 10%. There is global wall akinesia. There is a grade 2 diastolic dysfunction. Normal left ventricular size and dimension. Severely reduced right ventricular systolic function. Moderately elevated right ventricular systolic [id number] mm of mercury. On arrival in the ED, patient was tachycardic, WBC count was 12.9 which increased to 14, troponins were elevated at 64, not up trending. BNP 1411 Chest x-ray showed Bibasilar opacities greater on the right side consistent with pneumonia. Past medical/surgical history: See above Social history: Quit smoking 4 years back, denies drinking or illicit drug use 01/06 - Patient seen and examined at the bedside. His right lower crackles in lower extremity bilateral 3+ pitting edema. Patient is dry cough. 01/07-patient seen and examined at the bedside. He is on 2 L nasal cannula, bibasilar lower crackles heard on auscultation. Resolving pitting edema. Patient reports the cough is better, pleuritic chest pain is better. Objective vital signs Vital Sign Date Time Temp Pulse Resp B/P (MAP) Pulse Ox O2 Delivery O2 Flow Rate FiO2 01/07/25 09:00 98.0 102 16 114/78 (90) 92 98.0 01/07/25 06:31 Nasal Cannula* 2 28 Total Intake and Output 01/06/25 01/06/25 01/07/25 15:00 23:00 07:00 Intake Total 1100 ml 360 ml Output Total 1250 ml Balance -150 ml 360 ml medications Current Medications Medications Dose Ordered Sig/Tawnya Route Start Time Stop Time Status Last Admin Dose Admin Ceftriaxone Sodium 50 ml @ 100 mls/hr DAILY@2100 IV 01/06/25 21:00 01/06/25 21:28 100 MLS/HR Azithromycin 250 ml @ 125 mls/hr DAILY@2200 IV 01/06/25 22:00 01/06/25 22:23 125 MLS/HR Carvedilol 3.125 mg Q12HR PO 01/06/25 10:00 01/06/25 21:16 3.125 MG Aspirin 81 mg DAILY PO 01/06/25 10:00 01/06/25 09:20 81 MG Atorvastatin Calcium 10 mg HS PO 01/06/25 22:00 01/06/25 21:17 10 MG Levothyroxine Sodium 150 mcg QAM@0600 PO 01/06/25 06:00 01/07/25 06:14 150 MCG Sodium Chloride 10 ml Q8HR IV 01/06/25 06:00 01/07/25 06:17 10 ML Acetaminophen/ Hydrocodone Bitart 1 tab Q4HP PRN PO 01/05/25 22:15 01/06/25 21:17 1 TAB Ondansetron HCl 4 mg Q4HP PRN IV 01/05/25 22:15 Docusate Sodium 100 mg BIDPRN PRN PO 01/05/25 22:15 Acetaminophen 650 mg Q6HP PRN PO 01/05/25 22:15 Nitroglycerin 0.4 mg Q5MINP PRN SL 01/05/25 22:30 Morphine Sulfate 2 mg Q30M PRN IV 01/05/25 22:30 Guaifenesin 200 mg Q6HP PRN GT 01/06/25 01:45 01/06/25 21:17 200 MG Ipratropium [place] 0.5 mg Q4HWA NEB 01/06/25 12:00 01/07/25 06:31 0.5 MG Empaglifozin 10 mg DAILY PO 01/07/25 10:00 Pantoprazole Sodium 40 mg DAILY PO 01/07/25 10:00 Tamsulosin HCl 0.4 mg HS PO 01/06/25 22:00 01/06/25 21:16 0.4 MG Furosemide 40 mg BID IV 01/06/25 22:00 01/06/25 21:18 40 MG Ergocalciferol 50,000 unit Q7D PO 01/06/25 16:45 01/06/25 17:42 50,000 UNIT Diagnostic Test (Pha) 1 strip ACHS 01/06/25 17:00 01/07/25 06:13 1 STRIP Insulin Human Regular ACHS SC 01/06/25 17:00 Dextrose 50 ml UD PRN IV 01/06/25 16:45 Levalbuterol HCl 1.25 mg Q4HWA NEB 01/07/25 06:00 01/07/25 06:31 1.25 MG Enoxaparin Sodium 40 mg DAILY SC 01/07/25 10:00 Examination Patient lying in bed, in no acute distress General: Well-built, afebrile, palor, mucosae are moist Cardiovascular: Regular S1 and S2. No murmurs, gallops or rubs. No JVD elevation. Bilateral 3+ pitting edema. Respiratory: Saturating 93 on 3 L nasal cannula, right lower crackles heard on auscultation. Abdomen: Soft, nontender, nondistended, normoactive bowel sounds, no rebound tenderness, no organomegaly, no masses Genitourinary: Deferred MSK/skin: Mobilizes 4 limbs. Skin is dry and warm Neurological: No motor, no sensitive deficits, normal speech. Pupils are isocoric and reactive. Psych/Mental Status: A/Ox3 laboratory and microbiology Laboratory Tests 01/06/25 04:39 Test 01/06/25 04:39 Range/Units Serum Glucose 70 L 74-106 mg/dL Microbiology Date/Time Source Procedure Growth Status 01/06/25 00:30 Nose MRSA Screen - Final Methicillin Resistant S.aureus Complete Labs and/or images reviewed: Labs reviewed by me, Image(s) reviewed by me Problem List/Assessment/Plan Problem List/Assessment/Plan 01/07-patient seen and examined at the bedside. He is on 2 L nasal cannula, bibasilar lower crackles heard on auscultation. Resolving pitting edema. Patient reports the cough is better, pleuritic chest pain is better. Pending labs. MRSA nares positive, blood culture ordered. Mupirocin ordered. Acute hypoxic respiratory failure secondary to community-acquired pneumonia Acute on chronic systolic congestive heart failure exacerbation-NYHA class 3 secondary to above Community-acquired pneumonia, mixed Gram-positive and negative with pleuritic chest pain NSTEMI like clear type 2 secondary to above IV ceftriaxone and IV azithromycin starting 01/05 IV Lasix 40 mg daily, Coreg 3.15 b.i.d., Jardiance 10 mg daily Nebulized treatment with levalbuterol and ipratropium q.6 hourly Sputum culture pending MRSA nares pending Chronic kidney disease 3B Chronic indwelling Vargas for the past 3 years secondary to benign prostatic hyperplasia Last Vargas change was 15 days back per patient. Creatinine 1.54, baseline 1.5 MRSA nares positive Mupirocin ointment Blood culture ordered COPD no exacerbation Nebulized treatments Anemia, likely microcytic Monitor Prediabetes mellitus-hemoglobin A1c 6.2 Advised lifestyle measures Umbilical hernia-soft reducible Monitor Hypothyroidism Levothyroxine 150 mcg daily Current methamphetamine use dependence History of tobacco use Counseled regarding cessation for more than 22 minutes Vitamin-D deficiency Supplemented Hypokalemia Supplemented DVT prophylaxis: Enoxaparin 40 mg sc daily Plan discussed with patient in which all questions have been answered Goals of care discussed with patient for more than 30 minutes, full code status Case discussed with Dr. Ybarra Plan discussed with: Patient My Orders My Orders Orders - CLARISSE WARREN RESIDENT Procedure Category Date Status Time Respiratory Culture BRITTA 01/06/25 Logged W/ Gs 10:57 Ipratropium Medneb PHA 01/06/25 In Process (Atrovent Medneb) 12:00 Empagliflozin PHA 01/07/25 In Process (Jardiance) 10:00 Pantoprazole Tablet PHA 01/07/25 In Process (Protonix Tablet) 10:00 Tamsulosin PHA 01/06/25 In Process Hydrochloride (Flomax) 22:00 Furosemide Injection PHA 01/06/25 In Process (Lasix Injection) 22:00 Ergocalciferol PHA 01/06/25 In Process (Vitamin D 50,000 16:45 Glucose Blood PHA 01/06/25 In Process (Accu-Chek Comfort 17:00 Insulin R (Human) PHA 01/06/25 In Process (Insulin R) 17:00 Dextrose 50% Syringe PHA 01/06/25 In Process 16:45 Levalbuterol Hcl PHA 01/07/25 In Process (Xopenex Medneb) 06:00 Enoxaparin Sodium PHA 01/07/25 In Process (Lovenox) 10:00 Complete Blood Count LAB 01/07/25 Logged 07:16 Basic Metabolic Panel LAB 01/07/25 Logged 07:16 Magnesium LAB 01/07/25 Logged 07:16 Date of Service: Jan 07, 2025 Billing Provider: YOSEF YBARRA MD Common Visit Codes: [id number] INP/OBS CARE(MOD), [id number] INP/OBS CARE(HIGH) CLARISSE WARREN RESIDENT Jan 07, 2025 09:35 YOSEF YBARRA MD Jan 07, 2025 14:01
[2025-01-07] MEDS: MUPIROCIN 2% OINT 15gm or 22gm FOR MRSA NARES EACHNOSTRI SCH (10:00)
[2025-01-07] MEDS: PANTOPRAZOLE 40 MG TAB PO SCH (10:34)
[2025-01-07] MEDS: EMPAGLIFLOZIN 10 MG TAB PO SCH (10:35)
[2025-01-07] MEDS: ENOXAPARIN SOD 40 MG/0.4 ML SYRINGE SC SCH (10:35)
[2025-01-07 10:47] LABS: Basophils # (auto) 0.1 10 ^3/uL (0-0.2); Lymphocytes # (auto) 1.9 10 ^3/uL (0.4-5.4); Monocytes # (auto) 1.1 10 ^3/uL (0-1.3); Nucleated Red Blood Cells % 0.1 %; White Blood Cell 13.2 10^3/uL (4.4-10.8)
[2025-01-07 10:50] LABS: Basophils % (auto) 0.7 % (0.0-2.0); Eosinophils # (auto) 0.4 10 ^3/uL (0-0.8); Eosinophils % (auto) 3.1 % (0.0-7.0); Hematocrit 40.2 % (41.0-53.0); Hemoglobin 13.3 g/dL (13.5-17.5); Lymphocytes % (auto) 14.1 % (10.0-50.0); Mean Corpuscular Hemoglobin 25.6 pg (28.0-32.0); Mean Corpuscular Hgb Conc. 33.2 g/dL (32.0-36.0); Mean Corpuscular Volume 77.3 fL (80.0-100.0); Monocytes % (auto) 8.1 % (0.0-12.0); Neutrophils # (auto) 9.8 10 ^3/uL (1.6-8.6); Platelet Count (auto) 249 10^3/uL (140-450); Red Cell Distribution Width 19.4 % (11.8-14.3)
[2025-01-07 10:59] LABS: Anion Gap 9 (5-15); Carbon Dioxide 24 mmol/L (20-31); Chloride 100 mmol/L (98-107); Potassium 3.8 mmol/L (3.5-5.1)
[2025-01-07 11:00] LABS: Calcium 8.8 mg/dL (8.7-10.4)
[2025-01-07 11:01] LABS: Sodium 133 mmol/L (136-145)
[2025-01-07 11:05] LABS: BUN/Creatinine Ratio 12.6 (10.0-20.0); Blood Urea Nitrogen 18 mg/dL (9-23)
[2025-01-07 11:06] LABS: Glucose 132 mg/dL (74-106); Magnesium 2.2 mg/dL (1.6-2.6)
--- NOTE | 2025-01-07 22:27 | DVHPN2 ---
Progress Note - Dictate Date Seen: Jan 07, 2025 Medical Necessity Reason Pt with a Central, PICC or Fol: No Subjective Patient was seen and evaluated in follow up. Patient is complaining of generalized pain. 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 MRSA is positive, started on Bactroban. Telemetry reviewed. vital signs Vital Sign Date Time Temp Pulse Resp B/P (MAP) Pulse Ox O2 Delivery O2 Flow Rate FiO2 01/07/25 18:29 101 14 99 01/07/25 18:21 Nasal Cannula* 2 28 01/07/25 16:40 98.3 108/64 (79) 98.3 Total Intake and Output 01/06/25 01/06/25 01/07/25 15:00 23:00 07:00 Intake Total 1100 ml 360 ml Output Total 1250 ml Balance -150 ml 360 ml medications Current Medications Medications Dose Ordered Sig/Tawnya Route Start Time Stop Time Status Last Admin Dose Admin Ceftriaxone Sodium 50 ml @ 100 mls/hr DAILY@2100 IV 01/06/25 21:00 01/06/25 21:28 100 MLS/HR Azithromycin 250 ml @ 125 mls/hr DAILY@2200 IV 01/06/25 22:00 01/06/25 22:23 125 MLS/HR Carvedilol 3.125 mg Q12HR PO 01/06/25 10:00 01/07/25 10:35 3.125 MG Aspirin 81 mg DAILY PO 01/06/25 10:00 01/07/25 10:34 81 MG Atorvastatin Calcium 10 mg HS PO 01/06/25 22:00 01/06/25 21:17 10 MG Levothyroxine Sodium 150 mcg QAM@0600 PO 01/06/25 06:00 01/07/25 06:14 150 MCG Sodium Chloride 10 ml Q8HR IV 01/06/25 06:00 01/07/25 14:00 10 ML Acetaminophen/ Hydrocodone Bitart 1 tab Q4HP PRN PO 01/05/25 22:15 01/07/25 20:09 1 TAB Ondansetron HCl 4 mg Q4HP PRN IV 01/05/25 22:15 Docusate Sodium 100 mg BIDPRN PRN PO 01/05/25 22:15 Acetaminophen 650 mg Q6HP PRN PO 01/05/25 22:15 Nitroglycerin 0.4 mg Q5MINP PRN SL 01/05/25 22:30 Morphine Sulfate 2 mg Q30M PRN IV 01/05/25 22:30 Guaifenesin 200 mg Q6HP PRN GT 01/06/25 01:45 01/07/25 10:34 200 MG Ipratropium [place] 0.5 mg Q4HWA NEB 01/06/25 12:00 01/07/25 18:21 0.5 MG Empaglifozin 10 mg DAILY PO 01/07/25 10:00 01/07/25 10:35 10 MG Pantoprazole Sodium 40 mg DAILY PO 01/07/25 10:00 01/07/25 10:34 40 MG Tamsulosin HCl 0.4 mg HS PO 01/06/25 22:00 01/06/25 21:16 0.4 MG Furosemide 40 mg BID IV 01/06/25 22:00 01/07/25 11:45 40 MG Ergocalciferol 50,000 unit Q7D PO 01/06/25 16:45 01/06/25 17:42 50,000 UNIT Diagnostic Test (Pha) 1 strip ACHS 01/06/25 17:00 01/07/25 17:30 1 STRIP Insulin Human Regular ACHS SC 01/06/25 17:00 01/07/25 17:31 3 UNITS Dextrose 50 ml UD PRN IV 01/06/25 16:45 Levalbuterol HCl 1.25 mg Q4HWA NEB 01/07/25 06:00 01/07/25 18:21 1.25 MG Enoxaparin Sodium 40 mg DAILY SC 01/07/25 10:00 01/07/25 10:35 40 MG Mupirocin 1 applic BID EACHNOSTRI 01/07/25 10:00 01/12/25 09:59 01/07/25 10:00 1 APPLIC objective GENERAL: Awake, alert, oriented. Obese. LUNGS: Clear. CARDIOVASCULAR: Heart sounds are good. ABDOMEN: Soft. EXT: +4 pitting edema. laboratory and microbiology Laboratory Tests 01/07/25 10:05 Test 01/07/25 10:05 Range/Units Serum Glucose 132 H 74-106 mg/dL Problem List Acute on chronic decompensated HFrEF, NYHA class III. NSTEMI, likely type II secondary to above. 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 Mild mitral and tricuspid valve regurgitation. Pneumonia. COPD. Chronic kidney disease. BPH. History of tobacco use. Hypothyroidism.. Amphetamine use. Medical noncompliance. Assessment/Plan Continued all current supportive medical care. Morphine and [place] for pain management. Aspirin, Lipitor. IV antibiotics as ordered. Coreg. DVT and GI prophylactics. Diuretics with Lasix. Additional plan as per the hospital course. Plan discussed with: Patient ASH PAREDES MD Jan 07, 2025 20:47
[2025-01-08] VITALS (19 sets, daily range): BP systolic 91–121; BP diastolic 60–83; PULSE 75–94; RESP 17–19; TEMP 97.8–98.7; O2SAT 91–100
[2025-01-08 08:59] LABS: Basophils # (auto) 0.1 10 ^3/uL (0-0.2); Hemoglobin 13.9 g/dL (13.5-17.5); Lymphocytes # (auto) 1.9 10 ^3/uL (0.4-5.4); Monocytes # (auto) 1.7 10 ^3/uL (0-1.3); Neutrophils # (auto) 9.6 10 ^3/uL (1.6-8.6); Red Cell Distribution Width 19.4 % (11.8-14.3); White Blood Cell 13.7 10^3/uL (4.4-10.8)
[2025-01-08 09:00] LABS: Basophils % (auto) 0.7 % (0.0-2.0); Eosinophils # (auto) 0.4 10 ^3/uL (0-0.8); Hematocrit 42.8 % (41.0-53.0); Lymphocytes % (auto) 13.8 % (10.0-50.0); Mean Corpuscular Hemoglobin 24.9 pg (28.0-32.0); Mean Corpuscular Hgb Conc. 32.6 g/dL (32.0-36.0); Mean Corpuscular Volume 76.5 fL (80.0-100.0); Monocytes % (auto) 12.5 % (0.0-12.0); Nucleated Red Blood Cells % 0.1 %; Platelet Count (auto) 265 10^3/uL (140-450); Red Blood Cells 5.59 10^6/uL (4.5-5.90)
[2025-01-08 09:16] LABS: Alanine Aminotransferase 26 U/L (7-40); Albumin 3.6 g/dL (3.2-4.8); Alkaline Phosphatase 77 U/L (46-116); Anion Gap 9 (5-15); Aspartate Aminotransferase 26 U/L (13-40); BUN/Creatinine Ratio 17.4 (10.0-20.0); Calcium 8.9 mg/dL (8.7-10.4); Carbon Dioxide 27 mmol/L (20-31); Chloride 100 mmol/L (98-107); Potassium 3.6 mmol/L (3.5-5.1); Total Protein 6.2 g/dL (5.7-8.2)
[2025-01-08] MEDS: DOCUSATE SOD 100 MG CAP PO PRN (09:29)
[2025-01-08 09:52] LABS: Blood Urea Nitrogen 27 mg/dL (9-23); CRP High Sensitivity 9.71 mg/dL (<1.0); Glucose 113 mg/dL (74-106); Sodium 136 mmol/L (136-145)
[2025-01-08 09:56] LABS: Erythrocyte Sedimentation Rate 15 mm/hr (0-20)
--- NOTE | 2025-01-08 10:34 | DVHPNRES ---
Progress Note Date Seen: Jan 08, 2025 Resident Creating Document: BINH CHEN RESIDENT Has the PT tested + for MRSA If YES, has PT been informed?: No Medical Necessity Reason Pt with a Central, PICC or Fol: No Subjective Review of Systems Mr. Sawyer a 69-year-old male with past medical history of COPD on home oxygen which he recently lost, chronic indwelling Vargas secondary to BPH for the past 3 years, congestive heart failure, hypothyroidism, CKD stage IIIB, history of colostomy colostomy 2022, history of meth use, history of nicotine use, who presents to the hospital with the chief complaint of shortness of breaths, fever and chills for the past 1 week. He reports having experiencing flu-like symptoms for the past 1 week including fever, chills, shortness of breath and dry cough. Following that, patient did not take his congestive heart failure medications reports developing lower extremity swelling. He recently changes insurance and lost his home oxygen. He denies smoking, drinking or illicit drug use. Last echocardiogram completed 08/02/2024, showed Severely dilated left ventricle. Severely reduced left ventricular systolic function estimated ejection fraction of 10%. There is global wall akinesia. There is a grade 2 diastolic dysfunction. Normal left ventricular size and dimension. Severely reduced right ventricular systolic function. Moderately elevated right ventricular systolic [id number] mm of mercury. On arrival in the ED, patient was tachycardic, WBC count was 12.9 which increased to 14, troponins were elevated at 64, not up trending. BNP 1411 Chest x-ray showed Bibasilar opacities greater on the right side consistent with pneumonia. Past medical/surgical history: See above Social history: Quit smoking 4 years back, denies drinking or illicit drug use 01/06 - Patient seen and examined at the bedside. His right lower crackles in lower extremity bilateral 3+ pitting edema. Patient is dry cough. 01/07-patient seen and examined at the bedside. He is on 2 L nasal cannula, bibasilar lower crackles heard on auscultation. Resolving pitting edema. Patient reports the cough is better, pleuritic chest pain is better. 01/08: xray showed less congestion, o2 2LT, abdominal pain: ventral hernia, reducible, lactate negative, crp elevated, will continue IV AB for PNA Objective vital signs Vital Sign Date Time Temp Pulse Resp B/P (MAP) Pulse Ox O2 Delivery O2 Flow Rate FiO2 01/08/25 09:30 95 Nasal Cannula 2.0 01/08/25 09:30 28 01/08/25 09:27 85 107/71 01/08/25 08:58 97.9 18 97.9 Total Intake and Output 01/07/25 01/07/25 01/08/25 15:00 23:00 07:00 Intake Total 950 ml 550 ml Output Total 2700 ml 2750 ml Balance -1750 ml -2200 ml medications Current Medications Medications Dose Ordered Sig/Tawnya Route Start Time Stop Time Status Last Admin Dose Admin Ceftriaxone Sodium 50 ml @ 100 mls/hr DAILY@2100 IV 01/06/25 21:00 01/07/25 21:09 100 MLS/HR Azithromycin 250 ml @ 125 mls/hr DAILY@2200 IV 01/06/25 22:00 01/07/25 22:13 125 MLS/HR Carvedilol 3.125 mg Q12HR PO 01/06/25 10:00 01/08/25 09:27 3.125 MG Aspirin 81 mg DAILY PO 01/06/25 10:00 01/08/25 09:26 81 MG Atorvastatin Calcium 10 mg HS PO 01/06/25 22:00 01/07/25 22:12 10 MG Levothyroxine Sodium 150 mcg QAM@0600 PO 01/06/25 06:00 01/08/25 05:58 150 MCG Sodium Chloride 10 ml Q8HR IV 01/06/25 06:00 01/08/25 06:00 10 ML Acetaminophen/ Hydrocodone Bitart 1 tab Q4HP PRN PO 01/05/25 22:15 01/08/25 09:29 1 TAB Ondansetron HCl 4 mg Q4HP PRN IV 01/05/25 22:15 Docusate Sodium 100 mg BIDPRN PRN PO 01/05/25 22:15 01/08/25 09:29 100 MG Acetaminophen 650 mg Q6HP PRN PO 01/05/25 22:15 Nitroglycerin 0.4 mg Q5MINP PRN SL 01/05/25 22:30 Morphine Sulfate 2 mg Q30M PRN IV 01/05/25 22:30 Guaifenesin 200 mg Q6HP PRN GT 01/06/25 01:45 01/08/25 05:59 200 MG Ipratropium [place] 0.5 mg Q4HWA NEB 01/06/25 12:00 01/08/25 08:04 0.5 MG Empaglifozin 10 mg DAILY PO 01/07/25 10:00 01/08/25 09:29 10 MG Pantoprazole Sodium 40 mg DAILY PO 01/07/25 10:00 01/08/25 09:33 40 MG Tamsulosin HCl 0.4 mg HS PO 01/06/25 22:00 01/07/25 22:12 0.4 MG Furosemide 40 mg BID IV 01/06/25 22:00 01/08/25 09:25 40 MG Ergocalciferol 50,000 unit Q7D PO 01/06/25 16:45 01/06/25 17:42 50,000 UNIT Diagnostic Test (Pha) 1 strip ACHS 01/06/25 17:00 01/08/25 06:09 1 STRIP Insulin Human Regular ACHS SC 01/06/25 17:00 01/08/25 06:09 4 UNITS Dextrose 50 ml UD PRN IV 01/06/25 16:45 Levalbuterol HCl 1.25 mg Q4HWA NEB 01/07/25 06:00 01/08/25 08:04 1.25 MG Enoxaparin Sodium 40 mg DAILY SC 01/07/25 10:00 01/08/25 09:26 40 MG Mupirocin 1 applic BID EACHNOSTRI 01/07/25 10:00 01/12/25 09:59 01/08/25 09:34 1 APPLIC Examination Patient lying in bed, in no acute distress General: Well-built, afebrile, palor, mucosae are moist Cardiovascular: Regular S1 and S2. No murmurs, gallops or rubs. No JVD elevation. Bilateral 3+ pitting edema. Respiratory: 2lt nasal cannula, bilateral crackles Abdomen: ventral hernia, reducible, no peritoneal signs Genitourinary: Deferred MSK/skin: Mobilizes 4 limbs. Skin is dry and warm Neurological: No motor, no sensitive deficits, normal speech. Pupils are isocoric and reactive. Psych/Mental Status: A/Ox3 laboratory and microbiology Laboratory Tests 01/08/25 08:22 Test 01/08/25 08:22 Range/Units Serum Glucose 113 H 74-106 mg/dL Microbiology Date/Time Source Procedure Growth Status 01/06/25 00:30 Nose MRSA Screen - Final Methicillin Resistant S.aureus Complete Problem List/Assessment/Plan Problem List/Assessment/Plan Acute hypoxic respiratory failure secondary to community-acquired pneumonia Acute on chronic systolic congestive heart failure exacerbation-NYHA class 3 secondary to above Community-acquired pneumonia, mixed Gram-positive and negative with pleuritic chest pain NSTEMI like clear type 2 secondary to above IV ceftriaxone starting 01/05 Switch azithromycin to doxycycline to cover MRSA CRP 9 IV Lasix 40 mg daily, Coreg 3.15 b.i.d., Jardiance 10 mg daily Nebulized treatment with levalbuterol and ipratropium q.6 hourly Sputum culture pending MRSA nares: positive Chronic kidney disease 3B Chronic indwelling Vargas for the past 3 years secondary to benign prostatic hyperplasia Last Vargas change was 15 days back per patient. Creatinine 1.55, baseline 1.5 MRSA nares positive Mupirocin ointment Blood culture prelim neg COPD no exacerbation Nebulized treatments Anemia, likely microcytic Monitor Prediabetes mellitus-hemoglobin A1c 6.2 Advised lifestyle measures Umbilical hernia-soft reducible Monitor Hypothyroidism Levothyroxine 150 mcg daily Current methamphetamine use dependence History of tobacco use Counseled regarding cessation for more than 22 minutes Vitamin-D deficiency Supplemented Hypokalemia Supplemented DVT prophylaxis: Enoxaparin 40 mg sc daily Plan discussed with patient in which all questions have been answered Goals of care discussed with patient for more than 30 minutes, full code status Case discussed with Dr. Ybarra Plan discussed with: Patient, Other (rn) My Orders My Orders Orders - BINH CHEN RESIDENT Procedure Category Date Status Time Chest Xray 1 View XY 01/08/25 Logged 10:24 Date of Service: Jan 08, 2025 Billing Provider: YOSEF YBARRA MD Common Visit Codes: [id number] INP/OBS CARE(HIGH) BINH CHEN RESIDENT Jan 08, 2025 10:33 YOSEF YBARRA MD Jan 08, 2025 14:13
--- NOTE | 2025-01-08 14:08 | DVH ---
CHEST RADIOGRAPH Indication: fu pulmonary congestion Technique: Single frontal view of the chest was obtained COMPARISON: XY CHEST XRAY 1 VIEW on DOS: 01/05/25, FINDINGS: Lines and Tubes: None Lungs: Similar patchy bilateral airspace disease. Pleura: No effusion. No pneumothorax. Cardiomediastinal contours: Stable. Bones: Unremarkable IMPRESSION: 1. Similar patchy bilateral airspace disease.
[2025-01-08] MEDS: DOXYCYCLINE 100MG/100ML 100 ML IV SCH (15:05)
--- NOTE | 2025-01-08 19:13 | DVHPN2 ---
Progress Note - Dictate Date Seen: Jan 08, 2025 Has the PT tested + for MRSA If YES, has PT been informed?: No Medical Necessity Reason Pt with a Central, PICC or Fol: No Subjective Patient was seen and evaluated in follow up. Patient is complaining of generalized pain. Patient is on 3 LPM NC. Patient is complaining of abdominal discomfort. 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 Chest x-ray shows patchy bilateral airspace disease. Telemetry reviewed. vital signs Vital Sign Date Time Temp Pulse Resp B/P (MAP) Pulse Ox O2 Delivery O2 Flow Rate FiO2 01/08/25 16:53 97.9 87 18 106/70 (82) 93 97.9 01/08/25 14:05 Nasal Cannula 3.0 01/08/25 14:05 32 Total Intake and Output 01/07/25 01/07/25 01/08/25 15:00 23:00 07:00 Intake Total 950 ml 550 ml Output Total 2700 ml 2750 ml Balance -1750 ml -2200 ml medications Current Medications Medications Dose Ordered Sig/Tawnya Route Start Time Stop Time Status Last Admin Dose Admin Ceftriaxone Sodium 50 ml @ 100 mls/hr DAILY@2100 IV 01/06/25 21:00 01/07/25 21:09 100 MLS/HR Carvedilol 3.125 mg Q12HR PO 01/06/25 10:00 01/08/25 09:27 3.125 MG Aspirin 81 mg DAILY PO 01/06/25 10:00 01/08/25 09:26 81 MG Atorvastatin Calcium 10 mg HS PO 01/06/25 22:00 01/07/25 22:12 10 MG Levothyroxine Sodium 150 mcg QAM@0600 PO 01/06/25 06:00 01/08/25 05:58 150 MCG Sodium Chloride 10 ml Q8HR IV 01/06/25 06:00 01/08/25 15:03 10 ML Acetaminophen/ Hydrocodone Bitart 1 tab Q4HP PRN PO 01/05/25 22:15 01/08/25 15:02 1 TAB Ondansetron HCl 4 mg Q4HP PRN IV 01/05/25 22:15 Docusate Sodium 100 mg BIDPRN PRN PO 01/05/25 22:15 01/08/25 09:29 100 MG Acetaminophen 650 mg Q6HP PRN PO 01/05/25 22:15 Nitroglycerin 0.4 mg Q5MINP PRN SL 01/05/25 22:30 Morphine Sulfate 2 mg Q30M PRN IV 01/05/25 22:30 Guaifenesin 200 mg Q6HP PRN GT 01/06/25 01:45 01/08/25 05:59 200 MG Ipratropium [place] 0.5 mg Q4HWA NEB 01/06/25 12:00 01/08/25 13:59 0.5 MG Empaglifozin 10 mg DAILY PO 01/07/25 10:00 01/08/25 09:29 10 MG Pantoprazole Sodium 40 mg DAILY PO 01/07/25 10:00 01/08/25 09:33 40 MG Tamsulosin HCl 0.4 mg HS PO 01/06/25 22:00 01/07/25 22:12 0.4 MG Furosemide 40 mg BID IV 01/06/25 22:00 01/08/25 09:25 40 MG Ergocalciferol 50,000 unit Q7D PO 01/06/25 16:45 01/06/25 17:42 50,000 UNIT Diagnostic Test (Pha) 1 strip ACHS 01/06/25 17:00 01/08/25 17:06 1 STRIP Insulin Human Regular ACHS SC 01/06/25 17:00 01/08/25 12:03 2 UNITS Dextrose 50 ml UD PRN IV 01/06/25 16:45 Levalbuterol HCl 1.25 mg Q4HWA NEB 01/07/25 06:00 01/08/25 13:59 1.25 MG Enoxaparin Sodium 40 mg DAILY SC 01/07/25 10:00 01/08/25 09:26 40 MG Mupirocin 1 applic BID EACHNOSTRI 01/07/25 10:00 01/12/25 09:59 01/08/25 09:34 1 APPLIC Doxycycline Hyclate 100 ml @ 50 mls/hr Q12H IV 01/08/25 13:45 01/08/25 15:05 50 MLS/HR objective GENERAL: Awake, alert, oriented. Obese. LUNGS: Clear. CARDIOVASCULAR: Heart sounds are good. ABDOMEN: Soft. EXT: +4 pitting edema. laboratory and microbiology Laboratory Tests 01/08/25 08:22 Test 01/08/25 08:22 Range/Units Serum Glucose 113 H 74-106 mg/dL Problem List Acute on chronic decompensated HFrEF, NYHA class III. NSTEMI, likely type II secondary to above. 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 Mild mitral and tricuspid valve regurgitation. Pneumonia. COPD. Chronic kidney disease. BPH. History of tobacco use. Hypothyroidism.. Amphetamine use. Medical noncompliance. Assessment/Plan Continued all current supportive medical care. Morphine and [place] for pain management. Aspirin, Lipitor. IV antibiotics as ordered. Coreg. DVT and GI prophylactics. Diuretics with Lasix. Additional plan as per the hospital course. Dietary Evaluation Review Recommendations by RD: Dietary education by RD Comments: 1) Add 60g CCHO restriction to cardiac diet order 2) Encourage patient to limit intake of added sugar and consistent intake of carbohydrates throughout day, paired with protein to promote glycemic control. Limit intake of saturated fat - focus on selecting lean sources of protein. Reduce sodium intake. 2) Follow-up with cardiology, pulmonology, and nephrology 3) Refer to transition social worker for assistance with drug recovery 4) Continue to monitor I&O, labs, and skin integirty Expected Outcomes/Goals: 1) appetite and labs to improve 2) f/u in 5 days Plan discussed with: Patient ASH PAREDES MD Jan 08, 2025 18:42
[2025-01-09] VITALS (19 sets, daily range): BP systolic 102–123; BP diastolic 64–79; PULSE 85–102; RESP 16–20; TEMP 98.1–99; O2SAT 90–100
[2025-01-09] MEDS: guaiFENesin 200 MG/10 ML UD PO PRN (01:57)
[2025-01-09] MEDS ORDERED: MORPHINE SULFATE INJ 2 MG/ml SYRG IV ONE (02:15)
[2025-01-09 06:37] LABS: Alanine Aminotransferase 24 U/L (7-40); Albumin 3.8 g/dL (3.2-4.8); Alkaline Phosphatase 78 U/L (46-116); Anion Gap 11 (5-15); Aspartate Aminotransferase 34 U/L (13-40); Calcium 9.3 mg/dL (8.7-10.4); Carbon Dioxide 25 mmol/L (20-31); Chloride 101 mmol/L (98-107); Glucose 95 mg/dL (74-106); Potassium 4.2 mmol/L (3.5-5.1); Sodium 137 mmol/L (136-145); Total Protein 6.7 g/dL (5.7-8.2)
[2025-01-09 06:39] LABS: Blood Urea Nitrogen 27 mg/dL (9-23)
[2025-01-09 06:40] LABS: Basophils # (auto) 0.1 10 ^3/uL (0-0.2); Lymphocytes # (auto) 2.2 10 ^3/uL (0.4-5.4); Red Cell Distribution Width 19.7 % (11.8-14.3)
[2025-01-09 06:42] LABS: Basophils % (auto) 0.8 % (0.0-2.0); Eosinophils # (auto) 0.7 10 ^3/uL (0-0.8); Eosinophils % (auto) 4.3 % (0.0-7.0); Hematocrit 43.5 % (41.0-53.0); Hemoglobin 14.3 g/dL (13.5-17.5); Lymphocytes % (auto) 13.7 % (10.0-50.0); Mean Corpuscular Hemoglobin 25.3 pg (28.0-32.0); Mean Corpuscular Hgb Conc. 32.9 g/dL (32.0-36.0); Mean Corpuscular Volume 76.8 fL (80.0-100.0); Monocytes # (auto) 2.1 10 ^3/uL (0-1.3); Monocytes % (auto) 13.1 % (0.0-12.0); Neutrophils # (auto) 10.9 10 ^3/uL (1.6-8.6); Neutrophils % (auto) 68.1 % (37.0-80.0); Nucleated Red Blood Cells % 0.2 %; Platelet Count (auto) 282 10^3/uL (140-450); Red Blood Cells 5.66 10^6/uL (4.5-5.90); White Blood Cell 15.9 10^3/uL (4.4-10.8)
[2025-01-09 07:00] LABS: CRP High Sensitivity 8.74 mg/dL (<1.0)
[2025-01-09] MEDS: THROAT LOZENGES(CEPASTAT) MT PRN (08:24)
--- NOTE | 2025-01-09 13:23 | DVHPN2 ---
Progress Note - Dictate Date Seen: Jan 09, 2025 Has the PT tested + for MRSA If YES, has PT been informed?: No Medical Necessity Reason Pt with a Central, PICC or Fol: No Subjective Patient was seen and evaluated in follow up. Patient is on 2 LPM NC. Patient is complaining of generalized pain. 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 Prelim blood cultures show no growth. Telemetry reviewed. vital signs Vital Sign Date Time Temp Pulse Resp B/P (MAP) Pulse Ox O2 Delivery O2 Flow Rate FiO2 01/09/25 12:48 98.2 85 17 102/64 (77) 100 98.2 01/09/25 09:54 Nasal Cannula 2.0 01/09/25 09:54 28 Total Intake and Output 01/08/25 01/08/25 01/09/25 15:00 23:00 07:00 Intake Total 1140 ml 1200 ml Output Total 2400 ml 3300 ml Balance -1260 ml -2100 ml medications Current Medications Medications Dose Ordered Sig/Tawnya Route Start Time Stop Time Status Last Admin Dose Admin Ceftriaxone Sodium 50 ml @ 100 mls/hr DAILY@2100 IV 01/06/25 21:00 01/08/25 21:24 100 MLS/HR Carvedilol 3.125 mg Q12HR PO 01/06/25 10:00 01/09/25 09:54 3.125 MG Aspirin 81 mg DAILY PO 01/06/25 10:00 01/09/25 09:54 81 MG Atorvastatin Calcium 10 mg HS PO 01/06/25 22:00 01/08/25 21:19 10 MG Levothyroxine Sodium 150 mcg QAM@0600 PO 01/06/25 06:00 01/09/25 06:35 150 MCG Sodium Chloride 10 ml Q8HR IV 01/06/25 06:00 01/09/25 05:01 10 ML Acetaminophen/ Hydrocodone Bitart 1 tab Q4HP PRN PO 01/05/25 22:15 01/09/25 09:53 1 TAB Ondansetron HCl 4 mg Q4HP PRN IV 01/05/25 22:15 Docusate Sodium 100 mg BIDPRN PRN PO 01/05/25 22:15 01/08/25 09:29 100 MG Acetaminophen 650 mg Q6HP PRN PO 01/05/25 22:15 Nitroglycerin 0.4 mg Q5MINP PRN SL 01/05/25 22:30 Ipratropium [place] 0.5 mg Q4HWA NEB 01/06/25 12:00 01/09/25 09:54 0.5 MG Empaglifozin 10 mg DAILY PO 01/07/25 10:00 01/09/25 09:53 10 MG Pantoprazole Sodium 40 mg DAILY PO 01/07/25 10:00 01/09/25 09:53 40 MG Tamsulosin HCl 0.4 mg HS PO 01/06/25 22:00 01/08/25 21:19 0.4 MG Ergocalciferol 50,000 unit Q7D PO 01/06/25 16:45 01/06/25 17:42 50,000 UNIT Diagnostic Test (Pha) 1 strip ACHS 01/06/25 17:00 01/09/25 11:33 1 STRIP Insulin Human Regular ACHS SC 01/06/25 17:00 01/09/25 12:07 2 UNITS Dextrose 50 ml UD PRN IV 01/06/25 16:45 Levalbuterol HCl 1.25 mg Q4HWA NEB 01/07/25 06:00 01/09/25 09:54 1.25 MG Enoxaparin Sodium 40 mg DAILY SC 01/07/25 10:00 01/09/25 09:54 40 MG Mupirocin 1 applic BID EACHNOSTRI 01/07/25 10:00 01/12/25 09:59 01/08/25 21:24 1 APPLIC Doxycycline Hyclate 100 ml @ 50 mls/hr Q12H IV 01/08/25 13:45 01/08/25 15:05 50 MLS/HR Guaifenesin 200 mg Q6HP PRN PO 01/09/25 01:51 01/09/25 01:57 200 MG Throat Lozenges 1 be Q2HP PRN MT 01/09/25 08:00 01/09/25 12:06 1 BE objective GENERAL: Awake, alert, oriented. Obese. LUNGS: Clear. CARDIOVASCULAR: Heart sounds are good. ABDOMEN: Soft. EXT: +4 pitting edema. laboratory and microbiology Laboratory Tests 01/09/25 04:53 Test 01/09/25 04:53 Range/Units Serum Glucose 95 74-106 mg/dL Problem List Acute on chronic decompensated HFrEF, NYHA class III. NSTEMI, likely type II secondary to above. 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 Mild mitral and tricuspid valve regurgitation. Pneumonia. COPD. Chronic kidney disease. BPH. History of tobacco use. Hypothyroidism.. Amphetamine use. Medical noncompliance. Assessment/Plan Continued all current supportive medical care. Morphine and [place] for pain management. Aspirin, Lipitor. IV antibiotics as ordered. Coreg. DVT and GI prophylactics. Diuretics with Lasix. Additional plan as per the hospital course. Dietary Evaluation Review Recommendations by RD: Dietary education by RD Comments: 1) Add 60g CCHO restriction to cardiac diet order 2) Encourage patient to limit intake of added sugar and consistent intake of carbohydrates throughout day, paired with protein to promote glycemic control. Limit intake of saturated fat - focus on selecting lean sources of protein. Reduce sodium intake. 2) Follow-up with cardiology, pulmonology, and nephrology 3) Refer to manager social services for assistance with drug recovery 4) Continue to monitor I&O, labs, and skin integirty Expected Outcomes/Goals: 1) appetite and labs to improve 2) f/u in 5 days Plan discussed with: Patient ASH PAREDES MD Jan 09, 2025 13:23
[2025-01-09] MEDS: FUROSEMIDE 40 MG/4 ML VIAL IV ONE (14:17)
--- NOTE | 2025-01-09 15:31 | DVHPNRES ---
Progress Note Date Seen: Jan 09, 2025 Resident Creating Document: CLARISSE WARREN RESIDENT Has the PT tested + for MRSA If YES, has PT been informed?: No Medical Necessity Reason Pt with a Central, PICC or Fol: No Subjective Review of Systems Mr. Sawyer a 69-year-old male with past medical history of COPD on home oxygen which he recently lost, chronic indwelling Vargas secondary to BPH for the past 3 years, congestive heart failure, hypothyroidism, CKD stage IIIB, history of colostomy colostomy 2022, history of meth use, history of nicotine use, who presents to the hospital with the chief complaint of shortness of breaths, fever and chills for the past 1 week. He reports having experiencing flu-like symptoms for the past 1 week including fever, chills, shortness of breath and dry cough. Following that, patient did not take his congestive heart failure medications reports developing lower extremity swelling. He recently changes insurance and lost his home oxygen. He denies smoking, drinking or illicit drug use. Last echocardiogram completed 08/02/2024, showed Severely dilated left ventricle. Severely reduced left ventricular systolic function estimated ejection fraction of 10%. There is global wall akinesia. There is a grade 2 diastolic dysfunction. Normal left ventricular size and dimension. Severely reduced right ventricular systolic function. Moderately elevated right ventricular systolic [id number] mm of mercury. On arrival in the ED, patient was tachycardic, WBC count was 12.9 which increased to 14, troponins were elevated at 64, not up trending. BNP 1411 Chest x-ray showed Bibasilar opacities greater on the right side consistent with pneumonia. Past medical/surgical history: See above Social history: Quit smoking 4 years back, denies drinking or illicit drug use 01/06 - Patient seen and examined at the bedside. His right lower crackles in lower extremity bilateral 3+ pitting edema. Patient is dry cough. 01/07-patient seen and examined at the bedside. He is on 2 L nasal cannula, bibasilar lower crackles heard on auscultation. Resolving pitting edema. Patient reports the cough is better, pleuritic chest pain is better. 01/09 - patient seen and examined at the bedside. Weaning off oxygen. Lasix changed to 40 OD IV given increasing creatinine Objective vital signs Vital Sign Date Time Temp Pulse Resp B/P (MAP) Pulse Ox O2 Delivery O2 Flow Rate FiO2 01/09/25 14:17 102/64 01/09/25 14:14 86 16 100 01/09/25 14:08 Nasal Cannula 2.0 01/09/25 14:08 28 01/09/25 12:48 98.2 98.2 Total Intake and Output 01/08/25 01/08/25 01/09/25 15:00 23:00 07:00 Intake Total 1140 ml 1200 ml Output Total 2400 ml 3300 ml Balance -1260 ml -2100 ml medications Current Medications Medications Dose Ordered Sig/Tawnya Route Start Time Stop Time Status Last Admin Dose Admin Ceftriaxone Sodium 50 ml @ 100 mls/hr DAILY@2100 IV 01/06/25 21:00 01/08/25 21:24 100 MLS/HR Carvedilol 3.125 mg Q12HR PO 01/06/25 10:00 01/09/25 09:54 3.125 MG Aspirin 81 mg DAILY PO 01/06/25 10:00 01/09/25 09:54 81 MG Atorvastatin Calcium 10 mg HS PO 01/06/25 22:00 01/08/25 21:19 10 MG Levothyroxine Sodium 150 mcg QAM@0600 PO 01/06/25 06:00 01/09/25 06:35 150 MCG Sodium Chloride 10 ml Q8HR IV 01/06/25 06:00 01/09/25 14:17 10 ML Acetaminophen/ Hydrocodone Bitart 1 tab Q4HP PRN PO 01/05/25 22:15 01/09/25 09:53 1 TAB Ondansetron HCl 4 mg Q4HP PRN IV 01/05/25 22:15 Docusate Sodium 100 mg BIDPRN PRN PO 01/05/25 22:15 01/08/25 09:29 100 MG Acetaminophen 650 mg Q6HP PRN PO 01/05/25 22:15 Nitroglycerin 0.4 mg Q5MINP PRN SL 01/05/25 22:30 Ipratropium [place] 0.5 mg Q4HWA NEB 01/06/25 12:00 01/09/25 14:08 0.5 MG Empaglifozin 10 mg DAILY PO 01/07/25 10:00 01/09/25 09:53 10 MG Pantoprazole Sodium 40 mg DAILY PO 01/07/25 10:00 01/09/25 09:53 40 MG Tamsulosin HCl 0.4 mg HS PO 01/06/25 22:00 01/08/25 21:19 0.4 MG Ergocalciferol 50,000 unit Q7D PO 01/06/25 16:45 01/06/25 17:42 50,000 UNIT Diagnostic Test (Pha) 1 strip ACHS 01/06/25 17:00 01/09/25 11:33 1 STRIP Insulin Human Regular ACHS SC 01/06/25 17:00 01/09/25 12:07 2 UNITS Dextrose 50 ml UD PRN IV 01/06/25 16:45 Levalbuterol HCl 1.25 mg Q4HWA NEB 01/07/25 06:00 01/09/25 14:09 1.25 MG Enoxaparin Sodium 40 mg DAILY SC 01/07/25 10:00 01/09/25 09:54 40 MG Mupirocin 1 applic BID EACHNOSTRI 01/07/25 10:00 01/12/25 09:59 01/08/25 21:24 1 APPLIC Doxycycline Hyclate 100 ml @ 50 mls/hr Q12H IV 01/08/25 13:45 01/09/25 14:17 50 MLS/HR Guaifenesin 200 mg Q6HP PRN PO 01/09/25 01:51 01/09/25 01:57 200 MG Throat Lozenges 1 be Q2HP PRN MT 01/09/25 08:00 01/09/25 12:06 1 BE Furosemide 40 mg DAILY IV 01/10/25 10:00 Examination Patient lying in bed, in no acute distress General: Well-built, afebrile, palor, mucosae are moist Cardiovascular: Regular S1 and S2. No murmurs, gallops or rubs. No JVD elevation. Bilateral 3+ pitting edema. Respiratory: Saturating 93 on 2 L nasal cannula, right lower crackles heard on auscultation. Abdomen: Soft, nontender, nondistended, normoactive bowel sounds, no rebound tenderness, no organomegaly, no masses Genitourinary: Deferred MSK/skin: Mobilizes 4 limbs. Skin is dry and warm Neurological: No motor, no sensitive deficits, normal speech. Pupils are isocoric and reactive. Psych/Mental Status: A/Ox3 laboratory and microbiology Laboratory Tests 01/09/25 04:53 Test 01/09/25 04:53 Range/Units Serum Glucose 95 74-106 mg/dL Microbiology Date/Time Source Procedure Growth Status 01/07/25 10:05 Blood Blood Culture - Preliminary NO GROWTH AFTER 48 HOURS OF INCUBATION. Resulted 01/06/25 00:30 Nose MRSA Screen - Final Methicillin Resistant S.aureus Complete Labs and/or images reviewed: Labs reviewed by me, Image(s) reviewed by me Problem List/Assessment/Plan Problem List/Assessment/Plan Acute hypoxic respiratory failure secondary to community-acquired pneumonia Acute on chronic systolic congestive heart failure exacerbation-NYHA class 3 secondary to above Community-acquired pneumonia, mixed Gram-positive and negative with pleuritic chest pain NSTEMI like clear type 2 secondary to above IV ceftriaxone and IV azithromycin starting 01/05 IV Lasix 40 mg BID change to IV daily, Coreg 3.15 b.i.d., Jardiance 10 mg daily Nebulized treatment with levalbuterol and ipratropium q.6 hourly Sputum culture pending MRSA nares positive Chronic kidney disease 3B Chronic indwelling Vargas for the past 3 years secondary to benign prostatic hyperplasia Last Vargas change was 15 days back per patient. Creatinine 1.54, baseline 1.5 MRSA nares positive Mupirocin ointment Blood culture negative COPD no exacerbation Nebulized treatments Anemia, likely microcytic Monitor Prediabetes mellitus-hemoglobin A1c 6.2 Advised lifestyle measures Umbilical hernia-soft reducible Monitor Hypothyroidism Levothyroxine 150 mcg daily Current methamphetamine use dependence History of tobacco use Counseled regarding cessation for more than 22 minutes Vitamin-D deficiency Supplemented Hypokalemia Supplemented DVT prophylaxis: Enoxaparin 40 mg sc daily Plan discussed with patient in which all questions have been answered Goals of care discussed with patient for more than 30 minutes, full code status Case discussed with Dr. Mendoza Plan discussed with: Patient My Orders My Orders Orders - CLARISSE WARREN RESIDENT Procedure Category Date Status Time Throat Lozenges PHA 01/09/25 In Process (Cepastat Lozenges) 08:00 Respiratory Culture BRITTA 01/09/25 In Process W/ Gs 09:20 Discontinue Tele THANH 01/09/25 In Process 12:54 Transfer Orders XFER 01/09/25 Transmitted 12:54 Furosemide Injection PHA 01/10/25 In Process (Lasix Injection) 10:00 Dietary Evaluation Review Recommendations by RD: Dietary education by RD Comments: 1) Add 60g CCHO restriction to cardiac diet order 2) Encourage patient to limit intake of added sugar and consistent intake of carbohydrates throughout day, paired with protein to promote glycemic control. Limit intake of saturated fat - focus on selecting lean sources of protein. Reduce sodium intake. 2) Follow-up with cardiology, pulmonology, and nephrology 3) Refer to social media executive for assistance with drug recovery 4) Continue to monitor I&O, labs, and skin integirty Expected Outcomes/Goals: 1) appetite and labs to improve 2) f/u in 5 days Date of Service: Jan 09, 2025 Billing Provider: GARO MENDOZA DO Common Visit Codes: [id number] INP/OBS CARE(HIGH) CLARISSE WARREN RESIDENT Jan 09, 2025 15:31 GARO MENDOZA DO Jan 11, 2025 16:32
[2025-01-10] VITALS (10 sets, daily range): BP systolic 93–110; BP diastolic 56–71; PULSE 59–85; RESP 17–22; TEMP 97.9–98.6; O2SAT 90–100
[2025-01-10 06:40] LABS: Anion Gap 10 (5-15); Carbon Dioxide 26 mmol/L (20-31); Chloride 101 mmol/L (98-107); Potassium 3.8 mmol/L (3.5-5.1); Sodium 137 mmol/L (136-145)
[2025-01-10 06:41] LABS: Calcium 8.8 mg/dL (8.7-10.4)
[2025-01-10 06:45] LABS: Basophils # (auto) 0.1 10 ^3/uL (0-0.2); Basophils % (auto) 0.9 % (0.0-2.0); Eosinophils # (auto) 0.7 10 ^3/uL (0-0.8); Eosinophils % (auto) 4.8 % (0.0-7.0); Hematocrit 41.5 % (41.0-53.0); Hemoglobin 13.7 g/dL (13.5-17.5); Lymphocytes # (auto) 2.2 10 ^3/uL (0.4-5.4); Lymphocytes % (auto) 15.6 % (10.0-50.0); Mean Corpuscular Hemoglobin 25.5 pg (28.0-32.0); Mean Corpuscular Volume 77.3 fL (80.0-100.0); Monocytes # (auto) 2.1 10 ^3/uL (0-1.3); Monocytes % (auto) 14.8 % (0.0-12.0); Neutrophils # (auto) 9.2 10 ^3/uL (1.6-8.6); Neutrophils % (auto) 63.9 % (37.0-80.0); Nucleated Red Blood Cells % 0.1 %; Platelet Count (auto) 295 10^3/uL (140-450); Red Blood Cells 5.36 10^6/uL (4.5-5.90); Red Cell Distribution Width 19.2 % (11.8-14.3); White Blood Cell 14.3 10^3/uL (4.4-10.8)
[2025-01-10 06:46] LABS: BUN/Creatinine Ratio 19.5 (10.0-20.0); Glucose 80 mg/dL (74-106)
[2025-01-10 06:47] LABS: Magnesium 2.3 mg/dL (1.6-2.6)
[2025-01-10 06:48] LABS: Blood Urea Nitrogen 30 mg/dL (9-23)
[2025-01-10] MEDS: FUROSEMIDE 40 MG/4 ML VIAL IV SCH (09:11)
--- NOTE | 2025-01-10 10:01 | CONS ---
Pharmacy Clinical Information: CQM HF (missing ACEI/ARB/ARNI and MRA). Per cardiology notes "Unable to initiate ARB/ARNI/ACEI/MRA given elevated creatinine". Once Scr is stabilized, please consider adding ARB/ARNI/ACEI and MRA (spironolactone ok to initiate if Scr 2.5mg/dl or less or eGFR>30 mL/minute/1.73 m2 and potassium <5mEq/L) at the discretion of cardiology team. ELSIE SAMPSON PHARMACIST Jan 10, 2025 10:01
[2025-01-10] MEDS ORDERED: LEVO750T40 PO ×2 (14:11→14:27)
--- NOTE | 2025-01-10 14:11 | DVHDSRES ---
Discharge Summary Date of Admission Resident Creating Document: CLARISSE WARREN RESIDENT Jan 05, 2025 at 22:30 Date of Discharge: Jan 10, 2025 Labs/Diagnostic Data: Laboratory Results Test 01/10/25 10:51 01/10/25 04:20 01/09/25 04:53 01/08/25 12:40 POC Glucose 108 mg/dl (70-106) White Blood Count 14.3 10^3/uL (4.4-10.8) Red Blood Count 5.36 10^6/uL (4.5-5.90) Hemoglobin 13.7 g/dL (13.5-17.5) Hematocrit 41.5 % (41.0-53.0) Mean Corpuscular Volume 77.3 fL (80.0-100.0) Mean Corpuscular Hemoglobin 25.5 pg (28.0-32.0) Mean Corpuscular Hemoglobin Concent 33.0 g/dL (32.0-36.0) Red Cell Distribution Width 19.2 % (11.8-14.3) Platelet Count 295 10^3/uL (140-450) Mean Platelet Volume 7.4 fL (6.9-10.8) Neutrophils (%) (Auto) 63.9 % (37.0-80.0) Lymphocytes (%) (Auto) 15.6 % (10.0-50.0) Monocytes (%) (Auto) 14.8 % (0.0-12.0) Eosinophils (%) (Auto) 4.8 % (0.0-7.0) Basophils (%) (Auto) 0.9 % (0.0-2.0) Neutrophils # (Auto) 9.2 10 ^3/uL (1.6-8.6) Lymphocytes # (Auto) 2.2 10 ^3/uL (0.4-5.4) Monocytes # (Auto) 2.1 10 ^3/uL (0-1.3) Eosinophils # (Auto) 0.7 10 ^3/uL (0-0.8) Basophils # (Auto) 0.1 10 ^3/uL (0-0.2) Nucleated Red Blood Cells 0.1 % Sodium Level 137 mmol/L (136-145) Potassium Level 3.8 mmol/L (3.5-5.1) Chloride Level 101 mmol/L (98-107) Carbon Dioxide Level 26 mmol/L (20-31) Anion Gap 10 (5-15) Blood Urea Nitrogen 30 mg/dL (9-23) Creatinine 1.54 mg/dL (0.700-1.30) Glomerular Filtration Rate Calc 49 mL/min (>90) BUN/Creatinine Ratio 19.5 (10.0-20.0) Serum Glucose 80 mg/dL (74-106) Calcium Level 8.8 mg/dL (8.7-10.4) Magnesium Level 2.3 mg/dL (1.6-2.6) Total Bilirubin 1.0 mg/dL (0.2-1.0) Aspartate Amino Transferase (AST) 34 U/L (13-40) Alanine Aminotransferase (ALT) 24 U/L (7-40) Alkaline Phosphatase 78 U/L (46-116) C-Reactive Protein High Sensitivity 8.67 mg/dL (<1.0) Total Protein 6.7 g/dL (5.7-8.2) Albumin 3.8 g/dL (3.2-4.8) Lactic Acid Level 1.6 mmol/L (0.4-2.0) Test 01/08/25 08:22 01/06/25 16:00 01/06/25 04:39 01/06/25 01:08 Erythrocyte Sedimentation Rate 15 mm/hr (0-20) Influenza Type A Antigen Negative (Negative) Influenza Type B Antigen Negative (Negative) SARS-CoV-2 Antigen (Rapid) Negative (NEGATIVE) Prothrombin Time 13.3 sec (9.3-11.8) Prothrombin Time INR 1.29 (0.9-1.15) Activated Partial Thromboplast Time 30.5 SEC (24.5-34.5) Hemoglobin A1c 6.1 % A1C (<5.7) Triglycerides Level 77 mg/dL (< 150) Cholesterol Level 68 mg/dL (< 200) LDL Cholesterol 40 mg/dL (< 100) HDL Cholesterol 15 mg/dL (40-59) Vitamin B12 Level 666 pg/mL (211-911) Vitamin D 25-Hydroxy 18.6 ng/mL (30.0-100) Thyroid Stimulating Hormone (TSH) 2.54 uIU/mL (0.55-4.78) Urine Color Light-yellow (Yellow) Urine Clarity Clear (Clear) Urine pH 6.0 (5.0-9.0) Urine Specific [place] 1.007 (1.001-1.035) Urine Protein Negative (Negative) Urine Ketones Negative (Negative) Urine Blood Trace /uL (Negative) Urine Nitrite Negative (Negative) Urine Bilirubin Negative (Negative) Urine Urobilinogen 2 mg/dL (Negative) Urine Leukocyte Esterase 3+ /uL (Negative) Urine RBC 6 /hpf (0 - 3) Urine Microscopic WBC 46 /HPF (0-3) Urine Squamous Epithelial Cells Few /hpf (<5) Urine Bacteria Few /hpf (None Seen) Urine Glucose Normal mg/dL (Normal) Urine Opiates Screen Neg (NEGATIVE) Urine Fentanyl Screen Neg (NEGATIVE) Urine Barbiturates Screen Neg (NEGATIVE) Urine Phencyclidine Screen Neg (NEGATIVE) Urine Amphetamines Screen Pos (NEGATIVE) Urine Benzodiazepines Screen Neg (NEGATIVE) Urine Cocaine Screen Neg (NEGATIVE) Urine Cannabinoids Screen Neg (NEGATIVE) Test 01/05/25 23:03 01/05/25 19:54 Troponin I High Sensitivity 66 ng/L (</=54) B-Type Natriuretic Peptide 1411.55 pg/mL (0-100) Other Laboratory Tests 01/10/25 04:20 Brief Hx & Hospital Course: Mr. Sawyer a 69-year-old male with past medical history of COPD on home oxygen which he recently lost, chronic indwelling Vargas secondary to BPH for the past 3 years, congestive heart failure, hypothyroidism, CKD stage IIIB, history of colostomy colostomy 2022, history of meth use, history of nicotine use, who presents to the hospital with the chief complaint of shortness of breaths, fever and chills for the past 1 week. He reports having experiencing flu-like symptoms for the past 1 week including fever, chills, shortness of breath and dry cough. Following that, patient did not take his congestive heart failure medications reports developing lower extremity swelling. He recently changes insurance and lost his home oxygen. He denies smoking, drinking or illicit drug use. Last echocardiogram completed 08/02/2024, showed Severely dilated left ventricle. Severely reduced left ventricular systolic function estimated ejection fraction of 10%. There is global wall akinesia. There is a grade 2 diastolic dysfunction. Normal left ventricular size and dimension. Severely reduced right ventricular systolic function. Moderately elevated right ventricular systolic [id number] mm of mercury. During the hospitalization,patient was tachycardic, WBC count was 12.9 which increased to 14, troponins were elevated at 64, not up trending. BNP 1411 Chest x-ray showed Bibasilar opacities greater on the right side consistent with pneumonia. Patient was started on IV ceftriaxone and IV azithromycin starting 01/05, IV azithromycin was switched to doxycycline 01/08 given the MRSA nares positivity. He probably NSTEMI likely type 2 secondary to heart failure exacerbation and pneumonia. We initiated Lasix 40 mg b.i.d. which was changed to 40 mg daily on 01/09. Also continue the Jardiance and Coreg. Patient received nebulized treatments. Sputum culture was completed which showed prelim rare Gram-positive cocci in pairs. Patient has chronic indwelling Vargas, last Vargas change was 15 days back prior to admission. His baseline creatinine 1.5. Patient's lower extremity swelling went down, he was weaned off of oxygen. Patient improved clinically, bilateral crackles decreased. 01/10-patient was hemodynamically stable, clinically stable, vitally stable and is therefore being discharged home with the advice: levofloxacin 750 mg for the next 5 days. He was advised to follow up with primary care physician within 7 days and discharge clinic appointment within 7 days. Discharge diagnosis Acute hypoxic respiratory failure secondary to community-acquired pneumonia Acute on chronic systolic congestive heart failure exacerbation-NYHA class 3 secondary to above Community-acquired pneumonia, mixed Gram-positive and negative with pleuritic chest pain NSTEMI like clear type 2 secondary to above Chronic kidney disease 3B Chronic indwelling Vargas for the past 3 years secondary to benign prostatic hyperplasia MRSA nares positive COPD no exacerbation Anemia, likely microcytic Prediabetes mellitus-hemoglobin A1c 6.2 Umbilical hernia-soft reducible Hypothyroidism Current methamphetamine use dependence History of tobacco use Vitamin-D deficiency Hypokalemia Condition at Discharge: Stable Final Diagnosis/Problems List Discharge diagnosis Acute hypoxic respiratory failure secondary to community-acquired pneumonia Acute on chronic systolic congestive heart failure exacerbation-NYHA class 3 secondary to above Community-acquired pneumonia, mixed Gram-positive and negative with pleuritic chest pain NSTEMI like clear type 2 secondary to above Chronic kidney disease 3B Chronic indwelling Vargas for the past 3 years secondary to benign prostatic hyperplasia MRSA nares positive COPD no exacerbation Anemia, likely microcytic Prediabetes mellitus-hemoglobin A1c 6.2 Umbilical hernia-soft reducible Hypothyroidism Current methamphetamine use dependence History of tobacco use Vitamin-D deficiency Hypokalemia Discharge Disposition: Home Discharge Instruct/Medications Diet: Cardiac 2g Na,low cholest Activity: Light activity Follow Up/Referral: Follow up with primary care physician within 7 days Follow up with discharge clinic appointment within 7 days Medications: Per EMR Discharge Statement: "Patient was advised to return to the ER or call 911 if any headaches, dizziness, shortness of breath, chest pain, abdominal pain, bleeding, fevers, or worsening of medical condition. Patient was counseled about treatment plan, medications, possible side effects, patientverbalized understanding. All questions were answered to the best of my ability. This discharge took greater then 30 minutes in planning, reviewing documentation, counseling the patient, and discussing with other team members." ASSESSMENT ASSESSMENT Assessment Acute hypoxic respiratory failure secondary to community-acquired pneumonia Acute on chronic systolic congestive heart failure exacerbation-NYHA class 3 secondary to above Community-acquired pneumonia, mixed Gram-positive and negative with pleuritic chest pain NSTEMI like clear type 2 secondary to above Chronic kidney disease 3B Chronic indwelling Vargas for the past 3 years secondary to benign prostatic hyperplasia Date of Service: Jan 10, 2025 Billing Provider: GARO MENDOZA DO Common Visit Codes: 06999-[id number] DISCH DAY >30min CLARISSE WARREN RESIDENT Jan 10, 2025 14:11 GARO MENDOZA DO Jan 11, 2025 16:32
--- NOTE | 2025-01-10 22:28 | DVHPN2 ---
Progress Note - Dictate Date Seen: Jan 10, 2025 Has the PT tested + for MRSA If YES, has PT been informed?: No Medical Necessity Reason Pt with a Central, PICC or Fol: No Subjective Patient was seen and evaluated in follow up. Patient has no new complaints at this time. Patient denies any cardiac symptoms. Patient is cardiac stable for discharge. Telemetry reviewed. vital signs Vital Sign Date Time Temp Pulse Resp B/P (MAP) Pulse Ox O2 Delivery O2 Flow Rate FiO2 01/10/25 14:03 81 18 95 01/10/25 13:57 Nasal Cannula* 2 28 01/10/25 13:00 97.9 93/56 (68) 97.9 Total Intake and Output 01/09/25 01/09/25 01/10/25 15:00 23:00 07:00 Intake Total 1050 ml 700 ml Output Total 1700 ml 2550 ml Balance -650 ml -1850 ml objective GENERAL: Awake, alert, oriented. Obese. LUNGS: Clear. CARDIOVASCULAR: Heart sounds are good. ABDOMEN: Soft. EXT: +4 pitting edema. laboratory and microbiology Laboratory Tests 01/10/25 04:20 Test 01/10/25 04:20 Range/Units Serum Glucose 80 74-106 mg/dL Problem List Acute on chronic decompensated HFrEF, NYHA class III. NSTEMI, likely type II secondary to above. 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 Mild mitral and tricuspid valve regurgitation. Pneumonia. COPD. Chronic kidney disease. BPH. History of tobacco use. Hypothyroidism.. Amphetamine use. Medical noncompliance. Assessment/Plan Continued all current supportive medical care. Morphine and [place] for pain management. Aspirin, Lipitor. IV antibiotics as ordered. Coreg. DVT and GI prophylactics. Diuretics with Lasix. Additional plan as per the hospital course. Dietary Evaluation Review Recommendations by RD: Dietary education by RD Comments: 1) Add 60g CCHO restriction to cardiac diet order 2) Encourage patient to limit intake of added sugar and consistent intake of carbohydrates throughout day, paired with protein to promote glycemic control. Limit intake of saturated fat - focus on selecting lean sources of protein. Reduce sodium intake. 2) Follow-up with cardiology, pulmonology, and nephrology 3) Refer to social worker assistant for assistance with drug recovery 4) Continue to monitor I&O, labs, and skin integirty Expected Outcomes/Goals: 1) appetite and labs to improve 2) f/u in 5 days Plan discussed with: Patient ASH PAREDES MD Jan 10, 2025 22:28
== END 2025-01-10 16:57 | disposition home or self-care (01) | DRG 871 ==
LOC: ER 19:27 → OVERFLOW 22:30 → TELE-CENTR 23:54 → CENTRAL 01-09 13:41
PROVIDERS: ADMIT Internal Medicine; ATTEND Student in an Organized Health Care Education/Training Program
DX: A41.59 Other Gram-negative sepsis (principal); E43 Unspecified severe protein-calorie malnutrition; I50.23 Acute on chronic systolic (congestive) heart failure; I21.A1 Myocardial infarction type 2; J15.69 Pneumonia due to other Gram-negative bacteria; J96.01 Acute respiratory failure with hypoxia; J15.9 Unspecified bacterial pneumonia; I42.7 Cardiomyopathy due to drug and external agent; J44.0 Chronic obstructive pulmonary disease with (acute) lower respiratory infection; F15.20 Other stimulant dependence, uncomplicated; I08.1 Rheumatic disorders of both mitral and tricuspid valves; E03.9 Hypothyroidism, unspecified; Z20.822 Contact with and (suspected) exposure to COVID-19; N40.0 Benign prostatic hyperplasia without lower urinary tract symptoms; R73.03 Prediabetes; K42.9 Umbilical hernia without obstruction or gangrene; E55.9 Vitamin D deficiency, unspecified; E87.6 Hypokalemia; N18.32 Chronic kidney disease, stage 3b; D64.9 Anemia, unspecified; F17.210 Nicotine dependence, cigarettes, uncomplicated; J84.10 Pulmonary fibrosis, unspecified; Z91.199 Patient's noncompliance with other medical treatment and regimen due to unspecified reason
CPT/HCPCS: 36415; 71045; 80048; 80053; 80061; 80307; 81001; 82306; 82607; 82962; 83036; 83605; 83735; 83880; 84443; 84484; 85025; 85610; 85652; 85730; 86141; 87040; 87070; 87077; 87081; 87186; 87205; 87426; 87804; 93005; 94640; 96374; 96375; 99291; G0378; J1815

== ENCOUNTER 2025-05-16 08:55 | Outpatient (CLI) | payer MEDICAID, MEDICARE ==
[~2025-05-16] VITALS: Ht 172.7 cm; Wt 83.9 kg
[~2025-05-16 08:55] MED LIST changes: -CEPH250C PO; +LEVO750T40 PO
[2025-05-16] MEDS: REGADENOSON 0.4 MG/5 ML SYRG IV ONE ×2 (10:41→10:56)
--- NOTE | 2025-05-18 10:58 | DVHSR ---
APPROVED REPORT Exam: Nuclear Stress Test Indication: CARDIAC CLEARANCE BMI: 0 Medical History Medical History: EF 10%, HX OF METH USE, CHF, HYPOTHYROIDISM, DIVERTICULITIS Stress Test Details Stress Test: Pharmacologic stress testing performed using 0.4 mg of regadenoson per 5 mL given IV ov er 10 seconds. HR Resting HR: 66 bpmMax Heart Rate (APMHR): 152.602647 bpm Max HR Achieved: 104 bpmTarget HR (85% APMHR): 129.707504 bpm % of APMHR: 68.42 Recovery HR: 82 bpm BP Resting BP: 130/79 mmHg Recovery BP: 128/79 mmHg ECG Resting ECG: Sinus Rhythm Clinical Reason for Termination: Completed protocol Stress ECG Conclusion moderate dilatd LV LVEF 24% ssevere systolic HF inferior wall reversible defect noted NM EXAM: Myocardial Perfusion REST/STRESS Imaging Protocol: Rest Tc-99m/Stress Tc-99m 1 day Resting Data Rest SPECT myocardial perfusion imaging was performed in supine position 60 minutes following the int ravenous injection of 10.8 mCi of Tc-99m Sestamibi. Time of rest injection: 0900 Time of rest imagin Administration Route: IV Administration Site: Left AC Pharmacologic Stress Pharmacologic stress test was performed by injecting Regadenoson 0.4 mg IV push followed by the intra venous injection of 32.3 mCi of Tc-99m Sestamibi. Time of stress injection: 1030 Time of stress imagin Administration Route: IV Administration Site: Left AC Gated Stress SPECT was performed 75 minutes after stress injection. The images were gated to evaluate regional wall motion and calculate left ventricular ejection fracti on. Nuclear Conclusion moderate dilatd LV LVEF 24% ssevere systolic HF inferior wall reversible defect noted
== END 2025-05-16 17:00 | disposition home or self-care (01) ==
LOC: XYW 08:55
PROVIDERS: ATTEND Internal Medicine
DX: I50.20 Unspecified systolic (congestive) heart failure (principal); Z13.6 Encounter for screening for cardiovascular disorders; I51.7 Cardiomegaly
CPT/HCPCS: 78452; 93017; A9500; J2785

== ENCOUNTER 2025-05-21 00:01 | Inpatient (IN) | payer MEDICAID ==
[~2025-05-21] VITALS: Ht 172.7 cm; Wt 84.1 kg
--- NOTE | 2025-05-21 00:34 | ED.PDOC ---
General HPI Comments A 69 year-old male, with a HX of BPH, presents to the ED for a Vargas Catheter replacement. Patient reports an inability to urinate for X2 hours with associated abdominal pain. Patient states he typically self catheterizes at home but was unable to do so tonight. Patient came to the ED for further care in changing the catheter. Patient has no other complaints and otherwise denies N/V, fever, chills, general weakness, aches, dysuria, hematuria, or urgency. Patient utilizes a catheter due to significant prostate issues. Chief Complaint: Tube Replacement Time Seen by MD: 00:30 Primary Care Provider: UNKNOWN Reviewed notes: Nurses Notes, Medications, Allergies Allergies: Coded Allergies: NO KNOWN ALLERGIES (Unverified , 05/16/25) Home Meds Active Scripts Levofloxacin Hemihydrate (LEVOFLOXACIN) 750 Mg Tab, 750 MG PO DAILY for 5 Days, #5 TAB Prov:CLARISSE WARREN 01/10/25 Furosemide (Furosemide) 40 Mg Tab, 40 MG PO BID for 30 Days, #60 TAB Prov:MICHA RAMIREZ 10/04/24 Metolazone (Metolazone) 5 Mg Tab, 2.5 MG PO 2XW for 30 Days, #15 TAB Prov:MICHA RAMIREZ 10/04/24 Acetaminophen (Acetaminophen) 325 Mg Tab, 650 MG PO Q6HP PRN for 10 Days, #80 TAB Prov:MICHA RAMIREZ 10/04/24 Empagliflozin (Jardiance) 10 Mg Tab, 10 MG PO DAILY for 30 Days, #30 TAB Prov:MORIAH ROJAS MD 08/23/24 Albuterol Sulfate (Ventolin) 2.5 Mg/0.5 Ml Nb, 1 VIAL NEB Q4HR, #60 VIAL 1 Refill Prov:MARTIN SPENCER 05/07/24 Atorvastatin Calcium (ATORVASTATIN CALCIUM) 20 Mg Tab, 20 MG PO HS for 30 Days, #30 TAB Prov:MICHA RAMIREZ 03/20/24 Aspirin (Aspirin Low Dose) 81 Mg Tab, 81 MG PO DAILY for 30 Days, #30 TAB Prov:MICHA RAMIREZ 03/20/24 Pantoprazole Sodium Sesquihydr (Pantoprazole Sodium) 40 Mg Tab, 40 MG PO DAILY for 30 Days, #30 TAB Prov:EMEKA MCALLISTER MD 01/20/23 Tamsulosin Hcl (Flomax) 0.4 Mg Cap, 1 CAP PO HS, #30 CAP 11 Refills Prov:DARIAN DIEGO MD 03/29/22 Reported Medications Finasteride (Finasteride) 5 Mg Tab, 5 MG PO DAILY, MG 03/18/24 Carvedilol (Carvedilol) 3.125 Mg Tab, 3.125 MG PO BID, MG 03/18/24 Acetaminophen (Acetaminophen) 500 Mg Tab, 500 MG PO PRN PRN for pain 03/17/22 Levothyroxine Sodium (Levothyroxine Sodium) 150 Mcg Tab, 150 MCG PO QAM 02/25/16 Information Source: Patient Mode of Arrival: Ambulatory Severity: Moderate Timing: Hours Duration: Since onset Prehospital treatment: None Onset: Spontaneous Symptoms: Other (Obstruction) History of: BPH Location: Abdomen Penile discharge: None Modifying factors: None associated signs and symptoms: Abdominal Pain, Inability to Void Past Medical History PAST MEDICAL HISTORY: Asthma, CHF, COPD, Thyroid Past Medical History (Other): Patient has a history of significant prostate concerns and utilizes a long-term indwelling Vargas catheter Surgical History: Denies all surgeries Family History Family History: Reviewed,noncontributory to illness Social History Smoker: Cigarettes, Less Than 1 Pack/Day Alcohol: Denies ETOH Use Drugs: Denies Drug Use Lives In: Home Constitutional: denies: chills, diaphoresis, fatigue, fever, malaise, sweats, weakness, others EENTM: denies: blurred vision, double vision, ear bleeding, ear discharge, ear drainage, ear pain, ear ringing, eye pain, eye redness, hearing loss, mouth pain, mouth swelling, nasal discharge, nose bleeding, nose congestion, nose pain, photophobia, tearing, throat pain, throat swelling, voice changes, others Respiratory: denies: cough, hemoptysis, orthopnea, SOB at rest, shortness of breath, SOB with excertion, stridor, wheezing, others Cardiovascular: denies: chest pain, dizzy spells, diaphoresis, Dyspnea on exertion, edema, irregular heart beat, left arm pain, lightheadedness, palpitations, PND, syncope, others Gastrointestinal: reports: abdominal pain; denies: abdomen distended, blood streaked bowels, constipated, diarrhea, dysphagia, difficulty swallowing, hematemesis, melena, nausea, poor appetite, poor fluid intake, rectal bleeding, rectal pain, vomiting, others Genitourinary: reports: others (Bladder outlet obstruction); denies: burning, dysuria, flank pain, frequency, hematuria, incontinence, penile discharge, penile sore, pain, testicle pain, testicle swelling, urgency Neurological: denies: dizziness, fainting, headache, left sided numbness, left sided weakness, numbness, paresthesia, pre-existing deficit, right sided numbness, right sided weakness, seizure, speech problems, tingling, tremors, weakness, others Musculoskeletal: denies: back pain, gout, joint pain, joint swelling, muscle pain, muscle stiffness, neck pain, others Integumetry: denies: bruises, change in color, change in hair/nails, dryness, laceration, lesions, lumps, rash, wounds, others Allergic/Immunocompromised: denies: Difficulty Healing, Frequent Infections, Hives, Itching, others Hematologic/Lymphatic: denies: anemia, blood clots, easy bleeding, easy bruising, swollen glands, others Endocrine: denies: excessive hunger, excessive sweating, excessive thirst, excessive urination, flushing, intolerance to cold, intolerance to heat, unexplained weight gain, unexplained weight loss, others Psychiatric: denies: anxiety, bipolar disorder, depression, hopeless, panic disorder, schizophrenia, sleepless, suicidal, others All Other Systems: Reviewed and Negative Physical Exam General Appearance: Moderate Distress (Patient was in moderate distress due to full bladder sensation.), Normal HEENT: Normal ENT Inspection, Pharynx Normal, TMs Normal Neck: Full Range of Motion, Non-Tender, Normal, Normal Inspection Respiratory: Chest Non-Tender, Lungs Clear, No Accessory Muscle Use, No Respiratory Distress, Normal Breath Sounds Cardiovascular: No Edema, No JVD, No Murmur, No Gallop, Normal Peripheral Pulses, Regular Rate/Rhythm Breast Exam: Deferred Gastrointestinal: Other (Diffuse bilateral lower abdominal tenderness to palpation over the bladder. No signs of trauma.) Genitalia: Deferred Pelvic: Deferred Rectal: Deferred Extremities: No calf tenderness, Normal capillary refill, Normal inspection, Normal range of motion, Non-tender, No pedal edema Neurologic: Alert, No Motor Deficits, Normal Affect, Normal Mood, No Sensory Deficits Cerebellar Function: Normal Reflexes: Normal Skin: Dry, Normal Color, Warm Lymphatic: No Adenopathy Was a procedure done? Was a procedure done?: No Differential Diagnosis Kidney stone (Female): N/A Kidney stone (Male): Other (Vargas Replacement , history of BPH, bladder outlet obstruction) X-Ray, Labs, Meds, VS Vital Signs Date Time Temp Pulse Resp B/P (MAP) Pulse Ox O2 Delivery O2 Flow Rate FiO2 05/21/25 00:15 98.0 96 14 162/82 (108) 98 98.0 Current Medications Medications (Trade) Dose Ordered Sig/Tawnya Route Start Time Stop Time Status Last Admin Ketorolac Tromethamine (Toradol Injection) 30 mg ONCE ONCE IM 05/21/25 01:45 05/21/25 01:46 DC 05/21/25 01:49 Acetaminophen/ Hydrocodone Bitart ([place] 10/325MG Tab) 1 tab ONCE ONCE PO 05/21/25 03:30 05/21/25 03:31 DC 05/21/25 03:28 Phenazopyridine HCl (Pyridium Tablet) 200 mg ONCE ONCE PO 05/21/25 03:30 05/21/25 03:31 DC 05/21/25 03:28 X-Ray, Labs, Meds, VS Comment Multiple attempts were made to insert a Vargas catheter as well as other bladder draining instruments, but we were unable to successfully installed a catheter. Bladder scan revealed approximately 500 mL of urine. Patient will be admitted for urological evaluation tomorrow and Vargas placement. Time of 1ST Reevaluation: 03:46 Reevaluation 1ST: Unchanged Consultation: PCP Patient Education/Counseling: Diagnosis, Treatment Family Education/Counseling: Diagnosis, Treatment, No Family Present SEPSIS Sepsis Screen Recent Procedure: No On Antibiotic Therapy: No Respiratory Rate >20: No Heart Rate >90: No Temp<36 C (96.8 F) or >38.3 C: No SBP <90 or MAP <65 mmHG: No New Acute Mental Status Change: No Is the patient on CPAP, BIPAP,: No Physician Orders Ok To Change Vargas (05/21/25 00:19) Vital Signs Date Time Temp Pulse Resp B/P (MAP) Pulse Ox O2 Delivery O2 Flow Rate FiO2 05/21/25 00:15 98.0 96 14 162/82 (108) 98 98.0 Medications Medications Dose Ordered Sig/Tawnya Route Start Time Stop Time Status Last Admin Dose Admin Acetaminophen/ Hydrocodone Bitart 1 tab ONCE ONCE PO 05/21/25 03:30 05/21/25 03:31 DC 05/21/25 03:28 Ketorolac Tromethamine 30 mg ONCE ONCE IM 05/21/25 01:45 05/21/25 01:46 DC 05/21/25 01:49 Phenazopyridine HCl 200 mg ONCE ONCE PO 05/21/25 03:30 05/21/25 03:31 DC 05/21/25 03:28 Departure 1 Departure Time of Disposition: 01:32 Impression: Primary Impression: Urinary retention due to benign prostatic hyperplasia Additional Impressions: Encounter for Vargas catheter replacement Vargas catheter problem Disposition: ADMITTED INPATIENT Condition: Stable Discharged With: Self, Friend Critical Care Note Critical Care Time?: No Stability Stability form required: No Heart Score Heart Score: Heart Score Response (Comments) Value History N/A 0 EKG N/A 0 Age N/A 0 Risk Factors N/A 0 Troponin N/A 0 Total 0 I personally scribed for SILVIA CAMPA PAC [email or web address]) on 05/21/25 at 00:34. Electronically submitted by Juany Isaac ([employer]). I personally scribed for SILVIA CAMPA PAC ([employer]) on 05/21/25 at 00:55. Electronically submitted by Juany Isaac ([employer]). SILVIA CAMPA PAC May 21, 2025 00:34
[2025-05-21] MEDS: KETOROLAC TROMETH 60MG/2ML VIAL IM ONE (01:49)
[2025-05-21] MEDS: PHENAZOPYRIDINE HCL 100 MG TAB PO ONE (03:28)
[2025-05-21] MEDS: HYDROcodone-ACET 10/325MG TAB PO ONE (03:28)
[2025-05-21] MEDS: LIDOCAINE HCL 2% TOP JELLY 5ML TOP ONE (03:35)
[2025-05-21] MEDS: LIDOCAINE 2% TOPICAL JELLY 5 ML URJT TOP ONE (03:35)
[2025-05-21 04:20] VITALS: PULSE 90; RESP 14; O2SAT 95
--- NOTE | 2025-05-21 04:56 | DVHHPRES ---
History of Present Illness Resident Creating Document: LANRE ACOSTA RESIDENT History of Present Illness This is a 69-year-old male with past medical history of BPH on Vargas dependent for last 2 years, large abdominal ventral hernia, status post laparotomy and colostomy reversal presented to the ED with a chief complaint of acute urinary retention since 4:00 p.m. prior to this admission. The patient states that for last 2 years he is Vargas dependent for enlarged prostate and he normally change the Vargas every monthly and today was not able to put back the Vargas, tried 3 times and getting worse with bladder spasm and urinary retention that prompted this visit. Denies fever chills nausea, vomiting or any change in bowel habit. PCP: Dr. Browning Surgeon: Dr. Bauman Urologist: Dr. Garcia Past Medical History BPH, ventral hernia, hypothyroidism Past Surgical History Status post laparotomy with colostomy reversal Family History No significant family history Past Social History Lives with family Nonsmoker, nonalcoholic and never tried any drugs. Review of Systems Constitutional: No: Fever, Chills, Sweats, Weakness, Malaise, Other Eyes: No: Pain, Vision change, Conjunctivae inflammation, Eyelid inflammation, Other, Redness ENT: No: Ear pain, Ear discharge, Nose pain, Nose discharge, Nose congestion, Mouth pain, Mouth swelling, Throat pain, Throat swelling, Other Respiratory: No: Cough, Dry, Shortness of breath, SOB with excertion, Wheezing, Hemoptysis, Pleuritic Pain, Sputum, Wheezing, Other Cardiovascular: No: Chest Pain, Palpitations, Orthopnea, Paroxysmal Noc. Dyspnea, Edema, Lt Headedness, Other Gastrointestinal: Abdominal Pain; No: Nausea, Vomiting, Diarrhea, Constipation, Melena, Hematochezia, Other Genitourinary: No Dysuria, No Frequency, No Incontinence, No Hematuria; Retention; No Other Musculoskeletal: No: other, neck pain, shoulder pain, arm pain, back pain, hand pain, leg pain, foot pain Skin: No: Rash, Lesions, Jaundice, Bruising, Other Neurological: No: Weakness, Numbness, Incoordination, Change in speech, Confusion, Seizures, Other Allergies: Coded Allergies: NO KNOWN ALLERGIES (Unverified , 05/16/25) Exam Vital Signs Vital Signs Date Time Temp Pulse Resp B/P (MAP) Pulse Ox O2 Delivery O2 Flow Rate FiO2 05/21/25 04:20 90 14 95 Room Air* 0 21 05/21/25 04:20 97.9 133/94 (107) 97.9 Exam Physical examination: General Appearance: Alert, Oriented X3, Cooperative, No acute distress HEENT: Atraumatic, PERRLA, EOMI, Mucous membrane moist/pink Respiratory: Clear to auscultation, Normal air movement Cardiovascular: Regular rate, Normal S1, Normal S2, No murmurs, no chest wall tenderness Abdominal: Large ventral hernia, Normal bowel sounds, Soft, suprapubic tenderness, No hepatospenomegaly, No masses Extremities: No clubbing, No cyanosis, No edema, Normal pulses, No tenderness/swelling Skin: No rashes, No breakdown, No significant lesion Neuro: Normal gait, Normal speech, Strength at 5/5 X4 ext, Normal tone, Sensation intact, Cranial nerves 3-12 NL, Reflexes 2+ Psych/Mental Status: Mental status NL, Mood NL SEPSIS Sepsis Screen Date sepsis recognized/suspect: May 21, 2025 Time Sepsis recognized/suspect: 14 Recent Procedure: No On Antibiotic Therapy: No Respiratory Rate >20: No Heart Rate >90: No Temp<36 C (96.8 F) or >38.3 C: No SBP <90 or MAP <65 mmHG: No New Acute Mental Status Change: No Is the patient on CPAP, BIPAP,: No Physician Orders Ok To Change Vargas (05/21/25 00:19) Complete Blood Count (05/21/25 04:47) Comprehensive Metabolic Panel (05/21/25 04:47) Urinalysis (05/21/25 04:47) Admit (05/21/25 04:51) Code Status (05/21/25 04:51) Vital Signs Date Time Temp Pulse Resp B/P (MAP) Pulse Ox O2 Delivery O2 Flow Rate FiO2 05/21/25 04:20 90 14 95 Room Air* 0 21 05/21/25 04:20 97.9 90 14 133/94 (107) 95 97.9 05/21/25 00:15 98.0 96 14 162/82 (108) 98 98.0 Medications Medications Dose Ordered Sig/Tawnya Route Start Time Stop Time Status Last Admin Dose Admin Acetaminophen/ Hydrocodone Bitart 1 tab ONCE ONCE PO 05/21/25 03:30 05/21/25 03:31 DC 05/21/25 03:28 1 TAB Ketorolac Tromethamine 30 mg ONCE ONCE IM 05/21/25 01:45 05/21/25 01:46 DC 05/21/25 01:49 30 MG Phenazopyridine HCl 200 mg ONCE ONCE PO 05/21/25 03:30 05/21/25 03:31 DC 05/21/25 03:28 200 MG Assessment/Plan Assessment/Plan Assessment and plan: # Acute urinary retention secondary to BPH # Vargas dependent for last 2 years # unable to place Vargas - Bladder scan showed 470 mL of urine - IV morphine 1 mg q.4 PRN - consulted Urology # Large incisional hernia, status post laparotomy for bowel perforation and colostomy reversal - Patient is following with Dr. Bauman in outpatient # Hypothyroidism - Levothyroxine 150 mcg at q.a.m. # Chronic decompensated systolic heart failure - Echo on 06/18 demonstrated Severely dilated left ventricle. Severely reduced left ventricular systolic function estimated ejection fraction of 10%, grade 2 diastolic dysfunction. Severely reduced right ventricular systolic function. Moderately elevated right ventricular systolic pressure 48 mm of mercury. - Lasix 20 mg IV daily - continue GDM T - ordered chest x-ray, BNP - strict I&O # possible SIA on CKD secondary to hemodynamically mediated/VMN - monitor BMP # Transaminitis without hyperbilirubinemia - monitor CMP # PUD prophylaxis - Pepcid 20 mg p.o. daily # DVT prophylaxis - Lovenox 40 mg sc daily Goal of care discussed with the patient for more than 20 minutes full code Plan discussed with Dr. Garcia Plan discussed with: Patient, Spouse My Orders Orders - LANRE ACOSTA Procedure Category Date Status Time Admit ADMIT 05/21/25 Transmitted 04:51 Code Status CODE 05/21/25 Transmitted 04:51 LANRE ACOSTA May 21, 2025 04:56
[2025-05-21] MEDS ORDERED: DOCUSATE SOD 100 MG CAP PO PRN (05:00)
[2025-05-21] MEDS ORDERED: KETOROLAC TROMETH 30 MG/ML 1ML VIAL IV PRN (05:00)
[2025-05-21] MEDS ORDERED: ONDANSETRON HCL 4 MG/2 ML VIAL IV PRN (05:00)
[2025-05-21] MEDS ORDERED: ACETAMINOPHEN 325 MG TAB PO PRN (05:00)
[2025-05-21] MEDS: FUROSEMIDE 20 MG/2 ML VIAL IV ONE (05:48)
[2025-05-21] MEDS: cefTRIAXone 1GM/50ML D5W 50 ML IV ONE (05:49)
[2025-05-21 05:56] LABS: Hematocrit 46.4 % (41.0-53.0); Hemoglobin 15.9 g/dL (13.5-17.5); Mean Corpuscular Hemoglobin 29.1 pg (28.0-32.0); Mean Corpuscular Volume 84.7 fL (80.0-100.0); Nucleated Red Blood Cells % 0.2 %
[2025-05-21] MEDS: SODIUM CHLOR 0.9% PF (SALINE LOCK) 10ML VIAL/SYR IV SCH (06:02)
[2025-05-21 06:15] LABS: Albumin 4.4 g/dL (3.2-4.8); Alkaline Phosphatase 110 U/L (46-116); Anion Gap 10 (5-15); BUN/Creatinine Ratio 16.8 (10.0-20.0); Calcium 10.0 mg/dL (8.7-10.4); Carbon Dioxide 25 mmol/L (20-31); Chloride 107 mmol/L (98-107); Potassium 4.3 mmol/L (3.5-5.1); Sodium 142 mmol/L (136-145); Total Protein 7.0 g/dL (5.7-8.2)
[2025-05-21 06:16] LABS: Alanine Aminotransferase 75 U/L (7-40); Bilirubin, Total 0.6 mg/dL (0.2-1.0); Blood Urea Nitrogen 24 mg/dL (9-23); Glucose 117 mg/dL (74-106)
[2025-05-21] MEDS: LEVOTHYROXINE SODIUM 50 MCG TAB PO SCH (06:45)
--- NOTE | 2025-05-21 07:15 | DVH ---
CHEST RADIOGRAPH Indication: chf Technique: Single frontal view of the chest was obtained Comparison: XY CHEST XRAY 1 VIEW on DOS: 01/08/25, XY CHEST XRAY 1 VIEW on DOS: 01/05/25, XY CHEST XRAY 1 VIEW on DOS: 09/30/24, XY CHEST PORTABLE on DOS: 08/19/24, XY CHEST PORTABLE on DOS: 06/19/24, XY CH EST XRAY 1 VIEW on DOS: 01/08/25 FINDINGS: Lines and Tubes: None Lungs: Similar patchy bilateral airspace disease. Pleura: No effusion. No pneumothorax. Cardiomediastinal contours: Stable. Bones: Unremarkable IMPRESSION: Similar patchy bilateral airspace disease.
[2025-05-21 07:30] VITALS: PULSE 84; RESP 18; O2SAT 95
[2025-05-21] MEDS: HYDROcodone-ACET 5/325MG TAB PO PRN (09:45)
--- NOTE | 2025-05-21 09:48 | DVH ---
CT CT AB PEL WO CON-NO ORAL OR IV INDICATION: acute urinary retention EXAM DATE: 05/21/2025 07:53 AM COMPARISON: CT CT AB PEL WO CON-NO ORAL OR IV on DOS: 08/19/24, CT CT AB PEL WO CON-NO ORAL OR IV on DOS: 01/15/23, CT ABD PELVIS WO CONTRAST on DOS: 04/09/22 RADIATION DOSE: CTDIvol: 16.4 mGy, DLP: 973.55 mGy*cm PROCEDURE: Helical CT images were obtained of the abdomen and pelvis without IV contrast Sagittal and coronal reconstructions are provided. ORAL CONTRAST: None. ADDITIONAL IMAGES / REFORMATS: None All C T scans at this medical facility are performed using dose modulation techniques as appropriate to a p erformed exam including the following: Automated exposure control was utilized; adjustment of the MA and/or KV according to patient size; and use of iterative reconstruction technique. FINDINGS: LUNG BASE: Bibasilar atelectasis. LIVER: Normal. GALLBLADDER AND BILIARY TREE: No calcified gallstones. Normal caliber wall. No intra- or extrahepatic biliary ductal dilation. PANCREAS: Normal. SPLEEN: Normal. BOWEL: Post surgical changes from bowel resection. Mild colonic divertisulocis. ADRENALS: Normal. KIDNEYS AND URETER: Moderate left and mild right hydronephrosis. BLADDER: Distended bladder with emphysematous changes in the bladder wall and possible small bladder stone. REPRODUCTIVE ORGANS: Large prostate. LYMPH NODES:No lymphadenopathy. PERITONEUM: No ascites or free air. No other fluid collection. VESSELS: Scattered atherosclerotic calcifications are noted. RETROPERITONEUM: Normal. ABDOMINAL WALL: Complex ventral hernia contains nondilated bowel. BONES: Scattered osseous degenerative changes are noted. IMPRESSION: Distended bladder with emphysematous changes in the bladder wall and possible small bladder stone. Mo derate left and mild right hydronephrosis.
[2025-05-21] MEDS ORDERED: LACTULOSE 20Gm/30ML SOLN PO PRN (10:15)
[2025-05-21] MEDS: ENOXAPARIN SOD 40 MG/0.4 ML SYRINGE SC SCH (10:18)
[2025-05-21] MEDS: CARVEDILOL 3.125 MG TAB PO SCH (10:19)
[2025-05-21] MEDS: FINASTERIDE 5 MG TAB PO SCH (10:19)
[2025-05-21] MEDS: FAMOTIDINE 20 MG TAB PO SCH (10:20)
--- NOTE | 2025-05-21 10:23 | DVHPNRES ---
Progress Note Date Seen: May 21, 2025 Resident Creating Document: DONTRELL SINGH RESIDENT Has the PT tested + for MRSA If YES, has PT been informed?: No Medical Necessity Reason Pt with a Central, PICC or Fol: No The following are medically ne: Teixeira Catheter Reason for teixeira catheter: Bladder Retention/Obstruc Subjective Review of Systems This is a 69-year-old male with past medical history of BPH on Teixeira dependent for last 2 years, large abdominal ventral hernia, status post laparotomy and colostomy reversal presented to the ED with a chief complaint of acute urinary retention since 4:00 p.m. prior to this admission. The patient states that for last 2 years he is Teixeira dependent for enlarged prostate and he normally change the Teixeira every monthly and today was not able to put back the Teixeira, tried 6 times and getting worse with bladder spasm and urinary retention that prompted this visit. Patient reports that he cannot eat and drink because of the abdominal pain. Patient underwent urinary catheterization today by a on-call urologist Dr. Hawkins, and was successful without any complications. Denies fever chills nausea, vomiting or any change in bowel habit. PCP: Dr. Browning Surgeon: Dr. Bauman Urologist: Dr. Garcia Past Medical History BPH, ventral hernia, hypothyroidism Past Surgical History Status post laparotomy with colostomy reversal Family History No significant family history Past Social History Lives with family Nonsmoker, nonalcoholic and never tried any drugs. Review of Systems Constitutional: Sweats; No: Fever, Chills, Weakness, Malaise, Other Eyes: No: Pain, Vision change, Conjunctivae inflammation, Eyelid inflammation, Other, Redness ENT: No: Ear pain, Ear discharge, Nose pain, Nose discharge, Nose congestion, Mouth pain, Mouth swelling, Throat pain, Throat swelling, Other Respiratory: No: Cough, Dry, Shortness of breath, SOB with excertion, Wheezing, Hemoptysis, Pleuritic Pain, Sputum, Wheezing, Other Cardiovascular: No: Chest Pain, Palpitations, Orthopnea, Paroxysmal Noc. Dyspnea, Edema, Lt Headedness, Other Gastrointestinal: Abdominal Pain; No: Nausea, Vomiting, Diarrhea, Constipation, Melena, Hematochezia, Other Genitourinary: No Dysuria, No Frequency, No Incontinence, No Hematuria; Retention; No Other Musculoskeletal: No: other, neck pain, shoulder pain, arm pain, back pain, hand pain, leg pain, foot pain Skin: No: Rash, Lesions, Jaundice, Bruising, Other Neurological: No: Weakness, Numbness, Incoordination, Change in speech, Confusion, Seizures, Other Allergies: Coded Allergies: NO KNOWN ALLERGIES (Unverified , 05/16/25) Patient reports: No new complaints Objective vital signs Vital Sign Date Time Temp Pulse Resp B/P (MAP) Pulse Ox O2 Delivery O2 Flow Rate FiO2 05/21/25 10:19 88 159/120 05/21/25 08:00 98.3 16 95 98.3 05/21/25 07:30 Room Air* 0 21 medications Current Medications Medications Dose Ordered Sig/Tawnya Route Start Time Stop Time Status Last Admin Dose Admin Ketorolac Tromethamine 15 mg Q8HPRN PRN IV 05/21/25 05:00 05/26/25 04:59 Finasteride 5 mg DAILY PO 05/21/25 10:00 05/21/25 10:19 5 MG Levothyroxine Sodium 150 mcg QAM@0600 PO 05/21/25 06:00 05/21/25 06:45 150 MCG Carvedilol 3.125 mg Q12HR PO 05/21/25 10:00 05/21/25 10:19 3.125 MG Furosemide 20 mg DAILY IV 05/22/25 10:00 Clonidine HCl 0.1 mg Q4HP PRN PO 05/21/25 05:00 Tamsulosin HCl 0.4 mg QPM PO 05/21/25 18:00 Aspirin 81 mg DAILY PO 05/21/25 10:00 05/21/25 10:19 81 MG Atorvastatin Calcium 10 mg HS PO 05/21/25 22:00 Ceftriaxone Sodium 50 ml @ 100 mls/hr Q24H IV 05/22/25 06:00 Sodium Chloride 10 ml Q8HR IV 05/21/25 06:00 05/21/25 06:02 10 ML Acetaminophen/ Hydrocodone Bitart 1 tab Q4HP PRN PO 05/21/25 05:00 05/21/25 09:45 1 TAB Ondansetron HCl 4 mg Q4HP PRN IV 05/21/25 05:00 Docusate Sodium 100 mg BIDPRN PRN PO 05/21/25 05:00 Acetaminophen 650 mg Q6HP PRN PO 05/21/25 05:00 Famotidine 20 mg DAILY PO 05/21/25 10:00 05/21/25 10:20 20 MG Enoxaparin Sodium 40 mg DAILY SC 05/21/25 10:00 05/21/25 10:18 40 MG Lactulose 30 ml Q6HPRN PRN PO 05/21/25 10:15 UNV Examination General Appearance: Alert, Oriented X3, Cooperative, No acute distress HEENT: Atraumatic, PERRLA, EOMI, Mucous membrane moist/pink Respiratory: Clear to auscultation, Normal air movement Cardiovascular: Regular rate, Normal S1, Normal S2, No murmurs, no chest wall tenderness Abdominal: Large ventral hernia, Normal bowel sounds, Soft, suprapubic tenderness, No hepatospenomegaly, No masses Extremities: No clubbing, No cyanosis, No edema, Normal pulses, No tenderness/swelling Skin: No rashes, No breakdown, No significant lesion Neuro: Normal gait, Normal speech, Strength at 5/5 X4 ext, Normal tone, Sensation intact, Cranial nerves 3-12 NL, Reflexes 2+ Psych/Mental Status: Mental status NL, Mood NL laboratory and microbiology Laboratory Tests 05/21/25 05:30 Test 05/21/25 05:30 Range/Units Serum Glucose 117 H 74-106 mg/dL Labs and/or images reviewed: Labs reviewed by me, Image(s) reviewed by me (RN) Problem List/Assessment/Plan Problem List/Assessment/Plan # Acute urinary retention secondary to BPH # Teixeira dependent for last 2 years - Bladder scan showed >692 mL of urine - Renal US- Possible 2 cm stone adjacent to the posterior bladder wall.Mild bilateral hydronephrosis. - Abdomen/Pelvis CT- Distended bladder with emphysematous changes in the bladder wall and possible small bladder stone. Moderate left and mild right hydronephrosis. - IV morphine 1 mg q.4 PRN - consulted Urology - continue place Teixeira - UA for culture # Large incisional hernia, status post laparotomy for bowel perforation and colostomy reversal - Patient is following with Dr. Bauman in outpatient # Hypothyroidism - Levothyroxine 150 mcg at q.a.m. # Chronic decompensated systolic heart failure - Echo on 06/18 demonstrated Severely dilated left ventricle. Severely reduced left ventricular systolic function estimated ejection fraction of 10%, grade 2 diastolic dysfunction. Severely reduced right ventricular systolic function. Moderately elevated right ventricular systolic pressure 48 mm of mercury. - Chest X-Ray- Similar patchy bilateral airspace disease. - Lasix 20 mg IV daily - continue GDM T - ordered chest x-ray, BNP - strict I&O # possible SIA on CKD secondary to hemodynamically mediated/VMN - monitor BMP # Transaminitis without hyperbilirubinemia - monitor CMP # PUD prophylaxis - Pepcid 20 mg p.o. daily # DVT prophylaxis - Lovenox 40 mg sc daily Goal of care discussed with the patient for more than 20 minutes full code Plan discussed with Dr. Mendoza Plan discussed with: Patient, Other (RN) Sepsis reassessment post fluid Respiratory Effort: Non-Labored Respiratory Pattern: Regular Date of Service: May 21, 2025 Billing Provider: GARO MENDOZA DO Common Visit Codes: [id number] INP/OBS CARE(HIGH) DONTRELL SNIGH RESIDENT May 21, 2025 10:23 GARO MENDOZA DO May 22, 2025 09:10
--- NOTE | 2025-05-21 10:55 | DVH ---
INDICATION: duke, rule out post renal obstruction, stone TECHNIQUE: Multiple real-time sonographic images of the kidneys and bladder were obtained. COMPARISON: US KIDNEY on DOS: 08/22/24, US KIDNEY on DOS: 06/19/24, KIDNEY on DOS: 03/26/22 FINDINGS: The right kidney measures 11 cm in length, which is normal in size. The left kidney measures 12 cm in length, which is normal in size. Moderate bilateral hydronephrosis. Possible 2 cm stone adjacent to the posterior bladder wall. IMPRESSION: Possible 2 cm stone adjacent to the posterior bladder wall. Mild bilateral hydronephrosis.
[2025-05-21] MEDS: SODIUM CHLORIDE 0.9% 1,000 ML IV SCH (11:30)
[2025-05-21] MEDS: LIDOCAINE VISCOUS 2% 15ML UD PO ONE (12:40)
--- NOTE | 2025-05-21 12:59 | DVHOP2 ---
Operative Report - 2 Report Details Date: 05/21/25 Preop Diagnosis: urinary retention Postop Diagnosis: same Surgeon: Philip Hawkins Anesthesiologist: con Anesthesia: Local Consent: The patient was informed of the risks and benefits of the procedure. These include but are not limited to complications of anesthesia, postoperative infection, incomplete relief of symptoms, recurrence of symptoms, damage to blood vessels, nerves and tendons, deep venous thrombosis, pulmonary embolism and possible need for repeat surgery in the future. Indications for Surgery: urinary retention Name of Procedure Performed complex cath Procedure Details Procedure Details: 16 fr teixeira with cath guide placed without problem Specimen: UA for culture Condition Good Disposition Acute Care Facility PHILIP HAWKINS MD May 21, 2025 12:59
[2025-05-21 13:18] LABS: Urine Protein, UAD 1+ (Negative)
[2025-05-21 14:50] VITALS: BP 112/74; PULSE 81; RESP 18; TEMP 97.4; O2SAT 96; O2SAT 98
[2025-05-21 16:50] VITALS: BP 120/76; PULSE 60; RESP 16; TEMP 97.5; O2SAT 95
--- NOTE | 2025-05-21 17:06 | DVHSR ---
APPROVED REPORT EXAM: Two-dimensional and M-mode echocardiogram with Doppler and color Doppler. Blood Pressure: 143/96 mmHg INDICATION History of CHF RISK FACTORS Height: 5' 8", Weight: 186 DIMENSIONS LVDd6.7 (3.8-5.7cm)LA (2D)4.2 (1.9-4.0cm)Aortic Root3.6 (2.0-3.7cm) LVDs6.3 (2.5-4.0cm)LA (MM) (1.9-4.0cm)Aortic Cusp Exc1.7 (1.5-2.0cm) EF (%) 12.0 (55-70%)Rt. Atrium4.8 (1.9-4.0cm)Asc. Aorta cm IVSd1.0 (0.7-1.1cm)RV (D) (1.8-2.4cm) PWd1.2 (0.7-1.1cm) Mitral Valve MitralMitral Stenosis E wave0.50m/sMV Mean GR.mmHg A wave1.20m/sMV Peak GR.mmHg E/A ratio0.42D MVAcm2 Aortic Valve Aortic ValveAortic Stenosis V10.50m/Janice Mean GR.2mmHg V21.00m/Janice Peak GR.4mmHg LVOT Diameter2.3 (1.8-2.4cm)Doppler AVA2.08cm2 Tricuspid Valve TR Velocity2.90m/s [id number] Conclusion Technically good study. Sinus rhythm. Enlarged left ventricle. Biatrial enlargement. Aortic root enlargement. RV enlargement. The mitral aortic and tricuspid appear to be structurally normal. No intrinsic defects. Left ventricular function is markedly diminished. EF is proximally 10% with severe global hypokinesi s. Doppler reveals No pericardial effusion masses or vegetations.
[2025-05-21] MEDS: TAMSULOSIN HYDROCHLORIDE 0.4 MG CAP PO SCH (18:22)
[2025-05-21 20:00] VITALS: PULSE 69
[2025-05-21 20:37] VITALS: BP 109/69; PULSE 69; RESP 18; TEMP 97.5; O2SAT 91
[2025-05-21] MEDS: ATORVASTATIN 20 MG TAB PO SCH (21:59)
[2025-05-22 00:50] VITALS: BP 101/54; PULSE 75; RESP 16; TEMP 97.9; O2SAT 91
[2025-05-22 05:00] VITALS: BP 100/66; PULSE 65; RESP 18; TEMP 98.4; O2SAT 98
[2025-05-22] MEDS: cefTRIAXone 1GM/50ML D5W 50 ML IV SCH (05:46)
[2025-05-22 07:04] LABS: Hematocrit 43.8 % (41.0-53.0); Hemoglobin 15.3 g/dL (13.5-17.5); Mean Corpuscular Hemoglobin 29.3 pg (28.0-32.0); Mean Corpuscular Volume 84.1 fL (80.0-100.0); Nucleated Red Blood Cells % 0.1 %
[2025-05-22 07:17] LABS: Albumin 3.7 g/dL (3.2-4.8); Alkaline Phosphatase 83 U/L (46-116); Anion Gap 9 (5-15); BUN/Creatinine Ratio 16.1 (10.0-20.0); Calcium 9.4 mg/dL (8.7-10.4); Carbon Dioxide 25 mmol/L (20-31); Glucose 85 mg/dL (74-106); Potassium 4.1 mmol/L (3.5-5.1); Sodium 142 mmol/L (136-145); Total Protein 5.8 g/dL (5.7-8.2)
[2025-05-22 07:18] LABS: Bilirubin, Total 0.8 mg/dL (0.2-1.0)
[2025-05-22 07:21] LABS: Alanine Aminotransferase 63 U/L (7-40); Blood Urea Nitrogen 24 mg/dL (9-23); Chloride 108 mmol/L (98-107)
[2025-05-22 08:00] VITALS: PULSE 88; O2SAT 95
[2025-05-22 08:40] VITALS: BP 112/66; PULSE 88; RESP 17; TEMP 98.2; O2SAT 87
[2025-05-22 09:04] LABS: Hematocrit 45.9 % (41.0-53.0); Hemoglobin 15.4 g/dL (13.5-17.5); Mean Corpuscular Hemoglobin 28.5 pg (28.0-32.0); Mean Corpuscular Volume 84.8 fL (80.0-100.0); Nucleated Red Blood Cells % 0.0 %
[2025-05-22 09:22] LABS: Albumin 3.8 g/dL (3.2-4.8); Alkaline Phosphatase 84 U/L (46-116); Anion Gap 7 (5-15); BUN/Creatinine Ratio 16.8 (10.0-20.0); Bilirubin, Total 0.8 mg/dL (0.2-1.0); Calcium 9.3 mg/dL (8.7-10.4); Carbon Dioxide 29 mmol/L (20-31); Chloride 107 mmol/L (98-107); Glucose 97 mg/dL (74-106); Potassium 4.2 mmol/L (3.5-5.1); Sodium 143 mmol/L (136-145); Total Protein 6.0 g/dL (5.7-8.2)
[2025-05-22 09:23] LABS: Alanine Aminotransferase 66 U/L (7-40); Blood Urea Nitrogen 24 mg/dL (9-23)
--- NOTE | 2025-05-22 09:49 | DVHDS2 ---
Discharge Summary Date of Admission May 21, 2025 at 04:51 Date of Discharge: May 22, 2025 Labs/Diagnostic Data: Laboratory Results Test 05/22/25 08:32 05/21/25 12:49 05/21/25 05:30 White Blood Count 9.7 10^3/uL (4.4-10.8) Red Blood Count 5.41 10^6/uL (4.5-5.90) Hemoglobin 15.4 g/dL (13.5-17.5) Hematocrit 45.9 % (41.0-53.0) Mean Corpuscular Volume 84.8 fL (80.0-100.0) Mean Corpuscular Hemoglobin 28.5 pg (28.0-32.0) Mean Corpuscular Hemoglobin Concent 33.6 g/dL (32.0-36.0) Red Cell Distribution Width 16.2 % (11.8-14.3) Platelet Count 199 10^3/uL (140-450) Mean Platelet Volume 7.7 fL (6.9-10.8) Neutrophils (%) (Auto) 66.4 % (37.0-80.0) Lymphocytes (%) (Auto) 17.3 % (10.0-50.0) Monocytes (%) (Auto) 10.6 % (0.0-12.0) Eosinophils (%) (Auto) 5.0 % (0.0-7.0) Basophils (%) (Auto) 0.7 % (0.0-2.0) Neutrophils # (Auto) 6.5 10 ^3/uL (1.6-8.6) Lymphocytes # (Auto) 1.7 10 ^3/uL (0.4-5.4) Monocytes # (Auto) 1.0 10 ^3/uL (0-1.3) Eosinophils # (Auto) 0.5 10 ^3/uL (0-0.8) Basophils # (Auto) 0.1 10 ^3/uL (0-0.2) Nucleated Red Blood Cells 0.0 % Sodium Level 143 mmol/L (136-145) Potassium Level 4.2 mmol/L (3.5-5.1) Chloride Level 107 mmol/L (98-107) Carbon Dioxide Level 29 mmol/L (20-31) Anion Gap 7 (5-15) Blood Urea Nitrogen 24 mg/dL (9-23) Creatinine 1.43 mg/dL (0.700-1.30) Glomerular Filtration Rate Calc 53 mL/min (>90) BUN/Creatinine Ratio 16.8 (10.0-20.0) Serum Glucose 97 mg/dL (74-106) Calcium Level 9.3 mg/dL (8.7-10.4) Total Bilirubin 0.8 mg/dL (0.2-1.0) Aspartate Amino Transferase (AST) 60 U/L (13-40) Alanine Aminotransferase (ALT) 66 U/L (7-40) Alkaline Phosphatase 84 U/L (46-116) Total Protein 6.0 g/dL (5.7-8.2) Albumin 3.8 g/dL (3.2-4.8) Urine Color Yellow (Yellow) Urine Clarity Cloudy (Clear) Urine pH 6.0 (5.0-9.0) Urine Specific [place] 1.017 (1.001-1.035) Urine Protein 1+ (Negative) Urine Ketones Negative (Negative) Urine Blood 2+ /uL (Negative) Urine Nitrite 1+ (Negative) Urine Bilirubin Negative (Negative) Urine Urobilinogen Normal mg/dL (Negative) Urine Leukocyte Esterase 3+ /uL (Negative) Urine RBC 71 /hpf (0 - 3) Urine Microscopic WBC 1026 /HPF (0-3) Urine Squamous Epithelial Cells None seen /hpf (<5) Urine Bacteria Many /hpf (None Seen) Urine Glucose Normal mg/dL (Normal) B-Type Natriuretic Peptide 499.78 pg/mL (0-100) Other Laboratory Tests 05/22/25 08:32 Brief Hx & Hospital Course: SEE DICTATED NOTE Condition at Discharge: Good Final Diagnosis/Problems List BPH Discharge Disposition: Home Discharge Instruct/Medications Diet: Cardiac 2g Na,low cholest Activity: No Restrictions, As Tolerated Follow Up/Referral: FU WITH PCP/SURGERY Medications: RESUME HOME MEDS Scheduled Albuterol Sulfate (Ventolin), 1 VIAL NEB Q4HR Aspirin (Aspirin Low Dose), 81 MG PO DAILY Atorvastatin Calcium (Atorvastatin Calcium), 20 MG PO HS Carvedilol (Carvedilol), 3.125 MG PO BID, (Reported) Empagliflozin (Jardiance), 10 MG PO DAILY Finasteride (Finasteride), 5 MG PO DAILY, (Reported) Furosemide (Furosemide), 40 MG PO BID Levofloxacin Hemihydrate (Levofloxacin), 750 MG PO DAILY Levothyroxine Sodium (Levothyroxine Sodium), 150 MCG PO QAM, (Reported) Metolazone (Metolazone), 2.5 MG PO 2XW Pantoprazole Sodium Sesquihydr (Pantoprazole Sodium), 40 MG PO DAILY Tamsulosin Hcl (Flomax), 1 CAP PO HS Scheduled PRN Acetaminophen (Acetaminophen), 500 MG PO PRN PRN for pain, (Reported) Acetaminophen (Acetaminophen), 650 MG PO Q6HP PRN Discharge Statement: "Patient was advised to return to the ER or call 911 if any headaches, dizziness, shortness of breath, chest pain, abdominal pain, bleeding, fevers, or worsening of medical condition. Patient was counseled about treatment plan, medications, possible side effects, patientverbalized understanding. All questions were answered to the best of my ability. This discharge took greater then 30 minutes in planning, reviewing documentation, counseling the patient, and discussing with other team members." ASSESSMENT ASSESSMENT Assessment BPH Date of Service: May 22, 2025 Billing Provider: EMEKA MCALLISTER MD Common Visit Codes: 52420-LHM/OBS DISCH DAY >30min Secondary Visit Codes: [id number] CARE PLAN 30 MINUTES EMEKA MCALLISTER MD May 22, 2025 09:49
[2025-05-22] MEDS ORDERED: CIPR250T26 PO (10:02)
--- NOTE | 2025-05-22 10:19 | DVHDS ---
DATE OF DISCHARGE: 05/22/2025 HISTORY OF PRESENT ILLNESS: The patient is a 69-year-old gentleman who was admitted after he went into acute urinary retention and inability to put back his Vargas catheter. The patient has history of ventral hernia, hypothyroidism, BPH, and previous laparotomy with colostomy reversal. HOSPITAL COURSE: The patient had evidence of UTI. He was placed on IV Rocephin. Creatinine was at about 1.4. The patient had a CT of abdomen and pelvis that showed a distended bladder with emphysematous changes in the bladder wall and possible small bladder stone and moderate left and mild right hydronephrosis. The patient had a renal ultrasound that showed a possible 2 cm stone adjacent to the bladder wall. The patient's chest x-ray showed bilateral air space disease. The patient's BNP was 499. The patient's echocardiogram showed an ejection fraction of approximately 10%. The patient developed an allergic reaction to Rocephin. He will be discharged if his rash gets better. The patient had a urology consult by Dr. Hawkins and had a Vargas catheter reinserted. He will be discharged to be on Levaquin 250 mg daily for 7 days. FINAL DIAGNOSES: * Acute urinary retention. * Acute on chronic systolic heart failure. * UTI. * LIKELY, ALLERGIC REACTION TO ROCEPHIN. * Ventral hernia. * Hypothyroidism. * CKD stage 3B. * Transaminitis. Advanced care planning: The patient is a full code. Time spent was 18 minutes. Time spent in discharge planning and review of plan with the patient and nursing was 38 minutes. MD KIM Sanders/ANTHONY TID: [id number] RECEIPT: [id number]
[2025-05-22] MEDS: CIPROFLOXACIN 400MG/200ML 200 ML IV ONE (10:49)
[2025-05-22] MEDS: FUROSEMIDE 20 MG/2 ML VIAL IV SCH (10:49)
[2025-05-22] MEDS: diphenhdrAMINE HCL 50 MG/1 ML VL IV ONE (10:50)
[2025-05-22] MEDS: FAMOTIDINE (10MG/ML) 2ML VL IV ONE (10:53)
[2025-05-22 12:25] VITALS: BP 118/72; PULSE 87; RESP 16; TEMP 97.2; O2SAT 98
[2025-05-22 13:10] VITALS: BP 118/72; PULSE 87; RESP 19; TEMP 97.2; O2SAT 98
--- NOTE | 2025-05-22 21:14 | DVHINCON2 ---
Date of service: May 22, [address] Espinoza Reason for Consultation Acute kidney injury History of Present Illness Silverio Chery is a 69-year-old M with a Past Medical History pertinent for BPH on Teixeira dependent for last 2 years, large abdominal ventral hernia, status post laparotomy and colostomy reversal who presented to the hospital with complaint of acute urinary retention. Found with evidence of UTI. CT of abdomen and pelvis showed a distended bladder with emphysematous changes in the bladder wall and possible small bladder stone and moderate left and mild right hydronephrosis. Renal ultrasound reported a possible 2 cm stone adjacent to the bladder wall. Echocardiogram showed an ejection fraction of approximately 10%. Urology consulted and patient had a Teixeira catheter reinserted. Patient denies any new complaints. Reports feeling better. Creatinine has remained around 1.43-1.49. BUN of 24. eGFR 53. Allergies: Coded Allergies: Ceftriaxone (Verified Allergy, Mild, Hives, itching, 05/22/25) Patient has red hives and itching after administration Home Meds Active Scripts Ciprofloxacin Hydrochloride (Ciprofloxacin HCl) 250 Mg Tab, 250 MG PO BID for 10 Days, #20 TAB Prov:EMEKA MCALLISTER MD 05/22/25 Levofloxacin Hemihydrate (LEVOFLOXACIN) 750 Mg Tab, 750 MG PO DAILY for 5 Days, #5 TAB Prov:CLARISSE WARREN RESIDENT 01/10/25 Furosemide (Furosemide) 40 Mg Tab, 40 MG PO BID for 30 Days, #60 TAB Prov:MICHA RAMIREZ 10/04/24 Metolazone (Metolazone) 5 Mg Tab, 2.5 MG PO 2XW for 30 Days, #15 TAB Prov:MICHA RAMIREZ 10/04/24 Acetaminophen (Acetaminophen) 325 Mg Tab, 650 MG PO Q6HP PRN for 10 Days, #80 TAB Prov:MICHA RAMIREZ RESIDENT 10/04/24 Empagliflozin (Jardiance) 10 Mg Tab, 10 MG PO DAILY for 30 Days, #30 TAB Prov:MORIAH ROJAS MD 08/23/24 Albuterol Sulfate (Ventolin) 2.5 Mg/0.5 Ml Nb, 1 VIAL NEB Q4HR, #60 VIAL 1 Refill Prov:MARTIN SPENCER 05/07/24 Atorvastatin Calcium (ATORVASTATIN CALCIUM) 20 Mg Tab, 20 MG PO HS for 30 Days, #30 TAB Prov:MICHA RAMIREZ RESIDENT 03/20/24 Aspirin (Aspirin Low Dose) 81 Mg Tab, 81 MG PO DAILY for 30 Days, #30 TAB Prov:MICHA RAMIREZ RESIDENT 03/20/24 Pantoprazole Sodium Sesquihydr (Pantoprazole Sodium) 40 Mg Tab, 40 MG PO DAILY for 30 Days, #30 TAB Prov:EMEKA MCALLISTER MD 01/20/23 Tamsulosin Hcl (Flomax) 0.4 Mg Cap, 1 CAP PO HS, #30 CAP 11 Refills Prov:DARIAN DIEGO MD 03/29/22 Reported Medications Finasteride (Finasteride) 5 Mg Tab, 5 MG PO DAILY, MG 03/18/24 Carvedilol (Carvedilol) 3.125 Mg Tab, 3.125 MG PO BID, MG 03/18/24 Acetaminophen (Acetaminophen) 500 Mg Tab, 500 MG PO PRN PRN for pain 03/17/22 Levothyroxine Sodium (Levothyroxine Sodium) 150 Mcg Tab, 150 MCG PO QAM 02/25/16 Current Medications Current Medications Medications (Trade) Dose Ordered Sig/Tawnya Route PRN Reason Start Time Stop Time Status Last Admin Furosemide (Lasix Injection) 20 mg DAILY IV 05/22/25 10:00 05/22/25 14:57 DC 05/22/25 10:49 Atorvastatin Calcium (Lipitor) 10 mg HS PO 05/21/25 22:00 05/22/25 14:57 DC 05/21/25 21:59 Ceftriaxone Sodium 50 ml @ 100 mls/hr Q24H IV 05/22/25 06:00 05/22/25 10:02 DC 05/22/25 05:46 Family History: Family history: Thyroid disorder G8 FATHER Prostate problems G8 FATHER Review of Systems 10 point ROS reviewed and negative unless otherwise noted in HPI. H&P Exam Vital Signs/I&O Vital Sign Date Time Temp Pulse Resp B/P (MAP) Pulse Ox O2 Delivery O2 Flow Rate FiO2 05/22/25 13:10 97.2 87 19 118/72 (87) 98 97.2 05/22/25 08:00 Room Air* 0 21 Intake and Output 05/21/25 05/22/25 19:00 07:00 Intake Total 200 ml 800 ml Output Total 1100 ml 700 ml Balance -900 ml 100 ml Intake Oral 200 ml 800 ml Output Urine Total 1100 ml 700 ml Physical Exam Vitals and nursing notes reviewed. General Appearance: Cooperative, No acute distress HEENT: Atraumatic, PERRLA, EOMI, Mucous membrane moist/pink Respiratory: Clear to auscultation, Normal air movement Cardiovascular: Regular rate, Normal S1, Normal S2, No murmurs, no chest wall tenderness Abdominal: Large ventral hernia, Normal bowel sounds, Soft, No tenderness, No hepatospenomegaly, No masses Extremities: No clubbing, No cyanosis, No edema, Normal pulses, No tenderness/swelling Skin: No rashes, No breakdown, No significant lesion Neuro: A&Ox3, Strength at 5/5 X4 ext, Normal tone, Sensation intact, Cranial nerves 3-12 NL, Reflexes 2+ Psych/Mental Status: Mental status NL, Mood NL Labs/Diagnostic Data Labs/Diagnostic Data Laboratory Tests Test 05/22/25 08:32 05/22/25 04:49 05/21/25 12:49 05/21/25 05:30 Range/Units White Blood Count 9.7 8.8 7.9 4.4-10.8 10^3/uL Red Blood Count 5.41 5.21 5.47 4.5-5.90 10^6/uL Hemoglobin 15.4 15.3 15.9 13.5-17.5 g/dL Hematocrit 45.9 43.8 46.4 41.0-53.0 % Mean Corpuscular Volume 84.8 84.1 84.7 80.0-100.0 fL Mean Corpuscular Hemoglobin 28.5 29.3 29.1 28.0-32.0 pg Mean Corpuscular Hemoglobin Concent 33.6 34.8 34.3 32.0-36.0 g/dL Red Cell Distribution Width 16.2 H 15.8 H 15.5 H 11.8-14.3 % Platelet Count 199 191 144 140-450 10^3/uL Mean Platelet Volume 7.7 8.2 7.7 6.9-10.8 fL Neutrophils (%) (Auto) 66.4 62.1 58.7 37.0-80.0 % Lymphocytes (%) (Auto) 17.3 21.2 25.6 10.0-50.0 % Monocytes (%) (Auto) 10.6 9.7 10.4 0.0-12.0 % Eosinophils (%) (Auto) 5.0 6.2 4.4 0.0-7.0 % Basophils (%) (Auto) 0.7 0.8 0.9 0.0-2.0 % Neutrophils # (Auto) 6.5 5.5 4.6 1.6-8.6 10 ^3/uL Lymphocytes # (Auto) 1.7 1.9 2.0 0.4-5.4 10 ^3/uL Monocytes # (Auto) 1.0 0.9 0.8 0-1.3 10 ^3/uL Eosinophils # (Auto) 0.5 0.5 0.3 0-0.8 10 ^3/uL Basophils # (Auto) 0.1 0.1 0.1 0-0.2 10 ^3/uL Nucleated Red Blood Cells 0.0 0.1 0.2 % Sodium Level 143 142 142 136-145 mmol/L Potassium Level 4.2 4.1 4.3 3.5-5.1 mmol/L Chloride Level 107 108 H 107 98-107 mmol/L Carbon Dioxide Level 29 25 25 20-31 mmol/L Anion Gap 7 9 10 5-15 Blood Urea Nitrogen 24 H 24 H 24 H 9-23 mg/dL Creatinine 1.43 H 1.49 H 1.43 H 0.700-1.30 mg/dL Glomerular Filtration Rate Calc 53 51 53 >90 mL/min BUN/Creatinine Ratio 16.8 16.1 16.8 10.0-20.0 Serum Glucose 97 85 117 H 74-106 mg/dL Calcium Level 9.3 9.4 10.0 8.7-10.4 mg/dL Total Bilirubin 0.8 0.8 0.6 0.2-1.0 mg/dL Aspartate Amino Transferase (AST) 60 H 59 H 79 H 13-40 U/L Alanine Aminotransferase (ALT) 66 H 63 H 75 H 7-40 U/L Alkaline Phosphatase 84 83 110 46-116 U/L Total Protein 6.0 5.8 7.0 5.7-8.2 g/dL Albumin 3.8 3.7 4.4 3.2-4.8 g/dL Urine Color Yellow Yellow Urine Clarity Cloudy H Clear Urine pH 6.0 5.0-9.0 Urine Specific [place] 1.017 1.001-1.035 Urine Protein 1+ H Negative Urine Ketones Negative Negative Urine Blood 2+ H Negative /uL Urine Nitrite 1+ H Negative Urine Bilirubin Negative Negative Urine Urobilinogen Normal Negative mg/dL Urine Leukocyte Esterase 3+ Negative /uL Urine RBC 71 0 - 3 /hpf Urine Microscopic WBC 1026 H 0-3 /HPF Urine Squamous Epithelial Cells None seen <5 /hpf Urine Bacteria Many H None Seen /hpf Urine Glucose Normal Normal mg/dL B-Type Natriuretic Peptide 499.78 0-100 pg/mL Assessment Acute urinary retention secondary to BPH SIA on CKD Large incisional hernia, status post laparotomy for bowel perforation and colostomy reversal Chronic decompensated systolic heart failure Hypothyroidism Transaminitis without hyperbilirubinemia Plan/Recommendation Agreement with your ongoing assessment and plan of care. Monitor BMP. Electrolyte replacement prn. Lasix 20 mg IV daily. Strict Intake/Output. IV antibiotics. DVT/GI prophylaxis. Pain management prn. DC planning in progress. Patient's teixeira bag was replaced with a leg bag at this time. Patient will go home with teixeira catheter. Cleared for discharge from Nephrology standpoint with outpatient follow up re commended. Plan discussed with: Patient, Other (RN) MARGO PAREDES DO May 22, 2025 21:14
== END 2025-05-22 14:50 | disposition home or self-care (01) | DRG 725 ==
LOC: ER 00:01 → OVERFLOW 04:51 → CENTRAL 14:42
PROVIDERS: ADMIT Internal Medicine; ATTEND Internal Medicine
PROC: 0T9B70Z Drainage of Bladder with Drainage Device, Via Natural or Artificial Opening (ICD-10-PCS; principal; 2025-05-21)
DX: N40.1 Benign prostatic hyperplasia with lower urinary tract symptoms (principal); I50.23 Acute on chronic systolic (congestive) heart failure; N13.6 Pyonephrosis; K43.2 Incisional hernia without obstruction or gangrene; E03.9 Hypothyroidism, unspecified; N18.32 Chronic kidney disease, stage 3b; J44.89 Other specified chronic obstructive pulmonary disease; F17.210 Nicotine dependence, cigarettes, uncomplicated; R33.8 Other retention of urine; R74.01 Elevation of levels of liver transaminase levels; T36.1X5A Adverse effect of cephalosporins and other beta-lactam antibiotics, initial encounter; Z79.82 Long term (current) use of aspirin; Z79.899 Other long term (current) drug therapy; Z79.2 Long term (current) use of antibiotics; Y92.89 Other specified places as the place of occurrence of the external cause
CPT/HCPCS: 36415; 71045; 74176; 76775; 80053; 81001; 83880; 85025; 87086; 93306; 96372; G0378; J1885; J3490

== ENCOUNTER 2025-07-12 07:23 | Emergency (ER) | payer MEDICAID ==
[~2025-07-12] VITALS: Ht 172.7 cm; Wt 84.0 kg
[~2025-07-12 07:23] MED LIST changes: +CIPR250T26 PO
--- NOTE | 2025-07-12 07:43 | ED.PDOC ---
History of Present Illness HPI Comments A 69 YEAR OLD MALE PRESENTS TO THE ED WITH COMPLAINT OF HERRERA CATHETER REPLACED. PATIENT REPORTS ON TRYING TO CHANGE HIS HERRERA CATHETER EVERY MONTH TO BE CLEAN, AND HAS NOT BEEN ABLE TO PLEASE HERRERA CATHETER IN FOR THE PAST 60 MINUTES. OPT REQUESTS HERRERA CATHETER CHANGE. PATIENT DENIES FEVER, CHILLS, SHORTNESS OF BREATH, CHEST PAIN, ABDOMINAL PAIN, NAUSEA, VOMITING, HEADACHE, OR OTHER COMPLAINTS. NO OTHER SYMPTOMS OR MODIFYING FACTORS AT THIS TIME. PATIENT IS ALERT, ORIENTED X 4, AND HAS STEADY GAIT. Chief Complaint: Urinary Time Seen by MD: 07:30 Primary Care Provider: UNKNOWN Reviewed Notes: Nurses Notes, Medications, Allergies Allergies: Coded Allergies: Ceftriaxone (Verified Allergy, Mild, Hives, itching, 05/22/25) Patient has red hives and itching after administration Home Meds Active Scripts Sulfamethoxazole W/Trimethopri (Bactrim Ds Tablet) 1 Tab Tb, 1 TAB PO BID for 10 Days, #20 TAB Prov:MARTIN SPENCER 07/12/25 Ciprofloxacin Hydrochloride (Ciprofloxacin HCl) 250 Mg Tab, 250 MG PO BID for 10 Days, #20 TAB Prov:EMEKA MCALLISTER MD 05/22/25 Levofloxacin Hemihydrate (LEVOFLOXACIN) 750 Mg Tab, 750 MG PO DAILY for 5 Days, #5 TAB Prov:CLARISSE WARREN RESIDENT 01/10/25 Furosemide (Furosemide) 40 Mg Tab, 40 MG PO BID for 30 Days, #60 TAB Prov:MICHA RAMIREZ 10/04/24 Metolazone (Metolazone) 5 Mg Tab, 2.5 MG PO 2XW for 30 Days, #15 TAB Prov:MICHA RAMIREZ 10/04/24 Acetaminophen (Acetaminophen) 325 Mg Tab, 650 MG PO Q6HP PRN for 10 Days, #80 TAB Prov:MICHA RAMIREZ RESIDENT 10/04/24 Empagliflozin (Jardiance) 10 Mg Tab, 10 MG PO DAILY for 30 Days, #30 TAB Prov:MORIAH ROJAS MD 08/23/24 Albuterol Sulfate (Ventolin) 2.5 Mg/0.5 Ml Nb, 1 VIAL NEB Q4HR, #60 VIAL 1 Refill Prov:MARTIN SPENCER 05/07/24 Atorvastatin Calcium (ATORVASTATIN CALCIUM) 20 Mg Tab, 20 MG PO HS for 30 Days, #30 TAB Prov:MICHA RAMIREZ RESIDENT 03/20/24 Aspirin (Aspirin Low Dose) 81 Mg Tab, 81 MG PO DAILY for 30 Days, #30 TAB Prov:MICHA RAMIREZ RESIDENT 03/20/24 Pantoprazole Sodium Sesquihydr (Pantoprazole Sodium) 40 Mg Tab, 40 MG PO DAILY for 30 Days, #30 TAB Prov:EMEKA MCALLISTER MD 01/20/23 Tamsulosin Hcl (Flomax) 0.4 Mg Cap, 1 CAP PO HS, #30 CAP 11 Refills Prov:DARIAN DIEGO MD 03/29/22 Reported Medications Finasteride (Finasteride) 5 Mg Tab, 5 MG PO DAILY, MG 03/18/24 Carvedilol (Carvedilol) 3.125 Mg Tab, 3.125 MG PO BID, MG 03/18/24 Acetaminophen (Acetaminophen) 500 Mg Tab, 500 MG PO PRN PRN for pain 03/17/22 Levothyroxine Sodium (Levothyroxine Sodium) 150 Mcg Tab, 150 MCG PO QAM 02/25/16 Information Source: Patient Mode of Arrival: Ambulatory Severity: Mild Timing: Minutes Duration: Since onset, Minutes Prehospital treatment: None Medication Refill: For: Other (HERRERA CATHETER CHANGE. ) Past Medical History PAST MEDICAL HISTORY: Asthma, CHF, COPD, Thyroid Past Medical History (Other): BPH Surgical History: Denies all surgeries Family History Family History: Reviewed,noncontributory to illness, Unknown Social History Smoker: Cigarettes, Less Than 1 Pack/Day Alcohol: Denies ETOH Use Drugs: Denies Drug Use Lives In: Home Constitutional: denies: chills, diaphoresis, fatigue, fever, malaise, sweats, weakness, others EENTM: denies: blurred vision, double vision, ear bleeding, ear discharge, ear drainage, ear pain, ear ringing, eye pain, eye redness, hearing loss, mouth pain, mouth swelling, nasal discharge, nose bleeding, nose congestion, nose pain, photophobia, tearing, throat pain, throat swelling, voice changes, others Respiratory: denies: cough, hemoptysis, orthopnea, SOB at rest, shortness of breath, SOB with excertion, stridor, wheezing, others Cardiovascular: denies: chest pain, dizzy spells, diaphoresis, Dyspnea on exertion, edema, irregular heart beat, left arm pain, lightheadedness, palpitations, PND, syncope, others Gastrointestinal: denies: abdomen distended, abdominal pain, blood streaked bowels, constipated, diarrhea, dysphagia, difficulty swallowing, hematemesis, melena, nausea, poor appetite, poor fluid intake, rectal bleeding, rectal pain, vomiting, others Genitourinary: reports: others (HERRERA CATHETER CHANGED); denies: burning, dysuria, flank pain, frequency, hematuria, incontinence, penile discharge, penile sore, pain, testicle pain, testicle swelling, urgency Neurological: denies: dizziness, fainting, headache, left sided numbness, left sided weakness, numbness, paresthesia, pre-existing deficit, right sided numbness, right sided weakness, seizure, speech problems, tingling, tremors, weakness, others Musculoskeletal: denies: back pain, gout, joint pain, joint swelling, muscle pain, muscle stiffness, neck pain, others Integumetry: denies: bruises, change in color, change in hair/nails, dryness, laceration, lesions, lumps, rash, wounds, others Allergic/Immunocompromised: denies: Difficulty Healing, Frequent Infections, Hives, Itching, others Hematologic/Lymphatic: denies: anemia, blood clots, easy bleeding, easy bruising, swollen glands, others Endocrine: denies: excessive hunger, excessive sweating, excessive thirst, excessive urination, flushing, intolerance to cold, intolerance to heat, unexplained weight gain, unexplained weight loss, others Psychiatric: denies: anxiety, bipolar disorder, depression, hopeless, panic disorder, schizophrenia, sleepless, suicidal, others All Other Systems: Reviewed and Negative Physical Exam General Appearance: No Apparent Distress, Normal HEENT: Normal ENT Inspection, PERRL/EOMI, Pharynx Normal, TMs Normal Neck: Full Range of Motion, Non-Tender, Normal, Normal Inspection Respiratory: Chest Non-Tender, Lungs Clear, No Accessory Muscle Use, No Respiratory Distress, Normal Breath Sounds Cardiovascular: No Edema, No JVD, No Murmur, No Gallop, Normal Peripheral Pulses, Regular Rate/Rhythm Breast Exam: Deferred Gastrointestinal: No Organomegaly, Non Tender, No Pulsatile Mass, Normal Bowel Sounds, Soft Genitalia: Deferred Pelvic: Deferred Rectal: Deferred Extremities: No calf tenderness, Normal capillary refill, Normal inspection, Normal range of motion, Non-tender, No pedal edema Musculoskeletal : Apperance: Normal Neurologic: Alert, washer and crusher tender II-XII nml as Tested, No Motor Deficits, Normal Affect, Normal Mood, No Sensory Deficits Cerebellar Function: Normal Reflexes: Normal Skin: Dry, Normal Color, Warm Peripheral Pulses: 2+ carotid (R), 2+ carotid (L), 2+ dorsalis pedis (R), 2+ dorsalis pedis (L) Lymphatic: No Adenopathy Was a procedure done? Was a procedure done?: No Differential Dx Considerations may include: HERRERA CATHETER CHANGE, UTI X-Ray, Labs, Meds, VS Vital Signs Date Time Temp Pulse Resp B/P (MAP) Pulse Ox O2 Delivery O2 Flow Rate FiO2 07/12/25 07:25 97.9 52 16 167/76 94 97.9 X-Ray, Labs, Meds, VS Comment EXTERNAL MEDICAL RECORDS REVIEWED: [NONE] INDEPENDENT HISTORIANS: [NONE] SOCIAL DETERMINANTS OF HEALTH: [NONE] LABS ORDERED: UA REVIEWED AND INTERPRETED RESULTS: PENDING IMAGING ORDERED: NONE TREATMENTS ORDERED: HERRERA CATHETER CHANGE PROCEDURES PERFORMED: NO CRITICAL CARE TIME: NONE I HAVE DISCUSSED THE PATIENT WITH THE ATTENDING PHYSICIAN DR. MA AND HE AGREES WITH THE PATIENT'S PLAN OF CARE AND DISPOSITION. BASED ON HISTORY OF PRESENT ILLNESS, AND PHYSICAL EXAM, PATIENT WILL BE DISCHARGED HOME. DISCUSSED PLAN FOR DISCHARGE HOME WITH RX [[facility]]. MEDICATION WARNINGS GIVEN. SHARED DECISION MAKING: DISCUSSED WITH PATIENT THAT THEIR WORKUP WAS NORMAL. PATIENT INSTRUCTED TO FOLLOW UP WITH PRIMARY CARE PROVIDER IN 1-2 DAYS FOR RE- EVALUATION OF SYMPTOMS. PATIENT VERBALIZES UNDERSTANDING TO RETURN TO ED FOR NEW OR WORSENING SYMPTOMS OR IF FOLLOW UP WITH PCP CANNOT BE OBTAINED. PATIENT FEELS COMFORTABLE GOING HOME AT THIS TIME. ALL QUESTIONS ADDRESSED AT TIME OF DISCHARGE. Time of 1ST Reevaluation: 08:00 Reevaluation 1ST: Improved Patient Education/Counseling: Diagnosis, Treatment, Prognosis Family Education/Counseling: Diagnosis, Treatment, No Family Present Medical Screening: No EMC Exist At This Time SEPSIS Sepsis Screen Date sepsis recognized/suspect: Jul 12, 2025 Time Sepsis recognized/suspect: 724 Recent Procedure: No On Antibiotic Therapy: No Respiratory Rate >20: No Heart Rate >90: No Temp<36 C (96.8 F) or >38.3 C: No SBP <90 or MAP <65 mmHG: No New Acute Mental Status Change: No Is the patient on CPAP, BIPAP,: No Physician Orders Urinalysis (07/12/25 07:27) Herrera Catheters (07/12/25 ) Vital Signs Date Time Temp Pulse Resp B/P (MAP) Pulse Ox O2 Delivery O2 Flow Rate FiO2 07/12/25 07:25 97.9 52 16 167/76 94 97.9 Departure 1 Departure Time of Disposition: 08:00 Impression: Primary Impression: Encounter for Herrera catheter replacement Additional Impression: Acute UTI (urinary tract infection) Disposition: HOME / SELF CARE / HOMELESS Condition: Stable Additional Instructions: F/U PCP IN 2 DAYS RECHECK. IF CONDITION BECOME WORSE, RETURN TO ED [facility]. e-Prescriptions Sulfamethoxazole W/Trimethopri (Bactrim Ds Tablet) 1 Tab Tb 1 TAB PO BID for 10 Days, #20 TAB Prov: MARTIN SPENCER 07/12/25 Discharged With: Self Critical Care Note Critical Care Time?: No Stability Stability form required: No I personally scribed for MARTIN SPENCER ([email or web address]) on 07/12/25 at 07:43. El ectronically submitted by Ricardo Gregg ([email or web address]). MARTIN SPENCER Jul 12, 2025 07:43
[2025-07-12] MEDS ORDERED: BACDST PO (07:45)
[2025-07-12 07:59] VITALS: BP 167/76; PULSE 52; RESP 16; TEMP 97.9; O2SAT 94
[2025-07-12 08:22] LABS: Urine Protein, UAD Negative (Negative)
== END 2025-07-12 08:04 | disposition home or self-care (01) ==
LOC: ER 07:23
DX: N39.0 Urinary tract infection, site not specified (principal); Z46.82 Encounter for fitting and adjustment of non-vascular catheter; Z88.1 Allergy status to other antibiotic agents; Z79.899 Other long term (current) drug therapy
CPT/HCPCS: 51702; 81001; 99284; A4315

== ENCOUNTER 2025-08-16 09:58 | Day surgery (SDC) | payer MEDICAID ==
[2025-08-14 15:32] LABS: Hematocrit 47.6 % (41.0-53.0); Hemoglobin 16.1 g/dL (13.5-17.5); Mean Corpuscular Hemoglobin 29.3 pg (28.0-32.0); Mean Corpuscular Volume 86.5 fL (80.0-100.0); Nucleated Red Blood Cells % 0.1 %
[2025-08-14 15:45] LABS: INR 1.06 (0.9-1.15); Partial Thromboplastin Time 26.6 SEC (24.5-34.5); Prothrombin Time 11.2 sec (9.3-11.8)
[2025-08-14 15:48] LABS: Alkaline Phosphatase 106 U/L (46-116); Anion Gap 10 (5-15); BUN/Creatinine Ratio 11.5 (10.0-20.0); Blood Urea Nitrogen 17 mg/dL (9-23); Calcium 9.1 mg/dL (8.7-10.4); Carbon Dioxide 30 mmol/L (20-31); Chloride 101 mmol/L (98-107); Glucose 83 mg/dL (74-106); Potassium 3.9 mmol/L (3.5-5.1); Sodium 141 mmol/L (136-145); Total Protein 7.0 g/dL (5.7-8.2)
[2025-08-14 15:49] LABS: Alanine Aminotransferase 80 U/L (7-40); Albumin 4.1 g/dL (3.2-4.8); Bilirubin, Total 0.6 mg/dL (0.2-1.0)
[2025-08-16] VITALS (11 sets, daily range): BP systolic 116–160; BP diastolic 60–94; PULSE 63–91; RESP 11–18; TEMP 98.5; O2SAT 92–98
[~2025-08-16] VITALS: Ht 172.7 cm; Wt 82.6 kg
[~2025-08-16 09:58] MED LIST changes: -ACET-1882 PO; -ACET500T58 PO; -ALB5IS NEB; -ATOR20TA50 PO; -CARV3.1240 PO; -CIPR250T26 PO; -EMPA1TAB PO; -FINA5TAB4 PO; -LEVO750T40 PO; -METO5TAB5 PO; -PANT40T PO
[2025-08-16] MEDS: IODIXANOL 320MG/ML 100ML BTL IV ONE (12:17)
[2025-08-16] MEDS: fentaNYL CITRATE 100 MCG/2 ML VL ONE (12:26)
[2025-08-16] MEDS: HEPARIN SODIUM (PORCINE) 5000 UNITS/ML 1ML VIAL ONE (12:26)
[2025-08-16] MEDS: VERAPAMIL 2.5MG/ML INJ 2ML VIAL IV ONE (12:26)
[2025-08-16] MEDS: ANGIOMAX 250 MG VIAL IV ONE (12:26)
[2025-08-16] MEDS: MIDAZOLAM HCL 2MG/2ML 2ml VIAL (1mg/ml) ONE (12:27)
[2025-08-16] MEDS: SODIUM CHL 0.9% 50 ML ONE (12:27)
[2025-08-16] MEDS: LIDOCAINE 2%HCL (LOCAL ANESTH.) INJ 20ML MDV ONE (12:27)
[2025-08-16] MEDS: CLOPIDOGREL BISULFATE 75 MG TAB ONE (13:30)
--- NOTE | 2025-08-16 13:39 | DVHOP2 ---
Operative Report - 2 Report Details Date: 08/16/25 Preop Diagnosis: CAD Postop Diagnosis: CAD Surgeon: Blake Martino MD Anesthesiologist: CONSCIOUS SEDATION Anesthesia: Mac, Local Consent: The patient was informed of the risks and benefits of the procedure. These include but are not limited to complications of anesthesia, postoperative infection, incomplete relief of symptoms, recurrence of symptoms, damage to blood vessels, nerves and tendons, deep venous thrombosis, pulmonary embolism and possible need for repeat surgery in the future. Complications: NONE Findings: CAD Indications for Surgery: PREOP CLEARANCE Name of Procedure Performed LEFT HEART CATHETERIZATION. BILATERAL CINE CORONARY ANGIOGRAPHY. LEFT VENTRICULOGRAPHY. PTCA AND STENT OF THE LAD AND CIRCUMFLEX. INTRAVASCULAR ULTRASOUND EVALUATION OF THE CIRCUMFLEX. Procedure Details Procedure Details: Prior local anesthesia with 2% lidocaine to the right wrist and full informed consent obtained the patient was prepped and draped in the usual fashion followed by placement of a six [place]e sheath into the radial artery through w hich a Rcih catheter was used for ventriculography and cannulation of both right and left coronary ostia. We then proceeded with a three five XB you guide to perform angioplasty of the circumflex and LAD. Hemodynamics: The aortic blood pressure was 130/70. End-diastolic pressure was five there was no gradient across AV on pullback. Coronary anatomy: The RCA is a large vessel it is normal in its proximal mid and distal segment. The PDA and posterolateral branches are normal. Left main is large and normal. The left anterior descending coronary artery is a large vessel proximal 65-75% stenosis. FFR evaluation fills 0.73 consistent with critical lesions the LAD at its proximal to mid section. The diagonals are normal. The distal segment of the LAD is normal. Circumflex is a large vessel it is normal in its proximal segment. The mid segment has a 75-80% stenosis. This is at the origin of the marginal and continuation of the circumflex proper. The posterolateral branches free of significant disease otherwise. Ventriculography in the KUO projection shows an EF of 35% with global hypokinesis and an enlarged left ventricle. Angioplasty was performed for which a three five EBU guide was used with a Specter wire placed across the stenosis pre dilatation with a two five balloon and intravascular ultrasound revealing a 3.5 to 4-0 vessel. We placed a three 5 x 12 mm stent into the circumflex and dilated to a proximal 18-20 atmospheres to a 3.9 mm diameter stent. There was excellent antegrade flow without thrombus formation and/or dissection. We then redirected our wire into the left anterior descending coronary artery and directly stented with a two 5 x 12 mm philip [place] drug-eluting stent at a proximally 18 atmospheres. There was excellent antegrade flow without thrombus formation under dissection. Impression: Normal left ventricular end-diastolic pressure at rest with decreased left ventricular ejection fraction. Two-vessel coronary artery disease as noted above with successful stenting of the circumflex and left anterior descending coronary artery. Recommendations: Dual antiplatelet therapy. Risk factor modification to continue. Outpatient follow up in 2-3 weeks. Condition Good Disposition Home Date of Service: Aug 16, 2025 Billing Provider: BLAKE MARTINO Sr., MD Cardiology Common Codes: 55793-OBSCNZX INP/OBS CARE (High) Cardiology Procedure Codes: 45648-XDERCE VESSEL W/I VASC FAM, 63717 -PTCA W/STENT PLACEMENT, 28025-GVAO ADD CORONARY BRANCH, 61917-KXGU HEART CATH W/INTRA INJ BLAKE MARTINO Sr., MD Aug 16, 2025 13:39
== END 2025-08-16 16:10 | disposition home or self-care (01) ==
LOC: CATH 09:58
PROVIDERS: ATTEND Internal Medicine
DX: I25.10 Atherosclerotic heart disease of native coronary artery without angina pectoris (principal); R94.39 Abnormal result of other cardiovascular function study; Z95.5 Presence of coronary angioplasty implant and graft; R06.09 Other forms of dyspnea; I50.20 Unspecified systolic (congestive) heart failure; Z88.8 Allergy status to other drugs, medicaments and biological substances
CPT/HCPCS: 36415; 80053; 85025; 85610; 85730; 92978; 93458; C1725; C1753; C1769; C1874; C1887; C1894; C9600; J0583; J1644; J2250; J3010; J7040; 99152; 99153; Q9967

== ENCOUNTER 2025-09-26 21:36 | Emergency (ER) | payer MEDICAID ==
[~2025-09-26] VITALS: Ht 172.7 cm; Wt 84.0 kg
--- NOTE | 2025-09-26 22:33 | ED.PDOC ---
General HPI Comments 69-year-old male presents to ER for Teixeira catheter placement. Patient with past medical history significant for BPH reports that he removed his Teixeira catheter at 7:30 p.m. prior to arrival to ER at home and presents to ER requesting teixeira catheter placement. He states his teixeira catheter he removed was last placed one month ago and usually replaces his teixeira catheter at home but was unsuccessful at his attempts tonight prompting him to come to ER for teixeira catheter placement. Denies any pain and reports that he is following up with his urologist Dr. Garcia this month. Patient presents to ER afebrile, ambulatory, steady gait, in no distress. Denies fever, body aches, chills, abdominal/pelvic pain, dysuria/hematuria, flank pain or any further symptoms/complaints Chief Complaint: Tube Replacement Time Seen by MD: 21:49 Primary Care Provider: UNKNOWN Reviewed notes: Nurses Notes, Medications, Allergies Allergies: Coded Allergies: Ceftriaxone (Verified Allergy, Mild, Hives, itching, 08/14/25) Patient has red hives and itching after administration Home Meds Active Scripts Aspirin (Aspirin Low Dose) 81 Mg Tab, 81 MG PO DAILY for 30 Days, #30 TAB Prov:MICHA RAMIREZ RESIDENT 03/20/24 Tamsulosin Hcl (Flomax) 0.4 Mg Cap, 1 CAP PO HS, #30 CAP 11 Refills Prov:DARIAN DIEGO MD 03/29/22 Reported Medications Furosemide (Furosemide) 40 Mg Tab, 40 MG PO DAILY for EDEMA 08/14/25 Levothyroxine Sodium (Levothyroxine Sodium) 150 Mcg Tab, 150 MCG PO QAM 02/25/16 Information Source: Patient Mode of Arrival: Ambulatory Past Medical History PAST MEDICAL HISTORY: Asthma, CHF, COPD, Thyroid Past Medical History (Other): BPH Surgical History: Denies all surgeries Family History Family History: Unknown Social History Smoker: Cigarettes, Less Than 1 Pack/Day Alcohol: Denies ETOH Use Drugs: Denies Drug Use Lives In: Home Constitutional: denies: chills, diaphoresis, fatigue, fever, malaise, sweats, weakness, others EENTM: denies: blurred vision, double vision, ear bleeding, ear discharge, ear drainage, ear pain, ear ringing, eye pain, eye redness, hearing loss, mouth pain, mouth swelling, nasal discharge, nose bleeding, nose congestion, nose pain, photophobia, tearing, throat pain, throat swelling, voice changes, others Respiratory: denies: cough, hemoptysis, orthopnea, SOB at rest, shortness of breath, SOB with excertion, stridor, wheezing, others Cardiovascular: denies: chest pain, dizzy spells, diaphoresis, Dyspnea on exertion, edema, irregular heart beat, left arm pain, lightheadedness, palpitations, PND, syncope, others Gastrointestinal: denies: abdomen distended, abdominal pain, blood streaked bowels, constipated, diarrhea, dysphagia, difficulty swallowing, hematemesis, melena, nausea, poor appetite, poor fluid intake, rectal bleeding, rectal pain, vomiting, others Genitourinary: reports: others (As stated in HPI) Neurological: denies: dizziness, fainting, headache, left sided numbness, left sided weakness, numbness, paresthesia, pre-existing deficit, right sided numbness, right sided weakness, seizure, speech problems, tingling, tremors, weakness, others Musculoskeletal: denies: back pain, gout, joint pain, joint swelling, muscle pain, muscle stiffness, neck pain, others Integumetry: denies: bruises, change in color, change in hair/nails, dryness, laceration, lesions, lumps, rash, wounds, others Allergic/Immunocompromised: denies: Difficulty Healing, Frequent Infections, Hives, Itching, others Hematologic/Lymphatic: denies: anemia, blood clots, easy bleeding, easy bruising, swollen glands, others Endocrine: denies: excessive hunger, excessive sweating, excessive thirst, excessive urination, flushing, intolerance to cold, intolerance to heat, unexplained weight gain, unexplained weight loss, others Psychiatric: denies: anxiety, bipolar disorder, depression, hopeless, panic disorder, schizophrenia, sleepless, suicidal, others Physical Exam General Appearance: No Apparent Distress HEENT: PERRL/EOMI Neck: Full Range of Motion, Non-Tender, Normal Respiratory: Chest Non-Tender, Lungs Clear, No Accessory Muscle Use, No Respiratory Distress, Normal Breath Sounds Cardiovascular: No Murmur, No Gallop, Regular Rate/Rhythm Breast Exam: Deferred Gastrointestinal: Non Tender, No Pulsatile Mass, Soft Genitalia: Deferred Pelvic: Deferred Rectal: Deferred Extremities: Normal capillary refill, Normal range of motion Neurologic: Alert, No Motor Deficits, Normal Affect, Normal Mood, No Sensory Deficits Cerebellar Function: Normal Reflexes: Normal Skin: Dry, Normal Color, Warm Peripheral Pulses: 2+ Radial (R), 2+ Radial (L), 2+ Brachial (R), 2+ Brachial (L) Lymphatic: No Adenopathy Was a procedure done? Was a procedure done?: No Sedation Sedation?: No Differential Diagnosis Kidney stone (Female): N/A Kidney stone (Male): Pyelonephritis, Urinary obstruction Penile/Scrotal: Urolithiasis X-Ray, Labs, Meds, VS Vital Signs Date Time Temp Pulse Resp B/P (MAP) Pulse Ox O2 Delivery O2 Flow Rate FiO2 09/26/25 23:01 Room Air* 0 21 09/26/25 23:01 97.8 82 20 126/57 (80) 95 97.8 09/26/25 21:40 97.8 82 20 126/57 93 97.8 Lab Test 09/26/25 22:50 Range/Units Urine Color Yellow Yellow Urine Clarity Turbid H Clear Urine pH 5.5 5.0-9.0 Urine Specific [place] 1.021 1.001-1.035 Urine Protein 1+ H Negative Urine Ketones Negative Negative Urine Blood 2+ H Negative /uL Urine Nitrite Negative Negative Urine Bilirubin Negative Negative Urine Urobilinogen 2 H Negative mg/dL Urine Leukocyte Esterase 3+ Negative /uL Urine RBC 33 0 - 3 /hpf Urine WBC Clumps Present None Seen /hpf Urine Microscopic WBC 479 H 0-3 /HPF Urine Squamous Epithelial Cells None seen <5 /hpf Urine Bacteria Mod H None Seen /hpf Urine Hyaline Casts Few 0 - 2 /lpf Urine Mucus Few None Seen Urine Glucose Normal Normal mg/dL Previous chart visits reviewed Teixeira catheter placed at bedside by nurse without complication Urinalysis post teixeira catheter placement reviewed-urine leukocyte esterase 3+, urine nitrites negative, urine blood 2+ Patient had improvement in symptoms and in no distress prior to discharge Advised to follow up with PCP and urologist in 1-2 days Patient verbalized understanding and agreeable with current plan of care Advised to return to ER immediately if symptoms worsen Time of 1ST Reevaluation: 21:20 Reevaluation 1ST: N/A Patient Education/Counseling: Diagnosis, Treatment, Prognosis, Need For Follow Up Family Education/Counseling: No Family Present SEPSIS Sepsis Screen Date sepsis recognized/suspect: Sep 26, 2025 Time Sepsis recognized/suspect: 2143 Recent Procedure: No On Antibiotic Therapy: No Respiratory Rate >20: No Heart Rate >90: No Temp<36 C (96.8 F) or >38.3 C: No SBP <90 or MAP <65 mmHG: No New Acute Mental Status Change: No Is the patient on CPAP, BIPAP,: No Physician Orders Insert Teixeira Catheter ONCE (09/26/25 21:49) Urine Bacterial Culture (09/26/25 22:02) Vital Signs Date Time Temp Pulse Resp B/P (MAP) Pulse Ox O2 Delivery O2 Flow Rate FiO2 09/26/25 23:01 Room Air* 0 21 09/26/25 23:01 97.8 82 20 126/57 (80) 95 97.8 09/26/25 21:40 97.8 82 20 126/57 93 97.8 Departure 1 Departure Time of Disposition: 22:43 Impression: Primary Impression: Urinary retention due to benign prostatic hyperplasia Additional Impressions: Encounter for Teixeira catheter replacement UTI (urinary tract infection) Qualified Codes: N30.01 - Acute cystitis with hematuria Disposition: HOME / SELF CARE / HOMELESS Condition: Stable e-Prescriptions Sulfamethoxazole W/Trimethopri (Bactrim Ds Tablet) 1 Tab Tb 1 TAB PO BID for 7 Days, #14 TAB 0 Refills Prov: SANTO LEVY 09/26/25 Discharged With: Self Critical Care Note Critical Care Time?: No Stability Stability form required: No Heart Score Heart Score: Heart Score Response (Comments) Value History N/A 0 EKG N/A 0 Age N/A 0 Risk Factors N/A 0 Troponin N/A 0 Total 0 SANTO LEVY Sep 26, 2025 22:33
[2025-09-26 23:01] VITALS: BP 126/57; PULSE 82; RESP 20; TEMP 97.8; O2SAT 95
[2025-09-26 23:21] LABS: Urine Protein, UAD 1+ (Negative); Urine WBC Clumps PRESENT /hpf (None Seen)
[2025-09-26] MEDS ORDERED: BACDST PO (23:29)
== END 2025-09-26 23:38 | disposition home or self-care (01) ==
LOC: ER 21:36
DX: N39.0 Urinary tract infection, site not specified (principal); N40.1 Benign prostatic hyperplasia with lower urinary tract symptoms; E03.9 Hypothyroidism, unspecified; I50.9 Heart failure, unspecified; J44.89 Other specified chronic obstructive pulmonary disease; F17.210 Nicotine dependence, cigarettes, uncomplicated; Z46.6 Encounter for fitting and adjustment of urinary device; Z79.82 Long term (current) use of aspirin; Z79.890 Hormone replacement therapy; Z79.899 Other long term (current) drug therapy; Z88.1 Allergy status to other antibiotic agents
CPT/HCPCS: 51702; 81001; 87086